=== PATIENT | female | born 1950 | race Caucasian/White ===

== ENCOUNTER 2016-03-28 04:07 | Emergency (ER) | payer MEDICARE, OTHER ==
[~2016-03-28] VITALS: Ht 177.8 cm; Wt 101.6 kg
[~2016-03-28 04:07] MED LIST: ALPR-557 PO; ALPR.25T PO; ALPR.5T PO; ALPR0.2550; ALPR0.5T PO; ALPR0.5T7 PO; AMIO200T10 PO; AMIO400T5 PO; AML5T PO; AMLO5TAB2; AMLO5TAB2 PO; AMOX-358 PO; APIX5TAB2 PO; ASP325T; ASP325T PO; ASP325TEC PO; ASP81TEC PO; CHLO25TA22 PO; CIPR500T78 PO; CITA20TA4 PO; CLC500CT PO; DABI150C PO; DEXL60CA PO; DEXL60CA5 PO; DIGO250T PO; DIGO250T15 PO; DILT120C PO; DILT120C17; DILT180T7 PO; DILT240C PO; DILT240T PO; DILT360C26; DILT60TA PO; DILT60TA30 PO; DLT60T PO; Diltiazem Hcl PO; ENXP100I SC; FLC100T; FLEC100T2 PO; FLEC50TA18 PO; FLEC50TA2 PO; HCTZ12.5T PO; HYDR-3816 PO; HYDR12.56 PO; HYDR12.570; HYDR25TA4 PO; ISM60TCR PO; ISOS60TA3 PO; LACT1CAP62 PO; LEVA15HF2 IH; LEVO500T2 PO; LEVO500T69 PO; LEVO500T80 PO; LEVO75TA PO; LEVO75TA57 PO; LEVO75TA6 PO; LISI20TA PO; LORA-794 PO; LORA0.5T PO; LORA10TA7 PO; LOSA100T7 PO; LOSA50TA36 PO; LOSA50TA6 PO; LVT.05T PO; MAGN400T6 PO; MELO-195; NF-XOP-HFA IH; NF-XOP-HFA INH; OLME40TA14; OLME40TA14 PO; OMEP-10; OMEP-10 PO; OMEPRAZOLE; ONDAN4ODT PO; PHEN200T27 PO; POLY17PO23 GT; POLY1DRO2 OD; PRILOSEC; PROP120C3 PO; PROP20TA23; PROP20TA23 PO; PROP20TA5 PO; PROP225T PO; PROP40TA5 PO; PROP60TA16; PROP60TA16 PO; RANI-515 PO; SOTA120T PO; SOTA80TA PO; Sotalol Hcl PO; TRAM-21 PO; WARF10TA4 PO; WARF7.5T5 PO; WRF10T; WRF10T PO; WRF5T PO; [UNRECOGNIZED DRUG - OTHER] PO
--- OUTSIDE RECORDS SUMMARY | 2016-03-28 04:14 | XMS REPORT | Continuity of Care Document ---
Author Author [facility] Organization [facility] Address Unknown Phone Unavailable Care Team Providers Care Music Publisher Name Role Phone Stephan Harris PCP [phone] Source Comments Some departments are not documenting in the electronic medical record. If you do not see the information that you expected, contact Release of Information in the Health Information Management department at [phone] for further assistance in locating additional records.[facility] Active Allergies and Adverse Reactions Allergen Noted Date Severity Reactions Comments Codeine 11/01/2009 UNKNOWN Upset stomach Demerol 11/01/2009 SEE COMMENTS Double vision Keflex 11/01/2009 SHORTNESS OF BREATH Multaq 11/01/2009 NAUSEA AND VOMITING Other 11/01/2009 EDEMA Pecans Tekturna 11/01/2009 NAUSEA AND VOMITING Current Medications Prescription Sig. Disp. Refills Start End Date Status Date Dexlansoprazole Take 60 mg by mouth Active (DEXILANT) 60 mg PO CpDM Daily. ALPRAZolam (XANAX) 0.5 mg Take 0.25 mg by mouth Active PO tablet daily. Levalbuterol Tartrate 1-2 puffs up to three 1 Inhaler 12 03/15/20 Active (XOPENEX HFA) 45 times daily if needed. 11 mcg/Actuation inhaler olmesartan(+) (BENICAR) Take 40 mg by mouth Active 40 mg tablet daily. diltiazem CD (CARDIZEM Take 180 mg by mouth Active CD) 180 mg capsule daily. sotalol (BETAPACE) 120 mg Take 160 mg by mouth Active tab twice daily. ELIQUIS 5 mg tab tablet TAKE ONE TABLET BY MOUTH 180 Tab 3 07/11/19 Active TWICE DAILY 16 Active Problems Problem Noted Date Pseudoaneurysm (HCC) 08/27/2013 Overview: Right Groin: small in size. Resolved, continue to monitor. Screening for cardiovascular condition 06/28/2013 Overview: 06/23/13 Lexiscan stress test at [facility]- Breast attenuation w/ mild ischemia involving basal to mid anterior wall, anterior septum, fixed defect at anterior apex and anterior lateral wall. Normal LV size w/ good contractility. EF 63%- Reviewed by MPE. Hypothyroidism 03/15/2011 Last Assessment & Plan: Given an order to have TSH obtained to reassess. Obesity (BMI 30-39.9) 03/15/2011 Last Assessment & Plan: Encourage to exercise at least 20 minutes three times a week. Refusal of blood transfusions as patient is Mu-ism 03/14/2011 Hypertension 11/01/2009 Overview: At her 06/16/13 OV, she was experiencing BOWER. I anticipated this was related to accelerated HTN with exercise. Another Possibility was chronotropic incompetence with exercise. We started by trying to improve her BP management. She was currently on an ARB, HCTZ, Diltiazem. We switched her HCTZ to chlorthalidone. Apparently she had some intolerance to Chlorthalidone. She discussed this with her PMD who switched her back to HCTZ. Still having increased BP we initiated Imdur. Unfortunately she developed a nearly incapacitating Head Ache with bilateral arm pain to the point of presenting to the ED. Her Sxs were relieved by Toradol and her Imdur was discontinued at that time. L ast Assessment & Plan: Continues to be poorly controlled. Could be a contributing factor to her dyspnea. History of cardiac catheterization 11/01/2009 Overview: 1. 04/2005-Cath by Dr. Alonzo-LAD tapers to small vessel with questionable ctpeyrgch-17-49% plaque in the mid segment, no obstructive disease. 2. 08/01/09-Exercise Stress Test: Poor exercise tolerance achieving 4.6 METs and 95% of maximum HR. Atrial Fibrillation. Nondiagnostic ECG. Severe HTN with exercise. EF 60%. --2011 (?) Cardiac Cath. By Dr. Luciano in [place], [place]. Reportedly nonobstructive disease. L ast Assessment & Plan: History of non-obstructive CAD per cath. If her symptoms of dyspnea continue to persist despite optimal blood pressure control, recommend exercise echocardiogram to evaluate for ischemia or worsening LV function. Anxiety 11/01/2009 GERD (gastroesophageal reflux disease) 11/01/2009 Atrial fibrillation (HCC) Overview: ULISES at [facility] by 04/19/13 Negative for LA and YONNY thrombus, LA dilated, YONNY dilated, LV normal, estimated EF 60%, RA and RV normal, no intra atrial shunt noted, MV normal, mild MV regurg, AV normal, TV and PV normal 11/20/2010 - Started on Zoloft 25 mg PO QHS PRN anxiety. 07/16/2010 - Progress Note from Dr. Stephan Harris DO. In the document, the physician states thept c/o occasional palpitations in her chest. And she has a device to record the episodes "howevere is unable to activate it by the time the palpitations occur because they are short-lived". Coumadin therapy 10/16/09-ULISES/Cardioversion: EF 60%. Mild mitral regurgitation. Successful cardioversion. 10/01/09-Holter Monitor: Afib throughout the study. Average ventricular rate 86 bpm, with ventricular rate up to 144 bpm with exertion. No significant bradycardia. 09/06/09-ULISES/Cardioversion: EF 60%. Successful Cardioversion. Initial episode of Atrial Fibrillation in the - converted on her own 05/04/14: Successful DCCV at [facility] in [place] May 2010 - atrial fibrillation ablation 08/2012 - presented to the ED in Atrial fibrillation - converted on cardizem, continues to take Amiodarone 02/16/13 Echo: Normal LV size and systolic function. Estimated EF 50%. Mildly dilated LA. Mild mitral and tricuspid regurgitation. Estimated PAP of 30mmHg. 04/19/13 ULISES: normal LV size and systolic function; estimated EF 60%; Dilated LA and YONNY; no clot or thrombus seen within the LA or YONNY. Mild mitral and tricuspid regurgitation. 08/17/13 CCTA: There is mild hypertrophy of the left ventricular septum. 2. The left atrial appendage may contain significant thrombus. 3. There is evidence of coronary artery calcification suggestive of underlying coronary artery disease. This study was not optimized for detailed interrogation of the coronary arteries. 4. There is mild dilation of ascending thoracic aorta. 5. There is mild dilation of the main pulmonary artery. 6. The atria are moderately dilated. 7. There are mild decreases in pulmonary vein ostial area on the present study when compared to the prior study of April 20, 2013. However the left atrium is correspondingly smaller on the present study compared to the prior which may account for the smaller pulmonary vein measurements on the present study. 8. There appears to be no evidence of significant pulmonary vein stenosis both by visual qualitative examination as well as by quantitative measurement when the changes in left atrial volume are taken into account. Accordingly this study does not suggest the presence of significant pulmonary vein stenosis. 9. Noncardiac findings are reported separately by radiology. L ast Assessment & Plan: Unfortunately, despite being on amiodarone, she has had recurrence. Because she does not have insurance, pursing repeat ablation is not an option at this time. PFTs were obtained last week and demonstrated a minimal obstructive lung defect with no other abnormalities. She continues to be off of anticoagulation. Her CHADS2 score continues to be 1. She will continue full dose aspirin. Sleep apnea Overview: CPAP L ast Assessment & Plan: States she is compliant with therapy. Dyspnea Overview: Started within the last 2 weeks, has noticed since being on Amiodarone L ast Assessment & Plan: Continues to complain of dyspnea. PFTs and chest xray were without any significant abnormalities. May have some chronotropic incompetence - instructed to decrease propanolol to 40 mg daily and see if this improves symptoms. If no symptomatic improvement, she will restart as she also take propanolol for migraine and tremor control. 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
[2016-03-28] MEDS ORDERED: ASPIRIN 81 MG CHEW (CHILDREN'S ASA) PO ONE (04:30)
[2016-03-28 04:35] LABS: BASOPHILS % (AUTO) 1 % (0-10); EOSINOPHILS # (AUTO) 0.2 10^3/uL (0.0-0.3); EOSINOPHILS % (AUTO) 2 % (0-10); LYMPHOCYTES # (AUTO) 3.1 X 10^3 (1.0-4.0); LYMPHOCYTES % (AUTO) 40 % (12-44); MEAN CORPUSCULAR HEMOGLOBIN 30 PG (25-34); MEAN CORPUSCULAR HGB CONC 33 G/DL (32-36); MEAN CORPUSCULAR VOLUME 93 FL (80-99); MEAN PLATELET VOLUME 10.8 FL (7.4-10.4); MONOCYTES # (AUTO) 0.7 X 10^3 (0.0-1.0); MONOCYTES % (AUTO) 9 % (0-12); NEUTROPHILS # (AUTO) 3.7 X 10^3 (1.8-7.8); NEUTROPHILS % (AUTO) 48 % (42-75); PLATELET COUNT 188 10^3/uL (130-400); RED BLOOD COUNT 4.49 10^6/uL (4.35-5.85); RED CELL DISTRIBUTION WIDTH 13.9 % (10.0-14.5); WHITE BLOOD COUNT 7.8 10^3/uL (4.3-11.0)
[2016-03-28 04:40] LABS: INR 1.2 (0.8-1.4); PROTHROMBIN TIME PATIENT 14.5 SEC (12.2-14.7)
[2016-03-28] MEDS ORDERED: LORazepam INJ 2 MG/ML (ATIVAN) VIAL IVP ONE (04:45)
[2016-03-28 04:50] LABS: ALANINE AMINOTRANSFERASE 24 U/L (0-55); ALBUMIN 4.4 G/DL (3.2-4.5); ANION GAP 10 MMOL/L (5-14); ASPARTATE AMINO TRANSFERASE 22 U/L (5-34); BILIRUBIN,TOTAL 0.5 MG/DL (0.1-1.0); BLOOD UREA NITROGEN 16 MG/DL (7-18); BUN/CREATININE RATIO 21; CALCIUM 9.1 MG/DL (8.5-10.1); CARBON DIOXIDE 24 MMOL/L (21-32); CHLORIDE 105 MMOL/L (98-107); CREATININE SERUM 0.75 MG/DL (0.60-1.30); GFR ESTIMATED > 60; GLUCOSE 89 MG/DL (70-105); MAGNESIUM 2.5 MG/DL (1.8-2.4); POTASSIUM 3.7 MMOL/L (3.6-5.0); SODIUM 139 MMOL/L (135-145); TOTAL PROTEIN 7.6 G/DL (6.4-8.2)
[2016-03-28 04:59] LABS: MYOGLOBIN SERUM 30.2 NG/ML (10.0-92.0)
[2016-03-28 05:16] LABS: BILIRUBIN,URINE NEGATIVE (NEGATIVE); KETONES,URINE NEGATIVE (NEGATIVE); LEUKOCYTE ESTERASE ,URINE 1+ (NEGATIVE); NITRITE,URINE NEGATIVE (NEGATIVE); PH,URINE 7 (5-9); PROTEIN,URINE NEGATIVE (NEGATIVE); UROBILINOGEN,URINE NORMAL (NORMAL)
[2016-03-28 05:21] LABS: SQUAMOUS EPITHELIAL CELL,UR 0-2 /HPF; WBC,URINE 0-2 /HPF
[2016-03-28 05:41] LABS: THYROID STIMULATING HORMONE 1.96 UIU/ML (0.35-4.94)
--- NOTE | 2016-03-28 06:24 | Diagnostic Imaging Report ---
INDICATION: Palpitations. TECHNIQUE: Single view chest 5:29 AM. CORRELATION STUDY: 07/19/2015 FINDINGS: Electronic device over left heart border. Heart size is borderline but stable. Vasculature within normal limits. Lungs are clear. Unchanged asymmetric elevation of the right hemidiaphragm. IMPRESSION: 1. Stable chest demonstrates no acute abnormality. Dictated by: Dictated on workstation # [id number]
--- NOTE | 2016-03-28 06:54 | ED Cardiac General ---
History of Present Illness General Chief Complaint: Cardiac/General Problems Stated Complaint: SOB,HIGH BLOOD PRESSURE,PALPITATIONS Nursing Triage Note: PT REPORTS SHE HAS HAD INCREASED PALPITATIONS RECENTLY, WORSE AT 2200 LAST NIGHT. SHE TOOK HER BP ET WAS HYPERTENSIVE. SHE ALSO C/O SOA. Source: patient, old records Exam Limitations: no limitations History of Present Illness Time seen by provider: 04:15 Initial Comments This 65-year-old woman with history of chronic atrial fibrillation presents to the emergency room complaining of palpitations and some mild chest discomfort. Symptoms started around 22:00 last night. She reports her heart was "flipping" and she became short of air. She reports her blood pressure at home was 183/ 112 at 03:00. She admits to problems with compliance with her medications. She believes she forgot this evening's Cardizem. She has been treated for UTI recently and complains of urinary odor even after taking antibiotics. She denies any chest pain at present but has had some chest pains over the last few weeks. Review of her chart reveals a heart catheter in 2013 noting mild to moderate LAD disease. Patient already has a follow-up appointment scheduled with Dr. Luciano. Allergies and Home Medications Allergies Coded Allergies: flecainide (Verified Allergy, Severe, 06/16/14) warfarin (Verified Allergy, Severe, 06/16/14) aliskiren (Unverified Allergy, Unknown, 06/16/14) cephalexin (Verified Allergy, Unknown, 06/16/14) codeine (Verified Allergy, Unknown, 06/16/14) dronedarone HCl (Unverified Allergy, Unknown, 06/16/14) Home Medications Alprazolam 0.5 Mg Tablet 0.5 MG PO HS (Reported) Apixaban 5 Mg Tablet 5 MG PO 0000,1200 (Reported) Diltiazem HCl 60 Mg Tablet 60 MG PO QID (Reported) Levalbuterol Tartrate 15 Gm Aer.w.adap 2 PUFF IH QID PRN PRN SHORTNESS OF BREATH (Reported) Levothyroxine Sodium 75 Mcg Tablet 75 MCG PO DAILY (Reported) Losartan Potassium 50 Mg Tablet 50 MG PO 1730 (Reported) Propranolol HCl 20 Mg Tablet 10 MG PO 0730,1730,2230 (Reported) TAKES 1/2 (10MG) TABLET Review of Systems Constitutional: no symptoms reported EENTM: No Symptoms Reported Respiratory: See HPI Cardiovascular: See HPI Gastrointestinal: No Symptoms Reported Genitourinary: See HPI Musculoskeletal: no symptoms reported Skin: no symptoms reported Psychiatric/Neurological: No Symptoms Reported Endocrine: No Symptoms Reported Past Igkyhzy-Tothyf-Fiawjn Hx Patient Social History Alcohol Use: Denies Use Recreational Drug Use: No Smoking Status: Never a Smoker Recent Foreign Travel: No Contact w/Someone Who Travel: No Recent Infectious Disease Expo: No Recent Hopitalizations: Yes Physical Abuse Screen: No Sexual Abuse: No Immunizations Up To Date Tetanus Booster (TDap): Unknown Seasonal Allergies Seasonal Allergies: Yes Surgeries HX Surgeries: Yes (HAS A LINQ READER UNDER SKIN (TO MONITER HEART RHYTHM) ) Surgeries: Amputation, Gallbladder, Hysterectomy, Orthopedic Respiratory Hx Respiratory Disorders: Yes (CPAP AT HS) Respiratory Disorders: Asthma, Chronic Bronchitis, Sleep Apnea, COPD Cardiovascular Hx Cardiac Disorders: Yes (FAILED CARDIAC ABLATION X 2; MULTIPLE CARDIOVERSIONS ; LINQ MONIT) Cardiac Disorders: Atrial Fibrillation, Chronic Edema/Swelling, Coronary Artery Disease, Hypertension Neurological Hx Neurological Disorders: No Reproductive System Hx Reproductive Disorders: No Genitourinary Hx Genitourinary Disorders: No Gastrointestinal Hx Gastrointestinal Disorders: Yes Gastrointestinal Disorders: Gastroesophageal Reflux Musculoskeletal Hx Musculoskeletal Disorders: No Endocrine Hx Endocrine Disorders: Yes (HYPOGLYCEMIC) Endocrine Disorders: Hypothyroidsim HEENT HX ENT Disorders: 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; GLASSES) Cancer Hx Cancer: No Psychosocial Hx Psychiatric Problems: Yes Behavioral Health Disorders: Anxiety, Depression Integumentary HX Skin/Integumentary Disorder: No Blood Transfusions Hx Blood Disorders: No (PATIENT IS JEHOVAH WITNESS) Family Medical History Significant Family History: CAD Under 55 Years Old, CAD Over 55 Years Old Family Medial History: COPD, EMPHYSEMA 19 FATHER COPD, EMPHYSEMA 19 FATHER Cardiovascular disease 19 FATHER 19 MOTHER (VT) G8 BROTHER (VT) Completed stroke G8 SISTER Hypertension 19 MOTHER Neoplasm G8 BROTHER (LYMPHOMA) Physical Exam Vital Signs Capillary Refill : Less Than 3 Seconds General Appearance: No Apparent Distress WD/WN HEENT: PERRL/EOMI Normal ENT Inspection Neck: Normal Inspection Respiratory: Lungs Clear Normal Breath Sounds No Accessory Muscle Use No Respiratory Distress Cardiovascular: No Edema No Murmur Irregularly Irregular Gastrointestinal: Normal Bowel Sounds Non Tender Soft Extremity: Normal Inspection No Pedal Edema Neurologic/Psychiatric: Alert Oriented x3 No Motor/Sensory Deficits Normal Mood/Affect head of sales II-XII Norm as Tested Skin: Normal Color Warm/Dry Progress/Results/Core Measures Results/Orders Lab Results Laboratory Tests Test 03/28/16 04:20 03/28/16 04:55 Range/Units Activated Partial Thromboplast Time 28 24-35 SEC Alanine Aminotransferase (ALT/SGPT) 24 0-55 U/L Albumin 4.4 3.2-4.5 G/DL Alkaline Phosphatase 78 40-136 U/L Anion Gap 10 5-14 MMOL/L Aspartate Amino Transf (AST/SGOT) 22 5-34 U/L BUN/Creatinine Ratio 21 Basophils # (Auto) 0.0 0.0-0.1 10^3/uL Basophils (%) (Auto) 1 0-10 % Blood Urea Nitrogen 16 7-18 MG/DL Calcium Level 9.1 8.5-10.1 MG/DL Carbon Dioxide Level 24 21-32 MMOL/L Chloride Level 105 98-107 MMOL/L Creatinine 0.75 0.60-1.30 MG/DL Eosinophils # (Auto) 0.2 0.0-0.3 10^3/uL Eosinophils (%) (Auto) 2 0-10 % Estimat Glomerular Filtration Rate > 60 Free Thyroxine 1.13 0.70-1.48 NG/DL Glucose Level 89 70-105 MG/DL Hematocrit 42 35-52 % Hemoglobin 13.6 11.5-16.0 G/DL INR Comment 1.2 0.8-1.4 Lymphocytes # (Auto) 3.1 1.0-4.0 X 10^3 Lymphocytes (%) (Auto) 40 12-44 % Magnesium Level 2.5 H 1.8-2.4 MG/DL Mean Corpuscular Hemoglobin 30 25-34 PG Mean Corpuscular Hemoglobin Concent 33 32-36 G/DL Mean Corpuscular Volume 93 80-99 FL Mean Platelet Volume 10.8 H 7.4-10.4 FL Monocytes # (Auto) 0.7 0.0-1.0 X 10^3 Monocytes (%) (Auto) 9 0-12 % Myoglobin 30.2 10.0-92.0 NG/ML Neutrophils # (Auto) 3.7 1.8-7.8 X 10^3 Neutrophils (%) (Auto) 48 42-75 % Platelet Count 188 130-400 10^3/uL Potassium Level 3.7 3.6-5.0 MMOL/L Prothrombin Time 14.5 12.2-14.7 SEC Red Blood Count 4.49 4.35-5.85 10^6/uL Red Cell Distribution Width 13.9 10.0-14.5 % Sodium Level 139 135-145 MMOL/L Thyroid Stimulating Hormone (TSH) 1.96 0.35-4.94 UIU/ML Total Bilirubin 0.5 0.1-1.0 MG/DL Total Protein 7.6 6.4-8.2 G/DL Troponin I < 0.30 <0.30 NG/ML White Blood Count 7.8 4.3-11.0 10^3/uL Urine Bacteria TRACE /HPF Urine Bilirubin NEGATIVE NEGATIVE Urine Casts NONE /LPF Urine Clarity CLEAR Urine Color YELLOW Urine Crystals NONE /LPF Urine Culture Indicated NO Urine Glucose (UA) NEGATIVE NEGATIVE Urine Ketones NEGATIVE NEGATIVE Urine Leukocyte Esterase 1+ H NEGATIVE Urine Mucus NEGATIVE /LPF Urine Nitrite NEGATIVE NEGATIVE Urine Protein NEGATIVE NEGATIVE Urine RBC NONE /HPF Urine RBC (Auto) NEGATIVE NEGATIVE Urine Specific Broad Top 1.010 L 1.016-1.022 Urine Squamous Epithelial Cells 0-2 /HPF Urine Urobilinogen NORMAL NORMAL MG/DL Urine WBC 0-2 /HPF Urine pH 7 5-9 My Orders Orders-RENALDO CARREON MD Cbc With Automated Diff (03/28/16 04:23) Magnesium (03/28/16 04:23) Chest 1 View, Ap/Pa Only (03/28/16 04:23) Ekg Tracing (03/28/16 04:23) Cardiac Profile 1 (03/28/16 04:23) Comprehensive Metabolic Panel (03/28/16 04:23) Myoglobin Serum (03/28/16 04:23) Protime With Inr (03/28/16 04:23) Partial Thromboplastin Time (03/28/16 04:23) O2 (03/28/16 04:23) Monitor-Rhythm Ecg Trace Only (03/28/16 04:23) Aspirin Chewable Tablet (Baby Aspirin Ch (03/28/16 04:30) Saline Lock/Iv-Start (03/28/16 04:23) Thyroid Stimulating Hormone (03/28/16 04:39) Free T4 (Free Thyroxine) (03/28/16 04:39) Ua Culture If Indicated (03/28/16 04:40) Lorazepam Injection (Ativan Injection) (03/28/16 04:45) Medications Given in ED Vital Signs/I&O Blood Pressure Mean: 146 Progress Note : Progress Note Aspirin had been administered during assessment. Patient was given Ativan which helped improve her symptoms. She did appear anxious. ECG Initial ECG Impression Date: Mar 28, 2016 Initial ECG Impression Time: 04:15 Initial ECG Rate: 98 Initial ECG Rhythm: A Fib/Flutter Comment Rate controlled atrial fibrillation with no acute ST changes. Diagnostic Imaging Diagonstic Imaging: Xray Plain Films/CT/US/NM/MRI: chest Comments Chest x-ray viewed by me. Report not yet available. No acute abnormalities appreciated. Departure Impression Impression: Primary Impression: Atrial fibrillation Qualified Code: I48.2 - Chronic atrial fibrillation Additional Impressions: Palpitations Chest pain Qualified Code: R07.9 - Chest pain, unspecified Disposition: 01 HOME, SELF-CARE Condition: Improved Departure-Patient Inst. Decision time for Depature: 06:45 Referrals: EZRA YAN DO (PCP/Family) Primary Care Physician Patient Instructions: Atrial Fibrillation (DC) Add. Discharge Instructions: Continue your medications as prescribed. Follow-up with Dr. Luciano in the office on your previously scheduled appointment time, or call his office for an earlier appointment. Return to the ER if symptoms worsen. All discharge instructions reviewed with patient and/or family. Voiced understanding. RENALDO CARREON MD Mar 28, 2016 06:54 RENALDO CARREON MD Mar 28, 2016 06:54
[2016-03-28 07:09] VITALS: BP 145/95
== END 2016-03-28 07:09 | disposition home or self-care (01) ==
LOC: EDUNIT# 04:07 → ER 04:09
DX: I48.2 Chronic atrial fibrillation (principal); R00.2 Palpitations; R07.9 Chest pain, unspecified; I10 Essential (primary) hypertension; J44.9 Chronic obstructive pulmonary disease, unspecified; Z79.01 Long term (current) use of anticoagulants; Z79.899 Other long term (current) drug therapy
CPT/HCPCS: 36415; 71010; 80053; 81000; 83735; 83874; 84439; 84443; 84484; 85025; 85610; 85730; 93005; 93041; 96374

== ENCOUNTER → 2016-11-28 | Outpatient (CLI) | payer MEDICARE, OTHER ==
--- NOTE | 2016-11-28 08:44 | Diagnostic Imaging Report ---
PROCEDURE: CT head and CT cervical spine without contrast. TECHNIQUE: Multiple contiguous axial images were obtained through the brain and cervical spine without the use of intravenous contrast. Sagittal and coronal reformations through the cervical spine were then performed. INDICATION: Trauma to head. Neck pain. COMPARISON: 06/29/2015 FINDINGS: CT head: Ventricles and cortical sulci are normal in size and contour. There is no midline shift or mass-effect. No acute intra-axial hemorrhage is seen. There are no abnormal areas of increased or decreased density to suggest acute hemorrhage or edema. No extra-axial masses or collections are present. The bony calvarium is intact. The visualized paranasal sinuses are unremarkable. The mastoid air cells are clear. CT CERVICAL SPINE: Evaluation of static alignment demonstrates straightening with mild reversal of normal lordotic curvature epicentered at the C5 level. This, however, may be related to positioning and/or spasm. There is no significant anterolisthesis or retrolisthesis. There is no evidence of jumped facets. Vertebral body heights are maintained. There is no evidence acute fracture. No bony fragments are seen within the spinal canal. There are multilevel degenerative changes consisting of intervertebral disc height loss with anterior posterior disc osteophyte complex formations. These changes are greatest at the C4-C5 through the C6-C7 levels. Pre-and paravertebral soft tissue structures are unremarkable. Included portions of the lung apices show no additional acute abnormalities. IMPRESSION: 1. No acute intracranial abnormality. No CT evidence of mass, acute infarct or intracranial hemorrhage. 2. No CT evidence of acute fracture or dislocation of cervical spine. 3. Moderate degenerative changes of the cervical spine, greatest at the C4-C5 through C6-C7 levels. Dictated by: Dictated on workstation # [id number]
== END ==
LOC: RAD 08:14
PROVIDERS: ATTEND Family Medicine
DX: M47.812 Spondylosis without myelopathy or radiculopathy, cervical region (principal); R51 Headache
CPT/HCPCS: 70450; 72125

== ENCOUNTER → 2017-02-11 | Outpatient (CLI) | payer MEDICARE, OTHER ==
[2017-02-11 09:44] LABS: ALANINE AMINOTRANSFERASE 20 U/L (0-55); ANION GAP 10 MMOL/L (5-14); ASPARTATE AMINO TRANSFERASE 19 U/L (5-34); BILIRUBIN,TOTAL 0.8 MG/DL (0.1-1.0); BLOOD UREA NITROGEN 13 MG/DL (7-18); BUN/CREATININE RATIO 17; CALCIUM 9.3 MG/DL (8.5-10.1); CARBON DIOXIDE 26 MMOL/L (21-32); CHLORIDE 106 MMOL/L (98-107); CHOLESTEROL 200 MG/DL (< 200); CREATININE SERUM 0.77 MG/DL (0.60-1.30); DIRECT LDL 134 MG/DL (1-129); GFR ESTIMATED > 60; GLUCOSE 88 MG/DL (70-105); POTASSIUM 4.2 MMOL/L (3.6-5.0); SODIUM 142 MMOL/L (135-145); TOTAL PROTEIN 7.5 GM/DL (6.4-8.2); TRIGLYCERIDES 51 MG/DL (<150); VLDL CHOLESTEROL 10 MG/DL (5-40)
[2017-02-11 10:04] LABS: THYROID STIMULATING HORMONE 1.17 UIU/ML (0.35-4.94)
== END ==
LOC: LAB 08:56
PROVIDERS: ATTEND Physician Assistant
DX: E03.8 Other specified hypothyroidism (principal); E78.2 Mixed hyperlipidemia; I25.10 Atherosclerotic heart disease of native coronary artery without angina pectoris; I10 Essential (primary) hypertension; J42 Unspecified chronic bronchitis; E04.1 Nontoxic single thyroid nodule; E03.9 Hypothyroidism, unspecified
CPT/HCPCS: 36415; 80053; 80061; 84439; 84443

== ENCOUNTER 2017-04-02 04:59 | Emergency (ER) | payer MEDICARE, OTHER ==
[~2017-04-02] VITALS: Ht 177.8 cm; Wt 95.3 kg
[2017-04-02 05:43] LABS: BASOPHILS % (AUTO) 1 % (0-10); EOSINOPHILS # (AUTO) 0.2 10^3/uL (0.0-0.3); EOSINOPHILS % (AUTO) 2 % (0-10); HEMATOCRIT 37 % (35-52); HEMOGLOBIN 12.3 G/DL (11.5-16.0); LYMPHOCYTES # (AUTO) 2.8 X 10^3 (1.0-4.0); LYMPHOCYTES % (AUTO) 41 % (12-44); MEAN CORPUSCULAR HEMOGLOBIN 32 PG (25-34); MEAN CORPUSCULAR HGB CONC 34 G/DL (32-36); MEAN CORPUSCULAR VOLUME 94 FL (80-99); MEAN PLATELET VOLUME 10.8 FL (7.4-10.4); MONOCYTES # (AUTO) 0.5 X 10^3 (0.0-1.0); MONOCYTES % (AUTO) 8 % (0-12); NEUTROPHILS # (AUTO) 3.3 X 10^3 (1.8-7.8); NEUTROPHILS % (AUTO) 48 % (42-75); PLATELET COUNT 181 10^3/uL (130-400); RED CELL DISTRIBUTION WIDTH 13.4 % (10.0-14.5); WHITE BLOOD COUNT 6.8 10^3/uL (4.3-11.0)
[2017-04-02 05:56] LABS: INR 1.2 (0.8-1.4); PROTHROMBIN TIME PATIENT 15.2 SEC (12.2-14.7)
--- NOTE | 2017-04-02 05:57 | ED Chest Pain ---
General Chief Complaint: Respiratory Problems Stated Complaint: SOB Nursing Triage Note: PT TO ED 10 W/ C/O SOB ONSET LAST . REPORTS SHE USES AN INHALER ET IF SHE WAITS TOO LONG TO USE IT, WHEN SHE DOES, IT MAKES HER SYMPTOMS WORSE. PT REPORTS SHE DID THAT TWICE THIS AM. DENIES CP, N/V. DOES REPORT SOME DIZZINESS BUT STATES IT'S R/T WHEN SHE FELL LAST OCTOBER ET HER CHRONIC HEAD ET NECK PAIN. NO OTHER C/O VOICED Nursing Sepsis Screen: No Definite Risk Source: patient, old records Exam Limitations: no limitations History of Present Illness Time seen by provider: 05:05 Initial Comments This 66-year-old woman presents to the emergency room with complaints of dyspnea worsening over the past few weeks. Last night she had a significant episode of dyspnea that was more severe. She felt like she could not breathe. She also reports sleeping on 3 pillows last night to be comfortable. She used her inhaler twice which initially made her breathing worse but then eventually did improve it. She has had a dry cough and some postnasal drainage. Around 04 :10 she developed pain under her left breast. That pain is now gone. She does have a history of atrial fibrillation and coronary artery disease. Her last cardiac catheter was in 2013 and showed mild to moderate LAD disease with no obstruction. She had an echocardiogram this summer of 2015 showing an EF of 50 percent. She denies any fever. She has had some increased lower extremity swelling which she attributes to her diet. Allergies and Home Medications Allergies Coded Allergies: flecainide (Verified Allergy, Severe, 06/16/14) warfarin (Verified Allergy, Severe, 06/16/14) aliskiren (Unverified Allergy, Unknown, 06/16/14) cephalexin (Verified Allergy, Unknown, 06/16/14) codeine (Verified Allergy, Unknown, 06/16/14) dronedarone HCl (Unverified Allergy, Unknown, 06/16/14) Home Medications Alprazolam 0.5 Mg Tablet, 0.5 MG PO HS, (Reported) Apixaban 5 Mg Tablet, 5 MG PO 0000,1200, (Reported) Diltiazem HCl 60 Mg Tablet, 60 MG PO QID, (Reported) Levalbuterol Tartrate 15 Gm Aer.w.adap, 2 PUFF IH QID PRN for SHORTNESS OF BREATH, (Reported) Levothyroxine Sodium 75 Mcg Tablet, 75 MCG PO DAILY, (Reported) Losartan Potassium 50 Mg Tablet, 50 MG PO 1730, (Reported) Propranolol HCl 20 Mg Tablet, 10 MG PO 0730,1730,2230, (Reported) TAKES 1/2 (10MG) TABLET Review of Systems Constitutional: no symptoms reported EENTM: See HPI Respiratory: See HPI Cardiovascular: No Symptoms Reported Gastrointestinal: No Symptoms Reported Genitourinary: No Symptoms Reported Musculoskeletal: no symptoms reported Skin: no symptoms reported Psychiatric/Neurological: No Symptoms Reported Endocrine: No Symptoms Reported Hematologic/Lymphatic: No Symptoms Reported Past Olkrhkz-Lwlxmk-Mnwyhg Hx Patient Social History Alcohol Use: Denies Use Recreational Drug Use: No Smoking Status: Never a Smoker Recent Foreign Travel: No Contact w/Someone Who Travel: No Recent Infectious Disease Expo: No Recent Hopitalizations: Yes Physical Abuse: No Sexual Abuse: No Mistreated: No Fear: No Immunizations Up To Date Tetanus Booster (TDap): Unknown Seasonal Allergies Seasonal Allergies: Yes Surgeries History of Surgeries: Yes (HAS A LINQ READER UNDER SKIN (TO MONITER HEART RHYTHM) ) Surgeries: Amputation, Gallbladder, Hysterectomy, Orthopedic Respiratory History of Respiratory Disorde: Yes (CPAP AT HS) Respiratory Disorders: Asthma, Chronic Bronchitis, Sleep Apnea, COPD Cardiovascular History of Cardiac Disorders: Yes (FAILED CARDIAC ABLATION X 2; MULTIPLE CARDIOVERSIONS; LINQ MONIT) Cardiac Disorders: Atrial Fibrillation, Chronic Edema/Swelling, Coronary Artery Disease, Hypertension Neurological History of Neurological Disord: No Reproductive System Hx Reproductive Disorders: No Gastrointestinal History of Gastrointestinal Di: Yes Gastrointestinal Disorders: Gastroesophageal Reflux Musculoskeletal History of Musculoskeletal Dis: No Endocrine History of Endocrine Disorders: Yes (HYPOGLYCEMIC) Endocrine Disorders: Hypothyroidsim Cancer History of Cancer: No Psychosocial History of Psychiatric Problem: Yes Behavioral Health Disorders: Anxiety, Depression Suicide Risk Score: 0 Integumentary History of Skin or Integumenta: No Blood Transfusions History of Blood Disorders: No (PATIENT IS JEHOVAH WITNESS) Family Medical History Significant Family History: CAD Under 55 Years Old, CAD Over 55 Years Old Family Medial History: COPD, EMPHYSEMA 19 FATHER COPD, EMPHYSEMA 19 FATHER Cardiovascular disease 19 FATHER 19 MOTHER (DC) G8 BROTHER (DC) Completed stroke G8 SISTER Hypertension 19 MOTHER Neoplasm G8 BROTHER (LYMPHOMA) Physical Exam Vital Signs Vital Sign - Last 12Hours 04/02/17 05:04 Temp 97.6 Pulse 83 Resp 20 B/P (MAP) 171/112 (131) Pulse Ox 99 O2 Delivery Room Air Capillary Refill : Less Than 3 Seconds General Appearance: No Apparent Distress, WD/WN HEENT: PERRL/EOMI, TMs Normal, Normal ENT Inspection, Pharyngeal Erythema Neck: Normal Inspection, Supple Respiratory: Lungs Clear, Normal Breath Sounds, No Accessory Muscle Use, No Respiratory Distress Cardiovascular: Regular Rate, Rhythm, No Murmur Gastrointestinal: Normal Bowel Sounds, Non Tender, Soft Extremity: Normal Capillary Refill, Normal Inspection, No Calf Tenderness, Swelling (mild pitting edema equal bilaterally) Neurologic/Psychiatric: Alert, Oriented x3, No Motor/Sensory Deficits, Normal 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, 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 Skin: Normal Color, Warm/Dry Progress/Results/Core Measures Results/Orders Lab Results Laboratory Tests Test 04/02/17 05:34 Range/Units White Blood Count 6.8 4.3-11.0 10^3/uL Red Blood Count 3.90 L 4.35-5.85 10^6/uL Hemoglobin 12.3 11.5-16.0 G/DL Hematocrit 37 35-52 % Mean Corpuscular Volume 94 80-99 FL Mean Corpuscular Hemoglobin 32 25-34 PG Mean Corpuscular Hemoglobin Concent 34 32-36 G/DL Red Cell Distribution Width 13.4 10.0-14.5 % Platelet Count 181 130-400 10^3/uL Mean Platelet Volume 10.8 H 7.4-10.4 FL Neutrophils (%) (Auto) 48 42-75 % Lymphocytes (%) (Auto) 41 12-44 % Monocytes (%) (Auto) 8 0-12 % Eosinophils (%) (Auto) 2 0-10 % Basophils (%) (Auto) 1 0-10 % Neutrophils # (Auto) 3.3 1.8-7.8 X 10^3 Lymphocytes # (Auto) 2.8 1.0-4.0 X 10^3 Monocytes # (Auto) 0.5 0.0-1.0 X 10^3 Eosinophils # (Auto) 0.2 0.0-0.3 10^3/uL Basophils # (Auto) 0.0 0.0-0.1 10^3/uL Prothrombin Time 15.2 H 12.2-14.7 SEC INR Comment 1.2 0.8-1.4 Activated Partial Thromboplast Time 30 24-35 SEC Sodium Level 141 135-145 MMOL/L Potassium Level 3.9 3.6-5.0 MMOL/L Chloride Level 106 98-107 MMOL/L Carbon Dioxide Level 24 21-32 MMOL/L Anion Gap 11 5-14 MMOL/L Blood Urea Nitrogen 15 7-18 MG/DL Creatinine 0.73 0.60-1.30 MG/DL Estimat Glomerular Filtration Rate > 60 BUN/Creatinine Ratio 21 Glucose Level 89 70-105 MG/DL Calcium Level 9.2 8.5-10.1 MG/DL Magnesium Level 2.0 1.8-2.4 MG/DL Total Bilirubin 0.7 0.1-1.0 MG/DL Aspartate Amino Transf (AST/SGOT) 18 5-34 U/L Alanine Aminotransferase (ALT/SGPT) 19 0-55 U/L Alkaline Phosphatase 67 40-136 U/L Myoglobin 38.3 10.0-92.0 NG/ML Troponin I < 0.30 <0.30 NG/ML Total Protein 7.1 6.4-8.2 GM/DL Albumin 3.9 3.2-4.5 GM/DL Micro Results Microbiology 04/02/17 Influenza Types A,B Antigen (MEL) - Final, Complete My Orders Orders - RENALDO CARREON MD Cbc With Automated Diff (04/02/17 05:17) Magnesium (04/02/17 05:17) Ekg Tracing (04/02/17 05:17) Cardiac Profile 1 (04/02/17 05:17) Comprehensive Metabolic Panel (04/02/17 05:17) Myoglobin Serum (04/02/17 05:17) Protime With Inr (04/02/17 05:17) Partial Thromboplastin Time (04/02/17 05:17) O2 (04/02/17 05:17) Monitor-Rhythm Ecg Trace Only (04/02/17 05:17) Lipid Panel (04/03/17 06:00) Saline Lock/Iv-Start (04/02/17 05:17) Chest Pa/Lat (2 View) (04/02/17 05:17) Influenza A And B Antigens (04/02/17 05:17) Vital Signs/I&O Vital Sign - Last 12Hours 04/02/17 05:04 Temp 97.6 Pulse 83 Resp 20 B/P (MAP) 171/112 (131) Pulse Ox 99 O2 Delivery Room Air Blood Pressure Mean: 131 Progress Note : Time: 06:49 Progress Note Workup was unremarkable. Patient remained free of chest pain during her ER visit. Her dyspnea improved. Case was reviewed with Dr. Luciano who felt there was no need for admission or 4 hour cardiac rule out as she had no obstruction on her heart catheter in 2013. Patient will be treated for her postnasal symptoms and will follow up with Dr. Luciano on Friday at his request. ECG Initial ECG Impression Date: Apr 02, 2017 Initial ECG Impression Time: 05:29 Initial ECG Rate: 80 Initial ECG Rhythm: A Fib/Flutter Initial ECG Impression: Atrial Fibrillation Comment Atrial fibrillation, rate controlled, with no ST elevation or depression. Diagnostic Imaging Diagonstic Imaging: Xray Plain Films/CT/US/NM/MRI: chest Comments Chest x-ray viewed by me. Report not yet available. No acute abnormalities were appreciated when compared with prior. Departure Impression Impression: Primary Impression: Dyspnea Qualified Codes: R06.00 - Dyspnea, unspecified Additional Impressions: Chest pain Qualified Codes: R07.9 - Chest pain, unspecified Post-nasal drainage Disposition: HOME, SELF-CARE Condition: Improved Departure-Patient Inst. Decision time for Depature: 06:49 Referrals: EZRA YAN DO (PCP/Family) Primary Care Physician Patient Instructions: Chest Pain Add. Discharge Instructions: Continue with your medications as prescribed. Complete your antibiotic as prescribed and use Flonase 2 sprays in each nostril daily for at least 2 weeks. Return to care if symptoms worsen. Follow up with Dr. Luciano on Friday. Call his office today for an appointment time. Use your albuterol inhaler at the first sign of shortness of breath or wheezing. You may have up to 4 total puffs in a 4 hour period of time. All discharge instructions reviewed with patient and/or family. Voiced understanding. Scripts Fluticasone Propionate (Flonase Allergy Relief) 9.9 Ml [place].susp 2 SPRAYS NSEACH DAILY, #1 SPRAY Prov: RENALDO CARREON MD 04/02/17 Azithromycin (Azithromycin) 250 Mg Tablet 250 MG PO UD, #6 TAB TAKE 2 TABLETS ON DAY ONE THEN TAKE 1 TABLET DAILY FOR FOUR MORE DAYS Prov: RENALDO CARREON MD 04/02/17 Copy Copies To 1: MAL LUCIANO MD, JOSHUA T MD Apr 02, 2017 05:57
[2017-04-02 06:06] LABS: ALANINE AMINOTRANSFERASE 19 U/L (0-55); ALBUMIN 3.9 GM/DL (3.2-4.5); ALKALINE PHOSPHATASE 67 U/L (40-136); BILIRUBIN,TOTAL 0.7 MG/DL (0.1-1.0); BUN/CREATININE RATIO 21; CALCIUM 9.2 MG/DL (8.5-10.1); CARBON DIOXIDE 24 MMOL/L (21-32); CHLORIDE 106 MMOL/L (98-107); CREATININE SERUM 0.73 MG/DL (0.60-1.30); GFR ESTIMATED > 60; GLUCOSE 89 MG/DL (70-105); POTASSIUM 3.9 MMOL/L (3.6-5.0); SODIUM 141 MMOL/L (135-145); TOTAL PROTEIN 7.1 GM/DL (6.4-8.2)
[2017-04-02 06:17] LABS: MYOGLOBIN SERUM 38.3 NG/ML (10.0-92.0)
[2017-04-02] MEDS ORDERED: AZIT250T12 PO (06:53)
[2017-04-02] MEDS ORDERED: FLUT9.9S NSEACH (06:53)
[2017-04-02 07:03] VITALS: BP 158/99
--- NOTE | 2017-04-02 07:47 | Diagnostic Imaging Report ---
INDICATION: Shortness of air FINDINGS: Loop recorder overlies the left chest. The lungs clear. The heart and vessels normal. There is no effusion or pneumothorax. IMPRESSION: Negative. Dictated by: Dictated on workstation # [id number]
== END 2017-04-02 07:03 | disposition home or self-care (01) ==
LOC: EDUNIT# 04:59 → ER 05:01
DX: R06.00 Dyspnea, unspecified (principal); R07.9 Chest pain, unspecified; R09.82 Postnasal drip; J45.909 Unspecified asthma, uncomplicated; I10 Essential (primary) hypertension; I48.91 Unspecified atrial fibrillation; I25.10 Atherosclerotic heart disease of native coronary artery without angina pectoris; K21.9 Gastro-esophageal reflux disease without esophagitis; E03.9 Hypothyroidism, unspecified; F41.9 Anxiety disorder, unspecified; F32.9 Major depressive disorder, single episode, unspecified; Z79.01 Long term (current) use of anticoagulants; Z90.710 Acquired absence of both cervix and uterus; Z80.7 Family history of other malignant neoplasms of lymphoid, hematopoietic and related tissues; Z82.49 Family history of ischemic heart disease and other diseases of the circulatory system
CPT/HCPCS: 36415; 71046; 80053; 83735; 83874; 84484; 85025; 85610; 85730; 87804; 93005; 93041

== ENCOUNTER → 2017-05-09 | Outpatient (CLI) | payer MEDICARE, OTHER ==
[~2017-05-09] MED LIST changes: +AZIT250T12 PO; +FLUT9.9S NSEACH; +HYDR-34 PO; -HYDR-3816 PO
--- NOTE | 2017-05-09 10:31 | Diagnostic Imaging Report ---
PROCEDURE: MR imaging cervical spine without contrast. TECHNIQUE: Multiplanar, multisequence MR imaging of the cervical spine was performed without contrast. INDICATION: Cervical spine pain. COMPARISON: No prior studies are available for comparison. FINDINGS: There is straightening of the normal cervical lordotic curvature. The vertebral body marrow signal is normal. No geographic marrow lesion is seen. There is significant degenerative disc disease at C4-C5, C5-C6 and C6-C7 levels, with disc space narrowing and desiccation as well as marginal osteophyte formation. The cervical cord demonstrates normal homogeneous signal intensity and normal morphology. C2-C3: No central canal or neuroforaminal stenosis is identified. C3-C4: Unremarkable. C4-C5: Endplate osteophytes indent the ventral thecal sac but no significant central canal stenosis or neuroforaminal stenosis is seen. C5-C6: Endplate osteophytes indent the ventral thecal sac and produce mkyq-bd-palssqua central canal narrowing. There is also a moderate right neuroforaminal narrowing. C6-C7: Broad-based disc/osteophyte complex indents the ventral thecal sac. Mild central canal narrowing is seen. There is also moderate right neuroforaminal narrowing. C7-T1: Unremarkable. IMPRESSION: Cervical spondylosis with mild central canal and neuroforaminal narrowing described level by level above. Dictated by: Dictated on workstation # [id number]
== END ==
LOC: RAD 08:25
PROVIDERS: ATTEND Family Medicine
DX: M48.02 Spinal stenosis, cervical region (principal); M50.321 Other cervical disc degeneration at C4-C5 level; M47.812 Spondylosis without myelopathy or radiculopathy, cervical region
CPT/HCPCS: 72141

== ENCOUNTER → 2017-08-23 | Outpatient (CLI) | payer MEDICARE, OTHER ==
[~2017-08-23] MED LIST changes: +ACET-2267 PO; +APIX5TAB PO; +CALC300T4 PO; +DILT240C53 PO
== END ==
LOC: LAB 08:46
PROVIDERS: ATTEND Family Medicine
DX: E55.9 Vitamin D deficiency, unspecified (principal); E53.8 Deficiency of other specified B group vitamins; R53.83 Other fatigue; R06.02 Shortness of breath; R61 Generalized hyperhidrosis; M62.81 Muscle weakness (generalized)
CPT/HCPCS: 36415; 82306; 82607

== ENCOUNTER 2017-11-22 09:15 | Emergency (ER) | payer MEDICARE, OTHER ==
[~2017-11-22] VITALS: Ht 177.8 cm; Wt 102.5 kg
[~2017-11-22 09:15] MED LIST changes: -LOSA50TA36 PO; +LOSA50TA7 PO
[2017-11-22 10:06] LABS: BASOPHILS % (AUTO) 1 % (0-10); EOSINOPHILS # (AUTO) 0.2 10^3/uL (0.0-0.3); EOSINOPHILS % (AUTO) 3 % (0-10); HEMATOCRIT 36 % (35-52); HEMOGLOBIN 12.1 G/DL (11.5-16.0); LYMPHOCYTES % (AUTO) 37 % (12-44); MEAN CORPUSCULAR HEMOGLOBIN 31 PG (25-34); MEAN CORPUSCULAR HGB CONC 34 G/DL (32-36); MEAN CORPUSCULAR VOLUME 93 FL (80-99); MEAN PLATELET VOLUME 11.1 FL (7.4-10.4); MONOCYTES # (AUTO) 0.6 X 10^3 (0.0-1.0); MONOCYTES % (AUTO) 11 % (0-12); NEUTROPHILS # (AUTO) 2.7 X 10^3 (1.8-7.8); NEUTROPHILS % (AUTO) 49 % (42-75); PLATELET COUNT 174 10^3/uL (130-400); RED BLOOD COUNT 3.86 10^6/uL (4.35-5.85); RED CELL DISTRIBUTION WIDTH 13.3 % (10.0-14.5); WHITE BLOOD COUNT 5.5 10^3/uL (4.3-11.0)
[2017-11-22 10:20] LABS: BILIRUBIN,URINE NEGATIVE (NEGATIVE); CLARITY,URINE CLEAR; COLOR,URINE YELLOW; GLUCOSE, URINE (UA) NEGATIVE (NEGATIVE); KETONES,URINE NEGATIVE (NEGATIVE); LEUKOCYTE ESTERASE ,URINE 1+ (NEGATIVE); NITRITE,URINE NEGATIVE (NEGATIVE); PH,URINE 5 (5-9); PROTEIN,URINE NEGATIVE (NEGATIVE); UROBILINOGEN,URINE NORMAL (NORMAL)
[2017-11-22 10:36] LABS: BUN/CREATININE RATIO 18; CARBON DIOXIDE 22 MMOL/L (21-32); CHLORIDE 109 MMOL/L (98-107); CREATININE SERUM 0.74 MG/DL (0.60-1.30); GFR ESTIMATED > 60; GLUCOSE 92 MG/DL (70-105); SODIUM 141 MMOL/L (135-145)
[2017-11-22 10:37] LABS: ALANINE AMINOTRANSFERASE 17 U/L (0-55); ALBUMIN 3.9 GM/DL (3.2-4.5); ALKALINE PHOSPHATASE 57 U/L (40-136); BILIRUBIN,TOTAL 0.5 MG/DL (0.1-1.0); CREATINE KINASE 66 U/L (29-168); TOTAL PROTEIN 6.6 GM/DL (6.4-8.2)
[2017-11-22 10:51] LABS: BACTERIA,URINE FEW /HPF; WBC,URINE 0-2 /HPF
[2017-11-22] MEDS ORDERED: DOXY-227 PO (11:49)
--- NOTE | 2017-11-22 11:50 | ED General ---
General Chief Complaint: General Problems/Pain Stated Complaint: TICK, FEVER, POSS EAR INFECTION Nursing Triage Note: TO ROOM WITH REPORTS IS HAVING PAIN IN R EAR. WAS SEEN IN DR YAN OFFICE ON FRI FOR CHECK UP. HAD FEVER. FOUND TICK LAST NIGHT ON HER ABD. FOR A WEEK NOW HAS NOT FELT WELL REPORTS IS FEELING JUST WEAK NO PAIN. Nursing Sepsis Screen: No Definite Risk Source of Information: Patient Exam Limitations: No Limitations History of Present Illness Date Seen by Provider: Nov 22, 2017 Time Seen by Provider: 09:29 Initial Comments This 66 year old woman presents to the emergency room after developing symptoms that are concerning her after having a tick bite. She reports having temperature later than [address] Yan's office on Friday. She states weak muscles, disequilibrium, left ear ache, pain radiating into her neck, a sore inside the left nostril, fell drainage into the left nostril, and just generally not feeling well. She noticed a tick in her left groin yesterday. It seemed full as if it had been attached for some time. She is concerned about possible tickborne illness. She seems a bit anxious about all of this. Allergies and Home Medications Allergies Coded Allergies: flecainide (Verified Allergy, Severe, 06/16/14) warfarin (Verified Allergy, Severe, 06/16/14) aliskiren (Unverified Allergy, Unknown, 06/16/14) cephalexin (Verified Allergy, Unknown, 06/16/14) codeine (Verified Allergy, Unknown, 06/16/14) dronedarone HCl (Unverified Allergy, Unknown, 06/16/14) Home Medications Acetaminophen 500 Mg Tablet, 500-1,000 MG PO Q6H PRN for PAIN-MILD, (Reported) Alprazolam 0.5 Mg Tablet, 0.5 MG PO HS, (Reported) Apixaban 5 Mg Tablet, 5 MG PO BID, (Reported) Calcium Carbonate 300 Mg Tab.chew, 300 MG PO BID PRN for INDIGESTION, (Reported) Dexlansoprazole 60 Mg Frankie.bp, 60 MG PO DAILY PRN for STOMACH UPSET, (Reported ) Diltiazem HCl 240 Mg Cap.er.24h, 240 MG PO DAILY, (Reported) Doxycycline Hyclate 100 Mg Tablet., 100 MG PO BID Prescribed by: RENALDO MCPHERSON on 11/22/17 1149 Levalbuterol Tartrate 15 Gm Hfa.aer.ad, 2 PUFF IH QID PRN for SHORTNESS OF BREATH, (Reported) Levothyroxine Sodium 75 Mcg Tablet, 75 MCG PO DAILY, (Reported) Losartan Potassium 50 Mg Tablet, 50 MG PO 1700, (Reported) Propranolol HCl 20 Mg Tablet, 20 MG PO 0700,1700, (Reported) Propranolol HCl 20 Mg Tablet, 10 MG PO HS, (Reported) TAKES 1/2 (20MG) TABLET Patient Home Medication List Home Medication List Reviewed: Yes Review of Systems Review of Systems Constitutional: see HPI EENTM: see HPI Respiratory: no symptoms reported Cardiovascular: no symptoms reported Gastrointestinal: no symptoms reported Genitourinary: no symptoms reported : No Musculoskeletal: see HPI Skin: see HPI Psychiatric/Neurological: See HPI Hematologic/Lymphatic: No Symptoms Reported Immunological/Allergic: no symptoms reported All Other Systems Reviewed Negative Unless Noted: Yes Past Kmolvcc-Ccszlf-Xnslom Hx Past Med/Social Hx: Reviewed Nursing Past Med/Soc Hx Patient Social History Alcohol Use: Denies Use Recreational Drug Use: No Smoking Status: Never a Smoker Recent Foreign Travel: No Contact w/Someone Who Travel: No Recent Infectious Disease Expo: No Recent Hopitalizations: Yes Immunizations Up To Date Tetanus Booster (TDap): Unknown Seasonal Allergies Seasonal Allergies: Yes Past Medical History Surgeries: Yes (HAS A LINQ READER UNDER SKIN (TO MONITER HEART RHYTHM) ) Amputation, Gallbladder, Hysterectomy, Orthopedic Respiratory: Yes (CPAP AT HS) Asthma, Chronic Bronchitis, Sleep Apnea Cardiac: Yes (FAILED CARDIAC ABLATION X 2; MULTIPLE CARDIOVERSIONS; LINQ MONIT) Atrial Fibrillation, Chronic Edema/Swelling, Coronary Artery Disease, Hypertension Neurological: No Reproductive Disorders: No Gastrointestinal: Yes Chronic Constipation Musculoskeletal: No Endocrine: Yes (HYPOGLYCEMIC) Hypothyroidsim Cancer: No Psychosocial: Yes Anxiety, Depression Integumentary: No Blood Disorders: No (PATIENT IS JEHOVAH WITNESS) Family Medical History Reviewed Nursing Family Hx COPD, EMPHYSEMA 19 FATHER COPD, EMPHYSEMA 19 FATHER Cardiovascular disease 19 FATHER 19 MOTHER (CA) G8 BROTHER (CA) Completed stroke G8 SISTER Hypertension 19 MOTHER Neoplasm G8 BROTHER (LYMPHOMA) CAD Under 55 Years Old, CAD Over 55 Years Old Physical Exam Vital Signs Vital Signs - First Documented 11/22/17 09:19 Temp 96.3 Pulse 75 Resp 18 B/P (MAP) 171/110 (130) Pulse Ox 99 O2 Delivery Room Air Capillary Refill : Less Than 3 Seconds Height, Weight, BMI Height: 5'10.00" Weight: 226lbs. 0.0oz. 102.866356qo; 31.7 BMI Method:Stated General Appearance: No Apparent Distress, WD/WN HEENT: PERRL/EOMI, TMs Normal, Pharynx Normal, Other (Small sore toward the anterior aspect of the left nostril that has some subtle drainage) Neck: Normal Inspection Respiratory: Lungs Clear, Normal Breath Sounds, No Accessory Muscle Use, No Respiratory Distress Cardiovascular: Regular Rate, Rhythm, No Edema, No Murmur, Normal Peripheral Pulses Gastrointestinal: Non Tender, Soft Extremity: Normal Capillary Refill, Normal Inspection, No Pedal Edema Neurologic/Psychiatric: Alert, Oriented x3, No Motor/Sensory Deficits, 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 This was obtained and patient was started on doxycycline. Workup was grossly unremarkable. Departure Impression Primary Impression: Tick bite Qualified Codes: W57.XXXA - Bitten or stung by nonvenomous insect and other nonvenomous arthropods, initial encounter Additional Impressions: Malaise and fatigue Nasal abscess Disposition: 01 HOME, SELF-CARE Condition: Stable Departure-Patient Inst. Decision time for Depature: 11:30 Referrals: EZRA YAN DO (PCP/Family) Primary Care Physician Patient Instructions: Tickborne Encephalitis Add. Discharge Instructions: Complete your antibiotics as prescribed. Follow-up with Dr. Yan late next week to review lab results. Return to care if you have worsening or new symptoms. All discharge instructions reviewed with patient and/or family. Voiced understanding. Scripts Doxycycline Hyclate (Doxycycline Hyclate) 100 Mg Tablet. 100 MG PO BID, #20 TAB Prov: BRUEGGEMANN,RENALDO T MD 11/22/17 Copy Copies To 1: EZRA YAN JOSHUA T MD Nov 22, 2017 11:50
[2017-11-22 12:00] VITALS: BP 156/120
== END 2017-11-22 12:11 | disposition home or self-care (01) ==
LOC: EDUNIT# 09:15 → ER 09:16
DX: G47.30 Sleep apnea, unspecified (principal); S00.461A Insect bite (nonvenomous) of right ear, initial encounter; J34.0 Abscess, furuncle and carbuncle of nose; R53.81 Other malaise; R53.83 Other fatigue; H92.01 Otalgia, right ear; J45.909 Unspecified asthma, uncomplicated; I48.91 Unspecified atrial fibrillation; I25.10 Atherosclerotic heart disease of native coronary artery without angina pectoris; I10 Essential (primary) hypertension; F41.9 Anxiety disorder, unspecified; F32.9 Major depressive disorder, single episode, unspecified; E03.9 Hypothyroidism, unspecified; Z87.19 Personal history of other diseases of the digestive system; Z82.49 Family history of ischemic heart disease and other diseases of the circulatory system; Z80.7 Family history of other malignant neoplasms of lymphoid, hematopoietic and related tissues; Z87.09 Personal history of other diseases of the respiratory system; Z79.01 Long term (current) use of anticoagulants; Z88.8 Allergy status to other drugs, medicaments and biological substances; Z88.1 Allergy status to other antibiotic agents; Z88.5 Allergy status to narcotic agent; Z79.51 Long term (current) use of inhaled steroids; Z90.710 Acquired absence of both cervix and uterus; W57.XXXA Bitten or stung by nonvenomous insect and other nonvenomous arthropods, initial encounter
CPT/HCPCS: 36415; 80053; 81000; 82550; 84439; 84443; 85025; 86618; 86666; 86668; 86757; 87088; 99282

== ENCOUNTER → 2017-11-27 | Outpatient (CLI) | payer MEDICARE, OTHER ==
[~2017-11-27] MED LIST changes: +DOXY-227 PO
--- NOTE | 2017-11-27 10:18 | Diagnostic Imaging Report ---
INDICATION: Low levels of vitamin D in postmenopausal patient. Screening for osteoporosis is performed. FINDINGS: This scan is considered normal according to World Health Organization guidelines. Please refer to the detailed Bone Density report faxed separately from this report. IMPRESSION: Normal bone mineralization. Dictated by: Dictated on workstation # [id number]
== END ==
LOC: RAD 09:36
PROVIDERS: ATTEND Family Medicine
DX: E55.9 Vitamin D deficiency, unspecified (principal); Z13.820 Encounter for screening for osteoporosis; Z78.0 Asymptomatic menopausal state
CPT/HCPCS: 77080

== ENCOUNTER → 2018-02-04 | Outpatient (CLI) | payer MEDICARE, OTHER ==
[2018-02-04 11:56] LABS: ALANINE AMINOTRANSFERASE 18 U/L (0-55); ALBUMIN 4.4 GM/DL (3.2-4.5); ALKALINE PHOSPHATASE 72 U/L (40-136); BUN/CREATININE RATIO 17; CALCIUM 9.8 MG/DL (8.5-10.1); CARBON DIOXIDE 28 MMOL/L (21-32); CHLORIDE 104 MMOL/L (98-107); CHOLESTEROL 221 MG/DL (< 200); CREATININE SERUM 0.78 MG/DL (0.60-1.30); GFR ESTIMATED > 60; GLUCOSE 89 MG/DL (70-105); HDL CHOLESTEROL 59 MG/DL (40-60); POTASSIUM 4.1 MMOL/L (3.6-5.0); SODIUM 140 MMOL/L (135-145); TOTAL PROTEIN 7.8 GM/DL (6.4-8.2); TRIGLYCERIDES 74 MG/DL (<150); VLDL CHOLESTEROL 15 MG/DL (5-40)
== END ==
LOC: LAB 11:09
PROVIDERS: ATTEND Physician Assistant
DX: I25.10 Atherosclerotic heart disease of native coronary artery without angina pectoris (principal); F41.8 Other specified anxiety disorders; I10 Essential (primary) hypertension; E78.5 Hyperlipidemia, unspecified
CPT/HCPCS: 36415; 80053; 80061

== ENCOUNTER 2018-03-09 18:43 | Emergency (ER) | payer MEDICARE, OTHER ==
[~2018-03-09] VITALS: Ht 177.8 cm; Wt 101.6 kg
--- OUTSIDE RECORDS SUMMARY | 2018-03-09 18:48 | XMS REPORT | Encounter Summary ---
Author Author [facility] Organization [facility] Address Unknown Phone Unavailable Care Team Providers Care Pacu Rn Name Role Phone Stephan Harris PCP Pedro Beard MD [address] Dorcas Nicholson RN Unavailable Unavailable Nicol Serrano NP Unavailable Reason for Referral * Consult, Test & Treat (Routine) Referred By Contact Referred To Contact Status Reason Specialty Diagnoses / Procedures Pdero Beard MD [address] [place] [address] [facility] [place] [phone] Authorized Cardiology Diagnoses Cardiac device in situ P rocedures ILR EXPLANT * Consult, Test & Treat (Routine) Referred By Contact Referred To Contact Status Reason Specialty Diagnoses / Procedures Pedro Beard MD [address] [address] [facility] [place] [address] Authorized Cardiology Diagnoses Cardiac device in situ P rocedures ILR EXPLANT Reason for Visit * Consult, Test & Treat (Routine) Referred By Contact Referred To Contact Status Reason Specialty Diagnoses / Procedures Pedro Beard MD [address] [address] [facility] [place] [address] Authorized Cardiology Diagnoses Cardiac device in situ P rocedures ILR EXPLANT Encounter Details Care Team Description Date Type Department Pedro Beard MD [address] [place], [place] [id number] Arrived 03/05/2018 Hospital Cardiovascular Medicine Encounter [facility] [place], [place] [id number] Social History Date Tobacco Use Types Packs/Day Years Used Never Smoker Smokeless Tobacco: Never Used Alcohol Use Drinks/Week oz/Week Comments Yes rarely Sex Assigned at Date Recorded Not on file Industry Job Start Date Occupation Not on file Not on file Not on file Travel End Travel History Travel Start No recent travel history available. 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
--- OUTSIDE RECORDS SUMMARY | 2018-03-09 18:48 | XMS REPORT | Clinical Summary ---
Author Author [facility] Organization [facility] Address Unknown Phone Unavailable Care Team Providers Care Teaching Associate Name Role Phone ColletteStephan basurto PCP Pedro Beard MD [address] Nicholson RN Unavailable Unavailable Nicol Serrano NP Unavailable Source Comments Some departments are not documenting in the electronic medical record. If you do not see the information that you expected, contact Release of Information in the Health Information Management department at [phone] for further assistance in locating additional records.[facility] Allergies Comments Active Allergy Reactions Severity Noted Date Upset stomach Codeine UNKNOWN 11/01/2009 Double vision Meperidine SEE COMMENTS 11/01/2009 Cephalexin SHORTNESS OF 11/01/2009 BREATH Dronedarone NAUSEA AND 11/01/2009 VOMITING [place]ans Unclassified Drug EDEMA 11/01/2009 Desvenlafaxine ITCHING Low 03/05/2018 Aliskiren NAUSEA AND 11/01/2009 VOMITING Medications End Date Status Medication Sig Dispensed Refills Start Date Active Dexlansoprazole Take 60 mg by 0 (DEXILANT) 60 mg PO CpDM mouth as Needed. Active ALPRAZolam (XANAX) 0.5 mg Take 0.5 mg 0 PO tabletIndications: by mouth at Atrial fibrillation (HCC) bedtime daily. Active Levalbuterol Tartrate 1-2 puffs up 1 Inhaler 12 (XOPENEX HFA) 45 to three 1 mcg/Actuation inhaler times daily if needed. Active ELIQUIS 5 mg tab tablet TAKE ONE 180 Tab 3 TABLET BY 6 MOUTH TWICE DAILY Active diltiazem CD (CARTIA XT) Take 240 mg 0 240 mg capsule by mouth daily. Active losartan (COZAAR) 50 mg Take 50 mg by 0 tablet mouth daily. Active levothyroxine (SYNTHROID) Take 75 mcg 0 75 mcg tablet by mouth daily 30 minutes before breakfast. Active propranolol (INDERAL) 20 TAKE ONE 225 tablet 1 mg tablet TABLET BY 8 MOUTH IN THE MORNING AND ONE AT NOON AND ONE-HALF AT BEDTIME 03/05/2018 clindamycin(+) (CLEOCIN) Take 2 2 capsule 0 300 mg capsule Capsules by 8 mouth 30 minutes prior to procedure on 03/05/18 Active Problems Problem Noted Date Cardiac device in situ 07/04/2016 Pseudoaneurysm 08/27/2013 Overview: Right Groin: small in size. Resolved, continue to monitor. Screening for cardiovascular condition 06/28/2013 Overview: 06/23/13 Lexiscan stress test at [facility]- Breast attenuation w/ mild ischemia involving [...] Refusal of blood transfusions as patient is Mandaeism 03/14/2011 Hypertension 11/01/2009 Overview: At her 06/16/13 [...] Alonzo-LAD tapers to small vessel with questionable [id number]% plaque in the mid segment, no obstructive disease. 2. 08/01/09-Exercise Stress Test: Poor exercise tolerance achieving 4.6 METs and 95% of maximum HR. Atrial Fibrillation. Nondiagnostic ECG. Severe HTN with exercise. EF 60%. --2011 (?) Cardiac Cath. By Dr. Luciano in [place], [place]. Reportedly nonobstructive disease. L ast Assessment & Plan: History of non-obstructive CAD per cath. If her symptoms of dyspnea continue to persist despite optimal blood pressure control, recommend exercise echocardiogram to evaluate for ischemia or worsening LV function. Anxiety 11/01/2009 GERD (gastroesophageal reflux disease) 11/01/2009 Atrial fibrillation Overview: ULISES at [facility] by 04/19/13 Negative for LA and YONNY [...] on her own 05/04/14: Successful DCCV at [facility] in [place] May 2010 - atrial fibrillation ablation 08/2012 [...] control. Edema Overview: improved after elevating legs Encounters Care Team Description Date Type Specialty Pedro Beard MD Arrived 03/05/2018 Hospital Cardiology Encounter Pedro Beard MD Cardiac Eval (annual follow up, explant) 03/05/2018 Office Visit Cardiology Angela Mayen Medication Request (abx for ILR explant ) 03/04/2018 Telephone Cardiology Pedro Beard MD 01/21/2018 Hospital Cardiology Encounter Mel Richards Remote Monitoring Questions 01/13/2018 Telephone Cardiology Pedro Beard MD 12/22/2017 Hospital Cardiology Encounter Moreno Coburn RN Precertification (Medicare) 12/16/2017 Documentation Cardiology from Last 3 Months Family History Medical History Relation Name Comments Cancer Brother lymphoma, pt from suicide related to coping with cancer Coronary Artery Disease Brother PTCA/Stent Atrial Fibrillation Father Coronary Artery Disease Father CABG Coronary Artery Disease Mother Heart Attack Mother Thyroid Disease Mother Coronary Artery Disease Paternal Grandmother Diabetes Paternal Grandmother Stroke Sister Relation Name Status Comments Brother Brother Alive Brother Alive Father Alive Mother Alive Paternal Grandmother Sister Alive Social History Date Tobacco Use Types Packs/Day Years Used Never Smoker Smokeless Tobacco: Never Used Alcohol Use Drinks/Week oz/Week Comments Yes rarely Sex Assigned at Date Recorded Not on file Industry Job Start Date Occupation Not on file Not on file Not on file Travel End Travel History Travel Start No recent travel history available. Last Filed Vital Signs Time Taken Vital Sign Reading 03/05/2018 7:29 AM WELDER ASSISTANT Blood Pressure 130/86 03/05/2018 7:29 AM WELDER ASSISTANT Pulse 73 04/22/2013 7:00 AM WELDER ASSISTANT Temperature 36 C (96.8 F) - Respiratory Rate - 04/22/2013 7:00 AM WELDER ASSISTANT Oxygen Saturation 97% - Inhaled Oxygen - Concentration 03/05/2018 7:29 AM WELDER ASSISTANT Weight 106.7 kg (235 lb 3.2 oz) 03/05/2018 7:29 AM WELDER ASSISTANT Height 177.8 cm (5' 10") 03/05/2018 7:29 AM WELDER ASSISTANT Body Mass Index 33.75 Plan of Treatment Health Maintenance Due Date Last Done Comments HEPATITIS C SCREENING 1952 PHYSICAL (COMPREHENSIVE) 12/09/1959 EXAM HIV SCREENING 12/09/1967 DTAP/TDAP VACCINES (1 - 1970 Tdap) BREAST CANCER SCREENING 1992 COLORECTAL CANCER 2002 SCREENING SHINGLES RECOMBINANT 2002 VACCINE (1 of 2) INFLUENZA VACCINE 10/22/2017 OSTEOPOROSIS 2017 SCREENING/MONITORING PNEUMONIA (PCV13/PPSV23) 2017 VACCINES (1 of 2 - PCV13) Implants Device Identifier Shelf Expiration Date Model / Serial / Lot Implanted Type Area Manufactur er Loop Recorder Loop Recorder Procedures Comments Procedure Name Priority Date/Time Associated Diagnosis ILR EXPLANT Routine 03/05/2018 Cardiac device in situ 9:26 AM WELDER ASSISTANT DEVICE EVALUATION - Routine 01/22/2018 Paroxysmal atrial REMOTE ILR 10:22 AM CDT fibrillation (HCC) Essential hypertension DEVICE EVALUATION - Routine 12/23/2017 Paroxysmal atrial REMOTE ILR 1:44 PM CDT fibrillation (HCC) Essential hypertension from Last 3 Months Results * DEVICE EVALUATION - REMOTE ILR (01/22/2018 10:22 AM CDT) ILR History of Afib YES OTHER OUTSIDE LAB ILR Date AF Diagnosed OTHER OUTSIDE LAB Generator Implnat Date 08/03/14 OTHER OUTSIDE LAB Generator Model # [id number] OTHER OUTSIDE LAB Generator Serial # [id number] OTHER OUTSIDE LAB EP Device Followed by Dr Luciano OTHER OUTSIDE LAB Name ILR Symptom Duration 7.5 min OTHER OUTSIDE LAB ILR Tachy Rate 150 OTHER OUTSIDE LAB ILR Tachy Duration 16 OTHER OUTSIDE LAB ILR Pause Duration 3 OTHER OUTSIDE LAB ILR Jaya Rate 30 OTHER OUTSIDE LAB ILR Jaya Duration 4 OTHER OUTSIDE LAB ILR AT Events Since Last N/A OTHER OUTSIDE LAB Interrogation ILR AT Lifetime Events as N/A OTHER OUTSIDE LAB of ILR Percent Time in AT/AF OFF OTHER OUTSIDE LAB Duration Generator Mind Reader Medtronic OTHER OUTSIDE LAB Device Type ILR OTHER OUTSIDE LAB EP Device Followed By Other OTHER OUTSIDE LAB ILR AF Rate AF only OTHER OUTSIDE LAB ILR AF Duration only longest episode OTHER OUTSIDE LAB Device [employer] OTHER OUTSIDE LAB Transmitter Compatible On AntiCoag Date 06/2015 OTHER OUTSIDE LAB Known Diagnosed AFib Yes OTHER OUTSIDE LAB On Anticoagulation Yes OTHER OUTSIDE LAB ILR Current Monitoring 01/22/2018 fletcher 02/22/2018 OTHER OUTSIDE LAB Period ILR Date of Last Daily 12/25/2017 OTHER OUTSIDE LAB Connection ILR Battery Status HIDES SOAKER since 10/30/2017 OTHER OUTSIDE LAB ILR Symptom Events Since 0 OTHER OUTSIDE LAB Last Interrogation ILR Symptom Lifetime 12 OTHER OUTSIDE LAB Events as of ILR Tachy Events Since 0 OTHER OUTSIDE LAB Last Interrogation ILR Tachy Lifetime Events 0 OTHER OUTSIDE LAB as of ILR Pause Events Since 0 OTHER OUTSIDE LAB Last Interrogation ILR Pause Lifetime Events 4 OTHER OUTSIDE LAB as of ILR Jaya Events Since 0 OTHER OUTSIDE LAB Last Interrogation ILR Jaya Lifetime Events 3 OTHER OUTSIDE LAB as of ILR AF Events Since Last 0 OTHER OUTSIDE LAB Interrogation ILR AF Lifetime Events as 19,256 OTHER OUTSIDE LAB of ILR Percent Time in AT/AF 0.0% OTHER OUTSIDE LAB Events Since Last Interrogation ILR Percent Time in AT/AF 39.1% OTHER OUTSIDE LAB Lifetime of Events as of ILR Presenting ECG Strip 12/25/2017 @ 00:04:50 shows SR OTHER OUTSIDE LAB in the 60's-80's ILR Lifetime Events as of 12/25/2017 OTHER OUTSIDE LAB Datetion Narrative Performed At OTHER OUTSIDE LAB AF Anticoagulated [01/22/2018 10:40:17 AM - MEL RICHARDS] Presenting EGM on 12/25/2017 @ 00:04:50 shows SR in the 60's-80's. Summary report received and reviewed. No new event to report. Results routed to Dr. Beard for signature and review. Performing Organization Address City/State/Zipcode Phone Number OTHER OUTSIDE LAB * DEVICE EVALUATION - REMOTE ILR (12/23/2017 1:44 PM CDT) ILR History of Afib YES OTHER OUTSIDE LAB ILR Date AF Diagnosed OTHER OUTSIDE LAB Generator Implnat Date 08/03/14 OTHER OUTSIDE LAB Generator Model # [id number] OTHER OUTSIDE LAB Generator Serial # [id number] OTHER OUTSIDE LAB EP Device Followed by Dr Luciano OTHER OUTSIDE LAB Name ILR Symptom Duration 7.5 min OTHER OUTSIDE LAB ILR Tachy Rate 150 OTHER OUTSIDE LAB ILR Tachy Duration 16 OTHER OUTSIDE LAB ILR Pause Duration 3 OTHER OUTSIDE LAB ILR Jaya Rate 30 OTHER OUTSIDE LAB ILR Jaya Duration 4 OTHER OUTSIDE LAB ILR AT Events Since Last N/A OTHER OUTSIDE LAB Interrogation ILR AT Lifetime Events as N/A OTHER OUTSIDE LAB of ILR Percent Time in AT/AF OFF OTHER OUTSIDE LAB Duration Generator Mind Reader Medtronic OTHER OUTSIDE LAB Device Type ILR OTHER OUTSIDE LAB EP Device Followed By Other OTHER OUTSIDE LAB ILR AF Rate AF only OTHER OUTSIDE LAB ILR AF Duration only longest episode OTHER OUTSIDE LAB Device [employer] OTHER OUTSIDE LAB Transmitter Compatible On AntiCoag Date 06/2015 OTHER OUTSIDE LAB Known Diagnosed AFib Yes OTHER OUTSIDE LAB On Anticoagulation Yes OTHER OUTSIDE LAB ILR Current Monitoring 12/22/2017 to 01/22/2018 OTHER OUTSIDE LAB Period ILR Date of Last Daily 12/23/2017 OTHER OUTSIDE LAB Connection ILR Battery Status HIDES SOAKER since 10/30/2017 OTHER OUTSIDE LAB ILR Symptom Events Since 0 OTHER OUTSIDE LAB Last Interrogation ILR Symptom Lifetime 12 OTHER OUTSIDE LAB Events as of ILR Tachy Events Since 0 OTHER OUTSIDE LAB Last Interrogation ILR Tachy Lifetime Events 0 OTHER OUTSIDE LAB as of ILR Pause Events Since 0 OTHER OUTSIDE LAB Last Interrogation ILR Pause Lifetime Events 4 OTHER OUTSIDE LAB as of ILR Jaya Events Since 0 OTHER OUTSIDE LAB Last Interrogation ILR Jaya Lifetime Events 3 OTHER OUTSIDE LAB as of ILR AF Events Since Last 0 OTHER OUTSIDE LAB Interrogation ILR AF Lifetime Events as 19,256 OTHER OUTSIDE LAB of ILR Percent Time in AT/AF 0.0% OTHER OUTSIDE LAB Events Since Last Interrogation ILR Percent Time in AT/AF 39.1% OTHER OUTSIDE LAB Lifetime of Events as of ILR Presenting ECG Strip 12/23/2017 @ 00:04:50 shows OTHER OUTSIDE LAB irregular R-R interval with V rates between 50's-70's ILR Lifetime Events as of 12/23/2017 OTHER OUTSIDE LAB Datetion Narrative Performed At OTHER OUTSIDE LAB AF Anticoagulated [12/23/2017 1:48:56 PM - MEL RICHARDS] Presenting EGM on 12/23/2017 @ 00:04:50 shows irregular R-R interval with V rates between 50's-70's. Summary report received and reviewed. No new event to report. Results routed to Dr. Beard for signature and review. Performing Organization Address City/State/Zipcode Phone Number OTHER OUTSIDE LAB from Last 3 Months Insurance Payer Benefit Subscriber ID Type Phone Address Plan / Group MEDICARE MEDICARE xxxxxxxxxxx Medicare PART A AND B CIGNA CIGNA xxxxxxxxxx Medicare MEDICARE SUPPLEMENT Advance Directives Patient has advance care planning documents, and code status on file. For more information, please contact: [facility] [place] [facility] [address] [place] [address] Date Inactivated Comments Code Status Date Activated 04/22/2013 11:46 AM Full Code 04/21/2013 7:09 AM Provider has discussed Code Status No, more discussion w/Patient or Family? needed 06/17/2010 5:05 AM Full Code 06/15/2010 6:07 AM Provider has discussed Code Status Yes w/Patient or Family? 06/13/2010 5:05 AM Full Code 06/12/2010 10:49 AM Provider has discussed Code Status Yes w/Patient or Family?
--- OUTSIDE RECORDS SUMMARY | 2018-03-09 18:49 | XMS REPORT | Encounter Summary ---
Author Author [facility] Organization [facility] Address Unknown Phone Unavailable Care Team Providers Care Storage Architect Name Role Phone ColletteStephan basurto PCP Pedro Beard MD [address] RN Unavailable Unavailable Nicol Serrano NP Unavailable Encounter Details Care Team Description Date Type Department Pedro Beard MD [address] [facility] [address] [place], [place] [id number] 12/22/2017 Hospital Cardiovascular Medicine Encounter Remote Device Check [phone] Social History Date Tobacco Use Types Packs/Day Years Used Never Smoker Smokeless Tobacco: Never Used Alcohol Use Drinks/Week oz/Week Comments Yes rarely Sex Assigned at Date Recorded Not on file Industry Job Start Date Occupation Not on file Not on file Not on file Travel End Travel History Travel Start No recent travel history available. as of this encounter Medications at Time of Discharge Start Date End Date Medication Sig Dispensed Refills ALPRAZolam (XANAX) 0.5 mg Take 0.5 mg 0 PO tabletIndications: by mouth at Atrial fibrillation (HCC) bedtime daily. Dexlansoprazole Take 60 mg by 0 (DEXILANT) 60 mg PO CpDM mouth as Needed. diltiazem CD (CARTIA XT) Take 240 mg 0 240 mg capsule by mouth daily. 07/11/2015 ELIQUIS 5 mg tab tablet TAKE ONE 180 Tab 3 TABLET BY MOUTH TWICE DAILY 03/15/2011 Levalbuterol Tartrate 1-2 puffs up 1 Inhaler 12 (XOPENEX HFA) 45 to three mcg/Actuation inhaler times daily if needed. levothyroxine (SYNTHROID) Take 75 mcg 0 75 mcg tablet by mouth daily 30 minutes before breakfast. losartan (COZAAR) 50 mg Take 50 mg by 0 tablet mouth daily. 08/11/2017 propranolol (INDERAL) 20 TAKE ONE 225 tablet 1 mg tablet TABLET BY MOUTH IN THE MORNING AND ONE AT NOON AND ONE-HALF AT BEDTIME as of this encounter Plan of Treatment Not on fileas of this encounter Procedures Comments Procedure Name Priority Date/Time Associated Diagnosis DEVICE EVALUATION - Routine 12/23/2017 Paroxysmal atrial REMOTE ILR 1:44 PM CDT fibrillation (HCC) Essential hypertension in this encounter Results * DEVICE EVALUATION - REMOTE ILR (12/23/2017 1:44 PM CDT) ILR History of Afib YES OTHER OUTSIDE LAB ILR Date AF Diagnosed OTHER OUTSIDE LAB Generator Implnat Date 08/03/14 OTHER OUTSIDE LAB Generator Model # [id number] OTHER OUTSIDE LAB Generator Serial # [id number] OTHER OUTSIDE LAB EP Device Followed by [...] AT/AF OFF OTHER OUTSIDE LAB Duration Generator Utility Clerk Medtronic OTHER OUTSIDE LAB Device Type ILR OTHER OUTSIDE LAB EP Device Followed By Other OTHER OUTSIDE LAB ILR AF Rate AF only OTHER OUTSIDE LAB ILR AF Duration only longest episode OTHER OUTSIDE LAB Device [place] [employer] OTHER OUTSIDE LAB Transmitter Compatible On AntiCoag Date 06/2015 OTHER OUTSIDE LAB Known Diagnosed AFib Yes OTHER OUTSIDE LAB On Anticoagulation Yes OTHER OUTSIDE LAB ILR Current Monitoring 12/22/2017 to 01/22/2018 OTHER OUTSIDE LAB Period ILR Date of Last Daily 12/23/2017 OTHER OUTSIDE LAB Connection ILR Battery Status NAIL EXPERT since 10/30/2017 OTHER OUTSIDE LAB ILR Symptom [...] LAB AF Anticoagulated [12/23/2017 1:48:56 PM - JORGE LUIS RICHARDS] Presenting EGM on 12/23/2017 @ 00:04:50 shows irregular R-R interval with V rates between 50's-70's. Summary report received and reviewed. No new event to report. Results routed to Dr. Beard for signature and review. Performing Organization Address City/State/Zipcode Phone Number OTHER OUTSIDE LAB in this encounter Visit Diagnoses Diagnosis Paroxysmal atrial fibrillation (HCC) Atrial fibrillation Essential hypertension Unspecified essential hypertension in this encounter
--- OUTSIDE RECORDS SUMMARY | 2018-03-09 18:49 | XMS REPORT | Encounter Summary ---
Author Author [facility] Organization [facility] Address Unknown Phone Unavailable Care Team Providers Care Pourer Off Name Role Phone ColletteStephan basurto PCP Pedro Beard MD [address] RN Unavailable Unavailable Nicol Serrano NP Unavailable Encounter Details Care Team Description Date Type Department Pedro Beard MD [address] [facility] [address] [place], [place] [id number] 01/21/2018 Hospital Cardiovascular Medicine Encounter Remote Device Check [phone] Social History Date Tobacco Use Types Packs/Day [...] Date/Time Associated Diagnosis DEVICE EVALUATION - Routine 01/22/2018 Paroxysmal atrial REMOTE ILR 10:22 AM CDT fibrillation (HCC) Essential hypertension in this encounter Results * DEVICE EVALUATION - REMOTE ILR (01/22/2018 10:22 AM CDT) ILR History of Afib YES OTHER OUTSIDE LAB ILR Date AF Diagnosed OTHER OUTSIDE LAB Generator Implnat Date 08/03/14 OTHER OUTSIDE LAB Generator Model # [id number] OTHER OUTSIDE LAB Generator Serial # [id number] OTHER OUTSIDE LAB EP Device Followed by [...] AT/AF OFF OTHER OUTSIDE LAB Duration Generator Respiratory Manager Medtronic OTHER OUTSIDE LAB Device Type ILR OTHER OUTSIDE LAB EP Device Followed By Other OTHER OUTSIDE LAB ILR AF Rate AF only OTHER OUTSIDE LAB ILR AF Duration only longest episode OTHER OUTSIDE LAB Device [employer] [place] [employer] OTHER OUTSIDE LAB Transmitter Compatible On AntiCoag Date 06/2015 OTHER OUTSIDE LAB Known Diagnosed AFib Yes OTHER OUTSIDE LAB On Anticoagulation Yes OTHER OUTSIDE LAB ILR Current Monitoring 01/22/2018 fletcher 02/22/2018 OTHER OUTSIDE LAB Period ILR Date of Last Daily 12/25/2017 OTHER OUTSIDE LAB Connection ILR Battery Status ASSOCIATE DIRECTOR FINANCIAL AID since 10/30/2017 OTHER OUTSIDE LAB ILR Symptom [...] LAB AF Anticoagulated [01/22/2018 10:40:17 AM - JORGE LUIS RICHARDS] Presenting EGM on 12/25/2017 @ 00:04:50 [...]
--- OUTSIDE RECORDS SUMMARY | 2018-03-09 18:49 | XMS REPORT | Encounter Summary ---
Author Author [facility] Organization [facility] Address Unknown Phone Unavailable Care Team Providers Care Strike Warfare/Missile Systems Officer Name Role Phone ColletteStephan basurto PCP Pedro Beard MD [address] RN Unavailable Unavailable Nicol Serrano NP Unavailable Reason for Visit * Reason Comments Precertification Medicare Encounter Details Care Team Description Date Type Department Moreno Coburn RN Precertification (Medicare) 12/16/2017 Documentation [facility] [address] [place] [address] Social History Date Tobacco Use Types Packs/Day Years Used Never Smoker Smokeless Tobacco: Never Used Alcohol Use Drinks/Week oz/Week Comments Yes rarely Sex Assigned at Date Recorded Not on file Industry Job Start Date Occupation Not on file Not on file Not on file Travel End Travel History Travel Start No recent travel history available. as of this encounter Progress Notes * Moreno Coburn RN - 12/16/2017 11:06 AM CDT Medicare is listed as patient's primary insurance coverage. Pre-certification is not required for hospitalizations. in this encounter Plan of Treatment Not on fileas of this encounter Visit Diagnoses Not on filein this encounter
--- OUTSIDE RECORDS SUMMARY | 2018-03-09 18:49 | XMS REPORT | Encounter Summary ---
Author Author [facility] Organization [facility] Address Unknown Phone Unavailable Care Team Providers Care On Call Name Role Phone ColletteStephan basurto PCP Pedro Beard MD [address] RN Unavailable Unavailable Nicol Serrano NP Unavailable Reason for Visit * Reason Comments Remote Monitoring Questions Encounter Details Care Team Description Date Type Department Mel Omer Remote Monitoring Questions 01/13/2018 Telephone Cardiovascular Medicine [facility] [address] [place] [address] [place] [address] Social History Date Tobacco Use Types Packs/Day Years Used Never Smoker Smokeless Tobacco: Never Used Alcohol Use Drinks/Week oz/Week Comments Yes rarely Sex Assigned at Date Recorded Not on file Industry Job Start Date Occupation Not on file Not on file Not on file Travel End Travel History Travel Start No recent travel history available. as of this encounter Miscellaneous Notes * Telephone Encounter - Mel Omer - 01/13/2018 1:47 PM CDT We have had no communication/connection to the patients Medtronic [employer] remote transmitter since 12/25/2017. A call was placed to preferred phone number and spoke with voicemail. Pt's battery is low so I advised she keeps her eye on the monitor to see it transmits everyday and if it doesn't for ~10 days to send a remote transmission to see stored information. Note: Patient needs to send a manual transmission reestablish communication to his/her remote transmitter. in this encounter Plan of Treatment Not on fileas of this encounter Visit Diagnoses Not on filein this encounter
--- OUTSIDE RECORDS SUMMARY | 2018-03-09 18:49 | XMS REPORT | Encounter Summary ---
Author Author [facility] Organization [facility] Address Unknown Phone Unavailable Care Team Providers Care Business Account Manager Name Role Phone Stephan Harris PCP Pedro Beard MD [address] Nicholson RN Unavailable Unavailable Nicol Serrano NP Unavailable Reason for Referral * (Routine) Referred By Contact Referred To Contact Status Reason Specialty Diagnoses / Procedures Pedro Beard MD [address] [employer] [address] [address] New Request Diagnoses Atrial fibrillation, unspecified type (HCC) P rocedures FOLLOW UP PRN * Consult, Test & Treat Referred By Contact Referred To Contact Status Reason Specialty Diagnoses / Procedures Pedro Beard MD [address] [employer] [address] [place] [address] [address] [place] [address] No Auth Needed Cardiology Diagnoses Atrial fibrillation, unspecified type (HCC) P rocedures REQUEST FOR CARDIOLOGY APPOINTMENT Reason for Visit * Reason Comments Cardiac Eval annual follow up, explant * Consult, Test & Treat Referred By Contact Referred To Contact Status Reason Specialty Diagnoses / Procedures Pedro Beard MD [address] [employer] [address] [address] [address] [place] [address] No Auth Needed Cardiology Diagnoses Atrial fibrillation, unspecified type (HCC) P rocedures REQUEST FOR CARDIOLOGY APPOINTMENT Encounter Details Care Team Description Date Type Department Pedro Beard MD [address] [place], [place] [id number] Cardiac Eval (annual follow up, explant) 03/05/2018 Office Visit Cardiovascular Medicine [facility] [place] [address] Social History Date Tobacco Use Types Packs/Day Years Used Never Smoker Smokeless Tobacco: Never Used Alcohol Use Drinks/Week oz/Week Comments Yes rarely Sex Assigned at Date Recorded Not on file Industry Job Start Date Occupation Not on file Not on file Not on file Travel End Travel History Travel Start No recent travel history available. as of this encounter Last Filed Vital Signs Time Taken Vital Sign Reading 03/05/2018 7:29 AM RISK ASSESSMENT CONSULTANT Blood Pressure 130/86 03/05/2018 7:29 AM RISK ASSESSMENT CONSULTANT Pulse 73 - Temperature - - Respiratory Rate - - Oxygen Saturation - - Inhaled Oxygen - Concentration 03/05/2018 7:29 AM RISK ASSESSMENT CONSULTANT Weight 106.7 kg (235 lb 3.2 oz) 03/05/2018 7:29 AM RISK ASSESSMENT CONSULTANT Height 177.8 cm (5' 10") 03/05/2018 7:29 AM RISK ASSESSMENT CONSULTANT Body Mass Index 33.75 in this encounter Patient Instructions * Patient Instructions* Haydee Engel RN - 03/05/2018 7:30 AM RISK ASSESSMENT CONSULTANT Plan to take you LINQ out Follow up as needed with Dr Beard In order to provide you the best care possible we ask that you follow up as below: For NON-URGENT questions please contact us through your [employer] account. For all medication refills please contact your pharmacy or send a request through [employer]. For all questions that may need to be addressed urgently please call the nursing triage line at [phone] Friday - Friday 8-5 only. Please leave a detailed message with your name, date of , and reason for your call. To schedule an appointment call [phone]. Please allow 10-15 business days for the results of any testing to be reviewed. Please call our office if you have not heard from a nurse within this time frame. ASSESSMENT CONSULTANT in this encounter Progress Notes * Pedro Beard MD - 03/05/2018 7:30 AM RISK ASSESSMENT CONSULTANT Date of Service: 03/05/2018 Kirsten Sutherland is a 67 y.o. female. HPI I had the pleasure of seeing your patient Lenore Sutherland in the [facility] as a part of the [facility] office today for follow up regarding her Atrial Fibrillation. She was originally referred by my friend and colleague, Dr. Luciano, her Primary Logging Specialist. Ms. Sutherland is an exceptionally pleasant 67 y.o. female, who is accompanied by her equally pleasant spouse. She is a Oriental orthodox. The past medical history and data below has been reviewed and updated by me with new events for today's visit. Her PMHx briefly includes: PERMANENT Atrial Fibrillation (Accepted 06/2014) with Prior AFIB RFA (05/2010) and Redo-AFIB RFA (03/2013); [employer] Reveal LinQ Implantable Looping Monitor-explanted (03/05/18); Non-Obstructive CAD by Cardiac Cath (07/2013); Hypertension; Hyperlipidemia; Prior Amiodarone-Induced Thyroid Toxicity (2012); Obesity; Allergic Asthmatic Bronchitis; ASHKAN-- On CPAP Tx; Hypothyroidism; and Headaches/Tremors-- On Propanolol-SA. NOTE: Pt is a Oriental orthodox and refuses blood products. NOTE: Prior ACEi cough. Tolerates ARB. NOTE: She has been on propranolol previously at low-dose for Tremors. She has a [id number] score of 2: Female, HTN. NOTE: Prior petechial rash on Warfarin -->tolerates Eliquis. Regarding her AFIB and Prior Sxs of BOWER: Please see Problem List and Prior OV notes including 07/01/14, 09/14/12, and Initial Consultation note for greater detail. However, briefly: -- 1980s: AFIB Initially Dx'ed. -- 11/02/09: Initial EP Consultation. -- : Intolerant to Multaq, Rythmol, and Amiodarone-- all with GI upset, although later underwent GI evaluation and was found to have GERD/HH. 2010: NOTE--for RATE CONTROL she had been on digoxin, diltiazem, and propranolol LA. -- 05/2010: AFIB RFA. -- 10/2010: Post-RFA CT Scan with mild narrowing, but NO significant stenosis. -- 2010-Present: Normal LV Function by Echo(s) and TEEs. -- 2012: PFTs and CXR via Dr. Luciano without significant abnormality. -- 08/2012: Decreased Propanolol to 40 mg daily to assess Sxic improvement. -- [id number]: Recurrent AFIB -->Refractory/Intolerant to Flecainide, Rythmol , and Multaq (nausea and abdominal pain). On Amiodarone transiently. -- 03/2013: Redo-AFIB RFA. Home on Flecainide. -- 07/2013: Cardiac Cath: Reportedly with NO significant obstructive disease. -- 08/17/13: CTA: No significant PV stenosis. -- 02/2014: Recurrent AFIB -->DC'ed Flecainide, Initiated Sotalol. -- 05/02/14: Recurrent AFIB -->CVRT to NSR via Dr. Luciano's office -- 07/01/14: Recurrent AFIB -->Discussed possibility of accepting AFIB as Permanent-- planned to pursue CVRT followed by increased Sotalol to assess Sxic response. -- 07/01/14: AFIB Accepted as PERMANENT. -- 05/16/16: Sxs of tachypalpitations -->Increased Propanolol to 20 mg AM/20 mg at noon/10 mg PM. -- 07/04/16: OV (Dr. Beard): Turned her high V-rate detection from 167 bpm down to 150 bpm just to better assess any high ventricular rates, turned AFIB alert off. -- 01/28/17: OV (Dr. Beard): Asked pt to visit with her PMD regarding her weakness spells. Since her rhythms appeared to be stable, I deferred her care to Dr. Luciano in [place], [place], on a more regular basis. She wished to follow up with me annually. She STATES she continues to experience "weakness spells" where her arms and legs get tired and she becomes markedly fatigued. These are the same Sxs she had a year ago. These never occur when she is driving with her . They seem to occur when she is driving alone. However, she denies palpitations, irregular heart beats, or lightheadedness when this occurs. She has multiple constitutional symptoms. She is under tremendous amount of stress. She is very contradictory in her complaints at times. She states she has had problems with her blood pressure recently. Her blood pressure at times is been in the 170s/100s. She is followed closely by her primary care physician in fact has been his office multiple times of the last week. When inquiring about shortness of air she states when she notices her blood pressure is markedly elevated she feels as though she has to take multiple deep breaths. She otherwise does not have shortness of air. She is remaining active. She is not doing formal exercise but states she is stretching, dancing , etc. without symptom limitation. She states she activated her [employer] Reveal LinQ Implantable Looping Monitor several months ago, but she does not recall what symptoms she had at that time. She states she experiences palpitations every few days, this is confirmed by her . She describes this as a "fluttering" when it occurs. She does not feel her pulse when this occurs, but she does check her blood pressure when this occurs. However overall she does not feel her fluttering symptoms gotten any worse over the last year in any way. She claims compliance with her medications. She denies any bleeding issues-blood in the urine, blood in the stool, tolerating anticoagulation without obvious issue. She reports needing to take "deep breaths" whenever she notes her blood pressure to be elevated. She informed me that she has been under a lot of stress and is dealing with depression and anxiety. She states she has been exercising by dancing, using an exercise ball at home. She understands the need to increase her exercise. She has a stationary bike at home, but she is currently shopping for a new bicycle to ride outside. She also recently resumed a healthier diet. A year ago we saw her, cleared her, and made recommendations regarding anticoagulation since she is planning on having a thyroid biopsy. But apparently a thyroid biopsy was postponed, never having occurred. She now states she is planning on having a thyroid biopsy next month. She states she has a thyroid biopsy on 03/27/18. She denies any chest discomfort, shortness of breath, near syncope or syncope, PND or orthopnea. FHx, SHx and ROS documented and I have reviewed, with some pertinent features to include: No FHx of premature CAD. She is a Non-Smoker. Most pertinent ROS is included/discussed throughout the note, e.g. HPI and A/P. ASSESSMENT AND PLAN: -- Potential Thyroid Biopsy in the future--?'s regarding her anticoagulation and CV Clearance -- PERMANENT AFIB -- Medtr[employer] Reveal LinQ Implantable Looping Monitor explantation today () -- Shoulder Pain/Prior Dislocated Clavicle -- Sleep Apnea -- Anticoagulation -- Anxiety -- Hypertension -- Hypothyroidism -- Patient is a Oriental orthodox Ms. Sutherland outside of stress, anxiety, depression, etc. I think she is overall doing very well from a cardiac vascular standpoint. As noted previously her symptoms while driving where she suddenly has weakness in her arms and legs without lightheadedness near syncope or syncope I think is not cardiac related. Her event monitor is not documented any tachyarrhythmias above 150 bpm any Bradyarrhythmias less than 30 bpm and certainly no RR intervals greater than 3 seconds. Therefore she has not having an arrhythmia causing her symptoms. I think it is also less likely that is a blood pressure issue since she does not feel lightheaded during that time. She did have 5 symptom activated events back in March through her implantable monitor. All of these just showed her A. fib conducting with a controlled ventricular rate. No Bradyarrhythmias. No tachyarrhythmias. Her device remains EOS. It still is able to give us some information but cannot update us on a daily basis or track any events that would be captured daily. We discussed whether to continue to utilize the device as an event monitor or whether to explanted as scheduled today. She wishes to have the device out. I think that is appropriate since we have not seen any evidence of any auto detected or patient activated arrhythmias over the last year plus. Therefore we will proceed accordingly. We discussed the Medtr[employer] Reveal LinQ Implantable Looping Monitor explantation procedure itself along with its associated risks, rationale, options, and benefits in detail with Kirsten Sutherland and her spouse. We discussed the risks to include, but not be limited to: bleeding, swelling, hematoma, or infection. She, the patient, expressed an understanding of the procedure and risks, and wishes to proceed. Again with regard to her thyroid biopsy. She should hold her anticoagulant for approximately 2 days prior. If the surgeons wish to hold it for 3 days I think that is also acceptable. There is some risk in holding her anticoagulation for 3 days but I think it is low especially as she is on a NOAC. She should resume her anticoagulation as soon as possible afterwards. She states her family physician is following her blood pressure closely and will address it accordingly. Since her A. fib his ventricular rate controlled, she remains on anticoagulation and is tolerating it well, I do not see any clear indication for her to continue to follow-up from the elective physiology standpoint. I would be happy to see her anytime in the future per Dr. Luciano, her primary bar welder discretion. We did discuss that her incision check should occur in a week but it can occur locally either with her family physician or Dr. Luciano's office. PLAN: -- We will proceed with [employer] Reveal LinQ Implantable Looping Monitor explantation -- I asked her to try and increase her exercise--to start with at least 15-20 minutes of low intensity walking 3 days a week and then increase to 30 minutes to one hour of moderate intensity walking daily or other aerobic exercise with a goal of 5 days/week. Ms. Sutherland was educated regarding plan of care. She was instructed to call our office with any questions or concerns, as well as to notify us of any new or worsening symptoms. She verbalized understanding. I appreciate the opportunity to participate in the care of your patient. Please do not hesitate to contact me directly if you have any questions or further insights into her care. She will follow up with me as needed. Vitals: 03/05/18 0729 BP: 130/86 Pulse: 73 Weight: 106.7 kg (235 lb 3.2 oz) Height: 1.778 m (5' 10") Body mass index is 33.75 kg/m. Past Medical History Patient Active Problem List Diagnosis Date Noted Cardiac device in situ 07/04/2016 Pseudoaneurysm (HCC) 08/27/2013 Right Groin: small in size. Resolved, continue to monitor. Screening for cardiovascular condition 06/28/2013 06/23/13 Lexiscan stress test at [facility]- Breast attenuation w/ mild ischemia involving basal to mid anterior wall, anterior septum, fixed defect at anterior apex and anterior lateral wall. Normal LV size w/ good contractility. EF 63%- Reviewed by MPE. Hypothyroidism 03/15/2011 Obesity (BMI 30-39.9) 03/15/2011 Refusal of blood transfusions as patient is Oriental orthodox 03/14/2011 Hypertension 11/01/2009 At her 06/16/13 OV, she was experiencing [...] her Imdur was discontinued at that time. History of cardiac catheterization 11/01/2009 1. 04/2005-Cath by Dr. Alonzo-LAD tapers to small vessel with questionable [id number]% plaque in the mid segment, no obstructive disease. 2. 08/01/09-Exercise Stress Test: Poor exercise tolerance achieving 4.6 METs and 95% of maximum HR. Atrial Fibrillation. Nondiagnostic ECG. Severe HTN with exercise. EF 60%. --2011 (?) Cardiac Cath. By Dr. Luciano in [place], [place]. Reportedly nonobstructive disease. Anxiety 11/01/2009 GERD (gastroesophageal reflux disease) 11/01/2009 Atrial fibrillation (HCC) ULISES at [facility] by 04/19/13 Negative for LA and YONNY [...] on her own 05/04/14: Successful DCCV at [facility] in [place] May 2010 - atrial fibrillation ablation 08/2012 [...] Noncardiac findings are reported separately by radiology. Sleep apnea CPAP Dyspnea Started within the last 2 weeks, has noticed since being on Amiodarone Edema improved after elevating legs Review of Systems Constitution: Positive for malaise/fatigue and weight gain. HENT: Positive for hoarse voice and tinnitus. Eyes: Positive for visual halos. Cardiovascular: Positive for dyspnea on exertion, irregular heartbeat and palpitations. Respiratory: Positive for shortness of breath. Endocrine: Positive for cold intolerance and heat intolerance. Hematologic/Lymphatic: Negative. Skin: Positive for dry skin and itching. Musculoskeletal: Positive for arthritis, back pain, joint pain, muscle weakness , neck pain and stiffness. Gastrointestinal: Positive for constipation, flatus and hemorrhoids. Genitourinary: Positive for frequency and incomplete emptying. Neurological: Positive for difficulty with concentration, loss of balance, numbness and paresthesias. Psychiatric/Behavioral: Positive for depression and memory loss. The patient has insomnia and is nervous/anxious. Allergic/Immunologic: Positive for environmental allergies. Physical Exam Constitutional: She is in no acute distress, resting comfortably. Skin/Integument: Warm and dry. Eyes: PERRL, sclera are non-icteric and no xanthelasmas noted. ENT: Hearing is intact, Oropharynx is clear and moist. Heme/Lym/Immun: Supple neck, without thyromegaly. Respiratory-Pulmonary/Chest: Effort normal and breath sounds normal. No respiratory distress or accessory muscle use. No obvious tracheal deviation. Clear to auscultation bilaterally. Cardiovascular: No evidence of increased jugular venous pressure, carotids are 2+/4+ equal bilaterally, without obvious bruit. Irregularly irregular rhythm, S1, S2. I do not appreciate any significant murmur today. No heaves, thrills or rubs. Musc/Skeletal-Extremities: Without significant peripheral edema. With what appears to be full ROM. LINQ Site: Is in her left chest region and well-healed. Neuro: Patient is alert and oriented to person, place, and time. Psych: Patient does not appear anxious, she appears appropriate, with normal non-pressured speech and what appears to be appropriate judgement Cardiovascular Studies ECG today demonstrates atrial fibrillation with an average ventricular rate of 73 bpm. [employer] Reveal LinQ Implantable Looping Monitor Full device check performed with reprogramming which I have extensively reviewed. Changes, if done, as discussed below and is detailed in other dictation/note. 5 symptom activated events show AFIB with controlled rates and no bradyarrhythmias. All symptom activated events were from March 2017. Problems Addressed Today Encounter Diagnoses Name Primary? Atrial fibrillation, unspecified type (HCC) Current Medications (including today's revisions) ALPRAZolam (XANAX) 0.5 mg PO tablet Take 0.5 mg by mouth at bedtime daily. clindamycin(+) (CLEOCIN) 300 mg capsule Take 2 Capsules by mouth 30 minutes prior to procedure on 03/05/18 Dexlansoprazole (DEXILANT) 60 mg PO CpDM Take 60 mg by mouth as Needed. diltiazem CD (CARTIA XT) 240 mg capsule Take 240 mg by mouth daily. ELIQUIS 5 mg tab tablet TAKE ONE TABLET BY MOUTH TWICE DAILY Levalbuterol Tartrate (XOPENEX HFA) 45 mcg/Actuation inhaler 1-2 puffs up to three times daily if needed. levothyroxine (SYNTHROID) 75 mcg tablet Take 75 mcg by mouth daily 30 minutes before breakfast. losartan (COZAAR) 50 mg tablet Take 50 mg by mouth daily. propranolol (INDERAL) 20 mg tablet TAKE ONE TABLET BY MOUTH IN THE MORNING AND ONE AT NOON AND ONE-HALF AT BEDTIME Documentation recorded by Dago Brooke, acting as scribe for Pedro Beard M.D. ASSESSMENT CONSULTANT in this encounter Miscellaneous Notes * Addendum Note - Haydee Engel RN - 03/05/2018 7:30 AM RISK ASSESSMENT CONSULTANT Addended by: HAYDEE ENGEL on: 03/05/2018 08:51 AM Modules accepted: Orders ASSESSMENT CONSULTANT in this encounter Plan of Treatment Order Schedule Name Priority Associated Diagnoses Ordered: 03/05/2018 ECG 12-LEAD Routine Atrial fibrillation, unspecified type (HCC) as of this encounter Visit Diagnoses Diagnosis Atrial fibrillation, unspecified type (HCC) in this encounter
--- OUTSIDE RECORDS SUMMARY | 2018-03-09 18:49 | XMS REPORT | Encounter Summary ---
Author Author [facility] Organization [facility] Address Unknown Phone Unavailable Care Team Providers Care Sammying Machine Operator Name Role Phone ColletteStephan basurto PCP Pedro Beard MD [address] RN Unavailable Unavailable Nicol Serrano NP Unavailable Reason for Visit * Reason Comments Medication Request abx for ILR explant Encounter Details Care Team Description Date Type Department Angela Mayen Medication Request (abx for ILR explant ) 03/04/2018 Telephone Cardiovascular Medicine [facility] [place], [place] [id number] Social History Date Tobacco Use Types Packs/Day [...] encounter Miscellaneous Notes * Telephone Encounter - Angela Mayen - 03/04/2018 3:53 PM DIRECTOR OF FEDERAL SALES Attempted to reach pt to inform her we will be sending the abx for her ILR explant. No answer, LMOM informing pt. CTOR OF FEDERAL SALES in this encounter Plan of Treatment Not on fileas of this encounter Visit Diagnoses Not on filein this encounter
[2018-03-09 19:01] LABS: BASOPHILS % (AUTO) 0 % (0-10); EOSINOPHILS # (AUTO) 0.2 10^3/uL (0.0-0.3); EOSINOPHILS % (AUTO) 2 % (0-10); HEMATOCRIT 40 % (35-52); HEMOGLOBIN 13.1 G/DL (11.5-16.0); LYMPHOCYTES # (AUTO) 2.9 X 10^3 (1.0-4.0); LYMPHOCYTES % (AUTO) 39 % (12-44); MEAN CORPUSCULAR HEMOGLOBIN 31 PG (25-34); MEAN CORPUSCULAR HGB CONC 33 G/DL (32-36); MEAN CORPUSCULAR VOLUME 96 FL (80-99); MEAN PLATELET VOLUME 10.5 FL (7.4-10.4); MONOCYTES # (AUTO) 0.6 X 10^3 (0.0-1.0); MONOCYTES % (AUTO) 8 % (0-12); NEUTROPHILS # (AUTO) 3.7 X 10^3 (1.8-7.8); NEUTROPHILS % (AUTO) 50 % (42-75); PLATELET COUNT 158 10^3/uL (130-400); RED BLOOD COUNT 4.21 10^6/uL (4.35-5.85); RED CELL DISTRIBUTION WIDTH 13.8 % (10.0-14.5); WHITE BLOOD COUNT 7.3 10^3/uL (4.3-11.0)
--- OUTSIDE RECORDS SUMMARY | 2018-03-09 19:01 | XMS REPORT | Continuity of Care Document ---
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 Hwang Ot Z90.710 ACQUIRED ABSENCE OF BOTH CERVIX AND UTER 05/12/2017 [facility] EZRA Martinez Ot 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, VERTEBRAE 05/12/2017 GELLENDER DO, EZRA Martinez Ot M47.812 SPONDYLOSIS W/O MYELOPATHY OR RADICULOPA 05/12/2017 GELLENDER DO, EZRA Martinez Ot M48.02 SPINAL STENOSIS, CERVICAL REGION 05/12/2017 GELLENDER DO, EZRA Martinez Ot M50.321 OTHER CERVICAL DISC DEGENERATION AT C4-C 05/12/2017 [facility], ERZA Martinez Ot M47.812 SPONDYLOSIS W/O MYELOPATHY OR RADICULOPA 05/12/2017 [facility], EZRA Martinez Ot M48.02 SPINAL STENOSIS, CERVICAL REGION 05/12/2017 GELLENDER DO, EZRA Martinez Ot M50.321 OTHER CERVICAL DISC DEGENERATION AT C4-C 05/29/2017 [facility] Ot M47.812 SPONDYLOSIS W/O MYELOPATHY OR RADICULOPA 05/29/2017 [facility], EZRA Martinez Ot M48.02 SPINAL STENOSIS, CERVICAL REGION 05/29/2017 [facility], EZRA Martinez Ot M50.321 OTHER CERVICAL DISC DEGENERATION AT C4-C 07/11/2017 [facility] EZRA Martinez Ot 244.9 HYPOTHYROIDISM NOS 07/11/2017 JIA MATTHEWS, DEAN Wallace Ot 995.1 ANGIONEUROTIC EDEMA 07/11/2017 [facility], EZRA Martinez Ot 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 07/11/2017 [facility] EZRA Martinez Ot E000.8 OTHER EXTERNAL CAUSE STATUS 07/11/2017 [facility] EZRA Martinez Ot E927.0 OVEREXERTION FROM SUDDEN STRENUOUS MOVEM 07/11/2017 RANULFO MATTHEWS, AML Malone Ot E78.2 MIXED HYPERLIPIDEMIA 07/11/2017 MAL WINCHESTER MD Ot I10 ESSENTIAL (PRIMARY) HYPERTENSION 07/11/2017 MAL WINCHESTER MD Ot I25.10 ATHSCL HEART DISEASE OF [place] CORONARY 07/11/2017 MAL WINCHESTER MD Ot I48.0 PAROXYSMAL ATRIAL FIBRILLATION 07/11/2017 JULIA WINCHESTER MDHAR J Ot R06.02 SHORTNESS OF BREATH 07/11/2017 RANULFO MATTHEWS, MAL Malone Ot R07.9 CHEST PAIN, UNSPECIFIED 07/11/2017 CHINEDU GARCIA Ot E78.2 MIXED HYPERLIPIDEMIA 07/11/2017 CHINEDU GARCIA Ot I10 ESSENTIAL (PRIMARY) HYPERTENSION 07/11/2017 CHINEDU GARCIA Ot I25.10 ATHSCL HEART DISEASE OF [place] CORONARY 07/11/2017 CHINEDU GARCIA Ot I48.0 PAROXYSMAL ATRIAL FIBRILLATION 07/11/2017 ELTON CERVANTES MD Ot E03.9 HYPOTHYROIDISM, UNSPECIFIED 07/11/2017 ELTON CERVANTES MD Ot E04.1 NONTOXIC SINGLE THYROID NODULE 07/11/2017 CHINEDU GARCIA Ot E78.2 MIXED HYPERLIPIDEMIA 07/11/2017 CHINEDU GARCIA Ot I10 ESSENTIAL (PRIMARY) HYPERTENSION 07/11/2017 CHINEDU GARCIA Ot I25.10 ATHSCL HEART DISEASE OF [place] CORONARY 07/11/2017 CHINEDU GARCIA Ot I48.0 PAROXYSMAL ATRIAL FIBRILLATION 07/11/2017 ELTON CERVANTES MD Ot E03.9 HYPOTHYROIDISM, UNSPECIFIED 07/11/2017 ELTON CERVANTES MD Ot E04.2 NONTOXIC MULTINODULAR GOITER 07/11/2017 EZRA YAN DO Ot M47.812 SPONDYLOSIS W/O MYELOPATHY OR RADICULOPA 07/11/2017 EZRA YAN DO Ot R51 HEADACHE 07/11/2017 CHINEDU GARCIA Ot E03.8 OTHER SPECIFIED HYPOTHYROIDISM 07/11/2017 CHINEDU GARCIA Ot E03.9 HYPOTHYROIDISM, UNSPECIFIED 07/11/2017 CHINEDU GARCIA Ot E04.1 NONTOXIC SINGLE THYROID NODULE 07/11/2017 CHINEDU GARCIA Ot E78.2 MIXED HYPERLIPIDEMIA 07/11/2017 CHINEDU GARCIA Ot I10 ESSENTIAL (PRIMARY) HYPERTENSION 07/11/2017 CHINEDU GARCIA Ot I25.10 ATHSCL HEART DISEASE OF [place] CORONARY 07/11/2017 CHINEDU GARCIA Ot J42 UNSPECIFIED CHRONIC BRONCHITIS 07/11/2017 FARRAH GALLOWAY EZRA Michelle Ot M47.812 SPONDYLOSIS W/O MYELOPATHY OR RADICULOPA 07/11/2017 FARRAH GALLOWAYEZRA Ot M48.02 SPINAL STENOSIS, CERVICAL REGION 07/11/2017 [facility] Ot M50.321 OTHER CERVICAL DISC DEGENERATION AT C4-C 07/14/2017 [facility] Ot 244.9 HYPOTHYROIDISM NOS 07/14/2017 JIA MATTHEWS, DEAN Wallace Ot 995.1 ANGIONEUROTIC EDEMA 07/14/2017 [facility] Ot 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 07/14/2017 [facility] EZRA Ot E000.8 OTHER EXTERNAL CAUSE STATUS 07/14/2017 FARRAH GALLOWAY EZRA Michelle Ot E927.0 OVEREXERTION FROM SUDDEN STRENUOUS MOVEM 07/14/2017 MAL WINCHESTER MD Ot E78.2 MIXED HYPERLIPIDEMIA 07/14/2017 MAL WINCHESTER MD Ot I10 ESSENTIAL (PRIMARY) HYPERTENSION 07/14/2017 MAL WINCHESTER MD Ot I25.10 ATHSCL HEART DISEASE OF [place] CORONARY 07/14/2017 MAL WINCHESTER MD Ot I48.0 PAROXYSMAL ATRIAL FIBRILLATION 07/14/2017 MAL WINCHESTER MD Ot R06.02 SHORTNESS OF BREATH 07/14/2017 MAL WINCHESTER MD Ot R07.9 CHEST PAIN, UNSPECIFIED 07/14/2017 CHINEDU GARCIA Ot E78.2 MIXED HYPERLIPIDEMIA 07/14/2017 CHINEDU GARCIA Ot I10 ESSENTIAL (PRIMARY) HYPERTENSION 07/14/2017 CHINEDU GARCIA Ot I25.10 ATHSCL HEART DISEASE OF [place] CORONARY 07/14/2017 CHINEDU GARCIA Ot I48.0 PAROXYSMAL ATRIAL FIBRILLATION 07/14/2017 BILLY MATTHEWS, ELTON Patterson Ot E03.9 HYPOTHYROIDISM, UNSPECIFIED 07/14/2017 ELTON CERVANTES MD Ot E04.1 NONTOXIC SINGLE THYROID NODULE 07/14/2017 CHINEDU GARCIA Ot E78.2 MIXED HYPERLIPIDEMIA 07/14/2017 CHINEDU GARCIA Ot I10 ESSENTIAL (PRIMARY) HYPERTENSION 07/14/2017 CHINEDU GARCIA Ot I25.10 ATHSCL HEART DISEASE OF [place] CORONARY 07/14/2017 CHINEDU GARCIA Ot I48.0 PAROXYSMAL ATRIAL FIBRILLATION 07/14/2017 BILLY MATTHEWS, ELTON Patterson Ot E03.9 HYPOTHYROIDISM, UNSPECIFIED 07/14/2017 BILLY MATTHEWS, ELTON Patterson Ot E04.2 NONTOXIC MULTINODULAR GOITER 07/14/2017 EZRA YAN DO Ot M47.812 SPONDYLOSIS W/O MYELOPATHY OR RADICULOPA 07/14/2017 EZRA YAN DO Ot R51 HEADACHE 07/14/2017 CHINEDU GARCIA Ot E03.8 OTHER SPECIFIED HYPOTHYROIDISM 07/14/2017 CHINEDU GARCIA Ot E03.9 HYPOTHYROIDISM, UNSPECIFIED 07/14/2017 CHINEDU GARCIA Ot E04.1 NONTOXIC SINGLE THYROID NODULE 07/14/2017 CHINEDU GARCIA Ot E78.2 MIXED HYPERLIPIDEMIA 07/14/2017 CHINEDU GARCIA Ot I10 ESSENTIAL (PRIMARY) HYPERTENSION 07/14/2017 CHINEDU GARCIA Ot I25.10 ATHSCL HEART DISEASE OF [place] CORONARY 07/14/2017 CHINEDU GARCIA Ot J42 UNSPECIFIED CHRONIC BRONCHITIS 07/14/2017 EZRA YAN DO Ot M47.812 SPONDYLOSIS W/O MYELOPATHY OR RADICULOPA 07/14/2017 [facility] EZRA GALLOWAY Ot M48.02 SPINAL STENOSIS, CERVICAL REGION 07/14/2017 [facility] EZRA GALLOWAY Ot M50.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 OTHER CERVICAL DISC DEGENERATION AT C4-C 07/15/2017 CHINEDU GARCIA Ot I08.1 RHEUMATIC DISORDERS OF BOTH MITRAL AND T 07/15/2017 CHINEDU GARCIA Ot I10 ESSENTIAL (PRIMARY) HYPERTENSION 07/15/2017 CHINEDU GARCIA Ot I25.10 ATHSCL HEART DISEASE OF [place] CORONARY 07/15/2017 IVETT ARGUETA CHINEDU K Ot I48.0 PAROXYSMAL ATRIAL FIBRILLATION 07/15/2017 IVETT ARGUETA CHINEDU K Ot R06.02 SHORTNESS OF BREATH 07/15/2017 IVETT ARGUETA CHINEDU K Ot I10 ESSENTIAL (PRIMARY) HYPERTENSION 07/15/2017 IVETT ARGUETA CHINEDU K Ot I25.10 ATHSCL HEART DISEASE OF [place] CORONARY 07/15/2017 CHINEDU GARCIA Ot I48.91 UNSPECIFIED ATRIAL FIBRILLATION 07/15/2017 IVETT ARGUETA CHINEDU K Ot R06.09 OTHER FORMS OF DYSPNEA 07/16/2017 MAL WINCHESTER MD Ot E03.9 HYPOTHYROIDISM, UNSPECIFIED 07/16/2017 MAL WINCHESTER MD Ot E78.5 HYPERLIPIDEMIA, UNSPECIFIED 07/16/2017 MAL WINCHESTER MD Ot F32.9 MAJOR DEPRESSIVE DISORDER, SINGLE EPISOD 07/16/2017 MAL WINCHESTER MD Ot F41.9 ANXIETY DISORDER, UNSPECIFIED 07/16/2017 MAL WINCHESTER MD Ot I10 ESSENTIAL (PRIMARY) HYPERTENSION 07/16/2017 MAL WINCHESTER MD Ot I25.10 ATHSCL HEART DISEASE OF [place] CORONARY 07/16/2017 MAL WINCHESTER MD Ot I48.2 CHRONIC ATRIAL FIBRILLATION 07/16/2017 MAL WINCHESTER MD Ot 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 07/16/2017 MAL WINCHESTER MD Ot J44.9 CHRONIC OBSTRUCTIVE PULMONARY DISEASE, U 07/16/2017 MAL WINCHESTER MD Ot R07.9 CHEST PAIN, UNSPECIFIED 07/16/2017 MAL WINCHESTER MD Ot R55 SYNCOPE AND COLLAPSE 07/16/2017 MAL WINCHESTER MD Ot Z11.2 ENCOUNTER FOR SCREENING FOR OTHER BACTER 07/16/2017 MAL WINCHESTER MD Ot Z88.8 ALLERGY STATUS TO OT DRUG/MEDS/BIOL SUB 07/17/2017 MAL WINCHESTER MD Ot E03.9 HYPOTHYROIDISM, UNSPECIFIED 07/17/2017 MAL WINCHESTER MD Ot E78.5 HYPERLIPIDEMIA, UNSPECIFIED 07/17/2017 MAL WINCHESTER MD Ot F32.9 MAJOR DEPRESSIVE DISORDER, SINGLE EPISOD 07/17/2017 MAL WINCHESTER MD, Ot F41.9 ANXIETY DISORDER, UNSPECIFIED 07/17/2017 MAL WINCHESTER MD, Ot I10 ESSENTIAL (PRIMARY) HYPERTENSION 07/17/2017 MAL WINCHESTER MD Ot I25.10 ATHSCL HEART DISEASE OF [place] CORONARY 07/17/2017 MAL WINCHESTER MD Ot I48.2 CHRONIC ATRIAL FIBRILLATION 07/17/2017 MAL WINCHESTER MD Ot 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 07/17/2017 MAL WINCHESTER MD, Ot J44.9 CHRONIC OBSTRUCTIVE PULMONARY DISEASE, U 07/17/2017 MAL WINCHESTER MD Ot R07.9 CHEST PAIN, UNSPECIFIED 07/17/2017 MAL WINCHESTER MD Ot R55 SYNCOPE AND COLLAPSE 07/17/2017 MAL WINCHESTER MD, Ot Z11.2 ENCOUNTER FOR SCREENING FOR OTHER BACTER 07/17/2017 MAL WINCHESTER MD, Ot Z88.8 ALLERGY STATUS TO [facility] DRUG/MEDS/BIOL SUB 08/04/2017 CHINEDU GARCIA Ot I08.1 RHEUMATIC DISORDERS OF BOTH MITRAL AND T 08/04/2017 CHINEDU GARCIA Ot I10 ESSENTIAL (PRIMARY) HYPERTENSION 08/04/2017 CHINEDU GARCIA Ot I25.10 ATHSCL HEART DISEASE OF [place] CORONARY 08/04/2017 CHINEDU GARCIA Ot I48.0 PAROXYSMAL ATRIAL FIBRILLATION 08/04/2017 CHINEDU GARCIA Ot R06.02 SHORTNESS OF BREATH 08/05/2017 CHINEDU GARCIA Ot I10 ESSENTIAL (PRIMARY) HYPERTENSION 08/05/2017 CHINEDU GARCIA Ot I25.10 ATHSCL HEART DISEASE OF [place] CORONARY 08/05/2017 CHINEDU GARCIA Ot I48.91 UNSPECIFIED ATRIAL FIBRILLATION 08/05/2017 CHINEDU GARCIA Ot R06.09 OTHER FORMS OF DYSPNEA 08/25/2017 EZRA YAN DO Ot E53.8 DEFICIENCY OF OTHER SPECIFIED B GROUP 08/25/2017 EZRA YAN DO Ot E55.9 VITAMIN D DEFICIENCY, UNSPECIFIED 08/25/2017 GELLENDER DO, EZRA Martinez Ot M62.81 MUSCLE WEAKNESS (GENERALIZED) 08/25/2017 GELLENDER DO, EZRA Martinez Ot R06.02 SHORTNESS OF BREATH 08/25/2017 GELLENDER DO, EZRA Martinez Ot R53.83 OTHER FATIGUE 08/25/2017 GELLENDER DO, EZRA Martinez Ot R61 GENERALIZED HYPERHIDROSIS 08/25/2017 GELLENDER DO, EZRA Martinez Ot E53.8 DEFICIENCY OF OTHER SPECIFIED B GROUP 08/25/2017 GELLENDER DO, EZRA Martinez Ot E55.9 VITAMIN D DEFICIENCY, UNSPECIFIED 08/25/2017 GELLENDER DO, EZRA Martinez Ot M62.81 MUSCLE WEAKNESS (GENERALIZED) 08/25/2017 GELLENDER DO, EZRA Martinez Ot R06.02 SHORTNESS OF BREATH 08/25/2017 GELLENDER DO, EZRA Martinez Ot R53.83 OTHER FATIGUE 08/25/2017 GELLENDER DO, EZRA Martinez Ot R61 GENERALIZED HYPERHIDROSIS 08/26/2017 GELLENDER DO, EZRA Martinez Ot E53.8 DEFICIENCY OF OTHER SPECIFIED B GROUP 08/26/2017 GELLENDER DO, EZRA Martinez Ot E55.9 VITAMIN D DEFICIENCY, UNSPECIFIED 08/26/2017 GELLENDER DO, EZRA Martinez Ot M62.81 MUSCLE WEAKNESS (GENERALIZED) 08/26/2017 GELLENDER DO, EZRA Martinez Ot R06.02 SHORTNESS OF BREATH 08/26/2017 GELLENDER DO, EZRA Martinez Ot R53.83 OTHER FATIGUE 08/26/2017 GELLENDER DO, EZRA Martinez Ot R61 GENERALIZED HYPERHIDROSIS 08/30/2017 GELLENDER DO, EZRA Martinez Ot E53.8 DEFICIENCY OF OTHER SPECIFIED B GROUP 08/30/2017 GELLENDER DO, EZRA Martinez Ot E55.9 VITAMIN D DEFICIENCY, UNSPECIFIED 08/30/2017 GELLENDER DO, EZRA Martinez Ot M62.81 MUSCLE WEAKNESS (GENERALIZED) 08/30/2017 GELLENDER DO, EZRA Martinez Ot R06.02 SHORTNESS OF BREATH 08/30/2017 GELLENDER DO, EZRA Martinez Ot R53.83 OTHER FATIGUE 08/30/2017 GELLENDER DO, EZRA Martinez Ot R61 GENERALIZED HYPERHIDROSIS 09/03/2017 GELLENDER DO, EZRA Martinez Ot E53.8 DEFICIENCY OF OTHER SPECIFIED B GROUP 09/03/2017 GELLENDER DO, EZRA Martinez Ot E55.9 VITAMIN D DEFICIENCY, UNSPECIFIED 09/03/2017 GELLENDER DO, EZRA Martinez Ot M62.81 MUSCLE WEAKNESS (GENERALIZED) 09/03/2017 GELLENDER DO, EZRA Martinez Ot R06.02 SHORTNESS OF BREATH 09/03/2017 GELLENDER DO, EZRA Martinez Ot R53.83 OTHER FATIGUE 09/03/2017 GELLENDER DO, EZRA Martinez Ot R61 GENERALIZED HYPERHIDROSIS 09/12/2017 GELLENDER DO, EZRA Martinez Ot E53.8 DEFICIENCY OF OTHER SPECIFIED B GROUP 09/12/2017 GELLENDER DO, EZRA Martinez Ot E55.9 VITAMIN D DEFICIENCY, UNSPECIFIED 09/12/2017 GELLENDER DO, EZRA Martinez Ot M62.81 MUSCLE WEAKNESS (GENERALIZED) 09/12/2017 GELLENDER DO, EZRA Martinez Ot R06.02 SHORTNESS OF BREATH 09/12/2017 GELLENDER DO, EZRA Martinez Ot R53.83 OTHER FATIGUE 09/12/2017 GELLENDER DO, EZRA Martinez Ot R61 GENERALIZED HYPERHIDROSIS 11/22/2017 VELMA MATTHEWS, RENALDO Hwang Ot E03.9 HYPOTHYROIDISM, UNSPECIFIED 11/22/2017 VELMA MATTHEWS, RENALDO Hwang Ot F32.9 MAJOR DEPRESSIVE DISORDER, SINGLE EPISOD 11/22/2017 VELMA MATTHEWS, RENALDO Hwang Ot F41.9 ANXIETY DISORDER, UNSPECIFIED 11/22/2017 VELMA MATTHEWS, RENALDO Hwang Ot G47.30 SLEEP APNEA, UNSPECIFIED 11/22/2017 VELMA MATTHEWS, RENALDO Hwnag Ot H92.01 OTALGIA, RIGHT EAR 11/22/2017 VELMA MATTHEWS, RENALDO Hwang Ot I10 ESSENTIAL (PRIMARY) HYPERTENSION 11/22/2017 VELMA MATTHEWS, RENALDO Hwang Ot I25.10 ATHSCL HEART DISEASE OF [place] CORONARY 11/22/2017 VELMA MATTHEWS, RENALDO Hwang Ot I48.91 UNSPECIFIED ATRIAL FIBRILLATION 11/22/2017 VELMA MATTHEWS, RENALDO Hwang Ot J34.0 ABSCESS, FURUNCLE AND CARBUNCLE OF NOSE 11/22/2017 VELMA MATTHEWS, RENALDO Hwang Ot J45.909 UNSPECIFIED ASTHMA, UNCOMPLICATED 11/22/2017 BRURENALDO JUÁREZ MD, Ot R53.81 OTHER MALAISE 11/22/2017 RENALDO CARREON MD, Ot R53.83 OTHER FATIGUE 11/22/2017 RENALDO CARREON MD, Ot S00.461A INSECT BITE (NONVENOMOUS) OF RIGHT EAR, 11/22/2017 RENALDO CARREON MD, Ot W57.XXXA BIT/STUNG BY NONVENOM INSECT OTH NONVE 11/22/2017 RENALDO CARREON MD, Ot Z79.01 SKILLED NURSING (CURRENT) USE OF ANTICOAGULANT 11/22/2017 RENALDO CARREON MD, Ot Z79.51 SKILLED NURSING (CURRENT) USE OF INHALED STERO 11/22/2017 RENALDO CARREON MD, Ot Z80.7 FAM HX OF MALIG NEOPLM OF LYMPHOID, ROHIT 11/22/2017 RENALDO CARREON MD, Ot Z82.49 FAMILY HX OF ISCHEM HEART DIS AND OTH DI 11/22/2017 RENALDO CARREON MD, Ot Z87.09 PERSONAL HISTORY OF OTHER DISEASES OF 11/22/2017 RENALDO CARREON MD, Ot Z87.19 PERSONAL HISTORY OF OTHER DISEASES OF 11/22/2017 RENALDO CARREON MD, Ot Z88.1 ALLERGY STATUS TO OTHER ANTIBIOTIC AGENT 11/22/2017 RENALDO CARREON MD, Ot Z88.5 ALLERGY STATUS TO NARCOTIC AGENT STATUS 11/22/2017 RENALDO CARREON MD, Ot Z88.8 ALLERGY STATUS TO OTH DRUG/MEDS/BIOL SUB 11/22/2017 RENALDO CARREON MD, Ot Z90.710 ACQUIRED ABSENCE OF BOTH CERVIX AND UTER 11/25/2017 RENALDO CARREON MD, Ot E03.9 HYPOTHYROIDISM, UNSPECIFIED 11/25/2017 RENALDO CARREON MD, Ot F32.9 MAJOR DEPRESSIVE DISORDER, SINGLE EPISOD 11/25/2017 RENALDO CARREON MD, Ot F41.9 ANXIETY DISORDER, UNSPECIFIED 11/25/2017 RENALDO CARREON MD, Ot G47.30 SLEEP APNEA, UNSPECIFIED 11/25/2017 RENALDO CARREON MD, Ot H92.01 OTALGIA, RIGHT EAR 11/25/2017 RENALDO CARREON MD Ot I10 ESSENTIAL (PRIMARY) HYPERTENSION 11/25/2017 RENALDO CARREON MD Ot I25.10 ATHSCL HEART DISEASE OF [place] CORONARY 11/25/2017 RENALDO CARREON MD Ot I48.91 UNSPECIFIED ATRIAL FIBRILLATION 11/25/2017 RENALDO CARREON MD Ot J34.0 ABSCESS, FURUNCLE AND CARBUNCLE OF NOSE 11/25/2017 RENALDO CARREON MD, Ot J45.909 UNSPECIFIED ASTHMA, UNCOMPLICATED 11/25/2017 RENALDO CARREON MD Ot R53.81 OTHER MALAISE 11/25/2017 RENALDO CARREON MD Ot R53.83 OTHER FATIGUE 11/25/2017 RENALDO CARREON MD Ot S00.461A INSECT BITE (NONVENOMOUS) OF RIGHT EAR, 11/25/2017 RENALDO CARREON MD Ot W57.XXXA BIT/STUNG BY NONVENOM INSECT OTH NONVE 11/25/2017 RENALDO CARREON MD, Ot Z79.01 SMALL ANIMAL VETERINARIAN (CURRENT) USE OF ANTICOAGULANT 11/25/2017 RENALDO CARREON MD, Ot Z79.51 SKILLED NURSING (CURRENT) USE OF INHALED STERO 11/25/2017 RENALDO CARREON MD Ot Z80.7 FAM HX OF MALIG NEOPLM OF LYMPHOID, ROHIT 11/25/2017 RENALDO CARREON MD, Ot Z82.49 FAMILY HX OF ISCHEM HEART DIS AND OTH DI 11/25/2017 RENALDO CARREON MD, Ot Z87.09 PERSONAL HISTORY OF OTHER DISEASES OF TH 11/25/2017 RENALDO CARREON MD, Ot Z87.19 PERSONAL HISTORY OF OTHER DISEASES OF 11/25/2017 RENALDO CARREON MD, Ot Z88.1 ALLERGY STATUS TO OTHER ANTIBIOTIC AGENT 11/25/2017 RENALDO CARREON MD, Ot Z88.5 ALLERGY STATUS TO NARCOTIC AGENT STATUS 11/25/2017 RENALDO CARREON MD T Ot Z88.8 ALLERGY STATUS TO OTH DRUG/MEDS/BIOL SUB 11/25/2017 VELMA MATTHEWS, RENALDO Hwang Ot Z90.710 ACQUIRED ABSENCE OF BOTH CERVIX AND UTER 11/25/2017 BILLY MATTHEWS, ELTON Patterson Ot E03.9 HYPOTHYROIDISM, UNSPECIFIED 11/25/2017 ELTON CERVANTES MD Ot E04.1 NONTOXIC SINGLE THYROID NODULE 11/25/2017 CHINEDU GARCIA Ot E78.2 MIXED HYPERLIPIDEMIA 11/25/2017 CHINEDU GARCIA Ot I10 ESSENTIAL (PRIMARY) HYPERTENSION 11/25/2017 CHINEDU GARCIA Ot I25.10 ATHSCL HEART DISEASE OF [place] CORONARY 11/25/2017 CHINEDU GARCIA Ot I48.0 PAROXYSMAL ATRIAL FIBRILLATION 11/25/2017 ELTON CERVANTES MD Ot E03.9 HYPOTHYROIDISM, UNSPECIFIED 11/25/2017 ELTON CERVANTES MD Ot E04.2 NONTOXIC MULTINODULAR GOITER 11/25/2017 EZRA YAN DO Ot M47.812 SPONDYLOSIS W/O MYELOPATHY OR RADICULOPA 11/25/2017 EZRA YAN DO Ot R51 HEADACHE 11/25/2017 CHINEDU GARCIA Ot E03.8 OTHER SPECIFIED HYPOTHYROIDISM 11/25/2017 CHINEDU GARCIA Ot E03.9 HYPOTHYROIDISM, UNSPECIFIED 11/25/2017 CHINEDU GARCIA Ot E04.1 NONTOXIC SINGLE THYROID NODULE 11/25/2017 CHINEDU GARCIA Ot E78.2 MIXED HYPERLIPIDEMIA 11/25/2017 CHINEDU GARCIA Ot I10 ESSENTIAL (PRIMARY) HYPERTENSION 11/25/2017 CHINEDU GARCIA Ot I25.10 ATHSCL HEART DISEASE OF [place] CORONARY 11/25/2017 CHINEDU GARCIA Ot J42 UNSPECIFIED CHRONIC BRONCHITIS 11/25/2017 CHINEDU GARCIA Ot I08.1 RHEUMATIC DISORDERS OF BOTH MITRAL AND T 11/25/2017 CHINEDU GARCIA Ot I10 ESSENTIAL (PRIMARY) HYPERTENSION 11/25/2017 CHINEDU GARCIA Ot I25.10 ATHSCL HEART DISEASE OF [place] CORONARY 11/25/2017 CHINEDU GARCIA Ot I48.0 PAROXYSMAL ATRIAL FIBRILLATION 11/25/2017 CHINEDU GARCIA Ot R06.02 SHORTNESS OF BREATH 11/25/2017 CHINEDU GARCIA Ot I10 ESSENTIAL (PRIMARY) HYPERTENSION 11/25/2017 CHINEDU GARCIA Ot I25.10 ATHSCL HEART DISEASE OF [place] CORONARY 11/25/2017 CHINEDU GARCIA Ot I48.91 UNSPECIFIED ATRIAL FIBRILLATION 11/25/2017 CHINEDU GARCIA Ot R06.09 OTHER FORMS OF DYSPNEA 11/25/2017 [facility] DO, EZRA Martinez Ot M47.812 SPONDYLOSIS W/O MYELOPATHY OR RADICULOPA 11/25/2017 [facility], EZRA Martinez Ot M48.02 SPINAL STENOSIS, CERVICAL REGION 11/25/2017 [facility], EZRA Martinez Ot M50.321 OTHER CERVICAL DISC DEGENERATION AT C4-C 11/25/2017 [facility], EZRA Martinez Ot E53.8 DEFICIENCY OF OTHER SPECIFIED B GROUP 11/25/2017 [facility], EZRA Martinez Ot E55.9 VITAMIN D DEFICIENCY, UNSPECIFIED 11/25/2017 [facility], EZRA Martinez Ot M62.81 MUSCLE WEAKNESS (GENERALIZED) 11/25/2017 [facility], EZRA Martinez Ot R06.02 SHORTNESS OF BREATH 11/25/2017 [facility], EZRA Martinez Ot R53.83 OTHER FATIGUE [facility] Ot R61 GENERALIZED HYPERHIDROSIS 11/25/2017 [facility] EZRA Martinez Ot Z78.0 ASYMPTOMATIC MENOPAUSAL STATE 12/12/2017 [facility] EZRA Martinez Ot M47.812 SPONDYLOSIS W/O MYELOPATHY OR RADICULOPA 12/12/2017 [facility] EZRA Martinez Ot M48.02 SPINAL STENOSIS, CERVICAL REGION 12/12/2017 [facility], EZRA Martinez Ot M50.321 OTHER CERVICAL DISC DEGENERATION AT C4-C 12/17/2017 [facility], EZRA Martinez Ot E55.9 VITAMIN D DEFICIENCY, UNSPECIFIED 12/17/2017 EZRA YAN DO Ot Z13.820 ENCOUNTER FOR SCREENING FOR OSTEOPOROSIS 12/17/2017 [facility] EZRA Martinez Ot Z78.0 ASYMPTOMATIC MENOPAUSAL STATE 02/06/2018 CHINEDU GARCIA Ot I25.10 ATHSCL HEART DISEASE OF [place] CORONARY 02/06/2018 CHINEDU GARCIA Ot E78.5 HYPERLIPIDEMIA, UNSPECIFIED 02/06/2018 CHINEDU GARCIA Ot F41.8 OTHER SPECIFIED ANXIETY DISORDERS 02/06/2018 CHINEDU GARCIA Ot I10 ESSENTIAL (PRIMARY) HYPERTENSION 02/06/2018 CHINEDU GARCIA Ot I25.10 ATHSCL HEART DISEASE OF [place] CORONARY 02/26/2018 CHINEDU GARCIA Ot E78.5 HYPERLIPIDEMIA, UNSPECIFIED 02/26/2018 CHINEDU GARCIA Ot F41.8 OTHER SPECIFIED ANXIETY DISORDERS 02/26/2018 CHINEDU GARCIA Ot I10 ESSENTIAL (PRIMARY) HYPERTENSION 02/26/2018 CHINEDU GARCIA Ot I25.10 ATHSCL HEART DISEASE OF [place] CORONARY Procedures Code Description Performed By Performed On 88.72 DX ULTRASOUND-HEART 07/12/2009 99.61 04/17/2010 Results Test Result Range Complete blood count (CBC) with automated white blood cell (WBC) differential - 10/28/15 11:09 Blood leukocytes automated count (number/volume) 7.3 10*3/uL 4.3-11.0 Blood erythrocytes automated count (number/volume) 3.84 10*6/uL 4.35-5.85 Venous blood hemoglobin measurement (mass/volume) 12.1 g/dL 11.5-16.0 Blood hematocrit (volume fraction) 37 % 35-52 Automated erythrocyte mean corpuscular volume 95 [foz_us] 80-99 Automated erythrocyte mean corpuscular hemoglobin (mass per erythrocyte) 32 pg 25-34 Automated erythrocyte mean corpuscular hemoglobin concentration measurement ( mass/volume) 33 g/dL 32-36 Automated erythrocyte distribution width ratio 13.3 % 10.0-14.5 Automated blood platelet count (count/volume) 152 10*3/uL 130-400 Automated blood platelet mean volume measurement 11.3 [foz_us] 7.4-10.4 Automated blood neutrophils/100 leukocytes 66 % 42-75 Automated blood lymphocytes/100 leukocytes 22 % 12-44 Blood monocytes/100 leukocytes 11 % 0-12 Automated blood eosinophils/100 leukocytes 1 % 0-10 Automated blood basophils/100 leukocytes 0 % 0-10 Blood neutrophils automated count (number/volume) 4.8 10*3 1.8-7.8 Blood lymphocytes automated count (number/volume) 1.6 10*3 1.0-4.0 Blood monocytes automated count (number/volume) 0.8 10*3 0.0-1.0 Automated eosinophil count 0.1 10*3/uL 0.0-0.3 Automated blood basophil count (count/volume) 0.0 10*3/uL 0.0-0.1 Gram stain microscopy - 10/28/15 12:40 GRAM STAIN RESULT FEW WBC'S, NO BACTERIA OBSERVED NRG Bacteria identification in wound by culture - 10/28/15 12:40 Bacteria identification in wound by culture [id number] NRG FREE TEXT EXTERNAL SINGLE COLONY NRG QUANTITY OF GROWTH Scant Growth NRG FREE TEXT ENTRY 2 STAPH AND MICROCOCCUS NRG Complete blood count (CBC) with automated white blood cell (WBC) differential - 10/29/15 10:35 Blood leukocytes automated count (number/volume) 6.7 10*3/uL 4.3-11.0 Blood erythrocytes automated count (number/volume) 3.78 10*6/uL 4.35-5.85 Venous blood hemoglobin measurement (mass/volume) 11.9 g/dL 11.5-16.0 Blood hematocrit (volume fraction) 36 % 35-52 Automated erythrocyte mean corpuscular volume 96 [foz_us] 80-99 Automated erythrocyte mean corpuscular hemoglobin (mass per erythrocyte) 32 pg 25-34 Automated erythrocyte mean corpuscular hemoglobin concentration measurement ( mass/volume) 33 g/dL 32-36 Automated erythrocyte distribution width ratio 13.4 % 10.0-14.5 Automated blood platelet count (count/volume) 165 10*3/uL 130-400 Automated blood platelet mean volume measurement 11.3 [foz_us] 7.4-10.4 Automated blood neutrophils/100 leukocytes 56 % 42-75 Automated blood lymphocytes/100 leukocytes 32 % 12-44 Blood monocytes/100 leukocytes 10 % 0-12 Automated blood eosinophils/100 leukocytes 2 % 0-10 Automated blood basophils/100 leukocytes 0 % 0-10 Blood neutrophils automated count (number/volume) 3.7 10*3 1.8-7.8 Blood lymphocytes automated count (number/volume) 2.1 10*3 1.0-4.0 Blood monocytes automated count (number/volume) 0.7 10*3 0.0-1.0 Automated eosinophil count 0.1 10*3/uL 0.0-0.3 Automated blood basophil count (count/volume) 0.0 10*3/uL 0.0-0.1 Complete blood count (CBC) with automated white blood cell (WBC) differential - 10/30/15 04:45 Blood leukocytes automated count (number/volume) 6.9 10*3/uL 4.3-11.0 Blood erythrocytes automated count (number/volume) 4.00 10*6/uL 4.35-5.85 Venous blood hemoglobin measurement (mass/volume) 12.5 g/dL 11.5-16.0 Blood hematocrit (volume fraction) 38 % 35-52 Automated erythrocyte mean corpuscular volume 96 [foz_us] 80-99 Automated erythrocyte mean corpuscular hemoglobin (mass per erythrocyte) 31 pg 25-34 Automated erythrocyte mean corpuscular hemoglobin concentration measurement ( mass/volume) 33 g/dL 32-36 Automated erythrocyte distribution width ratio 13.4 % 10.0-14.5 Automated blood platelet count (count/volume) 175 10*3/uL 130-400 Automated blood platelet mean volume measurement 11.4 [foz_us] 7.4-10.4 Automated blood neutrophils/100 leukocytes 47 % 42-75 Automated blood lymphocytes/100 leukocytes 40 % 12-44 Blood monocytes/100 leukocytes 9 % 0-12 Automated blood eosinophils/100 leukocytes 4 % 0-10 Automated blood basophils/100 leukocytes 0 % 0-10 Blood neutrophils automated count (number/volume) 3.3 10*3 1.8-7.8 Blood lymphocytes automated count (number/volume) 2.7 10*3 1.0-4.0 Blood monocytes automated count (number/volume) 0.6 10*3 0.0-1.0 Automated eosinophil count 0.2 10*3/uL 0.0-0.3 Automated blood basophil count (count/volume) 0.0 10*3/uL 0.0-0.1 Complete blood count (CBC) with automated white blood cell (WBC) differential - 10/31/15 04:40 Blood leukocytes automated count (number/volume) 5.7 10*3/uL 4.3-11.0 Blood erythrocytes automated count (number/volume) 3.80 10*6/uL 4.35-5.85 Venous blood hemoglobin measurement (mass/volume) 11.7 g/dL 11.5-16.0 Blood hematocrit (volume fraction) 36 % 35-52 Automated erythrocyte mean corpuscular volume 96 [foz_us] 80-99 Automated erythrocyte mean corpuscular hemoglobin (mass per erythrocyte) 31 pg 25-34 Automated erythrocyte mean corpuscular hemoglobin concentration measurement ( mass/volume) 32 g/dL 32-36 Automated erythrocyte distribution width ratio 13.4 % 10.0-14.5 Automated blood platelet count (count/volume) 182 10*3/uL 130-400 Automated blood platelet mean volume measurement 11.2 [foz_us] 7.4-10.4 Automated blood neutrophils/100 leukocytes 47 % 42-75 Automated blood lymphocytes/100 leukocytes 40 % 12-44 Blood monocytes/100 leukocytes 9 % 0-12 Automated blood eosinophils/100 leukocytes 4 % 0-10 Automated blood basophils/100 leukocytes 1 % 0-10 Blood neutrophils automated count (number/volume) 2.7 10*3 1.8-7.8 Blood lymphocytes automated count (number/volume) 2.3 10*3 1.0-4.0 Blood monocytes automated count (number/volume) 0.5 10*3 0.0-1.0 Automated eosinophil count 0.2 10*3/uL 0.0-0.3 Automated blood basophil count (count/volume) 0.0 10*3/uL 0.0-0.1 Comprehensive metabolic panel - 10/31/15 04:40 Serum or plasma sodium measurement (moles/volume) 139 mmol/L 135-145 Serum or plasma potassium measurement (moles/volume) 3.9 mmol/L 3.6-5.0 Serum or plasma chloride measurement (moles/volume) 104 mmol/L 98-107 Carbon dioxide 26 mmol/L 21-32 Serum or plasma anion gap determination (moles/volume) 9 mmol/L 5-14 Serum or plasma urea nitrogen measurement (mass/volume) 11 mg/dL 7-18 Serum or plasma creatinine measurement (mass/volume) 0.69 mg/dL 0.60-1.30 Serum or plasma urea nitrogen/creatinine mass ratio 16 NRG Serum or plasma creatinine measurement with calculation of estimated glomerular filtration rate > NRG Serum or plasma glucose measurement (mass/volume) 95 mg/dL 70-105 Serum or plasma calcium measurement (mass/volume) 9.2 mg/dL 8.5-10.1 Serum or plasma total bilirubin measurement (mass/volume) 0.7 mg/dL 0.1-1.0 Serum or plasma alkaline phosphatase measurement (enzymatic activity/volume) 119 U/L 40-136 Serum or plasma aspartate aminotransferase measurement (enzymatic activity/ volume) 129 U/L 5-34 Serum or plasma alanine aminotransferase measurement (enzymatic activity/volume ) 106 U/L 0-55 Serum or plasma protein measurement (mass/volume) 6.4 g/dL 6.4-8.2 Serum or plasma albumin measurement (mass/volume) 3.5 g/dL 3.2-4.5 Complete blood count (CBC) with automated white blood cell (WBC) differential - 11/01/15 18:04 Blood leukocytes automated count (number/volume) 6.4 10*3/uL 4.3-11.0 Blood erythrocytes automated count (number/volume) 4.04 10*6/uL 4.35-5.85 Venous blood hemoglobin measurement (mass/volume) 12.6 g/dL 11.5-16.0 Blood hematocrit (volume fraction) 38 % 35-52 Automated erythrocyte mean corpuscular volume 95 [foz_us] 80-99 Automated erythrocyte mean corpuscular hemoglobin (mass per erythrocyte) 31 pg 25-34 Automated erythrocyte mean corpuscular hemoglobin concentration measurement ( mass/volume) 33 g/dL 32-36 Automated erythrocyte distribution width ratio 13.3 % 10.0-14.5 Automated blood platelet count (count/volume) 213 10*3/uL 130-400 Automated blood platelet mean volume measurement 10.6 [foz_us] 7.4-10.4 Automated blood neutrophils/100 leukocytes 49 % 42-75 Automated blood lymphocytes/100 leukocytes 38 % 12-44 Blood monocytes/100 leukocytes 10 % 0-12 Automated blood eosinophils/100 leukocytes 3 % 0-10 Automated blood basophils/100 leukocytes 1 % 0-10 Blood neutrophils automated count (number/volume) 3.1 10*3 1.8-7.8 Blood lymphocytes automated count (number/volume) 2.4 10*3 1.0-4.0 Blood monocytes automated count (number/volume) 0.6 10*3 0.0-1.0 Automated eosinophil count 0.2 10*3/uL 0.0-0.3 Automated blood basophil count (count/volume) 0.0 10*3/uL 0.0-0.1 PT panel in platelet poor plasma by coagulation assay - 11/01/15 18:04 Prothrombin time (PT) in platelet poor plasma by coagulation assay 14.7 s 12.2-14.7 INR in platelet poor plasma or blood by coagulation assay 1.2 0.8-1.4 Activated partial thromboplastin time (aPTT) in platelet poor plasma bycoagulation assay - 11/01/15 18:04 Activated partial thromboplastin time (aPTT) in platelet poor plasma bycoagulation assay 29 s 24-35 Fibrin D-dimer FEU measurement in platelet poor plasma (mass/volume) - 18:04 Fibrin D-dimer FEU measurement in platelet poor plasma (mass/volume) 1.04 ug/mL 0.00-0.49 Comprehensive metabolic panel - 11/01/15 18:04 Serum or plasma sodium measurement (moles/volume) 138 mmol/L 135-145 Serum or plasma potassium measurement (moles/volume) 4.1 mmol/L 3.6-5.0 Serum or plasma chloride measurement (moles/volume) 105 mmol/L 98-107 Carbon dioxide 27 mmol/L 21-32 Serum or plasma anion gap determination (moles/volume) 6 mmol/L 5-14 Serum or plasma urea nitrogen measurement (mass/volume) 11 mg/dL 7-18 Serum or plasma creatinine measurement (mass/volume) 0.69 mg/dL 0.60-1.30 Serum or plasma urea nitrogen/creatinine mass ratio 16 NRG Serum or plasma creatinine measurement with calculation of estimated glomerular filtration rate > NRG Serum or plasma glucose measurement (mass/volume) 93 mg/dL 70-105 Serum or plasma calcium measurement (mass/volume) 9.6 mg/dL 8.5-10.1 Serum or plasma total bilirubin measurement (mass/volume) 0.5 mg/dL 0.1-1.0 Serum or plasma alkaline phosphatase measurement (enzymatic activity/volume) 116 U/L 40-136 Serum or plasma aspartate aminotransferase measurement (enzymatic activity/ volume) 52 U/L 5-34 Serum or plasma alanine aminotransferase measurement (enzymatic activity/volume ) 95 U/L 0-55 Serum or plasma protein measurement (mass/volume) 7.1 g/dL 6.4-8.2 Serum or plasma albumin measurement (mass/volume) 3.9 g/dL 3.2-4.5 Serum or plasma C reactive protein measurement (mass/volume) - 11/01/15 18:04 Serum or plasma C reactive protein measurement (mass/volume) 2.14 mg /dL 0.00-0.50 Erythrocyte sedimentation rate by westergren method - 11/01/15 18:04 Erythrocyte sedimentation rate by westergren method 58 mm 0-30 Blood lactic acid measurement (moles/volume) - 11/01/15 18:04 Blood lactic acid measurement (moles/volume) 0.9 mmol/L 0.5-2.0 Bacterial blood culture - 11/01/15 18:04 Bacterial blood culture NG NRG Bacterial blood culture - 11/01/15 18:59 Bacterial blood culture NG NRG THYROID STIMULATING HORMONE - 12/05/15 12:56 THYROID STIMULATING HORMONE 1.04 u[iU]/mL 0.35-4.94 Serum or plasma thyroxine (T4) free measurement (mass/volume) - 12/05/15 12:56 Serum or plasma thyroxine (T4) free measurement (mass/volume) 1.09 ng/dL 0.70-1.48 Complete blood count (CBC) with automated white blood cell (WBC) differential - 03/28/16 04:20 Blood leukocytes automated count (number/volume) 7.8 10*3/uL 4.3-11.0 Blood erythrocytes automated count (number/volume) 4.49 10*6/uL 4.35-5.85 Venous blood hemoglobin measurement (mass/volume) 13.6 g/dL 11.5-16.0 Blood hematocrit (volume fraction) 42 % 35-52 Automated erythrocyte mean corpuscular volume 93 [foz_us] 80-99 Automated erythrocyte mean corpuscular hemoglobin (mass per erythrocyte) 30 pg 25-34 Automated erythrocyte mean corpuscular hemoglobin concentration measurement ( mass/volume) 33 g/dL 32-36 Automated erythrocyte distribution width ratio 13.9 % 10.0-14.5 Automated blood platelet count (count/volume) 188 10*3/uL 130-400 Automated blood platelet mean volume measurement 10.8 [foz_us] 7.4-10.4 Automated blood neutrophils/100 leukocytes 48 % 42-75 Automated blood lymphocytes/100 leukocytes 40 % 12-44 Blood monocytes/100 leukocytes 9 % 0-12 Automated blood eosinophils/100 leukocytes 2 % 0-10 Automated blood basophils/100 leukocytes 1 % 0-10 Blood neutrophils automated count (number/volume) 3.7 10*3 1.8-7.8 Blood lymphocytes automated count (number/volume) 3.1 10*3 1.0-4.0 Blood monocytes automated count (number/volume) 0.7 10*3 0.0-1.0 Automated eosinophil count 0.2 10*3/uL 0.0-0.3 Automated blood basophil count (count/volume) 0.0 10*3/uL 0.0-0.1 PT panel in platelet poor plasma by coagulation assay - 03/28/16 04:20 Prothrombin time (PT) in platelet poor plasma by coagulation assay 14.5 s 12.2-14.7 INR in platelet poor plasma or blood by coagulation assay 1.2 0.8-1.4 Activated partial thromboplastin time (aPTT) in platelet poor plasma bycoagulation assay - 03/28/16 04:20 Activated partial thromboplastin time (aPTT) in platelet poor plasma bycoagulation assay 28 s 24-35 Comprehensive metabolic panel - 03/28/16 04:20 Serum or plasma sodium measurement (moles/volume) 139 mmol/L 135-145 Serum or plasma potassium measurement (moles/volume) 3.7 mmol/L 3.6-5.0 Serum or plasma chloride measurement (moles/volume) 105 mmol/L 98-107 Carbon dioxide 24 mmol/L 21-32 Serum or plasma anion gap determination (moles/volume) 10 mmol/L 5-14 Serum or plasma urea nitrogen measurement (mass/volume) 16 mg/dL 7-18 Serum or plasma creatinine measurement (mass/volume) 0.75 mg/dL 0.60-1.30 Serum or plasma urea nitrogen/creatinine mass ratio 21 NRG Serum or plasma creatinine measurement with calculation of estimated glomerular filtration rate > NRG Serum or plasma glucose measurement (mass/volume) 89 mg/dL 70-105 Serum or plasma calcium measurement (mass/volume) 9.1 mg/dL 8.5-10.1 Serum or plasma total bilirubin measurement (mass/volume) 0.5 mg/dL 0.1-1.0 Serum or plasma alkaline phosphatase measurement (enzymatic activity/volume) 78 U/L 40-136 Serum or plasma aspartate aminotransferase measurement (enzymatic activity/ volume) 22 U/L 5-34 Serum or plasma alanine aminotransferase measurement (enzymatic activity/volume ) 24 U/L 0-55 Serum or plasma protein measurement (mass/volume) 7.6 g/dL 6.4-8.2 Serum or plasma albumin measurement (mass/volume) 4.4 g/dL 3.2-4.5 Magnesium - 03/28/16 04:20 Magnesium 2.5 mg/dL 1.8-2.4 Serum or plasma troponin i.cardiac measurement (mass/volume) - 03/28/16 04:20 Serum or plasma troponin i.cardiac measurement (mass/volume) < ng/ mL <0.30 Myoglobin, serum - 03/28/16 04:20 Myoglobin, serum 30.2 ng/mL 10.0-92.0 THYROID STIMULATING HORMONE - 03/28/16 04:20 THYROID STIMULATING HORMONE 1.96 u[iU]/mL 0.35-4.94 Serum or plasma thyroxine (T4) free measurement (mass/volume) - 03/28/16 04:20 Serum or plasma thyroxine (T4) free measurement (mass/volume) 1.13 ng/dL 0.70-1.48 Complete urinalysis with reflex to culture - 03/28/16 04:55 Urine color determination YELLOW NRG Urine clarity determination CLEAR NRG Urine pH measurement by test strip 7 5-9 Specific gravity of urine by test strip 1.010 1.016- 1.022 Urine protein assay by test strip, semi-quantitative NEGATIVE NEGATIVE Urine glucose detection by automated test strip NEGATIVE NEGATIVE Erythrocytes detection in urine sediment by light microscopy NEGATIVE NEGATIVE Urine ketones detection by automated test strip NEGATIVE NEGATIVE Urine nitrite detection by test strip NEGATIVE NEGATIVE Urine total bilirubin detection by test strip NEGATIVE NEGATIVE Urine urobilinogen measurement by automated test strip (mass/volume) NORMAL NORMAL Urine leukocyte esterase detection by dipstick 1+ NEGATIVE Automated urine sediment erythrocyte count by microscopy (number/high power field) NONE NRG Automated urine sediment leukocyte count by microscopy (number/high power field ) [HPF] NRG Bacteria detection in urine sediment by light microscopy TRACE NRG Squamous epithelial cells detection in urine sediment by light microscopy 0-2 NRG Crystals detection in urine sediment by light microscopy NONE NRG Casts detection in urine sediment by light microscopy NONE NRG Mucus detection in urine sediment by light microscopy NEGATIVE NRG Complete urinalysis with reflex to culture NO NRG Influenza virus A and B antigen detection - 04/02/17 05:23 FLU RESULT NEGATIVE FOR INFLUENZA A AND B ANTIGENS BY IA NRG Complete blood count (CBC) with automated white blood cell (WBC) differential - 04/02/17 05:34 Blood leukocytes automated count (number/volume) 6.8 10*3/uL 4.3-11.0 Blood erythrocytes automated count (number/volume) 3.90 10*6/uL 4.35-5.85 Venous blood hemoglobin measurement (mass/volume) 12.3 g/dL 11.5-16.0 Blood hematocrit (volume fraction) 37 % 35-52 Automated erythrocyte mean corpuscular volume 94 [foz_us] 80-99 Automated erythrocyte mean corpuscular hemoglobin (mass per erythrocyte) 32 pg 25-34 Automated erythrocyte mean corpuscular hemoglobin concentration measurement ( mass/volume) 34 g/dL 32-36 Automated erythrocyte distribution width ratio 13.4 % 10.0-14.5 Automated blood platelet count (count/volume) 181 10*3/uL 130-400 Automated blood platelet mean volume measurement 10.8 [foz_us] 7.4-10.4 Automated blood neutrophils/100 leukocytes 48 % 42-75 Automated blood lymphocytes/100 leukocytes 41 % 12-44 Blood monocytes/100 leukocytes 8 % 0-12 Automated blood eosinophils/100 leukocytes 2 % 0-10 Automated blood basophils/100 leukocytes 1 % 0-10 Blood neutrophils automated count (number/volume) 3.3 10*3 1.8-7.8 Blood lymphocytes automated count (number/volume) 2.8 10*3 1.0-4.0 Blood monocytes automated count (number/volume) 0.5 10*3 0.0-1.0 Automated eosinophil count 0.2 10*3/uL 0.0-0.3 Automated blood basophil count (count/volume) 0.0 10*3/uL 0.0-0.1 PT panel in platelet poor plasma by coagulation assay - 04/02/17 05:34 Prothrombin time (PT) in platelet poor plasma by coagulation assay 15.2 s 12.2-14.7 INR in platelet poor plasma or blood by coagulation assay 1.2 0.8-1.4 Activated partial thromboplastin time (aPTT) in platelet poor plasma bycoagulation assay - 04/02/17 05:34 Activated partial thromboplastin time (aPTT) in platelet poor plasma bycoagulation assay 30 s 24-35 Comprehensive metabolic panel - 04/02/17 05:34 Serum or plasma sodium measurement (moles/volume) 141 mmol/L 135-145 Serum or plasma potassium measurement (moles/volume) 3.9 mmol/L 3.6-5.0 Serum or plasma chloride measurement (moles/volume) 106 mmol/L 98-107 Carbon dioxide 24 mmol/L 21-32 Serum or plasma anion gap determination (moles/volume) 11 mmol/L 5-14 Serum or plasma urea nitrogen measurement (mass/volume) 15 mg/dL 7-18 Serum or plasma creatinine measurement (mass/volume) 0.73 mg/dL 0.60-1.30 Serum or plasma urea nitrogen/creatinine mass ratio 21 NRG Serum or plasma creatinine measurement with calculation of estimated glomerular filtration rate > NRG Serum or plasma glucose measurement (mass/volume) 89 mg/dL 70-105 Serum or plasma calcium measurement (mass/volume) 9.2 mg/dL 8.5-10.1 Serum or plasma total bilirubin measurement (mass/volume) 0.7 mg/dL 0.1-1.0 Serum or plasma alkaline phosphatase measurement (enzymatic activity/volume) 67 U/L 40-136 Serum or plasma aspartate aminotransferase measurement (enzymatic activity/ volume) 18 U/L 5-34 Serum or plasma alanine aminotransferase measurement (enzymatic activity/volume ) 19 U/L 0-55 Serum or plasma protein measurement (mass/volume) 7.1 g/dL 6.4-8.2 Serum or plasma albumin measurement (mass/volume) 3.9 g/dL 3.2-4.5 Magnesium - 04/02/17 05:34 Magnesium 2.0 mg/dL 1.8-2.4 Serum or plasma troponin i.cardiac measurement (mass/volume) - 04/02/17 05:34 Serum or plasma troponin i.cardiac measurement (mass/volume) < ng/ mL <0.30 Myoglobin, serum - 04/02/17 05:34 Myoglobin, serum 38.3 ng/mL 10.0-92.0 Automated blood complete blood count (hemogram) panel - 07/16/17 09:11 Blood leukocytes automated count (number/volume) 5.7 10*3/uL 4.3-11.0 Blood erythrocytes automated count (number/volume) 4.30 10*6/uL 4.35-5.85 Venous blood hemoglobin measurement (mass/volume) 13.3 g/dL 11.5-16.0 Blood hematocrit (volume fraction) 40 % 35-52 Automated erythrocyte mean corpuscular volume 94 [foz_us] 80-99 Automated erythrocyte mean corpuscular hemoglobin (mass per erythrocyte) 31 pg 25-34 Automated erythrocyte mean corpuscular hemoglobin concentration measurement ( mass/volume) 33 g/dL 32-36 Automated erythrocyte distribution width ratio 13.6 % 10.0-14.5 Automated blood platelet count (count/volume) 200 10*3/uL 130-400 Automated blood platelet mean volume measurement 10.8 [foz_us] 7.4-10.4 Comprehensive metabolic panel - 07/16/17 09:11 Serum or plasma sodium measurement (moles/volume) 140 mmol/L 135-145 Serum or plasma potassium measurement (moles/volume) 4.0 mmol/L 3.6-5.0 Serum or plasma chloride measurement (moles/volume) 107 mmol/L 98-107 Carbon dioxide 26 mmol/L 21-32 Serum or plasma anion gap determination (moles/volume) 7 mmol/L 5-14 Serum or plasma urea nitrogen measurement (mass/volume) 18 mg/dL 7-18 Serum or plasma creatinine measurement (mass/volume) 0.82 mg/dL 0.60-1.30 Serum or plasma urea nitrogen/creatinine mass ratio 22 NRG Serum or plasma creatinine measurement with calculation of estimated glomerular filtration rate > NRG Serum or plasma glucose measurement (mass/volume) 85 mg/dL 70-105 Serum or plasma calcium measurement (mass/volume) 9.6 mg/dL 8.5-10.1 Serum or plasma total bilirubin measurement (mass/volume) 1.1 mg/dL 0.1-1.0 Serum or plasma alkaline phosphatase measurement (enzymatic activity/volume) 70 U/L 40-136 Serum or plasma aspartate aminotransferase measurement (enzymatic activity/ volume) 18 U/L 5-34 Serum or plasma alanine aminotransferase measurement (enzymatic activity/volume ) 17 U/L 0-55 Serum or plasma protein measurement (mass/volume) 7.6 g/dL 6.4-8.2 Serum or plasma albumin measurement (mass/volume) 4.2 g/dL 3.2-4.5 Lipid 1996 panel - 07/16/17 09:11 Serum or plasma triglyceride measurement (mass/volume) 79 mg/dL <150 Serum or plasma cholesterol measurement (mass/volume) 210 mg/dL < 200 Serum or plasma cholesterol in HDL measurement (mass/volume) 60 mg/ dL 40-60 Cholesterol in LDL [mass/volume] in serum or plasma by direct assay 137 mg/dL 1-129 Serum or plasma cholesterol in VLDL measurement (mass/volume) 16 mg/ dL 5-40 PT panel in platelet poor plasma by coagulation assay - 07/16/17 09:11 Prothrombin time (PT) in platelet poor plasma by coagulation assay 13.9 s 12.2-14.7 INR in platelet poor plasma or blood by coagulation assay 1.1 0.8-1.4 Methicillin resistant Staphylococcus aureus (MRSA) screening culture - 09:18 Methicillin resistant Staphylococcus aureus (MRSA) screening culture NEG NRG Cyanocobalamin measurement - 08/23/17 09:03 Vitamin B12 505 pg/mL 190-1100 VITAMIN D 25-HYDROXY - 08/23/17 09:03 VITAMIN D 25-HYDROXY (TOTAL) 19.2 % 30.0-100.0 Complete blood count (CBC) with automated white blood cell (WBC) differential - 11/22/17 09:55 Blood leukocytes automated count (number/volume) 5.5 10*3/uL 4.3-11.0 Blood erythrocytes automated count (number/volume) 3.86 10*6/uL 4.35-5.85 Venous blood hemoglobin measurement (mass/volume) 12.1 g/dL 11.5-16.0 Blood hematocrit (volume fraction) 36 % 35-52 Automated erythrocyte mean corpuscular volume 93 [foz_us] 80-99 Automated erythrocyte mean corpuscular hemoglobin (mass per erythrocyte) 31 pg 25-34 Automated erythrocyte mean corpuscular hemoglobin concentration measurement ( mass/volume) 34 g/dL 32-36 Automated erythrocyte distribution width ratio 13.3 % 10.0-14.5 Automated blood platelet count (count/volume) 174 10*3/uL 130-400 Automated blood platelet mean volume measurement 11.1 [foz_us] 7.4-10.4 Automated blood neutrophils/100 leukocytes 49 % 42-75 Automated blood lymphocytes/100 leukocytes 37 % 12-44 Blood monocytes/100 leukocytes 11 % 0-12 Automated blood eosinophils/100 leukocytes 3 % 0-10 Automated blood basophils/100 leukocytes 1 % 0-10 Blood neutrophils automated count (number/volume) 2.7 10*3 1.8-7.8 Blood lymphocytes automated count (number/volume) 2.0 10*3 1.0-4.0 Blood monocytes automated count (number/volume) 0.6 10*3 0.0-1.0 Automated eosinophil count 0.2 10*3/uL 0.0-0.3 Automated blood basophil count (count/volume) 0.0 10*3/uL 0.0-0.1 Comprehensive metabolic panel - 11/22/17 09:55 Serum or plasma sodium measurement (moles/volume) 141 mmol/L 135-145 Serum or plasma potassium measurement (moles/volume) 4.0 mmol/L 3.6-5.0 Serum or plasma chloride measurement (moles/volume) 109 mmol/L 98-107 Carbon dioxide 22 mmol/L 21-32 Serum or plasma anion gap determination (moles/volume) 10 mmol/L 5-14 Serum or plasma urea nitrogen measurement (mass/volume) 13 mg/dL 7-18 Serum or plasma creatinine measurement (mass/volume) 0.74 mg/dL 0.60-1.30 Serum or plasma urea nitrogen/creatinine mass ratio 18 NRG Serum or plasma creatinine measurement with calculation of estimated glomerular filtration rate > NRG Serum or plasma glucose measurement (mass/volume) 92 mg/dL 70-105 Serum or plasma calcium measurement (mass/volume) 9.0 mg/dL 8.5-10.1 Serum or plasma total bilirubin measurement (mass/volume) 0.5 mg/dL 0.1-1.0 Serum or plasma alkaline phosphatase measurement (enzymatic activity/volume) 57 U/L 40-136 Serum or plasma aspartate aminotransferase measurement (enzymatic activity/ volume) 17 U/L 5-34 Serum or plasma alanine aminotransferase measurement (enzymatic activity/volume ) 17 U/L 0-55 Serum or plasma protein measurement (mass/volume) 6.6 g/dL 6.4-8.2 Serum or plasma albumin measurement (mass/volume) 3.9 g/dL 3.2-4.5 CALCIUM CORRECTED 9.1 mg/dL 8.5-10.1 Serum or plasma creatine kinase measurement (enzymatic activity/volume) - 11/22 09:55 Serum or plasma creatine kinase measurement (enzymatic activity/volume) 66 U/L 29-168 THYROID STIMULATING HORMONE - 11/22/17 09:55 THYROID STIMULATING HORMONE 0.83 u[iU]/mL 0.35-4.94 Serum or plasma thyroxine (T4) free measurement (mass/volume) - 11/22/17 09:55 Serum or plasma thyroxine (T4) free measurement (mass/volume) 1.10 ng/dL 0.70-1.48 Tick identification panel - 11/22/17 09:55 Serum Ehrlichia chaffeensis IgG antibody detection <1:16 <1:16 Serum Ehrlichia chaffeensis IgM antibody detection <1:10 <1:10 Serum Rickettsia rickettsii IgG antibody assay (units/volume) < <1:16 [place] spotted fever panel < <1:10 Francisella tularensis antibody assay <1:20 NRG LYME AB G M 0.03 % 0.00-0.89 Interpretation of Lyme disease antibody assay Negative Negative Complete urinalysis with reflex to culture - 11/22/17 10:05 Urine color determination YELLOW NRG Urine clarity determination CLEAR NRG Urine pH measurement by test strip 5 5-9 Specific gravity of urine by test strip 1.020 1.016- 1.022 Urine protein assay by test strip, semi-quantitative NEGATIVE NEGATIVE Urine glucose detection by automated test strip NEGATIVE NEGATIVE Erythrocytes detection in urine sediment by light microscopy NEGATIVE NEGATIVE Urine ketones detection by automated test strip NEGATIVE NEGATIVE Urine nitrite detection by test strip NEGATIVE NEGATIVE Urine total bilirubin detection by test strip NEGATIVE NEGATIVE Urine urobilinogen measurement by automated test strip (mass/volume) NORMAL NORMAL Urine leukocyte esterase detection by dipstick 1+ NEGATIVE Automated urine sediment erythrocyte count by microscopy (number/high power field) NONE NRG Automated urine sediment leukocyte count by microscopy (number/high power field ) [HPF] NRG Bacteria detection in urine sediment by light microscopy FEW NRG Squamous epithelial cells detection in urine sediment by light microscopy 2-5 NRG Crystals detection in urine sediment by light microscopy NONE NRG Casts detection in urine sediment by light microscopy NONE NRG Mucus detection in urine sediment by light microscopy MODERATE NRG Complete urinalysis with reflex to culture YES NRG Bacterial urine culture - 11/22/17 10:05 Bacterial urine culture SEE COMMEN NRG COLONY COUNT . NRG Comprehensive metabolic panel - 02/04/18 11:27 Serum or plasma sodium measurement (moles/volume) 140 mmol/L 135-145 Serum or plasma potassium measurement (moles/volume) 4.1 mmol/L 3.6-5.0 Serum or plasma chloride measurement (moles/volume) 104 mmol/L 98-107 Carbon dioxide 28 mmol/L 21-32 Serum or plasma anion gap determination (moles/volume) 8 mmol/L 5-14 Serum or plasma urea nitrogen measurement (mass/volume) 13 mg/dL 7-18 Serum or plasma creatinine measurement (mass/volume) 0.78 mg/dL 0.60-1.30 Serum or plasma urea nitrogen/creatinine mass ratio 17 NRG Serum or plasma creatinine measurement with calculation of estimated glomerular filtration rate > NRG Serum or plasma glucose measurement (mass/volume) 89 mg/dL 70-105 Serum or plasma calcium measurement (mass/volume) 9.8 mg/dL 8.5-10.1 Serum or plasma total bilirubin measurement (mass/volume) 1.0 mg/dL 0.1-1.0 Serum or plasma alkaline phosphatase measurement (enzymatic activity/volume) 72 U/L 40-136 Serum or plasma aspartate aminotransferase measurement (enzymatic activity/ volume) 19 U/L 5-34 Serum or plasma alanine aminotransferase measurement (enzymatic activity/volume ) 18 U/L 0-55 Serum or plasma protein measurement (mass/volume) 7.8 g/dL 6.4-8.2 Serum or plasma albumin measurement (mass/volume) 4.4 g/dL 3.2-4.5 CALCIUM CORRECTED 9.5 mg/dL 8.5-10.1 Lipid 1996 panel - 02/04/18 11:27 Serum or plasma triglyceride measurement (mass/volume) 74 mg/dL <150 Serum or plasma cholesterol measurement (mass/volume) 221 mg/dL < 200 Serum or plasma cholesterol in HDL measurement (mass/volume) 59 mg/ dL 40-60 Cholesterol in LDL [mass/volume] in serum or plasma by direct assay 154 mg/dL 1-129 Serum or plasma cholesterol in VLDL measurement (mass/volume) 15 mg/ dL 5-40 Encounters ACCT No. Visit Date/Time Discharge Status Pt. Type Provider Facility Loc./Unit Complaint [id number] 02/04/2018 11:09:00 02/04/2018 23:59:59 CLS Outpatient CHINEDU GARCIA [facility] LAB F41.8,I25.10, I10,E78.2 [id number] 11/27/2017 09:36:00 11/27/2017 23:59:59 CLS Outpatient EZRA YAN DO [facility] RAD SCREENING LOW VITAMIN D [id number] 11/22/2017 09:16:00 11/22/2017 12:11:00 DIS Emergency VELMA MATTHEWS, RENALDO Hwang [facility] ER TICK, FEVER, POSS EAR INFECTION [id number] 08/23/2017 08:46:00 08/23/2017 23:59:59 CLS Outpatient EZRA YAN DO [facility] LAB WEAKNESS, TIRED, MUSCLE WEAKNESS,SWEATY, B-12 DEF [id number] 07/16/2017 08:40:00 07/16/2017 16:30:00 DIS Outpatient MAL WINCHESTER MD [facility] CATH ABN STRESS TEST,CP,CAD, HTN [id number] 07/14/2017 08:12:00 07/14/2017 23:59:59 CLS Outpatient CHINEDU GARCIA [facility] CARD AF [id number] 07/11/2017 09:39:00 07/11/2017 23:59:59 CLS Outpatient CHINEDU GARCIA [facility] CARD AF [id number] 05/09/2017 08:25:00 05/09/2017 23:59:59 CLS Outpatient EZRA YAN DO [facility] RAD NECK PAIN [id number] 04/02/2017 05:01:00 04/02/2017 07:03:00 DIS Emergency RENALDO CARREON MD [facility] ER SOB [id number] 02/11/2017 08:56:00 02/11/2017 23:59:59 CLS Outpatient CHINEDU GARCIA [facility] LAB E04.1, E03.9 , I25.10, J42, I10, E78.2 [id number] 11/28/2016 08:14:00 11/28/2016 23:59:59 CLS Outpatient EZRA YAN DO [facility] RAD HEAD TRAUMA, CRUNCHING OF NECK [id number] 03/28/2016 04:09:00 03/28/2016 07:09:00 DIS Emergency RENALDO CARREON MD [facility] ER SOB,HIGH BLOOD PRESSURE,PALPITATIONS [id number] 12/05/2015 13:39:00 12/05/2015 23:59:59 CLS Outpatient ELTON CERVANTES MD [facility] LAB GOITER;MULTINODULAR THYROID NODULE;LEFT,HYPOTHYROI [id number] 11/16/2015 14:50:00 11/16/2015 23:59:59 CLS Outpatient ELTON CERVANTES MD [facility] RAD NONTOXIC MULTINODULAR GOITER [id number] 11/01/2015 17:41:00 11/01/2015 20:14:00 DIS Emergency RODRICK WARD DO [facility] ER RT FOOT,LEG SWELLING/PAIN [id number] 10/28/2015 12:58:00 10/31/2015 11:30:00 DIS Inpatient EZRA YAN DO [facility] 4TH CELLULITIS R FOOT [id number] 10/26/2015 20:52:00 10/26/2015 22:44:00 DIS Emergency SHANNAN MOTT MD [facility] ER FOOT INJ [id number] 10/20/2015 08:38:00 10/20/2015 23:59:59 CLS Outpatient CHINEDU GARCIA [facility] LAB CAD,HTN,PAF [id number] 10/19/2015 10:05:00 10/19/2015 23:59:59 CLS Outpatient CHINEDU GARCIA [facility] CARD CAD,HTN,HLP [id number] 08/01/2015 13:30:00 08/01/2015 23:59:59 CLS Outpatient MAL WINCHESTER MD [facility] LAB DYSPNEA ON EXERTION [id number] 07/18/2015 23:34:00 07/19/2015 10:43:00 DIS Inpatient EZRA YAN DO [facility] ICU GENERALIZED WEAKNESS; LABILE HTN [id number] 08/31/2014 13:17:00 08/31/2014 23:59:59 CLS Outpatient EZRA YAN DO [facility] RAD AC PAIN [id number] 08/03/2014 07:43:00 08/03/2014 10:30:00 DIS Outpatient MAL WINCHESTER MD [facility] CATH AFIB,NEAR SYNCOPE [id number] 07/25/2014 09:25:00 07/25/2014 10:54:00 DIS Emergency SOPHIE EMANUEL MD [facility] ER SOA [id number] 07/18/2014 14:35:00 07/18/2014 23:59:59 CLS Outpatient DEAN RO MD [facility] LAB RECURRENT ANGIOEDEMA [id number] 07/14/2014 03:38:00 07/14/2014 06:02:00 DIS Emergency ZAINAB PEDRAZA DO [facility] ER WEAK,SICK AT STOMACHE, SHAKEY,SOB [id number] 07/08/2014 22:31:00 07/09/2014 01:12:00 DIS Emergency RENALDO CARREON MD [facility] ER SOA [id number] 07/06/2014 08:17:00 07/06/2014 09:55:00 DIS Outpatient MAL WINCHESTER MD [facility] CATH CAD,HTN,HLP,AFIB [id number] 07/04/2014 13:34:00 07/04/2014 23:59:59 CLS Outpatient EZRA YAN DO [facility] LAB TSH DECREASED [id number] 06/17/2014 10:45:00 06/18/2014 14:45:00 DIS Inpatient MAL WINCHESTER MD [facility] CSD AFIB [id number] 05/04/2014 07:53:00 05/04/2014 10:42:00 DIS Outpatient MAL WINCHESTER MD [facility] CATH [id number] 03/30/2014 07:07:00 03/30/2014 09:26:00 DIS Outpatient MAL WINCHESTER MD [facility] CATH [id number] 02/22/2014 10:12:00 02/24/2014 15:20:00 DIS Inpatient MAL WINCHESTER MD [facility] ICU [id number] 01/21/2014 12:23:00 01/21/2014 23:59:59 CLS Outpatient JOHN MILLER DO [facility] RT [id number] 01/12/2014 07:50:00 01/15/2014 05:50:00 DIS Inpatient MAL WINCHESTER MD [facility] [id number] 12/14/2013 03:10:00 12/17/2013 17:08:00 DIS Inpatient [id number] 10/31/2013 18:47:00 10/31/2013 22:26:00 DIS Emergency [id number] 09/27/2013 19:53:00 09/28/2013 06:35:00 DIS Outpatient [id number] 09/20/2013 15:15:00 09/20/2013 23:59:59 CLS Outpatient [id number] 07/22/2013 10:22:00 07/22/2013 23:59:59 CLS Outpatient [id number] 07/15/2013 22:44:00 07/16/2013 00:59:00 DIS Emergency [id number] 07/01/2013 18:08:00 07/01/2013 19:52:00 DIS Emergency [id number] 06/30/2013 06:48:00 06/30/2013 14:15:00 DIS Outpatient [id number] 06/23/2013 07:29:00 06/23/2013 23:59:59 CLS Outpatient [id number] 04/16/2013 08:34:00 06/17/2013 00:01:00 DIS Outpatient [id number] 05/06/2013 09:35:00 05/06/2013 23:59:59 CLS Outpatient [id number] 04/25/2013 02:54:00 04/25/2013 04:51:00 DIS Emergency [id number] 04/19/2013 06:39:00 04/19/2013 10:11:00 DIS Outpatient [id number] 04/16/2013 09:29:00 04/16/2013 23:59:59 CLS Outpatient [id number] 04/16/2013 08:38:00 04/16/2013 23:59:59 CLS Outpatient [id number] 03/29/2013 10:08:00 03/29/2013 13:51:00 DIS Emergency [id number] 03/09/2013 08:18:00 03/09/2013 23:59:59 CLS Outpatient [id number] 02/16/2013 07:09:00 02/17/2013 14:35:00 DIS Inpatient [id number] 01/29/2013 08:03:00 01/29/2013 23:59:59 CLS Outpatient [id number] 11/24/2012 09:39:00 11/24/2012 23:59:59 CLS Outpatient [id number] 10/19/2012 13:28:00 10/19/2012 23:59:59 CLS Outpatient [id number] 10/19/2012 13:43:00 10/19/2012 15:32:00 DIS Emergency [id number] 09/20/2012 22:56:00 09/21/2012 00:45:00 DIS Emergency [id number] 09/09/2012 08:19:00 09/09/2012 23:59:59 CLS Outpatient [id number] 09/05/2012 08:00:00 09/05/2012 09:09:00 DIS Emergency [id number] 11/25/2017 11:05:00 Document Registration [id number] 07/24/2015 14:57:00 Document Registration [id number] 06/18/2013 00:00:00 Document Registration [id number] 10/13/2010 23:04:00 Document Registration [id number] 09/29/2010 06:22:00 Document Registration [id number] 08/18/2010 12:35:00 Document Registration [id number] 05/15/2010 09:29:00 Document Registration [id number] 04/26/2010 09:39:00 Document Registration [id number] 04/16/2010 11:43:00 Document Registration [id number] 04/15/2010 14:33:00 Document Registration [id number] 04/12/2010 09:32:00 Document Registration [id number] 03/31/2010 08:28:00 Document Registration [id number] 07/09/2009 11:08:00 Document Registration
[2018-03-09 19:19] LABS: INR 1.2 (0.8-1.4); PROTHROMBIN TIME PATIENT 14.9 SEC (12.2-14.7)
[2018-03-09 19:23] LABS: ALANINE AMINOTRANSFERASE 24 U/L (0-55); ALBUMIN 4.3 GM/DL (3.2-4.5); ALKALINE PHOSPHATASE 61 U/L (40-136); BILIRUBIN,TOTAL 0.4 MG/DL (0.1-1.0); BUN/CREATININE RATIO 20; CALCIUM 9.7 MG/DL (8.5-10.1); CARBON DIOXIDE 26 MMOL/L (21-32); CHLORIDE 105 MMOL/L (98-107); CREATININE SERUM 0.83 MG/DL (0.60-1.30); GFR ESTIMATED > 60; GLUCOSE 90 MG/DL (70-105); MAGNESIUM 2.3 MG/DL (1.8-2.4); SODIUM 141 MMOL/L (135-145); TOTAL PROTEIN 7.6 GM/DL (6.4-8.2)
[2018-03-09 19:31] LABS: MYOGLOBIN SERUM 37.7 NG/ML (10.0-92.0)
--- NOTE | 2018-03-09 19:38 | Diagnostic Imaging Report ---
CLINICAL INDICATION: Patient with shortness of air and high blood pressure. EXAM: Chest x-ray PA and lateral views. COMPARISONS: Chest x-ray dated 07/16/2017. FINDINGS: Lungs/pleura: Lungs are clear. There is no pneumothorax. There is no pleural effusion. Mediastinum: Unremarkable. Pulmonary vasculature: Unremarkable. Heart: Unremarkable. The loop recorder overlying the left chest has been removed in the interim. Bones/extrathoracic soft tissue: There are mild to moderately hypertrophic degenerative osteophytes scattered throughout the thoracic spine. IMPRESSION: There is no radiographic evidence of acute cardiopulmonary process. Dictated by: Dictated on workstation # [id number]
[2018-03-09 19:44] LABS: FREE T4 (FREE THYROXINE) 1.29 NG/DL (0.70-1.48)
--- NOTE | 2018-03-09 19:44 | ED Cardiac General ---
History of Present Illness General Chief Complaint: Cardiac/General Problems Stated Complaint: WEAKNESS/SOB/BP 155/121 Nursing Triage Note: PT started having SOB, hypertension, weakness, and not feeling well this weekend through today. Pt was taking alprazolam and quit taking cold turkey over the weekend. She felt shakey, so she took half today. Pt stated legs don't want to work. Pt stated bp was 155/121. Source: patient, old records Exam Limitations: no limitations History of Present Illness Date Seen by Provider: Mar 09, 2018 Time Seen by Provider: 18:50 Initial Comments This 67-year-old woman presents to the emergency room with complaints of feeling short of air, elevated blood pressure, generalized weakness especially in her legs, and shuffling of her words earlier in the day. Patient has a history of atrial fibrillation. She had her link recorder removed last week. Review of her chart notes a cardiac catheterization in June by Dr. Luciano showing mild to moderate disease. She is anticoagulated on Eliquis. She is denying chest pain at this time. Patient also reports that she stopped her alprazolam abruptly over the weekend. She only took one half dose this morning because she was shaky. Allergies and Home Medications Allergies Coded Allergies: flecainide (Verified Allergy, Severe, 06/16/14) warfarin (Verified Allergy, Severe, 06/16/14) aliskiren (Unverified Allergy, Unknown, 06/16/14) cephalexin (Verified Allergy, Unknown, 06/16/14) codeine (Verified Allergy, Unknown, 06/16/14) dronedarone HCl (Unverified Allergy, Unknown, 06/16/14) Home Medications Acetaminophen 500 Mg Tablet, 500-1,000 MG PO Q6H PRN for PAIN-MILD, (Reported) Alprazolam 0.5 Mg Tablet, 0.5 MG PO HS, (Reported) Apixaban 5 Mg Tablet, 5 MG PO BID, (Reported) Calcium Carbonate 300 Mg Tab.chew, 300 MG PO BID PRN for INDIGESTION, (Reported) Dexlansoprazole 60 Mg Cap.drVirybp, 60 MG PO DAILY PRN for STOMACH UPSET, (Reported ) Diltiazem HCl 240 Mg Cap.er.24h, 240 MG PO DAILY, (Reported) Doxycycline Hyclate 100 Mg Tablet., 100 MG PO BID Prescribed by: RENALDO MCPHERSON on 11/22/17 1149 Levalbuterol Tartrate 15 Gm Hfa.aer.ad, 2 PUFF IH QID PRN for SHORTNESS OF BREATH, (Reported) Levothyroxine Sodium 75 Mcg Tablet, 75 MCG PO DAILY, (Reported) Losartan Potassium 50 Mg Tablet, 50 MG PO 1700, (Reported) Propranolol HCl 20 Mg Tablet, 20 MG PO 0700,1700, (Reported) Propranolol HCl 20 Mg Tablet, 10 MG PO HS, (Reported) TAKES 1/2 (20MG) TABLET Patient Home Medication List Home Medication List Reviewed: Yes Review of Systems Review of Systems Constitutional: see HPI EENTM: No Symptoms Reported Respiratory: See HPI Cardiovascular: See HPI Gastrointestinal: No Symptoms Reported Genitourinary: No Symptoms Reported Musculoskeletal: no symptoms reported Skin: no symptoms reported Psychiatric/Neurological: See HPI Hematologic/Lymphatic: No Symptoms Reported Past Lwvcsob-Iuehxd-Gjnwxy Hx Patient Social History Alcohol Use: Denies Use Recreational Drug Use: No Smoking Status: Never a Smoker Recent Foreign Travel: No Contact w/Someone Who Travel: No Recent Infectious Disease Expo: No Recent Hopitalizations: Yes Physical Abuse: No Sexual Abuse: No Mistreated: No Fear: No Immunizations Up To Date Tetanus Booster (TDap): Unknown Seasonal Allergies Seasonal Allergies: Yes Past Medical History Surgeries: Yes (HAS A LINQ READER UNDER SKIN (TO MONITER HEART RHYTHM) ) Amputation, Gallbladder, Hysterectomy, Orthopedic Respiratory: Yes (CPAP AT HS) Asthma, Chronic Bronchitis, Sleep Apnea Cardiac: Yes (FAILED CARDIAC ABLATION X 2; MULTIPLE CARDIOVERSIONS; LINQ MONIT) Atrial Fibrillation, Chronic Edema/Swelling, Coronary Artery Disease, Hypertension Neurological: No Reproductive Disorders: No Gastrointestinal: Yes Chronic Constipation Musculoskeletal: No Endocrine: Yes (HYPOGLYCEMIC) Hypothyroidsim Cancer: No Psychosocial: Yes Anxiety, Depression Integumentary: No Blood Disorders: No (PATIENT IS JEHOVAH WITNESS) Family Medical History COPD, EMPHYSEMA 19 FATHER COPD, EMPHYSEMA 19 FATHER Cardiovascular disease 19 FATHER 19 MOTHER (ND) G8 BROTHER (ND) Completed stroke G8 SISTER Hypertension 19 MOTHER Neoplasm G8 BROTHER (LYMPHOMA) CAD Under 55 Years Old, CAD Over 55 Years Old Physical Exam Vital Signs Vital Signs - First Documented 03/09/18 18:48 Temp 99.2 Pulse 93 Resp 20 B/P (MAP) 198/134 (155) Pulse Ox 98 O2 Delivery Room Air Capillary Refill : Less Than 3 Seconds Height, Weight, BMI Height: 5'10.00" Weight: 224lbs. 0.0oz. 101.534912cr; 31.7 BMI Method:Stated General Appearance: No Apparent Distress, WD/WN HEENT: PERRL/EOMI, Normal ENT Inspection, Pharynx Normal Neck: Normal Inspection Respiratory: Lungs Clear, Normal Breath Sounds, No Accessory Muscle Use, No Respiratory Distress Cardiovascular: No Edema, No Murmur, Normal Peripheral Pulses, Irregularly Irregular Gastrointestinal: Normal Bowel Sounds, Non Tender, Soft Extremity: Normal Inspection, Non Tender, No Calf Tenderness, No Pedal Edema Neurologic/Psychiatric: Alert, Oriented x3, No Motor/Sensory Deficits, hospitalist physician II- XII Norm as Tested, Other (Anxious) Skin: Normal Color, Warm/Dry Progress/Results/Core Measures Results/Orders Lab Results Laboratory Tests Test 03/09/18 18:50 Range/Units White Blood Count 7.3 4.3-11.0 10^3/uL Red Blood Count 4.21 L 4.35-5.85 10^6/uL Hemoglobin 13.1 11.5-16.0 G/DL Hematocrit 40 35-52 % Mean Corpuscular Volume 96 80-99 FL Mean Corpuscular Hemoglobin 31 25-34 PG Mean Corpuscular Hemoglobin Concent 33 32-36 G/DL Red Cell Distribution Width 13.8 10.0-14.5 % Platelet Count 158 130-400 10^3/uL Mean Platelet Volume 10.5 H 7.4-10.4 FL Neutrophils (%) (Auto) 50 42-75 % Lymphocytes (%) (Auto) 39 12-44 % Monocytes (%) (Auto) 8 0-12 % Eosinophils (%) (Auto) 2 0-10 % Basophils (%) (Auto) 0 0-10 % Neutrophils # (Auto) 3.7 1.8-7.8 X 10^3 Lymphocytes # (Auto) 2.9 1.0-4.0 X 10^3 Monocytes # (Auto) 0.6 0.0-1.0 X 10^3 Eosinophils # (Auto) 0.2 0.0-0.3 10^3/uL Basophils # (Auto) 0.0 0.0-0.1 10^3/uL Prothrombin Time 14.9 H 12.2-14.7 SEC INR Comment 1.2 0.8-1.4 Activated Partial Thromboplast Time 28 24-35 SEC Sodium Level 141 135-145 MMOL/L Potassium Level 4.0 3.6-5.0 MMOL/L Chloride Level 105 98-107 MMOL/L Carbon Dioxide Level 26 21-32 MMOL/L Anion Gap 10 5-14 MMOL/L Blood Urea Nitrogen 17 7-18 MG/DL Creatinine 0.83 0.60-1.30 MG/DL Estimat Glomerular Filtration Rate > 60 BUN/Creatinine Ratio 20 Glucose Level 90 70-105 MG/DL Calcium Level 9.7 8.5-10.1 MG/DL Corrected Calcium 9.5 8.5-10.1 MG/DL Magnesium Level 2.3 1.8-2.4 MG/DL Total Bilirubin 0.4 0.1-1.0 MG/DL Aspartate Amino Transf (AST/SGOT) 21 5-34 U/L Alanine Aminotransferase (ALT/SGPT) 24 0-55 U/L Alkaline Phosphatase 61 40-136 U/L Myoglobin 37.7 10.0-92.0 NG/ML Troponin I < 0.30 <0.30 NG/ML B-Type Natriuretic Peptide 134.3 H <100.0 PG/ML Total Protein 7.6 6.4-8.2 GM/DL Albumin 4.3 3.2-4.5 GM/DL Thyroid Stimulating Hormone (TSH) 1.02 0.35-4.94 UIU/ML Free Thyroxine 1.29 0.70-1.48 NG/DL My Orders Orders - RENALDO CARREON MD Cbc With Automated Diff (03/09/18 18:53) Magnesium (03/09/18 18:53) Ekg Tracing (03/09/18 18:53) Cardiac Profile 1 (03/09/18 18:53) Comprehensive Metabolic Panel (03/09/18 18:53) Myoglobin Serum (03/09/18 18:53) Protime With Inr (03/09/18 18:53) Partial Thromboplastin Time (03/09/18 18:53) O2 (03/09/18 18:53) Monitor-Rhythm Ecg Trace Only (03/09/18 18:53) Saline Lock/Iv-Start (03/09/18 18:53) BNP (03/09/18 18:53) Chest Pa/Lat (2 View) (03/09/18 18:53) Thyroid Stimulating Hormone (03/09/18 18:53) Free T4 (Free Thyroxine) (03/09/18 18:53) Vital Signs/I&O 03/09/18 03/09/18 03/09/18 18:48 18:50 20:14 Temp 99.2 98.2 Pulse 93 86 Resp 20 26 B/P (MAP) 198/134 (155) 157/106 (123) Pulse Ox 98 98 97 O2 Delivery Room Air Room Air Room Air Blood Pressure Mean: 155 Progress Progress Note : Progress Note Patient's workup was unremarkable. Blood pressure was trending down after she takes Xanax. Patient became tearful and revealed to me that she has been under much stress lately. Her children came into town this week, she is taking care of her neighbor's dog, she is helping another friend, she assists her who has disabilities from stroke, and she is taking care of her elderly mother. Stress anxiety is likely contributing to her symptoms and her hypertension. She has an appointment with Dr. Yan in the morning and was encouraged to speak with him about these things further. She also had questions about vitamin deficiencies which are being deferred to Dr. Yan. Initial ECG Impression Date: Mar 09, 2018 Initial ECG Impression Time: 18:54 Initial ECG Rate: 89 Initial ECG Rhythm: A Fib/Flutter Initial ECG Impression: Atrial Fibrillation Comment Rate controlled atrial fibrillation with no ST elevation or depression. Diagnostic Imaging Diagonstic Imaging: Xray Plain Films/CT/US/NM/MRI: chest Comments Chest x-ray viewed by me and report reviewed. See report below: NAME: CHASE RUBIO [facility] REC#: [id number] PT STATUS: REG ER : 1950 PHYSICIAN: RENALDO CARREON MD ADMIT DATE: 03/09/18/ER Draft Date of Exam:03/09/18 CHEST PA/LAT (2 VIEW) CLINICAL INDICATION: Patient with shortness of air and high blood pressure. EXAM: Chest x-ray PA and lateral views. COMPARISONS: Chest x-ray dated 07/16/2017. FINDINGS: Lungs/pleura: Lungs are clear. There is no pneumothorax. There is no pleural effusion. Mediastinum: Unremarkable. Pulmonary vasculature: Unremarkable. Heart: Unremarkable. The loop recorder overlying the left chest has been removed in the interim. Bones/extrathoracic soft tissue: There are mild to moderately hypertrophic degenerative osteophytes scattered throughout the thoracic spine. IMPRESSION: There is no radiographic evidence of acute cardiopulmonary process. Dictated on workstation # [id number] Dict: 03/09/181934 Trans: 03/09/181936 [id number] Interpreted by: NATE JEAN MD Departure Impression Primary Impression: Hypertensive urgency Additional Impression: Anxiousness Disposition: 01 HOME, SELF-CARE Condition: Improved Departure-Patient Inst. Decision time for Depature: 20:10 Referrals: EZRA YAN DO (PCP/Family) Primary Care Physician Patient Instructions: Anxiety, Adult (DC) Add. Discharge Instructions: Return home and take your blood pressure medications as prescribed. Feel free to continue using your Xanax as prescribed. Return to care if symptoms worsen. Keep your follow-up appointment with Dr. Yan tomorrow morning. All discharge instructions reviewed with patient and/or family. Voiced understanding. Copy Copies To 1: EZRA YAN JOSHUA T MD Mar 09, 2018 19:44
[2018-03-09 20:14] VITALS: BP 157/106
== END 2018-03-09 20:14 | disposition home or self-care (01) ==
LOC: EDUNIT# 18:43 → ER 18:44
DX: I16.0 Hypertensive urgency (principal); F41.9 Anxiety disorder, unspecified; I48.91 Unspecified atrial fibrillation; J45.909 Unspecified asthma, uncomplicated; G47.30 Sleep apnea, unspecified; I25.10 Atherosclerotic heart disease of native coronary artery without angina pectoris; I10 Essential (primary) hypertension; E03.9 Hypothyroidism, unspecified; F32.9 Major depressive disorder, single episode, unspecified; Z87.19 Personal history of other diseases of the digestive system; Z82.49 Family history of ischemic heart disease and other diseases of the circulatory system; Z85.72 Personal history of non-Hodgkin lymphomas; Z87.09 Personal history of other diseases of the respiratory system; Z98.890 Other specified postprocedural states; Z90.710 Acquired absence of both cervix and uterus; Z95.9 Presence of cardiac and vascular implant and graft, unspecified; Z79.01 Long term (current) use of anticoagulants; Z88.5 Allergy status to narcotic agent; Z88.8 Allergy status to other drugs, medicaments and biological substances; Z88.1 Allergy status to other antibiotic agents
CPT/HCPCS: 36415; 71046; 80053; 83735; 83874; 83880; 84439; 84443; 84484; 85025; 85610; 85730; 93005; 93041

== ENCOUNTER → 2018-06-11 | Outpatient (CLI) | payer MEDICARE, OTHER ==
[~2018-06-11] MED LIST changes: +LOSA50TA63 PO; -LOSA50TA7 PO
--- NOTE | 2018-06-11 13:57 | Diagnostic Imaging Report ---
PROCEDURE: CT sinuses without contrast TECHNIQUE: Multiple contiguous axial images were obtained through the sinuses without the use of intravenous contrast. Coronal and sagittal reformations were then performed. Auto Exposure Controls were utilized during the CT exam to meet ALARA standards for radiation dose reduction. INDICATION: Chronic sinusitis. FINDINGS: The frontal, ethmoid, sphenoid, and maxillary sinuses are clear. The ostiomeatal complexes are widely patent. There are no florentino bullosa. There is right deviation of the nasal septum with a prominent nasal spur on the right. The nasopharyngeal soft tissues are symmetric without mass effect. Visualized parotid glands are unremarkable. Globes and intraorbital structures are unremarkable. The mastoid air cells are clear. IMPRESSION: 1. Right deviation of the nasal septum with a prominent right septal spur. 2. Otherwise, unremarkable CT sinus. Dictated by: Dictated on workstation # [id number]
== END ==
LOC: RAD 12:34
PROVIDERS: ATTEND Otolaryngology Otolaryngology/Facial Plastic Surgery
DX: J34.2 Deviated nasal septum (principal); J32.9 Chronic sinusitis, unspecified
CPT/HCPCS: 70486

== ENCOUNTER → 2018-09-08 | Outpatient (CLI) | payer MEDICARE, OTHER ==
[~2018-09-08] MED LIST changes: +HOLD METFORMIN - RECEIVED CONTRAST 20 ML VIAL IV SCH; +IOHEXOL 350 MG/ML 100 ML (OMNIPAQUE 350) VIAL IV ONE; +NS 100 ML (IVPB) BAG IV ONE
[2018-09-08 15:17] LABS: HEMOGLOBIN 11.8 G/DL (11.5-16.0); MEAN PLATELET VOLUME 10.7 FL (7.4-10.4); RED CELL DISTRIBUTION WIDTH 13.2 % (10.0-14.5); WHITE BLOOD COUNT 5.9 10^3/uL (4.3-11.0)
[2018-09-08 15:32] LABS: BUN/CREATININE RATIO 15; CALCIUM 9.5 MG/DL (8.5-10.1); CARBON DIOXIDE 26 MMOL/L (21-32); CHLORIDE 105 MMOL/L (98-107); GFR ESTIMATED > 60; GLUCOSE 92 MG/DL (70-105); POTASSIUM 4.1 MMOL/L (3.6-5.0); SODIUM 141 MMOL/L (135-145)
--- NOTE | 2018-09-08 16:42 | Diagnostic Imaging Report ---
PROCEDURE: CT abdomen and pelvis with contrast. TECHNIQUE: Multiple contiguous axial images were obtained through the abdomen and pelvis after administration of intravenous contrast. Auto Exposure Controls were utilized during the CT exam to meet ALARA standards for radiation dose reduction. INDICATION: Right upper quadrant pain. COMPARISON: Correlation is made with prior CT from 04/06/2011. FINDINGS: The lung bases are clear. No focal liver abnormality is identified. No perihepatic fluid is seen. The gallbladder is surgically absent. No biliary ductal dilatation is seen. The pancreas and spleen are unremarkable. No adrenal mass is detected. Kidneys are unremarkable apart from some dilatation of the right renal collecting system and right renal pelvis, similar to CT dating back to 2011. No hydronephrosis is detected. Aorta shows atherosclerotic calcifications but is non-aneurysmal. No central retroperitoneal or mesenteric lymphadenopathy is detected. Small and large bowel loops are normal in caliber. There is diverticulosis of the sigmoid colon but no evidence of acute diverticulitis. No free fluid in the abdomen or pelvis is identified. The bladder is unremarkable. Uterus appears to be surgically absent. No pelvic lymphadenopathy is seen. Bony structures are unremarkable. IMPRESSION: 1. Sigmoid diverticulosis without acute diverticulitis. 2. No acute feature in the abdomen or pelvis is identified. Dictated by: Dictated on workstation # [id number]
== END ==
LOC: RAD 14:59
PROVIDERS: ATTEND Family Medicine
DX: S39.91XA Unspecified injury of abdomen, initial encounter (principal); K57.30 Diverticulosis of large intestine without perforation or abscess without bleeding; Z90.49 Acquired absence of other specified parts of digestive tract
CPT/HCPCS: 36415; 74177; 80048; 85027

== ENCOUNTER → 2018-11-11 | Outpatient (CLI) | payer MEDICARE, OTHER ==
[~2018-11-11] MED LIST changes: -HOLD METFORMIN - RECEIVED CONTRAST 20 ML VIAL IV SCH; -IOHEXOL 350 MG/ML 100 ML (OMNIPAQUE 350) VIAL IV ONE; -NS 100 ML (IVPB) BAG IV ONE
== END ==
LOC: LAB 10:56
PROVIDERS: ATTEND Family Medicine
DX: E55.9 Vitamin D deficiency, unspecified (principal)
CPT/HCPCS: 36415; 82306

== ENCOUNTER 2018-11-19 05:06 | Emergency (ER) | payer MEDICARE, OTHER ==
[~2018-11-19] VITALS: Ht 177.8 cm; Wt 102.5 kg
[2018-11-19 05:34] LABS: BASOPHILS % (AUTO) 0 % (0-10); EOSINOPHILS # (AUTO) 0.2 10^3/uL (0.0-0.3); EOSINOPHILS % (AUTO) 3 % (0-10); HEMATOCRIT 39 % (35-52); HEMOGLOBIN 12.4 G/DL (11.5-16.0); LYMPHOCYTES # (AUTO) 2.9 X 10^3 (1.0-4.0); LYMPHOCYTES % (AUTO) 40 % (12-44); MEAN CORPUSCULAR HEMOGLOBIN 30 PG (25-34); MEAN CORPUSCULAR HGB CONC 32 G/DL (32-36); MEAN CORPUSCULAR VOLUME 94 FL (80-99); MEAN PLATELET VOLUME 10.6 FL (7.4-10.4); MONOCYTES # (AUTO) 0.9 X 10^3 (0.0-1.0); MONOCYTES % (AUTO) 12 % (0-12); NEUTROPHILS # (AUTO) 3.4 X 10^3 (1.8-7.8); NEUTROPHILS % (AUTO) 46 % (42-75); PLATELET COUNT 195 10^3/uL (130-400); RED CELL DISTRIBUTION WIDTH 13.8 % (10.0-14.5); WHITE BLOOD COUNT 7.4 10^3/uL (4.3-11.0)
--- NOTE | 2018-11-19 05:43 | ED General ---
General Chief Complaint: Respiratory Problems Stated Complaint: SOB Source of Information: Patient Exam Limitations: No Limitations History of Present Illness Date Seen by Provider: Nov 19, 2018 Time Seen by Provider: 05:12 Initial Comments This 67-year-old woman presents to the emergency room with complaints of a dry cough, weak spells, shortness of breath, and feeling shaky. Her mouth feels dry. She has history of atrial fibrillation. She reports washing the siding on her house with bleach solution and feels her symptoms started after that. She also complains of some epigastric discomfort which she is able to treat with Tums. She also takes omeprazole but does so inconsistently. Allergies and Home Medications Allergies Coded Allergies: flecainide (Verified Allergy, Severe, 11/19/18) warfarin (Verified Allergy, Severe, 11/19/18) aliskiren (Unverified Allergy, Unknown, 11/19/18) cephalexin (Verified Allergy, Unknown, 11/19/18) codeine (Verified Allergy, Unknown, 11/19/18) dronedarone HCl (Unverified Allergy, Unknown, 11/19/18) Home Medications Acetaminophen 500 Mg Tablet, 500-1,000 MG PO Q6H PRN for PAIN-MILD, (Reported) Alprazolam 0.5 Mg Tablet, 0.5 MG PO HS, (Reported) Apixaban 5 Mg Tablet, 5 MG PO BID, (Reported) Calcium Carbonate 300 Mg Tab.chew, 300 MG PO BID PRN for INDIGESTION, (Reported) Dexlansoprazole 60 Mg Cap.drVirybp, 60 MG PO DAILY PRN for STOMACH UPSET, (Reported) Diltiazem HCl 240 Mg Cap.er.24h, 240 MG PO DAILY, (Reported) Doxycycline Hyclate 100 Mg Tablet.dr, 100 MG PO BID Prescribed by: RENALDO MCPHERSON on 11/22/17 1149 Levalbuterol Tartrate 15 Gm Hfa.aer.ad, 2 PUFF IH QID PRN for SHORTNESS OF BREATH, (Reported) Levothyroxine Sodium 75 Mcg Tablet, 75 MCG PO DAILY, (Reported) Losartan Potassium 50 Mg Tablet, 50 MG PO 1700, (Reported) Propranolol HCl 20 Mg Tablet, 20 MG PO 0700,1700, (Reported) Propranolol HCl 20 Mg Tablet, 10 MG PO HS, (Reported) TAKES 1/2 (20MG) TABLET Patient Home Medication List Home Medication List Reviewed: Yes Review of Systems Review of Systems Constitutional: see HPI EENTM: no symptoms reported Respiratory: see HPI Cardiovascular: no symptoms reported Gastrointestinal: no symptoms reported : No Musculoskeletal: no symptoms reported Skin: no symptoms reported Psychiatric/Neurological: No Symptoms Reported Hematologic/Lymphatic: No Symptoms Reported Past Xfawaoj-Bkwhfw-Hfpprh Hx Past Med/Social Hx: Reviewed Nursing Past Med/Soc Hx Patient Social History Alcohol Use: Denies Use Recreational Drug Use: No Recent Foreign Travel: No Contact w/Someone Who Travel: No Recent Hopitalizations: Yes Physical Abuse: No Sexual Abuse: No Mistreated: No Fear: No Immunizations Up To Date Tetanus Booster (TDap): Unknown Seasonal Allergies Seasonal Allergies: Yes Past Medical History Surgeries: Yes (HAS A LINQ READER UNDER SKIN (TO MONITER HEART RHYTHM) ) Amputation, Gallbladder, Hysterectomy, Orthopedic Respiratory: Yes (CPAP AT HS) Asthma, Chronic Bronchitis, Sleep Apnea Cardiac: Yes (FAILED CARDIAC ABLATION X 2; MULTIPLE CARDIOVERSIONS; LINQ MONIT) Atrial Fibrillation, Chronic Edema/Swelling, Coronary Artery Disease, Hypertension Neurological: No Reproductive Disorders: No Gastrointestinal: Yes Chronic Constipation Musculoskeletal: No Endocrine: Yes (HYPOGLYCEMIC) Hypothyroidsim Cancer: No Psychosocial: Yes Anxiety, Depression Integumentary: No Blood Disorders: No (PATIENT IS JEHOVAH WITNESS) Family Medical History COPD, EMPHYSEMA 19 FATHER COPD, EMPHYSEMA 19 FATHER Cardiovascular disease 19 FATHER 19 MOTHER ([place]) G8 BROTHER ([place]) Completed stroke G8 SISTER Hypertension 19 MOTHER Neoplasm G8 BROTHER (LYMPHOMA) CAD Under 55 Years Old, CAD Over 55 Years Old Physical Exam Vital Signs Vital Signs - First Documented 11/19/18 05:08 Temp 97.7 Pulse 81 Resp 20 B/P (MAP) 163/111 (128) Pulse Ox 94 Capillary Refill : Height, Weight, BMI Height: 5'10.00" Weight: 224lbs. 0.0oz. 101.751548bk; 31.7 BMI Method:Stated General Appearance: WD/WN, Anxious HEENT: PERRL/EOMI, Normal ENT Inspection, Other (oropharynx somewhat dry) Neck: Normal Inspection Respiratory: Lungs Clear, Normal Breath Sounds, No Accessory Muscle Use, No Respiratory Distress Cardiovascular: Regular Rate, Rhythm, No Edema, No Murmur Gastrointestinal: Normal Bowel Sounds, Soft, Tenderness (mild in the epigastium) Extremity: Normal Inspection, Non Tender, No Pedal Edema Neurologic/Psychiatric: Alert, Oriented x3, No Motor/Sensory Deficits, foley artist II- XII Norm as Tested, Other (anxious, tremor) Skin: Normal Color, Warm/Dry Progress/Results/Core Measures Suspected Sepsis SIRS Temperature: Pulse: Respiratory Rate: Laboratory Tests 11/19/18 05:25: White Blood Count 7.4 Blood Pressure / Mean: Laboratory Tests 11/19/18 05:25: Creatinine 0.75, Platelet Count 195, Total Bilirubin 0.5 Results/Orders Lab Results Laboratory Tests Test 11/19/18 05:25 Range/Units White Blood Count 7.4 4.3-11.0 10^3/uL Red Blood Count 4.13 L 4.35-5.85 10^6/uL Hemoglobin 12.4 11.5-16.0 G/DL Hematocrit 39 35-52 % Mean Corpuscular Volume 94 80-99 FL Mean Corpuscular Hemoglobin 30 25-34 PG Mean Corpuscular Hemoglobin Concent 32 32-36 G/DL Red Cell Distribution Width 13.8 10.0-14.5 % Platelet Count 195 130-400 10^3/uL Mean Platelet Volume 10.6 H 7.4-10.4 FL Neutrophils (%) (Auto) 46 42-75 % Lymphocytes (%) (Auto) 40 12-44 % Monocytes (%) (Auto) 12 0-12 % Eosinophils (%) (Auto) 3 0-10 % Basophils (%) (Auto) 0 0-10 % Neutrophils # (Auto) 3.4 1.8-7.8 X 10^3 Lymphocytes # (Auto) 2.9 1.0-4.0 X 10^3 Monocytes # (Auto) 0.9 0.0-1.0 X 10^3 Eosinophils # (Auto) 0.2 0.0-0.3 10^3/uL Basophils # (Auto) 0.0 0.0-0.1 10^3/uL Sodium Level 141 135-145 MMOL/L Potassium Level 4.0 3.6-5.0 MMOL/L Chloride Level 103 98-107 MMOL/L Carbon Dioxide Level 25 21-32 MMOL/L Anion Gap 13 5-14 MMOL/L Blood Urea Nitrogen 11 7-18 MG/DL Creatinine 0.75 0.60-1.30 MG/DL Estimat Glomerular Filtration Rate > 60 BUN/Creatinine Ratio 15 Glucose Level 99 70-105 MG/DL Glucometer 95 70-110 MG/DL Calcium Level 9.6 8.5-10.1 MG/DL Corrected Calcium 9.4 8.5-10.1 MG/DL Magnesium Level 1.7 1.6-2.4 MG/DL Total Bilirubin 0.5 0.1-1.0 MG/DL Aspartate Amino Transf (AST/SGOT) 20 5-34 U/L Alanine Aminotransferase (ALT/SGPT) 20 0-55 U/L Alkaline Phosphatase 72 40-136 U/L Troponin I < 0.028 <0.028 NG/ML C-Reactive Protein High Sensitivity 0.35 0.00-0.50 MG/DL B-Type Natriuretic Peptide 170.4 H <100.0 PG/ML Total Protein 7.7 6.4-8.2 GM/DL Albumin 4.2 3.2-4.5 GM/DL My Orders Orders - RENALDO CARREON MD BNP (11/19/18 05:21) Cbc With Automated Diff (11/19/18 05:21) Comprehensive Metabolic Panel (11/19/18 05:21) Hs C Reactive Protein (11/19/18 05:21) Magnesium (11/19/18 05:21) Troponin I (11/19/18 05:21) Chest 1 View, Ap/Pa Only (11/19/18 05:21) Accucheck Stat ONCE (11/19/18 05:21) Ed Iv/Invasive Line Start (11/19/18 05:21) Ekg Tracing (11/19/18 05:21) Monitor-Rhythm Ecg Trace Only (11/19/18 05:21) Vital Signs/I&O Capillary Refill : Point of Care Testing Finger Stick Blood Glucose: 95 Progress Note : Progress Note Workup was unremarkable. Patient was quite anxious which I believe contributes to her symptoms. She is under a lot of stress with her health issues and caring for her mother. She was tearful in the exam room. I did encourage her to follow-up with Dr. Marcos for her shortness of breath. She was discharged home to outpatient follow-up. ECG Initial ECG Impression Date: Nov 19, 2018 Initial ECG Impression Time: 05:27 Initial ECG Rate: 84 Initial ECG Rhythm: A Fib/Flutter Initial ECG Impression: Atrial Fibrillation Comment Rate controlled atrial fibrillation. No ischemic ST elevation or depression. No significant axis deviation. Diagnostic Imaging Diagonstic Imaging: Xray Plain Films/CT/US/NM/MRI: chest Comments Chest x-ray viewed by me and report reviewed. No acute abnormality, Departure Impression Primary Impression: Dry cough Additional Impression: Dyspnea Qualified Codes: R06.00 - Dyspnea, unspecified Disposition: HOME, SELF-CARE Condition: Improved Departure-Patient Inst. Decision time for Depature: 06:48 Referrals: EZRA YAN DO (PCP/Family) Primary Care Physician Patient Instructions: Cough in Adults Add. Discharge Instructions: Follow up with your primary care provider and Dr. Marcos as soon as possible. Take your medications as prescribed. Return to care if symptoms worsen. All discharge instructions reviewed with patient and/or family. Voiced understanding. Copy Copies To 1: JOHN MARCOS DO Copies To 2: EZRA YAN JOSHUA T MD Nov 19, 2018 05:43
[2018-11-19 06:12] LABS: ALANINE AMINOTRANSFERASE 20 U/L (0-55); ALBUMIN 4.2 GM/DL (3.2-4.5); ALKALINE PHOSPHATASE 72 U/L (40-136); BILIRUBIN,TOTAL 0.5 MG/DL (0.1-1.0); BUN/CREATININE RATIO 15; CALCIUM 9.6 MG/DL (8.5-10.1); CARBON DIOXIDE 25 MMOL/L (21-32); CHLORIDE 103 MMOL/L (98-107); CREATININE SERUM 0.75 MG/DL (0.60-1.30); GFR ESTIMATED > 60; GLUCOSE 99 MG/DL (70-105); MAGNESIUM 1.7 MG/DL (1.6-2.4); SODIUM 141 MMOL/L (135-145); TOTAL PROTEIN 7.7 GM/DL (6.4-8.2)
[2018-11-19] MEDS ORDERED: CHOL500049 PO (06:31)
[2018-11-19 07:03] VITALS: BP 150/98
--- NOTE | 2018-11-19 07:03 | Diagnostic Imaging Report ---
Patient History: Shortness of breath.. Technique: Single frontal view of the chest Comparison: 03/09/2018 FINDINGS: The lung volumes are normal. No focal consolidation is seen. No large pleural effusion or pneumothorax is seen. The cardiomediastinal silhouette is normal in size and contour. No acute osseous abnormality is seen. IMPRESSION: No acute pulmonary abnormality seen. Dictated by: Dictated on workstation # [id number]
== END 2018-11-19 07:05 | disposition home or self-care (01) ==
LOC: EDUNIT# 05:06 → ER 05:07
DX: R05 Cough (principal); R06.00 Dyspnea, unspecified; I10 Essential (primary) hypertension; I25.10 Atherosclerotic heart disease of native coronary artery without angina pectoris; J45.909 Unspecified asthma, uncomplicated; I48.91 Unspecified atrial fibrillation; F41.9 Anxiety disorder, unspecified; F32.9 Major depressive disorder, single episode, unspecified; E03.9 Hypothyroidism, unspecified; G47.30 Sleep apnea, unspecified; Z88.8 Allergy status to other drugs, medicaments and biological substances; Z88.5 Allergy status to narcotic agent; Z88.1 Allergy status to other antibiotic agents; Z79.01 Long term (current) use of anticoagulants; Z90.710 Acquired absence of both cervix and uterus; Z82.49 Family history of ischemic heart disease and other diseases of the circulatory system
CPT/HCPCS: 36415; 71045; 80053; 82962; 83735; 83880; 84484; 85025; 86141; 93005; 93041

== ENCOUNTER → 2018-12-29 | Outpatient (CLI) | payer MEDICARE, OTHER ==
[~2018-12-29] MED LIST changes: +CHOL500049 PO; +RT-ALBUTEROL SULF 2.5 MG/3 ML PRE-MIX VIAL INH ONE
== END ==
LOC: RT 10:09
PROVIDERS: ATTEND Nurse Practitioner Family
DX: J30.9 Allergic rhinitis, unspecified (principal); J45.909 Unspecified asthma, uncomplicated; I48.0 Paroxysmal atrial fibrillation
CPT/HCPCS: 94060; 94726; 94729

== ENCOUNTER 2019-02-11 21:57 | Emergency (ER) | payer MEDICARE, OTHER ==
[~2019-02-11] VITALS: Ht 177.8 cm; Wt 103.6 kg
[~2019-02-11 21:57] MED LIST changes: -RT-ALBUTEROL SULF 2.5 MG/3 ML PRE-MIX VIAL INH ONE
[2019-02-11 22:35] LABS: BASOPHILS % (AUTO) 1 % (0-10); EOSINOPHILS # (AUTO) 0.2 10^3/uL (0.0-0.3); EOSINOPHILS % (AUTO) 3 % (0-10); HEMATOCRIT 41 % (35-52); HEMOGLOBIN 13.1 G/DL (11.5-16.0); LYMPHOCYTES # (AUTO) 2.4 X 10^3 (1.0-4.0); LYMPHOCYTES % (AUTO) 34 % (12-44); MEAN CORPUSCULAR HEMOGLOBIN 30 PG (25-34); MEAN CORPUSCULAR HGB CONC 32 G/DL (32-36); MEAN CORPUSCULAR VOLUME 93 FL (80-99); MEAN PLATELET VOLUME 10.5 FL (7.4-10.4); MONOCYTES # (AUTO) 0.7 X 10^3 (0.0-1.0); MONOCYTES % (AUTO) 10 % (0-12); NEUTROPHILS # (AUTO) 3.8 X 10^3 (1.8-7.8); NEUTROPHILS % (AUTO) 53 % (42-75); PLATELET COUNT 182 10^3/uL (130-400); RED CELL DISTRIBUTION WIDTH 13.7 % (10.0-14.5); WHITE BLOOD COUNT 7.1 10^3/uL (4.3-11.0)
[2019-02-11 22:51] LABS: INR 1.1 (0.8-1.4); PROTHROMBIN TIME PATIENT 15.1 SEC (12.2-14.7)
[2019-02-11 23:00] LABS: ALANINE AMINOTRANSFERASE 27 U/L (0-55); ALBUMIN 4.5 GM/DL (3.2-4.5); ALKALINE PHOSPHATASE 70 U/L (40-136); AMYLASE 33 U/L (25-125); BILIRUBIN,TOTAL 0.6 MG/DL (0.1-1.0); BUN/CREATININE RATIO 16; CALCIUM 9.6 MG/DL (8.5-10.1); CARBON DIOXIDE 24 MMOL/L (21-32); CHLORIDE 104 MMOL/L (98-107); CREATINE KINASE 123 U/L (29-168); CREATININE SERUM 0.76 MG/DL (0.60-1.30); GFR ESTIMATED > 60; GLUCOSE 96 MG/DL (70-105); LIPASE 23 U/L (8-78); MAGNESIUM 2.2 MG/DL (1.6-2.4); POTASSIUM 3.9 MMOL/L (3.6-5.0); SODIUM 139 MMOL/L (135-145)
[2019-02-11 23:08] LABS: CREATINE KINASE MB 2.4 NG/ML (<6.6)
[2019-02-11 23:20] LABS: TSH (THYROID ANALYZER) 2.99 UIU/ML (0.35-4.94)
--- NOTE | 2019-02-12 00:07 | ED Cardiac General ---
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 Source: patient, old records History of Present Illness Date Seen by Provider: Feb 11, 2019 Time Seen by Provider: 22:05 Initial Comments PT ARRIVES VIA POV FROM HOME C/O SHORTNESS OF BREATH C/O GENERALIZED WEAKNESS, AND "FELT LIKE SHE WAS GOING TO PASS OUT" HAD SENSATION OF RAPID HEART BEAT, WHICH CONTINUES NOW, BUT HR IN 70'S--PT HAS CHRONIC ATRIAL FIB, RATE CONTROLLED AND IS ON ELIQUIS PT STATES SHE HAS HAD ONGOING PIN POINT "SLIGHT PRESSURE" IN MID CHEST OFF AND ON FOR A LONG TIME, BUT HAS NOT BEEN PRESENT AT ANY TIME TONIGHT. STATES SHE HAS CHRONIC LEG SWELLING AND IS NO DIFFERENT TODAY--ATE SALTY CHIPS, AND WAS ON HER FEET ALOT TODAY DID ALOT OF RUNNING ERRANDS TODAY--TOOK TO , TOOK MOTHER TO , WORKED, ETC. NO SWEATS NO COUGH BP WAS 178/114 AT HOME THIS IS FREQUENT PROBLEM, AND PT HAS CHRONIC HIGH ANXIETY--TOOK XANAX 0.5 MG JUST PRIOR TO ARRIVAL STATES SHE FEELS THAT IT IS STARTING TO HELP AND HER SYMPTOMS ARE GETTING BET TER. PT HAS ONGOING ISSUES WITH SHORTNESS OF BREATH PT HAS SEEN DR. MILLER, AND HAS AN APPOINTMENT WITH HIM ON FRIDAY AND IS TO HAVE AN EXERCISE TEST ON FRIDAY PT SEES DR. WINCHESTER FOR CARDIOLOGY AND HAS ROUTINE APPOINTMENT IN 2 WEEKS WITH HIM NO MEDICATION CHANGES NO MISSED DOSES OF MEDICATIONS PCP: DR. YAN Allergies and Home Medications Allergies Coded Allergies: flecainide (Verified Allergy, Severe, 11/19/18) warfarin (Verified Allergy, Severe, 11/19/18) aliskiren (Unverified Allergy, Unknown, 11/19/18) cephalexin (Verified Allergy, Unknown, 11/19/18) codeine (Verified Allergy, Unknown, 11/19/18) dronedarone HCl (Unverified Allergy, Unknown, 11/19/18) Home Medications Acetaminophen 500 Mg Tablet, 500-1,000 MG PO Q6H PRN for PAIN-MILD, (Reported) Alprazolam 0.5 Mg Tablet, 0.5 MG PO HS, (Reported) Apixaban 5 Mg Tablet, 5 MG PO BID, (Reported) Calcium Carbonate 300 Mg Tab.chew, 300 MG PO BID PRN for INDIGESTION, (Reported) Dexlansoprazole 60 Mg Cap.drVirybp, 60 MG PO DAILY PRN for STOMACH UPSET, (Reported) Diltiazem HCl 240 Mg Cap.er.24h, 240 MG PO DAILY, (Reported) Doxycycline Hyclate 100 Mg Tablet.dr, 100 MG PO BID Prescribed by: RENALDO MCPHERSON on 11/22/17 1149 Levalbuterol Tartrate 15 Gm Hfa.aer.ad, 2 PUFF IH QID PRN for SHORTNESS OF BREATH, (Reported) Levothyroxine Sodium 75 Mcg Tablet, 75 MCG PO DAILY, (Reported) Losartan Potassium 50 Mg Tablet, 50 MG PO 1700, (Reported) Propranolol HCl 20 Mg Tablet, 20 MG PO 0700,1700, (Reported) Propranolol HCl 20 Mg Tablet, 10 MG PO HS, (Reported) TAKES 1/2 (20MG) TABLET Patient Home Medication List Home Medication List Reviewed: Yes Review of Systems Review of Systems Constitutional: see HPI; No diaphoresis, No dizziness; weakness EENTM: No Symptoms Reported Respiratory: See HPI; Denies Cough; Orthopnea, Shortness of Air, SOA With Exertion Cardiovascular: See HPI, Edema, Irregular Heart Rate, Lightheadedness, Palpitations, Other (NO CHEST PAIN AT THIS TIME) Gastrointestinal: No Symptoms Reported Genitourinary: No Symptoms Reported Musculoskeletal: no symptoms reported; No back pain Skin: no symptoms reported Psychiatric/Neurological: See HPI, Anxiety Endocrine: No Symptoms Reported Hematologic/Lymphatic: No Symptoms Reported Past [place]-Wuqsjj-Zufoln Hx Patient Social History Alcohol Use: Denies Use Recreational Drug Use: No Smoking Status: Never a Smoker Recent Foreign Travel: No Contact w/Someone Who Travel: No Recent Infectious Disease Expo: No Recent Hopitalizations: Yes Physical Abuse: No Sexual Abuse: No Mistreated: No Fear: No Immunizations Up To Date Tetanus Booster (TDap): Unknown Seasonal Allergies Seasonal Allergies: Yes Past Medical History Surgeries: Yes (HAS A LINQ READER UNDER SKIN (TO MONITER HEART RHYTHM) ; FAILED CARDIAC ABLATIONS X 2; MULTIPLE CARDIOVERSION ATTEMPTS; CARDIAC CATHS--NO INTERVENTION-LAST CATH 07/16/17; EGD/ULISES'S; FINGER AMPUTATION. ) Amputation, Cardiac, Gallbladder, Hysterectomy, Orthopedic Respiratory: Yes (CPAP AT HS; CHRONIC DYSPNEA--ESPECIALLY ON EXERTION) Asthma, Chronic Bronchitis, Sleep Apnea Currently Using CPAP: Yes Cardiac: Yes (FAILED CARDIAC ABLATION X 2; MULTIPLE CARDIOVERSIONS; LINQ MONITOR IN PLACE; ULISES'S; CARDIAC CATHS--MILD TO MODERATE DISEASE, NO INTERVENTION. LAST CATH 07/16/17. 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 ) Blood Disorders: No (PATIENT IS JEHOVAH WITNESS) Family Medical History COPD, EMPHYSEMA 19 FATHER COPD, EMPHYSEMA 19 FATHER Cardiovascular disease 19 FATHER 19 MOTHER ([place]) G8 BROTHER ([place]) Completed stroke G8 SISTER Hypertension 19 MOTHER Neoplasm G8 BROTHER (LYMPHOMA) CAD Under 55 Years Old, CAD Over 55 Years Old Physical Exam Vital Signs Vital Signs - First Documented 02/11/19 22:11 Temp 36.5 Pulse 79 Resp 16 B/P (MAP) 200/118 (145) Pulse Ox 97 O2 Delivery Room Air Capillary Refill : Less Than 3 Seconds Height, Weight, BMI Height: 5'10.00" Weight: 226lbs. 0.0oz. 102.833662fh; 32.00 BMI Method:Stated General Appearance: No Apparent Distress, WD/WN, Anxious, Other (VERY TREMULOUS) Neck: Full Range of Motion, Normal Inspection, Non Tender, Supple; No Carotid Bruit, No JVD Respiratory: Chest Non Tender, Normal Breath Sounds, No Accessory Muscle Use, No Respiratory Distress Cardiovascular: No JVD, No Murmur, Normal Peripheral Pulses, Irregularly Irregular Gastrointestinal: Non Tender, Soft Extremity: Normal Capillary Refill, Normal Range of Motion, Non Tender, No Calf Tenderness, Pedal Edema (TRACE BILATERALLY) Neurologic/Psychiatric: Alert, Oriented x3, No Motor/Sensory Deficits, water pumper II- XII Norm as Tested, Other (VERY ANXIOUS) Skin: Normal Color, Warm/Dry Progress/Results/Core Measures Results/Orders Lab Results Laboratory Tests Test 02/11/19 22:28 Range/Units White Blood Count 7.1 4.3-11.0 10^3/uL Red Blood Count 4.39 4.35-5.85 10^6/uL Hemoglobin 13.1 11.5-16.0 G/DL Hematocrit 41 35-52 % Mean Corpuscular Volume 93 80-99 FL Mean Corpuscular Hemoglobin 30 25-34 PG Mean Corpuscular Hemoglobin Concent 32 32-36 G/DL Red Cell Distribution Width 13.7 10.0-14.5 % Platelet Count 182 130-400 10^3/uL Mean Platelet Volume 10.5 H 7.4-10.4 FL Neutrophils (%) (Auto) 53 42-75 % Lymphocytes (%) (Auto) 34 12-44 % Monocytes (%) (Auto) 10 0-12 % Eosinophils (%) (Auto) 3 0-10 % Basophils (%) (Auto) 1 0-10 % Neutrophils # (Auto) 3.8 1.8-7.8 X 10^3 Lymphocytes # (Auto) 2.4 1.0-4.0 X 10^3 Monocytes # (Auto) 0.7 0.0-1.0 X 10^3 Eosinophils # (Auto) 0.2 0.0-0.3 10^3/uL Basophils # (Auto) 0.0 0.0-0.1 10^3/uL Prothrombin Time 15.1 H 12.2-14.7 SEC INR Comment 1.1 0.8-1.4 Activated Partial Thromboplast Time 30 24-35 SEC Sodium Level 139 135-145 MMOL/L Potassium Level 3.9 3.6-5.0 MMOL/L Chloride Level 104 98-107 MMOL/L Carbon Dioxide Level 24 21-32 MMOL/L Anion Gap 11 5-14 MMOL/L Blood Urea Nitrogen 12 7-18 MG/DL Creatinine 0.76 0.60-1.30 MG/DL Estimat Glomerular Filtration Rate > 60 BUN/Creatinine Ratio 16 Glucose Level 96 70-105 MG/DL Calcium Level 9.6 8.5-10.1 MG/DL Corrected Calcium 9.2 8.5-10.1 MG/DL Magnesium Level 2.2 1.6-2.4 MG/DL Total Bilirubin 0.6 0.1-1.0 MG/DL Aspartate Amino Transf (AST/SGOT) 26 5-34 U/L Alanine Aminotransferase (ALT/SGPT) 27 0-55 U/L Alkaline Phosphatase 70 40-136 U/L Total Creatine Kinase 123 29-168 U/L Creatine Kinase MB 2.4 <6.6 NG/ML Myoglobin 41.6 10.0-92.0 NG/ML Troponin I < 0.028 <0.028 NG/ML B-Type Natriuretic Peptide 123.5 H <100.0 PG/ML Total Protein 8.0 6.4-8.2 GM/DL Albumin 4.5 3.2-4.5 GM/DL Amylase Level 33 25-125 U/L Lipase 23 8-78 U/L TSH [place] Testing 2.99 0.35-4.94 UIU/ML My Orders Orders - RODRICK WARD DO Cbc With Automated Diff (02/11/19 22:12) Magnesium (02/11/19 22:12) Chest 1 View, Ap/Pa Only (02/11/19 22:12) Ekg Tracing (02/11/19 22:12) Comprehensive Metabolic Panel (02/11/19 22:12) Myoglobin Serum (02/11/19 22:12) Protime With Inr (02/11/19 22:12) Partial Thromboplastin Time (02/11/19 22:12) O2 (02/11/19 22:12) Monitor-Rhythm Ecg Trace Only (02/11/19 22:12) Ed Iv/Invasive Line Start (02/11/19 22:12) Creatine Kinase (02/11/19 22:12) Creatine Kinase Mb (02/11/19 22:12) Lipase (02/11/19 22:12) Amylase (02/11/19 22:12) BNP (02/11/19 22:12) Troponin I (02/11/19 22:12) Thyroid Analyzer (02/11/19 22:12) Vital Signs/I&O 02/11/19 02/11/19 02/12/19 22:11 23:52 01:02 Temp 36.5 36.4 Pulse 79 69 Resp 16 22 B/P (MAP) 200/118 (145) 143/91 Pulse Ox 97 98 96 O2 Delivery Room Air Room Air Blood Pressure Mean: 145 POS Progress Progress Note : Progress Note PT CALMED, BP DOWN AND ALL SYMPTOMS WENT AWAY, WITHOUT TREATMENT IN ER. PT REPEATS SEVERAL TIMES, THAT SHE FEELS LIKE THE XANAX HAS STARTED WORKING. UNEVENTFUL ER STAY. Initial ECG Impression Date: Feb 11, 2019 Initial ECG Impression Time: 22:10 Initial ECG Rate: 84 Initial ECG Rhythm: A Fib/Flutter Initial ECG Impression: Nonspecific Changes Initial ECG Comparisson: Unchanged Diagnostic Imaging Comments CXR--NO ACUTE PROCESS, PENDING RADIOLOGIST REVIEW Reviewed: Reviewed by Me Departure Impression Primary Impression: Anxiety Additional Impressions: Chronic atrial fibrillation Near syncope Labile hypertension Dyspnea Disposition: HOME, SELF-CARE Condition: Improved Departure-Patient Inst. Referrals: JOHN MILLER RICHARD A DO (PCP/Family) Primary Care Physician MAL WINCHESTER MD Patient Instructions: Atrial Fibrillation (DC), Near Fainting (DC), Shortness of Breath (Dyspnea) (DC), Anxiety, Adult (DC) Add. Discharge Instructions: HOME, REST TAKE YOUR MEDICATIONS PRESCRIBED KEEP YOUR APPOINTMENT ON FRIDAY WITH DR. MILLER KEEP YOUR APPOINTMENT WITH DR. WINCHESTER IN FEBRUARY RETURN TO ER IF SYMPTOMS RETURN/WORSEN All discharge instructions reviewed with patient and/or family. Voiced understanding. RODRICK WARD DO Feb 12, 2019 00:07 POS
[2019-02-12 01:02] VITALS: BP 143/91
--- NOTE | 2019-02-12 07:22 | Diagnostic Imaging Report ---
INDICATION: Weakness and shortness of breath. Comparison is made with prior examination from 11/19/2018. FINDINGS: The heart size, mediastinal configuration, and pulmonary vascularity are within normal limits. There is no pleural effusion, pneumothorax, or pneumonia. The osseous structures are unremarkable. IMPRESSION: No acute cardiopulmonary abnormality. Dictated by: Dictated on workstation # [id number]
== END 2019-02-12 00:33 | disposition home or self-care (01) ==
LOC: EDUNIT# 21:57 → ER 21:58
DX: F41.9 Anxiety disorder, unspecified (principal); I48.20 Chronic atrial fibrillation, unspecified; R55 Syncope and collapse; I10 Essential (primary) hypertension; R06.00 Dyspnea, unspecified; J45.909 Unspecified asthma, uncomplicated; I25.10 Atherosclerotic heart disease of native coronary artery without angina pectoris; F32.9 Major depressive disorder, single episode, unspecified; E03.9 Hypothyroidism, unspecified; G47.30 Sleep apnea, unspecified; Z90.710 Acquired absence of both cervix and uterus; Z99.89 Dependence on other enabling machines and devices; Z88.8 Allergy status to other drugs, medicaments and biological substances; Z88.1 Allergy status to other antibiotic agents; Z88.5 Allergy status to narcotic agent; Z79.01 Long term (current) use of anticoagulants; Z82.49 Family history of ischemic heart disease and other diseases of the circulatory system
CPT/HCPCS: 36415; 71045; 80053; 82150; 82550; 82553; 83690; 83735; 83874; 83880; 84443; 84484; 85025; 85610; 85730; 93005; 93041

== ENCOUNTER → 2019-09-20 | Outpatient (CLI) | payer MEDICARE, OTHER ==
[~2019-09-20] MED LIST changes: -RANI-515 PO; +RANI-609 PO
== END ==
LOC: RT 14:33
PROVIDERS: ATTEND Nurse Practitioner Family
DX: J45.909 Unspecified asthma, uncomplicated (principal); I48.0 Paroxysmal atrial fibrillation

== ENCOUNTER 2019-11-20 01:04 | Emergency (ER) | payer MEDICARE, OTHER ==
[~2019-11-20] VITALS: Ht 177.8 cm; Wt 102.5 kg
[2019-11-20 01:30] LABS: BASOPHILS % (AUTO) 0 % (0-10); EOSINOPHILS # (AUTO) 0.1 10^3/uL (0.0-0.3); EOSINOPHILS % (AUTO) 1 % (0-10); HEMATOCRIT 43 % (35-52); HEMOGLOBIN 13.8 G/DL (11.5-16.0); LYMPHOCYTES # (AUTO) 2.8 X 10^3 (1.0-4.0); LYMPHOCYTES % (AUTO) 27 % (12-44); MEAN CORPUSCULAR HEMOGLOBIN 30 PG (25-34); MEAN CORPUSCULAR HGB CONC 32 G/DL (32-36); MEAN CORPUSCULAR VOLUME 93 FL (80-99); MEAN PLATELET VOLUME 10.8 FL (7.4-10.4); MONOCYTES # (AUTO) 0.9 X 10^3 (0.0-1.0); MONOCYTES % (AUTO) 8 % (0-12); NEUTROPHILS # (AUTO) 6.6 X 10^3 (1.8-7.8); NEUTROPHILS % (AUTO) 64 % (42-75); PLATELET COUNT 244 10^3/uL (130-400); WHITE BLOOD COUNT 10.4 10^3/uL (4.3-11.0)
[2019-11-20 01:31] LABS: BILIRUBIN,URINE NEGATIVE (NEGATIVE); CLARITY,URINE CLEAR; COLOR,URINE YELLOW; GLUCOSE, URINE (UA) NEGATIVE (NEGATIVE); KETONES,URINE NEGATIVE (NEGATIVE); LEUKOCYTE ESTERASE ,URINE NEGATIVE (NEGATIVE); NITRITE,URINE NEGATIVE (NEGATIVE); PH,URINE 6.5 (5-9); PROTEIN,URINE NEGATIVE (NEGATIVE)
[2019-11-20 01:35] LABS: ALBUMIN 4.3 GM/DL (3.2-4.5); CHLORIDE 101 MMOL/L (98-107); SODIUM 138 MMOL/L (135-145)
[2019-11-20 01:36] LABS: CALCIUM 9.6 MG/DL (8.5-10.1)
[2019-11-20 01:38] LABS: GLUCOSE 105 MG/DL (70-105); TOTAL PROTEIN 8.1 GM/DL (6.4-8.2)
[2019-11-20 01:39] LABS: BILIRUBIN,TOTAL 0.4 MG/DL (0.1-1.0); CARBON DIOXIDE 25 MMOL/L (21-32)
[2019-11-20 01:41] LABS: ALKALINE PHOSPHATASE 72 U/L (40-136); GFR ESTIMATED > 60
[2019-11-20 01:41] LABS: BACTERIA,URINE NEGATIVE /HPF; SQUAMOUS EPITHELIAL CELL,UR 0-2 /HPF; WBC,URINE 0-2 /HPF
[2019-11-20 01:42] LABS: BUN/CREATININE RATIO 28
[2019-11-20 01:44] LABS: ALANINE AMINOTRANSFERASE 40 U/L (0-55); MAGNESIUM 2.1 MG/DL (1.6-2.4)
--- NOTE | 2019-11-20 02:47 | ED Cardiac General ---
History of Present Illness General Chief Complaint: Cardiac/General Problems Stated Complaint: HIGH BLOOD PRESSURE Nursing Triage Note: PATIENT STATES THAT SHE WAS LAYING DOWN AND BEGAN EXPERIENCING A "FLUTTERING" IN HER CHEST. SHE ALSO TOOK HER BLOOD PRESSURE AND FOUND IT TO BE ELEVATED AT 220/110. Source: patient, old records Exam Limitations: no limitations History of Present Illness Date Seen by Provider: Nov 20, 2019 Time Seen by Provider: 01:06 Initial Comments This 68-year-old woman presents to the emergency room with complaints of palpitations and hypertension. She is well-known to this provider from prior visits and is admittedly quite anxious in general and in specific about her medical conditions. She is intermittently short of breath which is a chronic issue for her. She has a meniscus injury to her right knee which is causing her pain and distress and is likely contributing to her hypertension. She has been prescribed Ultram but she is afraid to take it because of pharmacy warnings regarding sedation. Allergies and Home Medications Allergies Coded Allergies: flecainide (Verified Allergy, Severe, 11/19/18) warfarin (Verified Allergy, Severe, 11/19/18) aliskiren (Unverified Allergy, Unknown, 11/19/18) cephalexin (Verified Allergy, Unknown, 11/19/18) codeine (Verified Allergy, Unknown, 11/19/18) dronedarone HCl (Unverified Allergy, Unknown, 11/19/18) Home Medications Acetaminophen 500 Mg Tablet, 500-1,000 MG PO Q6H PRN for PAIN-MILD, (Reported) Alprazolam 0.5 Mg Tablet, 0.5 MG PO HS, (Reported) Apixaban 5 Mg Tablet, 5 MG PO BID, (Reported) Calcium Carbonate 300 Mg Tab.chew, 300 MG PO BID PRN for INDIGESTION, (Reported) Dexlansoprazole 60 Mg Cap.dr.bp, 60 MG PO DAILY PRN for STOMACH UPSET, (Reported) Diltiazem HCl 240 Mg Cap.er.24h, 240 MG PO DAILY, (Reported) Doxycycline Hyclate 100 Mg Tablet.dr, 100 MG PO BID Prescribed by: RENALDO MCPHERSON on 11/22/17 1149 Levalbuterol Tartrate 15 Gm Hfa.aer.ad, 2 PUFF IH QID PRN for SHORTNESS OF BREATH, (Reported) Levothyroxine Sodium 75 Mcg Tablet, 75 MCG PO DAILY, (Reported) Losartan Potassium 50 Mg Tablet, 50 MG PO 1700, (Reported) Propranolol HCl 20 Mg Tablet, 20 MG PO 0700,1700, (Reported) Propranolol HCl 20 Mg Tablet, 10 MG PO HS, (Reported) TAKES 1/2 (20MG) TABLET Patient Home Medication List Home Medication List Reviewed: Yes Review of Systems Review of Systems Constitutional: no symptoms reported EENTM: No Symptoms Reported Respiratory: See HPI Cardiovascular: See HPI Gastrointestinal: No Symptoms Reported Genitourinary: No Symptoms Reported Musculoskeletal: no symptoms reported Skin: no symptoms reported Psychiatric/Neurological: No Symptoms Reported Endocrine: No Symptoms Reported Hematologic/Lymphatic: No Symptoms Reported Past Dydifed-Vgbauh-Zvasyn Hx Past Med/Social Hx: Reviewed Nursing Past Med/Soc Hx Patient Social History Alcohol Use: Denies Use Recreational Drug Use: No Smoking Status: Never a Smoker Recent Foreign Travel: No Contact w/Someone Who Travel: No Recent Infectious Disease Expo: No Recent Hopitalizations: Yes Physical Abuse: No Sexual Abuse: No Mistreated: No Fear: No Immunizations Up To Date Tetanus Booster (TDap): Unknown Seasonal Allergies Seasonal Allergies: Yes Past Medical History Surgeries: Yes Amputation, Cardiac, Gallbladder, Hysterectomy, Orthopedic Respiratory: Yes (CPAP AT HS; CHRONIC DYSPNEA--ESPECIALLY ON EXERTION) Asthma, Chronic Bronchitis, Sleep Apnea Currently Using CPAP: Yes Cardiac: Yes Atrial Fibrillation, Chronic Edema/Swelling, Coronary Artery Disease, Hypertension, Irregular Heartbeat, Palpitations Neurological: No 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 ) Blood Disorders: No (PATIENT IS JEHOVAH WITNESS) Family Medical History Reviewed Nursing Family Hx COPD, EMPHYSEMA 19 FATHER COPD, EMPHYSEMA 19 FATHER Cardiovascular disease 19 FATHER 19 MOTHER ([place]) G8 BROTHER ([place]) Completed stroke G8 SISTER Hypertension 19 MOTHER Neoplasm G8 BROTHER (LYMPHOMA) CAD Under 55 Years Old, CAD Over 55 Years Old Physical Exam Vital Signs Vital Signs - First Documented 11/20/19 01:06 Temp 37.0 Pulse 101 Resp 22 B/P (MAP) 201/133 (155) Pulse Ox 96 O2 Delivery Room Air Capillary Refill : Less Than 3 Seconds Height, Weight, BMI Height: 5'10.00" Weight: 226lbs. 0.0oz. 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 Norm as Tested, Other (anxious) Skin: Normal Color, Warm/Dry Progress/Results/Core Measures Results/Orders Lab Results Laboratory Tests Test 11/20/19 01:08 11/20/19 01:22 Range/Units White Blood Count 10.4 4.3-11.0 10^3/uL Red Blood Count 4.59 4.35-5.85 10^6/uL Hemoglobin 13.8 11.5-16.0 G/DL Hematocrit 43 35-52 % Mean Corpuscular Volume 93 80-99 FL Mean Corpuscular Hemoglobin 30 25-34 PG Mean Corpuscular Hemoglobin Concent 32 32-36 G/DL Red Cell Distribution Width 14.0 10.0-14.5 % Platelet Count 244 130-400 10^3/uL Mean Platelet Volume 10.8 H 7.4-10.4 FL Neutrophils (%) (Auto) 64 42-75 % Lymphocytes (%) (Auto) 27 12-44 % Monocytes (%) (Auto) 8 0-12 % Eosinophils (%) (Auto) 1 0-10 % Basophils (%) (Auto) 0 0-10 % Neutrophils # (Auto) 6.6 1.8-7.8 X 10^3 Lymphocytes # (Auto) 2.8 1.0-4.0 X 10^3 Monocytes # (Auto) 0.9 0.0-1.0 X 10^3 Eosinophils # (Auto) 0.1 0.0-0.3 10^3/uL Basophils # (Auto) 0.0 0.0-0.1 10^3/uL Sodium Level 138 135-145 MMOL/L Potassium Level 4.0 3.6-5.0 MMOL/L Chloride Level 101 98-107 MMOL/L Carbon Dioxide Level 25 21-32 MMOL/L Anion Gap 12 5-14 MMOL/L Blood Urea Nitrogen 22 H 7-18 MG/DL Creatinine 0.80 0.60-1.30 MG/DL Estimat Glomerular Filtration Rate > 60 BUN/Creatinine Ratio 28 Glucose Level 105 70-105 MG/DL Calcium Level 9.6 8.5-10.1 MG/DL Corrected Calcium 9.4 8.5-10.1 MG/DL Magnesium Level 2.1 1.6-2.4 MG/DL Total Bilirubin 0.4 0.1-1.0 MG/DL Aspartate Amino Transf (AST/SGOT) 24 5-34 U/L Alanine Aminotransferase (ALT/SGPT) 40 0-55 U/L Alkaline Phosphatase 72 40-136 U/L Troponin I < 0.028 <0.028 NG/ML B-Type Natriuretic Peptide 79.5 <100.0 PG/ML Total Protein 8.1 6.4-8.2 GM/DL Albumin 4.3 3.2-4.5 GM/DL Thyroid Stimulating Hormone (TSH) 1.58 0.35-4.94 UIU/ML Free Thyroxine 1.17 0.70-1.48 NG/DL Urine Color YELLOW Urine Clarity CLEAR Urine pH 6.5 5-9 Urine Specific [place] <=1.005 1.016-1.022 Urine Protein NEGATIVE NEGATIVE Urine Glucose (UA) NEGATIVE NEGATIVE Urine Ketones NEGATIVE NEGATIVE Urine Nitrite NEGATIVE NEGATIVE Urine Bilirubin NEGATIVE NEGATIVE Urine Urobilinogen 0.2 < = 1.0 MG/DL Urine Leukocyte Esterase NEGATIVE NEGATIVE Urine RBC (Auto) TRACE-I NEGATIVE Urine RBC NONE /HPF Urine WBC 0-2 /HPF Urine Squamous Epithelial Cells 0-2 /HPF Urine Crystals NONE /LPF Urine Bacteria NEGATIVE /HPF Urine Casts NONE /LPF Urine Mucus NEGATIVE /LPF Urine Culture Indicated NO My Orders Orders - RENALDO CARREON MD Cbc With Automated Diff (11/20/19 01:17) Comprehensive Metabolic Panel (11/20/19 01:17) Magnesium (11/20/19 01:17) Thyroid Stimulating Hormone (11/20/19 01:17) Troponin I (11/20/19 01:17) Ua Culture If Indicated (11/20/19 01:17) Ed Iv/Invasive Line Start (11/20/19 01:17) Ekg Tracing (11/20/19 01:17) Monitor-Rhythm Ecg Trace Only (11/20/19 01:17) Tramadol Tablet (Ultram Tablet) (11/20/19 01:30) Free T4 (Free Thyroxine) (11/20/19 01:53) BNP (11/20/19 01:53) Medications Given in ED Current Medications Medications Dose Ordered Sig/Shimon Route Start Time Stop Time Status Last Admin Dose Admin Tramadol HCl 50 mg ONCE ONCE PO 11/20/19 01:30 11/20/19 01:31 DC 11/20/19 01:29 50 MG Vital Signs/I&O 11/20/19 11/20/19 01:06 02:49 Temp 37.0 36.7 Pulse 101 76 Resp 22 20 B/P (MAP) 201/133 (155) 151/99 Pulse Ox 96 96 O2 Delivery Room Air Room Air Blood Pressure Mean: 155 Progress Progress Note : Progress Note Patient consented to taking tramadol to help with her knee pain. This seemed to relax her and improve her blood pressure. She tolerated the Ultram quite well and was not overly sedated. She was evaluated, labs reviewed, and discharged. Initial ECG Impression Date: Nov 20, 2019 Initial ECG Impression Time: 01:10 Initial ECG Rate: 107 Initial ECG Rhythm: A Fib/Flutter Comment Atrial fibrillation with no ST elevation or depression. Rate controlled. Departure Impression Primary Impression: Palpitations Additional Impressions: Anxiety Essential hypertension Right knee pain Qualified Codes: M25.561 - Pain in right knee Disposition: 01 HOME, SELF-CARE Condition: Improved Departure-Patient Inst. Decision time for Depature: 02:46 Referrals: EZRA YAN DO (PCP/Family) Primary Care Physician Patient Instructions: Palpitations Add. Discharge Instructions: You may take Ultram (tramadol) as prescribed for your knee pain. Continue taking your cardiac medications as prescribed. If you have an increase in heart rate or blood pressure, you may double your propranolol dose. Follow-up with your primary care provider next week. Take omeprazole daily for the next 2 weeks to allow recovery from acid reflux, especially since you have been reclined more with your knee issues. Return to care if you have worsening symptoms. All discharge instructions reviewed with patient and/or family. Voiced understanding. Copy Copies To 1: EZRA YAN JOSHUA T MD Nov 20, 2019 02:47
[2019-11-20 02:49] VITALS: BP 151/99
== END 2019-11-20 02:49 | disposition home or self-care (01) ==
LOC: EDUNIT# 01:04 → ER 01:06
DX: R00.2 Palpitations (principal); F41.9 Anxiety disorder, unspecified; I10 Essential (primary) hypertension; M25.561 Pain in right knee; J45.909 Unspecified asthma, uncomplicated; E03.9 Hypothyroidism, unspecified; I48.91 Unspecified atrial fibrillation; Z79.890 Hormone replacement therapy; Z88.5 Allergy status to narcotic agent; Z88.1 Allergy status to other antibiotic agents; Z88.8 Allergy status to other drugs, medicaments and biological substances; Z80.7 Family history of other malignant neoplasms of lymphoid, hematopoietic and related tissues; Z82.49 Family history of ischemic heart disease and other diseases of the circulatory system; Z79.01 Long term (current) use of anticoagulants
CPT/HCPCS: 36415; 80053; 81000; 83735; 83880; 84439; 84443; 84484; 85025; 93005; 93041

== ENCOUNTER → 2019-11-25 | Outpatient (CLI) | payer MEDICARE, OTHER | LOC: CARD 14:00 | PROVIDERS: ATTEND Internal Medicine Cardiovascular Disease | DX: I34.0 Nonrheumatic mitral (valve) insufficiency (principal); I11.9 Hypertensive heart disease without heart failure; I48.0 Paroxysmal atrial fibrillation; I25.10 Atherosclerotic heart disease of native coronary artery without angina pectoris | CPT/HCPCS: 93306 ==

== ENCOUNTER → 2020-09-21 | Outpatient (CLI) | payer MEDICARE, OTHER ==
[2020-09-21 09:24] LABS: HEMATOCRIT 38 % (35-52); HEMOGLOBIN 12.1 g/dL (11.5-16.0); MEAN CORPUSCULAR HEMOGLOBIN 30 pg (25-34); MEAN CORPUSCULAR HGB CONC 32 g/dL (32-36); MEAN CORPUSCULAR VOLUME 96 fL (80-99); MEAN PLATELET VOLUME 10.5 fL (9.0-12.2); PLATELET COUNT 180 10^3/uL (130-400); WHITE BLOOD COUNT 5.9 10^3/uL (4.3-11.0)
--- NOTE | 2020-09-21 09:46 | Diagnostic Imaging Report ---
INDICATION: Cough and congestion. TIME OF EXAM: 9:39 AM Correlation is made with prior chest from 03/09/2018. FINDINGS: The heart size is normal. The pulmonary vascularity is unremarkable. The lungs are clear. No infiltrate, effusion or pneumothorax is detected. IMPRESSION: No acute cardiopulmonary process is detected. Dictated by: Dictated on workstation # [id number]
== END ==
LOC: RAD 09:00
PROVIDERS: ATTEND Family Medicine
DX: R05 Cough (principal); R09.81 Nasal congestion
CPT/HCPCS: 36415; 71046; 85027

== ENCOUNTER 2020-09-25 11:43 | Emergency (ER) | payer MEDICARE, OTHER | END 2020-09-25 12:22 | disposition left against medical advice (07) | LOC: EDUNIT# 11:43 → ER 11:44 | DX: R05 Cough (principal) ==

== ENCOUNTER 2020-11-14 11:42 | Emergency (ER) | payer MEDICARE, OTHER ==
[~2020-11-14] VITALS: Ht 177 cm; Wt 101.1 kg
[2020-11-14] MEDS ORDERED: LORazepam INJ 2 MG/ML (ATIVAN) VIAL IVP ONE (12:00)
[2020-11-14 12:15] LABS: BASOPHILS # (AUTO) 0.1 10^3/uL (0.0-0.1); BASOPHILS % (AUTO) 1 % (0-10); EOSINOPHILS # (AUTO) 0.2 10^3/uL (0.0-0.3); EOSINOPHILS % (AUTO) 2 % (0-10); HEMATOCRIT 37 % (35-52); HEMOGLOBIN 12.1 g/dL (11.5-16.0); LYMPHOCYTES # (AUTO) 2.2 10^3/uL (1.0-4.0); LYMPHOCYTES % (AUTO) 33 % (12-44); MEAN CORPUSCULAR HEMOGLOBIN 31 pg (25-34); MEAN CORPUSCULAR HGB CONC 33 g/dL (32-36); MEAN CORPUSCULAR VOLUME 95 fL (80-99); MEAN PLATELET VOLUME 10.6 fL (9.0-12.2); MONOCYTES # (AUTO) 0.6 10^3/uL (0.0-1.0); MONOCYTES % (AUTO) 9 % (0-12); NEUTROPHILS # (AUTO) 3.6 10^3/uL (1.8-7.8); NEUTROPHILS % (AUTO) 55 % (42-75); PLATELET COUNT 182 10^3/uL (130-400); WHITE BLOOD COUNT 6.6 10^3/uL (4.3-11.0)
--- NOTE | 2020-11-14 12:24 | ED Cardiac General ---
History of Present Illness General Chief Complaint: Cardiac/General Problems Stated Complaint: AFIB Source: patient Exam Limitations: no limitations History of Present Illness Date Seen by Provider: Nov 14, 2020 Time Seen by Provider: 12:22 Initial Comments And she was unable to sleep more than about 2 hours because of the palpitations. No chest pain no shortness of breath. She is very anxious. She takes diltiazem, propranolol and Eliquis for known atrial fibrillation. Timing/Duration: constant Severity: moderate Activities at Onset: none Prior CP/Workup: cardiac cath NTG SL WHITEWATER RAFTING GUIDE: No ASA po WHITEWATER RAFTING GUIDE: No Allergies and Home Medications Allergies Coded Allergies: flecainide (Verified Allergy, Severe, 11/19/18) warfarin (Verified Allergy, Severe, 11/19/18) aliskiren (Unverified Allergy, Unknown, 11/19/18) cephalexin (Verified Allergy, Unknown, 11/19/18) codeine (Verified Allergy, Unknown, 11/19/18) dronedarone HCl (Unverified Allergy, Unknown, 11/19/18) Home Medications Acetaminophen 500 Mg Tablet, 500-1,000 MG PO Q6H PRN for PAIN-MILD, (Reported) Alprazolam 0.5 Mg Tablet, 0.5 MG PO HS, (Reported) Apixaban 5 Mg Tablet, 5 MG PO BID, (Reported) Calcium Carbonate 300 Mg Tab.chew, 300 MG PO BID PRN for INDIGESTION, (Reported) Dexlansoprazole 60 Mg Cap.drVirybp, 60 MG PO DAILY PRN for STOMACH UPSET, (Reported) Diltiazem HCl 240 Mg Cap.er.24h, 240 MG PO DAILY, (Reported) Doxycycline Hyclate 100 Mg Tablet.dr, 100 MG PO BID Prescribed by: RENALDO MCPHERSON on 11/22/17 1149 Levalbuterol Tartrate 15 Gm Hfa.aer.ad, 2 PUFF IH QID PRN for SHORTNESS OF BREATH, (Reported) Levothyroxine Sodium 75 Mcg Tablet, 75 MCG PO DAILY, (Reported) Losartan Potassium 50 Mg Tablet, 50 MG PO 1700, (Reported) Propranolol HCl 20 Mg Tablet, 20 MG PO 0700,1700, (Reported) Propranolol HCl 20 Mg Tablet, 10 MG PO HS, (Reported) TAKES 1/2 (20MG) TABLET Patient Home Medication List Home Medication List Reviewed: Yes Review of Systems Review of Systems Constitutional: see HPI EENTM: No Symptoms Reported Respiratory: No Symptoms Reported Cardiovascular: See HPI, Palpitations Gastrointestinal: No Symptoms Reported Genitourinary: No Symptoms Reported Musculoskeletal: no symptoms reported Skin: no symptoms reported Psychiatric/Neurological: No Symptoms Reported Endocrine: No Symptoms Reported Hematologic/Lymphatic: No Symptoms Reported Past Uvcizkr-Dafwkw-Joynkp Hx Immunizations Up To Date Tetanus Booster (TDap): Unknown Seasonal Allergies Seasonal Allergies: Yes Past Medical History Surgeries: Yes Amputation, Cardiac, Gallbladder, Hysterectomy, Orthopedic Respiratory: Yes (CPAP AT HS; CHRONIC DYSPNEA--ESPECIALLY ON EXERTION) Asthma, Chronic Bronchitis, Sleep Apnea Currently Using CPAP: Yes Cardiac: Yes Atrial Fibrillation, Chronic Edema/Swelling, Coronary Artery Disease, Hypertension, Irregular Heartbeat, Palpitations Neurological: No 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 ) Blood Disorders: No (PATIENT IS JEHOVAH WITNESS) Family Medical History COPD, EMPHYSEMA 19 FATHER COPD, EMPHYSEMA 19 FATHER Cardiovascular disease 19 FATHER 19 MOTHER ([place]) G8 BROTHER ([place]) Completed stroke G8 SISTER Hypertension 19 MOTHER Neoplasm G8 BROTHER (LYMPHOMA) CAD Under 55 Years Old, CAD Over 55 Years Old Physical Exam Vital Signs Vital Signs - First Documented 11/14/20 11:45 Temp 36.8 Pulse 81 Resp 11 B/P (MAP) 195/102 (133) Pulse Ox 100 Capillary Refill : Height, Weight, BMI Height: 5'10.00" Weight: 226lbs. 0.0oz. 102.062429mu; 32.00 BMI Method:Stated General Appearance: No Apparent Distress, WD/WN, Anxious (tearful), Other (Hr 86 a-fib, hypertensive at 180/100) Respiratory: No Accessory Muscle Use, No Respiratory Distress Cardiovascular: Regular Rate, Rhythm, Normal Peripheral Pulses Gastrointestinal: Normal Bowel Sounds, Non Tender, Soft Extremity: Normal Capillary Refill, Normal Inspection Neurologic/Psychiatric: Alert, Oriented x3 Skin: Normal Color, Warm/Dry Progress/Results/Core Measures Results/Orders Lab Results Laboratory Tests Test 11/14/20 12:08 Range/Units White Blood Count 6.6 4.3-11.0 10^3/uL Red Blood Count 3.92 3.80-5.11 10^6/uL Hemoglobin 12.1 11.5-16.0 g/dL Hematocrit 37 35-52 % Mean Corpuscular Volume 95 80-99 fL Mean Corpuscular Hemoglobin 31 25-34 pg Mean Corpuscular Hemoglobin Concent 33 32-36 g/dL Red Cell Distribution Width 13.3 10.0-14.5 % Platelet Count 182 130-400 10^3/uL Mean Platelet Volume 10.6 9.0-12.2 fL Immature Granulocyte % (Auto) 0 % Neutrophils (%) (Auto) 55 42-75 % Lymphocytes (%) (Auto) 33 12-44 % Monocytes (%) (Auto) 9 0-12 % Eosinophils (%) (Auto) 2 0-10 % Basophils (%) (Auto) 1 0-10 % Neutrophils # (Auto) 3.6 1.8-7.8 10^3/uL Lymphocytes # (Auto) 2.2 1.0-4.0 10^3/uL Monocytes # (Auto) 0.6 0.0-1.0 10^3/uL Eosinophils # (Auto) 0.2 0.0-0.3 10^3/uL Basophils # (Auto) 0.1 0.0-0.1 10^3/uL Immature Granulocyte # (Auto) 0.0 0.0-0.1 10^3/uL Prothrombin Time 15.3 H 12.2-14.7 SEC INR Comment 1.2 0.8-1.4 Activated Partial Thromboplast Time 28 24-35 SEC Sodium Level 138 135-145 MMOL/L Potassium Level 3.7 3.6-5.0 MMOL/L Chloride Level 105 98-107 MMOL/L Carbon Dioxide Level 26 21-32 MMOL/L Anion Gap 7 5-14 MMOL/L Blood Urea Nitrogen 14 7-18 MG/DL Creatinine 0.72 0.60-1.30 MG/DL Estimat Glomerular Filtration Rate 81 BUN/Creatinine Ratio 19 Glucose Level 84 70-105 MG/DL Calcium Level 9.6 8.5-10.1 MG/DL Corrected Calcium 9.7 8.5-10.1 MG/DL Magnesium Level 2.1 1.6-2.4 MG/DL Total Bilirubin 0.6 0.1-1.0 MG/DL Aspartate Amino Transf (AST/SGOT) 17 5-34 U/L Alanine Aminotransferase (ALT/SGPT) 18 0-55 U/L Alkaline Phosphatase 67 40-136 U/L Myoglobin 32.8 10.0-92.0 NG/ML Troponin I < 0.028 <0.028 NG/ML B-Type Natriuretic Peptide 175.5 H <100.0 PG/ML Total Protein 7.2 6.4-8.2 GM/DL Albumin 3.9 3.2-4.5 GM/DL My Orders Orders - REGINALD MCDERMOTT APRN Cbc With Automated Diff (11/14/20 11:51) Magnesium (11/14/20 11:51) Chest 1 View, Ap/Pa Only (11/14/20 11:51) Ekg Tracing (11/14/20 11:51) Comprehensive Metabolic Panel (11/14/20 11:51) Myoglobin Serum (11/14/20 11:51) Protime With Inr (11/14/20 11:51) Partial Thromboplastin Time (11/14/20 11:51) O2 (11/14/20 11:51) Monitor-Rhythm Ecg Trace Only (11/14/20 11:51) Ed Iv/Invasive Line Start (11/14/20 11:51) BNP (11/14/20 11:51) Troponin I (11/14/20 11:51) Lorazepam Injection (Ativan Injection) (11/14/20 12:00) Medications Given in ED Current Medications Medications Dose Ordered Sig/Shimon Route Start Time Stop Time Status Last Admin Dose Admin Lorazepam 1 mg ONCE ONCE IVP 11/14/20 12:00 11/14/20 12:01 DC 11/14/20 12:12 1 MG Vital Signs/I&O 11/14/20 11/14/20 11:45 13:02 Temp 36.8 Pulse 81 74 Resp 11 11 B/P (MAP) 195/102 (133) 170/104 (133) Pulse Ox 100 100 Diagnostic Imaging Diagonstic Imaging: Xray Plain Films/CT/US/NM/MRI: chest Reviewed: Reviewed by Me Departure Communication (Admissions) EKG shows atrial fibrillation rate of 73 normal intervals no ectopy no ST segment change Impression Primary Impression: Anxiety Disposition: 01 HOME, SELF-CARE Condition: Improved Departure-Patient Inst. Referrals: EZRA YAN DO (PCP/Family) Primary Care Physician REGINALD MCDERMOTT APRN Nov 14, 2020 12:24
[2020-11-14 12:31] LABS: ALBUMIN 3.9 GM/DL (3.2-4.5); POTASSIUM 3.7 MMOL/L (3.6-5.0)
[2020-11-14 12:32] LABS: CALCIUM 9.6 MG/DL (8.5-10.1)
[2020-11-14 12:33] LABS: TOTAL PROTEIN 7.2 GM/DL (6.4-8.2)
--- NOTE | 2020-11-14 12:33 | Diagnostic Imaging Report ---
INDICATION: Chest pain. EXAMINATION: Chest from 11/14/2020. COMPARISON: 02/11/2019. FINDINGS: There is cardiomegaly. Pulmonary vasculature appears unremarkable. Lungs and pleural spaces are clear. No pneumothorax. No acute osseous abnormality. IMPRESSION: 1. No acute cardiopulmonary process. Dictated by: Dictated on workstation # [id number]
[2020-11-14 12:35] LABS: BILIRUBIN,TOTAL 0.6 MG/DL (0.1-1.0); INR 1.2 (0.8-1.4); PROTHROMBIN TIME PATIENT 15.3 SEC (12.2-14.7)
[2020-11-14 12:37] LABS: CREATININE SERUM 0.72 MG/DL (0.60-1.30)
[2020-11-14 12:40] LABS: MAGNESIUM 2.1 MG/DL (1.6-2.4)
[2020-11-14 13:02] VITALS: BP 170/104
== END 2020-11-14 13:15 | disposition home or self-care (01) ==
LOC: EDUNIT# 11:42 → ER 11:44
DX: F41.9 Anxiety disorder, unspecified (principal); I48.91 Unspecified atrial fibrillation; I10 Essential (primary) hypertension; I25.10 Atherosclerotic heart disease of native coronary artery without angina pectoris; J45.909 Unspecified asthma, uncomplicated; E03.9 Hypothyroidism, unspecified; G47.30 Sleep apnea, unspecified; F32.9 Major depressive disorder, single episode, unspecified; Z99.89 Dependence on other enabling machines and devices; Z79.01 Long term (current) use of anticoagulants; Z79.890 Hormone replacement therapy; Z79.899 Other long term (current) drug therapy
CPT/HCPCS: 36415; 71045; 80053; 83735; 83874; 83880; 84484; 85025; 85610; 85730; 93005; 93041

== ENCOUNTER 2021-03-16 18:15 | Emergency (ER) | payer MEDICARE, OTHER ==
[~2021-03-16] VITALS: Ht 177.8 cm; Wt 96.1 kg
[~2021-03-16 18:15] MED LIST changes: -LEVO500T80 PO; +LEVO500T81 PO
[2021-03-16 19:01] VITALS: BP 175/111
--- NOTE | 2021-03-16 19:01 | ED General ---
General Chief Complaint: COVID19 Suspect/Confirmed Stated Complaint: COUGH,HEADACHE,LOW FEVER,DIZZY Source of Information: Patient Exam Limitations: No Limitations History of Present Illness Date Seen by Provider: Mar 16, 2021 Time Seen by Provider: 19:47 Initial Comments To ER with cough headache chills. Symptoms began on 03/13/2021. She was at the [facility] in [place] with family. She is unvaccinated and Covid. Timing/Duration: 1-2 Days Severity: Moderate Associated Systoms: Denies Symptoms Allergies and Home Medications Allergies Coded Allergies: flecainide (Verified Allergy, Severe, 11/19/18) warfarin (Verified Allergy, Severe, 11/19/18) aliskiren (Unverified Allergy, Unknown, 11/19/18) cephalexin (Verified Allergy, Unknown, 11/19/18) codeine (Verified Allergy, Unknown, 11/19/18) dronedarone HCl (Unverified Allergy, Unknown, 11/19/18) Patient Home Medication List Home Medication List Reviewed: Yes Acetaminophen (Tylenol Extra Strength) 500 Mg Tablet, 500-1,000 MG PO Q6H PRN for PAIN-MILD, (Reported) Entered as Reported by: LUZ STEINBERG on 07/16/17 0938 Alprazolam (Alprazolam) 0.5 Mg Tablet, 0.5 MG PO HS, (Reported) Entered as Reported by: LUZ STEINBERG on 07/19/15 0818 Apixaban (Eliquis) 5 Mg Tablet, 5 MG PO BID, (Reported) Entered as Reported by: LUZ STEINBERG on 07/16/17 0936 Calcium Carbonate (Tums) 300 Mg Tab.chew, 300 MG PO BID PRN for INDIGESTION, (Reported) Entered as Reported by: LUZ STEINBERG on 07/16/17 0940 Cholecalciferol (Vitamin D3) (Vitamin D) 50,000 Unit Capsule, 50,000 UNIT PO, (Reported) Entered as Reported by: ART LAINEZ on 11/19/18 0631 Dexlansoprazole (Dexilant) 60 Mg Cap., 60 MG PO DAILY PRN for STOMACH UPSET, (Reported) Entered as Reported by: LUZ STEINBERG on 07/16/17 0939 Diltiazem HCl (Cartia Xt) 240 Mg Cap.er.24h, 240 MG PO DAILY, (Reported) Entered as Reported by: LUZ STEINBERG on 07/16/17935 Doxycycline Hyclate (Doxycycline Hyclate) 100 Mg Tablet.dr, 100 MG PO BID Prescribed by: RENALDO MCPHERSON on 11/22/17 1149 Levalbuterol Tartrate (Xopenex Hfa) 15 Gm Hfa.aer.ad, 2 PUFF IH QID PRN for SHORTNESS OF BREATH, (Reported) Entered as Reported by: LUZ STEINBERG on 07/16/17935 Levothyroxine Sodium (Levothyroxine Sodium) 75 Mcg Tablet, 75 MCG PO DAILY, (Reported) Entered as Reported by: KENYA MIRAMONTES on 07/19/156 Losartan Potassium (Losartan Potassium) 50 Mg Tablet, 50 MG PO 1700, (Reported) Entered as Reported by: LUZ STEINBERG on 10/30/15 08 Propranolol HCl (Propranolol HCl) 20 Mg Tablet, 20 MG PO 0700,1700, (Reported) Entered as Reported by: KENYA MIRAMONTES on 07/19/156 Propranolol HCl (Propranolol HCl) 20 Mg Tablet, 10 MG PO HS, (Reported) Entered as Reported by: LUZ STEINBERG on 07/16/17935 Review of Systems Review of Systems Constitutional: see HPI EENTM: see HPI Respiratory: no symptoms reported Cardiovascular: no symptoms reported Genitourinary: no symptoms reported Musculoskeletal: no symptoms reported Skin: no symptoms reported Psychiatric/Neurological: No Symptoms Reported Hematologic/Lymphatic: No Symptoms Reported Immunological/Allergic: no symptoms reported Past Lwhibej-Kkqryx-Mqynbu Hx Immunizations Up To Date Tetanus Booster (TDap): Unknown Seasonal Allergies Seasonal Allergies: Yes Past Medical History Surgeries: Yes Amputation, Cardiac, Gallbladder, Hysterectomy, Orthopedic Respiratory: Yes (CPAP AT HS; CHRONIC DYSPNEA--ESPECIALLY ON EXERTION) Asthma, Chronic Bronchitis, Sleep Apnea Currently Using CPAP: Yes Cardiac: Yes Atrial Fibrillation, Chronic Edema/Swelling, Coronary Artery Disease, Hypertension, Irregular Heartbeat, Palpitations Neurological: No Reproductive Disorders: No ASSISTANT TO THE DIRECTOR History: Menopausal Genitourinary: No Gastrointestinal: Yes Chronic Constipation Musculoskeletal: Yes (FINGER AMPUTATION) Amputee Endocrine: Yes (HYPOGLYCEMIC; THYROID NODULES) Hypothyroidsim HEENT: No (GLASSES) Cancer: No Psychosocial: Yes Anxiety, Depression Integumentary: Yes (FOOT CELLULITIS DUE TO STEPPING ON PITCHFORK. ) Blood Disorders: No (PATIENT IS JEHOVAH WITNESS) Family Medical History COPD, EMPHYSEMA 19 FATHER COPD, EMPHYSEMA 19 FATHER Cardiovascular disease 19 FATHER 19 MOTHER ([place]) G8 BROTHER ([place]) Completed stroke G8 SISTER Hypertension 19 MOTHER Neoplasm G8 BROTHER (LYMPHOMA) CAD Under 55 Years Old, CAD Over 55 Years Old Physical Exam Vital Signs Vital Signs - First Documented 03/16/21 19:01 Temp 37.8 Pulse 95 Resp 13 B/P (MAP) 175/111 (132) Pulse Ox 97 O2 Delivery Room Air Capillary Refill : Height, Weight, BMI Height: 5'10.00" Weight: 226lbs. 0.0oz. 102.054463bx; 32.00 BMI Method:Stated General Appearance: No Apparent Distress, WD/WN, Other ( oxygen 97% room air no distress no accessory muscle use no tachypnea) Eyes: Bilateral Eye Normal Inspection, Bilateral Eye PERRL, Bilateral Eye EOMI Respiratory: No Accessory Muscle Use, No Respiratory Distress Cardiovascular: Irregularly Irregular, Other Gastrointestinal: Normal Bowel Sounds, Non Tender, Soft Extremity: Normal Capillary Refill, Normal Inspection Neurologic/Psychiatric: Alert, Oriented x3 Skin: Normal Color, Warm/Dry Progress/Results/Core Measures Suspected Sepsis SIRS Temperature: Pulse: Respiratory Rate: Blood Pressure / Mean: Results/Orders Lab Results Laboratory Tests Test 03/16/21 18:46 Range/Units Influenza Type A (RT-PCR) Not Detected Not Detecte Influenza Type B (RT-PCR) Not Detected Not Detecte SARS-CoV-2 RNA (RT-PCR) Detected H Not Detecte My Orders Orders - REGINALD MCDERMOTT APRN Covid 19 Inhouse Test (03/16/21 18:44) Influenza A And B By Pcr (03/16/21 18:44) Chest 1 View, Ap/Pa Only (03/16/21 18:44) Vital Signs/I&O 03/16/21 19:01 Temp 37.8 Pulse 95 Resp 13 B/P (MAP) 175/111 (132) Pulse Ox 97 O2 Delivery Room Air Capillary Refill : Departure Communication (Admissions) 1948-I discussed with her getting the monoclonal antibody infusion or at least getting scheduled for this. At this time she feels like she is over the worst of this infection and is not interested in getting the infusion. She states that her kids who have tested positive are going to get ivermectin prescriptions. Impression Primary Impression: COVID-19 Disposition: 01 HOME, SELF-CARE Condition: Stable Departure-Patient Inst. Decision time for Depature: 19:51 Referrals: EZRA YAN DO (PCP/Family) Primary Care Physician Patient Instructions: Bamlanivimab and Etesevimab FDA Fact Sheet, COVID-19 (DC) Add. Discharge Instructions: 1. Return to ER for any worsening 2. Follow-up with your doctor next week All discharge instructions reviewed with patient and/or family. Voiced understanding. REGINALD MCDERMOTT AIRPORT REPRESENTATIVE Mar 16, 2021 19:01
--- NOTE | 2021-03-16 20:01 | Diagnostic Imaging Report ---
EXAMINATION: Chest radiograph, portable AP view. DATE: 03/16/2021 7:56 PM. INDICATION: 70-year-old female, cough. COMPARISON: November 14, 2020. FINDINGS: Heart size and mediastinal contours are unchanged. There is no identified pneumothorax. There is no large pleural effusion. There is no identified focal airspace consolidation. IMPRESSION: No identified acute cardiopulmonary abnormality. Dictated by: Dictated on workstation # [id number]
== END 2021-03-16 20:19 | disposition home or self-care (01) ==
LOC: EDUNIT# 18:15 → ER 18:18
DX: U07.1 COVID-19 (principal); I10 Essential (primary) hypertension; G47.30 Sleep apnea, unspecified; F41.9 Anxiety disorder, unspecified; F32.9 Major depressive disorder, single episode, unspecified; E03.9 Hypothyroidism, unspecified; I48.91 Unspecified atrial fibrillation; Z79.890 Hormone replacement therapy; Z79.899 Other long term (current) drug therapy; Z79.01 Long term (current) use of anticoagulants
CPT/HCPCS: 71045; 87636

== ENCOUNTER 2021-03-23 09:56 | Emergency (ER) | payer MEDICARE, OTHER ==
[~2021-03-23] VITALS: Ht 177.8 cm; Wt 96.1 kg
[2021-03-23] MEDS ORDERED: RT-ALBUTEROL/IPRATROPIUM 3 ML (DUONEB) VIAL ONE (10:27)
--- NOTE | 2021-03-23 10:27 | ED General ---
General Chief Complaint: COVID19 Suspect/Confirmed Stated Complaint: COVID +, WEAKNESS,DARK URINE Nursing Triage Note: PT AMB TO RM 10 WITH COMPLAINT OF UNABLE TO EAT/DRINK AND DARK URINE. STATES TESTED + FOR COVID ON 03/16. HAD MONOCLONAL ANTIBODY INFUSION AT [facility] YESTERDAY. STATES IS OUT OF QUARANTINE TONIGHT AT MIDNIGHT Source of Information: Patient Exam Limitations: No Limitations History of Present Illness Date Seen by Provider: Mar 23, 2021 Time Seen by Provider: 10:10 Initial Comments Patient to the ER by private conveyance from home with chief complaint she is diagnosed with COVID-19 on March 16 and received monoclonal antibody treatment yesterday at [facility]. She says she has no appetite everything tastes awful. She tried eating some soup and drinking water but is not doing very good and feels very dehydrated. She noticed a white plaque on her tongue. She is also noticed that her urine is very dark. He is not having dysuria any fevers or chills anymore. She denies diarrhea or constipation. She is having no nausea or vomiting. No history of COPD or asthma. She does take Xopenex couple times a day through nebulizer. She was put on Xopenex because of the wheezing as well as a round of azithromycin by Dr. Yan. Allergies and Home Medications Allergies Coded Allergies: flecainide (Verified Allergy, Severe, 11/19/18) warfarin (Verified Allergy, Severe, 11/19/18) aliskiren (Unverified Allergy, Unknown, 11/19/18) cephalexin (Verified Allergy, Unknown, 11/19/18) codeine (Verified Allergy, Unknown, 11/19/18) dronedarone HCl (Unverified Allergy, Unknown, 11/19/18) Patient Home Medication List Home Medication List Reviewed: Yes Acetaminophen (Tylenol Extra Strength) 500 Mg Tablet, 500-1,000 MG PO Q6H PRN for PAIN-MILD, (Reported) Entered as Reported by: LUZ STEINBERG on 07/16/17 0938 Alprazolam (Alprazolam) 0.5 Mg Tablet, 0.5 MG PO HS, (Reported) Entered as Reported by: LUZ STEINBERG on 07/19/15 0818 Apixaban (Eliquis) 5 Mg Tablet, 5 MG PO BID, (Reported) Entered as Reported by: LUZ STEINBERG on 07/16/17 0936 Calcium Carbonate (Tums) 300 Mg Tab.chew, 300 MG PO BID PRN for INDIGESTION, (Reported) Entered as Reported by: LUZ STEINBERG on 07/16/17 0940 Cholecalciferol (Vitamin D3) (Vitamin D) 50,000 Unit Capsule, 50,000 UNIT PO, (Reported) Entered as Reported by: ART LAINEZ on 11/19/18 0631 Dexlansoprazole (Dexilant) 60 Mg Cap.drVirybp, 60 MG PO DAILY PRN for STOMACH UPSE T, (Reported) Entered as Reported by: LUZ STEINBERG on 07/16/17 0939 Diltiazem HCl (Cartia Xt) 240 Mg Cap.er.24h, 240 MG PO DAILY, (Reported) Entered as Reported by: LUZ STEINBERG on 07/16/17 09 Doxycycline Hyclate (Doxycycline Hyclate) 100 Mg Tablet.dr, 100 MG PO BID Prescribed by: RENALDO MCPHERSON on 11/22/17 1149 Levalbuterol Tartrate (Xopenex Hfa) 15 Gm Hfa.aer.ad, 2 PUFF IH QID PRN for SHORTNESS OF BREATH, (Reported) Entered as Reported by: LUZ STEINBERG on 07/16/17 09 Levothyroxine Sodium (Levothyroxine Sodium) 75 Mcg Tablet, 75 MCG PO DAILY, (Reported) Entered as Reported by: KENYA MIRAMONTES on 07/19/15 0007 Losartan Potassium (Losartan Potassium) 50 Mg Tablet, 50 MG PO 1700, (Reported) Entered as Reported by: LUZ STEINBERG on 10/30/15 0835 Nitrofurantoin Monohyd/M-Cryst (Macrobid 100 mg Capsule) 100 Mg Capsule, 1 TAB PO BID Prescribed by: LEVY BRITO on 03/23/21 112 Nystatin (Nystatin) 100,000 Unit/1 Ml Oral.susp, 500,000 UNIT PO QID Prescribed by: LEVY BRITO on 03/23/21 112 Ondansetron (Ondansetron Odt) 4 Mg Tab.rapdis, 4 MG PO Q6H PRN for NAUSEA/VOMITING Prescribed by: LEVY BRITO on 03/23/21 1129 Propranolol HCl (Propranolol HCl) 20 Mg Tablet, 20 MG PO 0700,1700, (Reported) Entered as Reported by: KENYA MIRAMONTES on 07/19/15 0007 Propranolol HCl (Propranolol HCl) 20 Mg Tablet, 10 MG PO HS, (Reported) Entered as Reported by: LUZ STEINBERG on 07/16/17 0936 Review of Systems Review of Systems Constitutional: No chills, No diaphoresis EENTM: No ear discharge, No ear pain Respiratory: cough, phlegm (White); No short of breath; wheezing Cardiovascular: No chest pain, No palpitations Gastrointestinal: No abdominal pain, No diarrhea; loss of appetite; No nausea, No vomiting Genitourinary: No discharge, No dysuria Musculoskeletal: No back pain, No joint pain All Other Systems Reviewed Negative Unless Noted: Yes Past Zkqriid-Pnnmdh-Dzcilb Hx Patient Social History Tobacco Use?: No Use of E-Cig and/or Vaping dev: No Immunizations Up To Date Tetanus Booster (TDap): Unknown Seasonal Allergies Seasonal Allergies: Yes Past Medical History Surgeries: Yes Amputation, Cardiac, Gallbladder, Hysterectomy, Orthopedic Respiratory: Yes (CPAP AT HS; CHRONIC DYSPNEA--ESPECIALLY ON EXERTION) Asthma, Chronic Bronchitis, Sleep Apnea Currently Using CPAP: Yes Cardiac: Yes Atrial Fibrillation, Chronic Edema/Swelling, Coronary Artery Disease, Hy pertension, Irregular Heartbeat, Palpitations Neurological: No Reproductive Disorders: No 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 ) Blood Disorders: No (PATIENT IS JEHOVAH WITNESS) Family Medical History COPD, EMPHYSEMA 19 FATHER COPD, EMPHYSEMA 19 FATHER Cardiovascular disease 19 FATHER 19 MOTHER ([place]) G8 BROTHER ([place]) Completed stroke G8 SISTER Hypertension 19 MOTHER Neoplasm G8 BROTHER (LYMPHOMA) CAD Under 55 Years Old, CAD Over 55 Years Old Physical Exam Vital Signs Vital Signs - First Documented 03/23/21 10:10 Pulse 77 Resp 16 B/P (MAP) 136/76 (96) Pulse Ox 96 O2 Delivery Room Air Capillary Refill : Less Than 3 Seconds Height, Weight, BMI Height: 5'10.00" Weight: 226lbs. 0.0oz. 102.702774op; 30.00 BMI Method:Stated General Appearance: WD/WN, Mild Distress Eyes: Bilateral Eye Normal Inspection, Bilateral Eye PERRL, Bilateral Eye EOMI HEENT: PERRL/EOMI, Normal ENT Inspection, Pharynx Normal, Moist Mucous Membranes Neck: Full Range of Motion, Normal Inspection Respiratory: No Accessory Muscle Use, No Respiratory Distress (O2 saturation 98% on room air without labored breathing), Wheezing (Few expiratory wheezes bilateral) Cardiovascular: Regular Rate, Rhythm, No Edema, Normal Peripheral Pulses Gastrointestinal: Non Tender, Soft Extremity: Normal Capillary Refill, Normal Inspection, No Pedal Edema Neurologic/Psychiatric: Alert, Oriented x3, No Motor/Sensory Deficits, Normal Mood/Affect Skin: Normal Color, Warm/Dry Progress/Results/Core Measures Suspected Sepsis SIRS Temperature: Pulse: 77 Respiratory Rate: 16 Laboratory Tests 03/23/21 10:23: White Blood Count 5.8 Blood Pressure 136 /76 Mean: 96 Laboratory Tests 03/23/21 10:23: Creatinine 0.73, Platelet Count 159, Total Bilirubin 1.2H Results/Orders Lab Results Laboratory Tests Test 03/23/21 10:23 Range/Units White Blood Count 5.8 4.3-11.0 10^3/uL Red Blood Count 3.92 3.80-5.11 10^6/uL Hemoglobin 12.1 11.5-16.0 g/dL Hematocrit 38 35-52 % Mean Corpuscular Volume 96 80-99 fL Mean Corpuscular Hemoglobin 31 25-34 pg Mean Corpuscular Hemoglobin Concent 32 32-36 g/dL Red Cell Distribution Width 13.1 10.0-14.5 % Platelet Count 159 130-400 10^3/uL Mean Platelet Volume 10.7 9.0-12.2 fL Immature Granulocyte % (Auto) 0 % Neutrophils (%) (Auto) 66 42-75 % Lymphocytes (%) (Auto) 26 12-44 % Monocytes (%) (Auto) 8 0-12 % Eosinophils (%) (Auto) 1 0-10 % Basophils (%) (Auto) 0 0-10 % Neutrophils # (Auto) 3.8 1.8-7.8 10^3/uL Lymphocytes # (Auto) 1.5 1.0-4.0 10^3/uL Monocytes # (Auto) 0.4 0.0-1.0 10^3/uL Eosinophils # (Auto) 0.0 0.0-0.3 10^3/uL Basophils # (Auto) 0.0 0.0-0.1 10^3/uL Immature Granulocyte # (Auto) 0.0 0.0-0.1 10^3/uL Urine Color YELLOW Urine Clarity SL CLOUDY Urine pH 6.5 5-9 Urine Specific [place] 1.015 L 1.016-1.022 Urine Protein 1+ H NEGATIVE Urine Glucose (UA) NEGATIVE NEGATIVE Urine Ketones NEGATIVE NEGATIVE Urine Nitrite NEGATIVE NEGATIVE Urine Bilirubin 1+ H NEGATIVE Urine Urobilinogen 4.0 < = 1.0 MG/DL Urine Leukocyte Esterase 1+ H NEGATIVE Urine RBC (Auto) NEGATIVE NEGATIVE Urine RBC RARE /HPF Urine WBC 5-10 H /HPF Urine Squamous Epithelial Cells 5-10 /HPF Urine Crystals NONE /LPF Urine Bacteria FEW H /HPF Urine Casts NONE /LPF Urine Mucus NEGATIVE /LPF Urine Culture Indicated YES Sodium Level 136 135-145 MMOL/L Potassium Level 3.4 L 3.6-5.0 MMOL/L Chloride Level 99 98-107 MMOL/L Carbon Dioxide Level 27 21-32 MMOL/L Anion Gap 10 5-14 MMOL/L Blood Urea Nitrogen 8 7-18 MG/DL Creatinine 0.73 0.60-1.30 MG/DL Estimat Glomerular Filtration Rate 79 BUN/Creatinine Ratio 11 Glucose Level 98 70-105 MG/DL Calcium Level 8.8 8.5-10.1 MG/DL Corrected Calcium 9.1 8.5-10.1 MG/DL Total Bilirubin 1.2 H 0.1-1.0 MG/DL Aspartate Amino Transf (AST/SGOT) 27 5-34 U/L Alanine Aminotransferase (ALT/SGPT) 36 0-55 U/L Alkaline Phosphatase 53 40-136 U/L C-Reactive Protein High Sensitivity 8.36 H 0.00-0.50 MG/DL Total Protein 7.3 6.4-8.2 GM/DL Albumin 3.6 3.2-4.5 GM/DL Micro Results Microbiology 03/23/21 GENET Preparation - Final, Complete My Orders Orders - LEVY BRITO-19 External Lab Results (03/23/21 10:11) Isolation Central Supply Req (03/23/21 10:11) Ua Culture If Indicated (03/23/21 10:23) Cbc With Automated Diff (03/23/21 10:23) Comprehensive Metabolic Panel (03/23/21 10:23) Hs C Reactive Protein (03/23/21 10:23) Ed Iv/Invasive Line Start (03/23/21 10:23) Lactated Ringers (Lr 1000 Ml Iv Solution (03/23/21 10:30) Albuterol/Ipra Inhalation Soln (Duoneb I (03/23/21 10:30) Svn Small Volume Nebulizer (03/23/21 10:27) Chest 1 View, Ap/Pa Only (03/23/21 10:27) Albuterol/Ipra Inhalation Soln (Duoneb I (03/23/21 10:27) Genet Prep (03/23/21 10:31) Urine Culture (03/23/21 10:23) Medications Given in ED Current Medications Medications Dose Ordered Sig/Shimon Route Start Time Stop Time Status Last Admin Dose Admin Albuterol/ Ipratropium 3 ml ONCE ONCE INH 03/23/21 10:30 03/23/21 10:31 DC 03/23/21 10:29 3 ML Lactated Ringer's 1,000 ml @ 0 mls/hr Q0M ONCE IV 03/23/21 10:30 03/23/21 10:31 DC 03/23/21 10:29 0 MLS/HR Vital Signs/I&O 03/23/21 10:10 Pulse 77 Resp 16 B/P (MAP) 136/76 (96) Pulse Ox 96 O2 Delivery Room Air Capillary Refill : Less Than 3 Seconds Blood Pressure Mean: 96 Progress Note : Time: 10:29 Progress Note DuoNeb for the wheezing, chest x-ray, basic labs and a liter of LR. Patient's vital signs are aseptic. She does appear to be a little bit dry. GENTE prep of her tongue. Diagnostic Imaging Diagonstic Imaging: Xray Plain Films/CT/US/NM/MRI: chest Comments Small blush of an infiltrate in the left upper lobe otherwise similar to previous x-ray from the . NAME: CHASE RUBIO Chen [facility] REC#: [id number] PT STATUS: REG ER : 1950 PHYSICIAN: LEVY BRITO MD ADMIT DATE: 03/23/21/ER Draft Date of Exam:03/23/21 CHEST 1 VIEW, AP/PA ONLY INDICATION: COVID patient with shortness of air. COMPARISON: 03/16/2021. FINDINGS: Cardiomegaly redemonstrated with some increased vascular congestion. There are also some vague patchy pulmonary opacities in the left mid lung and right lung base, which may be edema or nonspecific pneumonia. No effusion or pneumothorax. IMPRESSION: Cardiomegaly and increased vascular congestion. Bilateral pulmonary opacities, edema versus pneumonia, with no pleural fluid or pneumothorax. Dictated on workstation # [id number] Dict: 03/23/21 1114 Trans: 03/23/21 1123 [id number] Interpreted by: ED DRAKE Electronically signed by: Reviewed: Reviewed by Me Departure Impression Primary Impression: COVID-19 Additional Impressions: UTI (urinary tract infection) Qualified Codes: N30.00 - Acute cystitis without hematuria Thrush, oral Disposition: HOME, SELF-CARE Condition: Stable Departure-Patient Inst. Decision time for Depature: 11:29 Referrals: EZRA YAN DO (PCP/Family) Primary Care Physician Patient Instructions: COVID-19 (DC) Add. Discharge Instructions: Nystatin swish and swallow 4 times a day for the next week. Stop taking the azithromycin. Start taking Macrobid 1 capsule twice a day for the next week. Drink plenty of fluids. Zofran/ondansetron 1 tablet every 6 hours as necessary for nausea and or vomiting. All discharge instructions reviewed with patient and/or family. Voiced understanding. Scripts Ondansetron (Ondansetron Odt) 4 Mg Tab.rapdis 4 MG PO Q6H PRN for NAUSEA/VOMITING, #8 TAB 0 Refills Prov: LEVY BRITO 03/23/21 Nitrofurantoin Monohyd/M-Cryst (Macrobid 100 mg Capsule) 100 Mg Capsule 1 TAB PO BID for 7 Days, #14 CAP 0 Refills Prov: LEVY BRITO 03/23/21 Nystatin (Nystatin) 100,000 Unit/1 Ml Oral.susp 310307 UNIT PO QID for 7 Days, #200 ML 0 Refills Prov: LEVY BRITO 03/23/21 LEVY BRITO Mar 23, 2021 10:27
[2021-03-23 10:30] LABS: BASOPHILS % (AUTO) 0 % (0-10); CLARITY,URINE SL CLOUDY; COLOR,URINE YELLOW; EOSINOPHILS % (AUTO) 1 % (0-10); GLUCOSE, URINE (UA) NEGATIVE (NEGATIVE); HEMATOCRIT 38 % (35-52); HEMOGLOBIN 12.1 g/dL (11.5-16.0); KETONES,URINE NEGATIVE (NEGATIVE); LEUKOCYTE ESTERASE ,URINE 1+ (NEGATIVE); LYMPHOCYTES # (AUTO) 1.5 10^3/uL (1.0-4.0); LYMPHOCYTES % (AUTO) 26 % (12-44); MEAN CORPUSCULAR HEMOGLOBIN 31 pg (25-34); MEAN CORPUSCULAR HGB CONC 32 g/dL (32-36); MEAN CORPUSCULAR VOLUME 96 fL (80-99); MEAN PLATELET VOLUME 10.7 fL (9.0-12.2); MONOCYTES # (AUTO) 0.4 10^3/uL (0.0-1.0); MONOCYTES % (AUTO) 8 % (0-12); NEUTROPHILS # (AUTO) 3.8 10^3/uL (1.8-7.8); NEUTROPHILS % (AUTO) 66 % (42-75); NITRITE,URINE NEGATIVE (NEGATIVE); PH,URINE 6.5 (5-9); PLATELET COUNT 159 10^3/uL (130-400); PROTEIN,URINE 1+ (NEGATIVE); WHITE BLOOD COUNT 5.8 10^3/uL (4.3-11.0)
[2021-03-23] MEDS ORDERED: LACTATED RINGERS 1,000 ML IV ONE (10:30)
[2021-03-23] MEDS ORDERED: RT-ALBUTEROL/IPRATROPIUM 3 ML (DUONEB) VIAL INH ONE (10:30)
[2021-03-23 10:39] LABS: ALBUMIN 3.6 GM/DL (3.2-4.5); POTASSIUM 3.4 MMOL/L (3.6-5.0)
[2021-03-23 10:40] LABS: BILIRUBIN,URINE 1+ (NEGATIVE); CALCIUM 8.8 MG/DL (8.5-10.1); RBC,URINE RARE /HPF
[2021-03-23 10:41] LABS: BACTERIA,URINE FEW /HPF
[2021-03-23 10:42] LABS: TOTAL PROTEIN 7.3 GM/DL (6.4-8.2)
[2021-03-23 10:44] LABS: BILIRUBIN,TOTAL 1.2 MG/DL (0.1-1.0)
[2021-03-23 10:45] LABS: CREATININE SERUM 0.73 MG/DL (0.60-1.30)
--- NOTE | 2021-03-23 11:24 | Diagnostic Imaging Report ---
INDICATION: COVID patient with shortness of air. COMPARISON: 03/16/2021. FINDINGS: Cardiomegaly redemonstrated with some increased vascular congestion. There are also some vague patchy pulmonary opacities in the left mid lung and right lung base, which may be edema or nonspecific pneumonia. No effusion or pneumothorax. IMPRESSION: Cardiomegaly and increased vascular congestion. Bilateral pulmonary opacities, edema versus pneumonia, with no pleural fluid or pneumothorax. Dictated by: Dictated on workstation # [id number]
[2021-03-23] MEDS ORDERED: NYST1000 PO (11:29)
[2021-03-23] MEDS ORDERED: ONDA4TAB11 PO (11:29)
[2021-03-23] MEDS ORDERED: NITR-65 PO (11:29)
[2021-03-23 11:57] VITALS: BP 140/80
== END 2021-03-23 11:57 | disposition home or self-care (01) ==
LOC: EDUNIT# 09:56 → ER 09:57
DX: U07.1 COVID-19 (principal); N30.00 Acute cystitis without hematuria; B37.0 Candidal stomatitis; I10 Essential (primary) hypertension; I25.10 Atherosclerotic heart disease of native coronary artery without angina pectoris; I48.91 Unspecified atrial fibrillation; E03.9 Hypothyroidism, unspecified; F41.9 Anxiety disorder, unspecified; F32.9 Major depressive disorder, single episode, unspecified; J45.909 Unspecified asthma, uncomplicated; Z88.1 Allergy status to other antibiotic agents; Z88.5 Allergy status to narcotic agent; Z88.8 Allergy status to other drugs, medicaments and biological substances; Z79.2 Long term (current) use of antibiotics; Z79.51 Long term (current) use of inhaled steroids; Z79.01 Long term (current) use of anticoagulants; Z79.890 Hormone replacement therapy; Z79.899 Other long term (current) drug therapy
CPT/HCPCS: 36415; 71045; 80053; 81000; 85025; 86141; 87088; 87220; 94640

== ENCOUNTER → 2021-04-16 | Outpatient (CLI) | payer MEDICARE, OTHER ==
[~2021-04-16] MED LIST changes: +NITR-65 PO; +NYST1000 PO; +ONDA4TAB11 PO
--- NOTE | 2021-04-16 13:48 | Diagnostic Imaging Report ---
INDICATION: Cough and congestion. EXAMINATION: Two-view chest from 04/16/2021. COMPARISON: 09/21/2020. FINDINGS: Two views of the chest. The cardiomediastinal silhouette is unremarkable. The pulmonary vasculature is within normal limits. The lungs and pleural spaces are clear. IMPRESSION: No evidence of an acute cardiopulmonary process. Dictated by: Dictated on workstation # [id number]
== END ==
LOC: RAD 13:07
PROVIDERS: ATTEND Family Medicine
DX: R05.9 Cough, unspecified (principal); R09.81 Nasal congestion
CPT/HCPCS: 71046

== ENCOUNTER → 2021-05-09 | Outpatient (CLI) | payer MEDICARE, OTHER ==
[~2021-05-09] VITALS: Ht 177 cm; Wt 95.0 kg
[~2021-05-09] MED LIST changes: +REGADENOSON 0.4 MG/5 ML SYR (LEXISCAN) IV ONE
[2021-05-09] MEDS: CATHETER FLUSH 10 ML SYR IV PRN ×2 (07:59→09:24)
[2021-05-09 09:21] VITALS: BP 192/121
--- NOTE | 2021-05-09 11:21 | Cardiology Stress Test Report ---
Stress Test Report Date of Procedure/Referring: Date of Procedure: May 09, 2021 PCP Mal Luciano MD Admitting Physician Stephan Harris DO Indications: CP Baseline Heart Rate: 91 Baseline Blood Pressure: Blood Pressure Systolic: 192 Blood Pressure Diastolic: 121 Baseline Vitals Vital Signs Date Time Temp Pulse Resp B/P (MAP) Pulse Ox O2 Delivery O2 Flow Rate FiO2 05/09/21 09:20 99 Room Air 05/09/21 09:21 91 18 192/121 (144) Baseline EKG: Baseline EKG: A fib Summary After explaining the procedure to the patient, she signed a consent and then brought to the stress nuclear laboratory. Patient received 0.4 mg Lexiscan for stress test, ECG, heart rate and blood pressure were monitored continuously. Resting and stress dose of radio tracer were injected, imaging was acquired and reviewed in short axis, horizontal long axis and vertical long axis views. TID: 1.12 SSS: 8 SDS: 6 EF: 72 1. Patient tolerated Lexiscan well 2. Baseline atrial fibrillation persisted during test 3. Baseline hypertension persisted during test 4. Breast attenuation with reversible ischemia involving the whole anterior wall and anterior septum suggestive of ischemia 5. Normal left ventricular size, ejection fraction 72%, it could be unreliable due to the underlying atrial fibrillation MAL LUCIANO MD May 09, 2021 11:21
== END ==
LOC: CARD 08:00
PROVIDERS: ATTEND Internal Medicine Cardiovascular Disease
DX: I25.10 Atherosclerotic heart disease of native coronary artery without angina pectoris (principal); I10 Essential (primary) hypertension
CPT/HCPCS: 78452; 93017; A9502

== ENCOUNTER 2021-05-13 23:56 | Inpatient (IN) | payer MEDICARE, OTHER ==
[~2021-05-13] VITALS: Ht 178 cm; Wt 98.0 kg
[~2021-05-13 23:56] MED LIST changes: -REGADENOSON 0.4 MG/5 ML SYR (LEXISCAN) IV ONE
[2021-05-14] VITALS (23 sets, daily range): BP systolic 114–174; BP diastolic 67–112
[2021-05-14] MEDS ORDERED: ASPIRIN 81 MG CHEW (CHILDREN'S ASA) PO ONE (00:15)
[2021-05-14] MEDS ORDERED: APIXABAN 5 MG (ELIQUIS) TABLET PO ONE (00:15)
[2021-05-14] MEDS ORDERED: PROPRANOLOL 20 MG (INDERAL) TABLET PO ONE (00:15)
[2021-05-14] MEDS ORDERED: ALPRAZolam 1 MG (XANAX) TAB PO ONE (00:15)
[2021-05-14 00:20] LABS: BASOPHILS # (AUTO) 0.1 10^3/uL (0.0-0.1); BASOPHILS % (AUTO) 1 % (0-10); EOSINOPHILS # (AUTO) 0.3 10^3/uL (0.0-0.3); EOSINOPHILS % (AUTO) 4 % (0-10); HEMATOCRIT 37 % (35-52); HEMOGLOBIN 12.2 g/dL (11.5-16.0); LYMPHOCYTES # (AUTO) 3.3 10^3/uL (1.0-4.0); LYMPHOCYTES % (AUTO) 41 % (12-44); MEAN CORPUSCULAR HEMOGLOBIN 31 pg (25-34); MEAN CORPUSCULAR HGB CONC 33 g/dL (32-36); MEAN CORPUSCULAR VOLUME 95 fL (80-99); MEAN PLATELET VOLUME 10.9 fL (9.0-12.2); MONOCYTES # (AUTO) 0.7 10^3/uL (0.0-1.0); MONOCYTES % (AUTO) 9 % (0-12); NEUTROPHILS # (AUTO) 3.7 10^3/uL (1.8-7.8); NEUTROPHILS % (AUTO) 46 % (42-75); PLATELET COUNT 204 10^3/uL (130-400)
[2021-05-14 00:31] LABS: INR 1.1 (0.8-1.4); PROTHROMBIN TIME PATIENT 14.4 SEC (12.2-14.7)
[2021-05-14 00:32] LABS: ALBUMIN 4.1 GM/DL (3.2-4.5); POTASSIUM 3.7 MMOL/L (3.6-5.0)
[2021-05-14 00:33] LABS: CALCIUM 9.3 MG/DL (8.5-10.1)
[2021-05-14 00:35] LABS: TOTAL PROTEIN 7.8 GM/DL (6.4-8.2)
[2021-05-14 00:36] LABS: BILIRUBIN,TOTAL 0.4 MG/DL (0.1-1.0)
[2021-05-14 00:38] LABS: CREATININE SERUM 0.81 MG/DL (0.60-1.30)
[2021-05-14] MEDS ORDERED: NITROGLYCERIN 0.4 MG SL TABS BTL 25'S SL PRN (05:30)
[2021-05-14] MEDS ORDERED: CATHETER FLUSH 10 ML SYR IV PRN (05:30)
[2021-05-14] MEDS ORDERED: morphine INJ 4 MG/ML 1 ML (VIAL/SYRINGE) IV PRN (05:30)
[2021-05-14] MEDS ORDERED: ONDANSETRON 4 MG/2 ML (SDV) Z0FRAN IVP PRN (05:30)
[2021-05-14] MEDS ORDERED: LORazepam INJ 2 MG/ML (ATIVAN) VIAL IV PRN (05:30)
[2021-05-14] MEDS: CATHETER FLUSH 10 ML SYR IV SCH ×2 (05:34→15:20)
[2021-05-14] MEDS: LEVOTHYROXINE 75 MCG (LEVOTHROID) TABLET PO SCH (05:38)
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
--- NOTE | 2021-05-14 07:12 | Diagnostic Imaging Report ---
INDICATION: Chest pain COMPARISON: 04/16/2021 FINDINGS: Single frontal view of the chest demonstrates normal heart size and pulmonary vascularity. The lungs are well aerated and clear. No large pleural effusion or pneumothorax is seen. The visualized osseous structures show no acute abnormalities. IMPRESSION: 1. No acute cardiopulmonary process. Dictated by: Dictated on workstation # [id number]
[2021-05-14] MEDS: RT-ALBUTEROL SULF 2.5 MG/3 ML PRE-MIX VIAL IH SCH ×4 (07:54→20:09)
[2021-05-14] MEDS ORDERED: LIDOCAINE 1% INJ 20 ML VIAL ONE (08:17)
[2021-05-14] MEDS ORDERED: NS IV 1000 ML 1,000 ML ONE (08:17)
[2021-05-14] MEDS ORDERED: HEParin (CATH LAB) 2,000 ML IV ONE (08:17)
[2021-05-14] MEDS ORDERED: fentaNYL INJ 100 MCG/2 ML AMP ONE (08:19)
[2021-05-14] MEDS ORDERED: VERAPAMIL 5 MG/2 ML (CALAN) VIAL IV ONE (08:19)
[2021-05-14] MEDS ORDERED: MIDAZOLAM 5 MG/5 ML (VERSED) VIAL ONE (08:19)
[2021-05-14] MEDS ORDERED: HEParin 1000 UNIT/ML (10ML VIAL) FOR BOLUS ONE (08:20)
[2021-05-14] MEDS ORDERED: NITRO DRIP 25000 MCG/D5W 250 ML IV ONE (08:20)
[2021-05-14] MEDS: NS IV 1000 ML 1,000 ML IV SCH ×2 (08:30→14:45)
--- NOTE | 2021-05-14 08:36 | Consultation-Cardiology ---
HPI-Cardiology Cardiology Consultation Date of Consultation 05/14/21 Date of Admission Time Seen by Provider: 08:32 Indication: Chest pain HPI 70-year-old lady with history of coronary artery disease, near syncope, labile hypertension and anxiety. Patient had an abnormal stress test on May 09, 2021, she was scheduled for cardiac catheterization on May 16, 2021. Kary roberts had an episode of chest pain on Friday, May 11, 2021 went to [facility] and she was monitored then discharged home. Had another episode last night. Described as sharp pain across her chest radiating to her neck. Currently feeling better. No shortness of breath. No palpitation. No syncope. Home Medications & Allergies Allergies: Coded Allergies: flecainide (Verified Allergy, Severe, 11/19/18) warfarin (Verified Allergy, Severe, 11/19/18) aliskiren (Unverified Allergy, Unknown, 11/19/18) cephalexin (Verified Allergy, Unknown, 11/19/18) codeine (Verified Allergy, Unknown, 11/19/18) dronedarone HCl (Unverified Allergy, Unknown, 11/19/18) Home Medication List Reviewed: Yes GYL-Atixla-Esrazf Hx Patient Social History Marital Status: Employed/Student: retired Recent Hopitalizations: Yes Have you traveled recently?: No Alcohol Use?: No Immunizations Up To Date Tetanus Booster (TDap): Unknown Past Medical History Discussed below Family Medical History Significant Family History: CAD Under 55 Years Old, CAD Over 55 Years Old Family History: COPD, EMPHYSEMA 19 FATHER COPD, EMPHYSEMA 19 FATHER Cardiovascular disease 19 FATHER 19 MOTHER ([place] G8 [place] Completed stroke G8 SISTER Hypertension 19 MOTHER Neoplasm G8 BROTHER ([place]) Review of Systems-General Review of Systems Constitutional: no symptoms reported; No fever EENTM: see HPI, no symptoms reported Respiratory: no symptoms reported, see HPI Cardiovascular: see HPI, chest pain; No edema, No Hx of Intervention, No palpitations, No syncope, No vascular heart diseas, No other Gastrointestinal: no symptoms reported, see HPI Genitourinary: no symptoms reported, see HPI Musculoskeletal: no symptoms reported Skin: no symptoms reported Psychiatric/Neurological: See HPI, Anxiety Reviewed Test Results Reviewed Test Results Lab Laboratory Tests Test 05/14/21 00:10 05/14/21 04:05 Range/Units White Blood Count 8.0 4.3-11.0 10^3/uL Red Blood Count 3.93 3.80-5.11 10^6/uL Hemoglobin 12.2 11.5-16.0 g/dL Hematocrit 37 35-52 % Mean Corpuscular Volume 95 80-99 fL Mean Corpuscular Hemoglobin 31 25-34 pg Mean Corpuscular Hemoglobin Concent 33 32-36 g/dL Red Cell Distribution Width 13.6 10.0-14.5 % Platelet Count 204 130-400 10^3/uL Mean Platelet Volume 10.9 9.0-12.2 fL Immature Granulocyte % (Auto) 0 % Neutrophils (%) (Auto) 46 42-75 % Lymphocytes (%) (Auto) 41 12-44 % Monocytes (%) (Auto) 9 0-12 % Eosinophils (%) (Auto) 4 0-10 % Basophils (%) (Auto) 1 0-10 % Neutrophils # (Auto) 3.7 1.8-7.8 10^3/uL Lymphocytes # (Auto) 3.3 1.0-4.0 10^3/uL Monocytes # (Auto) 0.7 0.0-1.0 10^3/uL Eosinophils # (Auto) 0.3 0.0-0.3 10^3/uL Basophils # (Auto) 0.1 0.0-0.1 10^3/uL Immature Granulocyte # (Auto) 0.0 0.0-0.1 10^3/uL Prothrombin Time 14.4 12.2-14.7 SEC INR Comment 1.1 0.8-1.4 Activated Partial Thromboplast Time 31 24-35 SEC Sodium Level 139 135-145 MMOL/L Potassium Level 3.7 3.6-5.0 MMOL/L Chloride Level 104 98-107 MMOL/L Carbon Dioxide Level 23 21-32 MMOL/L Anion Gap 12 5-14 MMOL/L Blood Urea Nitrogen 16 7-18 MG/DL Creatinine 0.81 0.60-1.30 MG/DL Estimat Glomerular Filtration Rate 79 BUN/Creatinine Ratio 20 Glucose Level 107 H 70-105 MG/DL Calcium Level 9.3 8.5-10.1 MG/DL Corrected Calcium 9.2 8.5-10.1 MG/DL Magnesium Level 2.0 1.6-2.4 MG/DL Total Bilirubin 0.4 0.1-1.0 MG/DL Aspartate Amino Transf (AST/SGOT) 17 5-34 U/L Alanine Aminotransferase (ALT/SGPT) 18 0-55 U/L Alkaline Phosphatase 63 40-136 U/L Total Creatine Kinase 60 29-168 U/L Creatine Kinase MB 1.0 <6.6 NG/ML Myoglobin 24.8 10.0-92.0 NG/ML Troponin I < 0.028 < 0.028 <0.028 NG/ML B-Type Natriuretic Peptide 92.0 <100.0 PG/ML Total Protein 7.8 6.4-8.2 GM/DL Albumin 4.1 3.2-4.5 GM/DL Amylase Level 36 25-125 U/L Lipase 54 8-78 U/L Physical Exam Physical Exam Vital Signs Vital Signs - First Documented 05/13/21 23:57 Temp 36.4 Pulse 83 Resp 12 B/P (MAP) 183/108 (133) Pulse Ox 98 O2 Delivery Room Air Capillary Refill : Less Than 3 Seconds Height, Weight, BMI Height: 5'10.00" Weight: 226lbs. 0.0oz. 102.192010we; 30.52 BMI Method:Stated General Appearance: No Apparent Distress, Anxious (EXTREMELY ANXIOUS, VERY DRAMATIC, MOANING AND TALKING VERY RAPIDLY AND NON-STOP) Eyes: Bilateral Eye Normal Inspection, Bilateral Eye PERRL, Bilateral Eye EOMI HEENT: PERRL/EOMI Neck: Normal Inspection Respiratory: Chest Non Tender, Normal Breath Sounds, No Accessory Muscle Use, No Respiratory Distress Cardiovascular: No Edema, No JVD, No Murmur, Irregularly Irregular; No Tachycardia Gastrointestinal: Non Tender, Soft Back: Normal Inspection, No CVA Tenderness, No Vertebral Tenderness Extremity: Normal Capillary Refill, Normal Inspection, Normal Range of Motion, Non Tender, No Calf Tenderness, No Pedal Edema Neurologic/Psychiatric: Alert, Oriented x3, No Motor/Sensory Deficits, straightener II- XII Norm as Tested Skin: Normal Color, Warm/Dry Lymphatic: No Adenopathy A/P-Cardiology Admission Diagnosis Chest pain Coronary artery disease Permanent atrial fibrillation Hypertension Assessment/Plan Chest pain nonspecific etiology, atypical in presentation, had an abnormal stress test on May 09, 2021 with baseline atrial fibrillation persisted during test. Baseline hypertension persisted during test.Breast attenuation with reversible ischemia involving the whole anterior wall and anterior septum suggestive of ischemia. SSS 8, SDS 6, TID 1.12. Patient has been having chest pain and dyspnea on exertion. Planning for [facility], Permanent atrial fibrillation. Rate controlled. Continue to monitor She has had multiple intolerances to multiple medications in the past. She was seen by Dr. Beard, who explained in length her management strategy, patient failed flecainide, amiodarone, Multaq and 2 procedures for atrial fibrillation ablation. Failed sotalol treatment with multiple doses up to 160 mg twice daily, had a reveal device implanted, has been in A. fib, rate controlled, discussed in the past the management plan and the possibility of another ablation or AV valerio ablation and a pacemaker, Dr. Beard is currently following, she is feeling better on the current medication regiment, continue to monitor Coronary artery disease, underwent cardiac catheterization on July 16, 2017 revealing tortuous coronary system with mild to moderate coronary artery disease, LAD tapered down to small artery with myocardial bridging at distal portion. EF 50 percent. Continue to monitor Echocardiogram done in November 2019 showing normal LV size, EF 55 to 65%, left atrium 4.4 cm, mild MR, PA 35 to 40 mmHg. Continue to monitor Near syncope, probably vasovagal episode due to her aggressive medication, keyona r at this time, having difficulty tolerating hydrochlorothiazide 12.5 mg daily, continue to monitor Hypertension, labile, under increased stress recently, lost her in december 2019, continue to monitor blood per Anxiety/depression-maintained on Xanax, Pristiq, managed by Dr Harris Mild bilateral carotid stenosis, ultrasound done in August 2019, I will evaluate carotid ultrasound History of right groin pseudoaneurysm-resolved, continue to monitor. Hyperlipidemia, maintained on Lipitor 10 mg daily, monitor lipid Depression, Anxiety, followed and managed by primary care physician Allergy to Coumadin causing rash, currently on Eliquis and tolerating well. Intolerance to isosorbide with severe headache and chest pain after taking the medication. Intolerance to BONNIE inhibitor with cough Intolerance to Rythmol with bad taste Intolerance to Multaq, amiodarone Hypothyroidism, maintained on Synthroid History of thyroid nodules-followed by bag adjuster. Mild COPD. Clinical Quality Measures AMI/AHF: ASA po Prior to arrival: MAL Monroy MD May 14, 2021 08:36
--- NOTE | 2021-05-14 08:37 | Conscious Sedation/ASA ---
Conscious Sedation Pre-Proced Time 08:37 ASA Score 3 For ASA 3 and 4: Consider anesthesia and medical clearance. Also, for patients with a history of failed moderate sedation consider anesthesia. Airway Lungs Heart ASA score ASA 1: a normal healthy patient ASA 2: a patient with a mild systemic disease (mid diabetes, controlled hypertension, obesity x ASA 3: a patient with a severe systemic disease that limits activity (angina, COPD, prior Myocardial infarction) ASA 4: a patient with an incapacitating disease that is a constant threat to life (CHF, renal failure) ASA 5: a moribund patient not expected to survive 24 hrs. (ruptured aneurysm) ASA 6: a declared brain- patient whose organs are being harvested. For emergent operations, add the letter E after the classification Mallampati Classification Grade 3 Sedation Plan Analgesia, Amnesia, Plan communicated to team members, Discussed options with patient/fam, Discussed risks with patient/fam The patient is an appropriate candidate to undergo the planned procedure, sedation, and anesthesia. The patient immediately re-assessed prior to indication. MAL WINCHESTER MD May 14, 2021 08:37
[2021-05-14] MEDS ORDERED: cloNIDine 0.1 MG (CATAPRES) TAB PO SCH ×2 (09:00→21:00)
[2021-05-14] MEDS ORDERED: ASPIRIN E.C. 81 MG (ECOTRIN) TAB PO SCH (09:00)
[2021-05-14] MEDS ORDERED: ALPRAZolam 0.5 MG (XANAX) TAB PO SCH ×2 (09:00→21:00)
[2021-05-14] MEDS ORDERED: CLOPIDOGREL 300 MG (PLAVIX) TABLET PO ONE (09:23)
[2021-05-14] MEDS ORDERED: ASPIRIN 325 MG (5 GR) TABLET ONE (09:23)
[2021-05-14] MEDS ORDERED: NS IV 1000 ML 1,000 ML IV SCH (09:30)
--- NOTE | 2021-05-14 09:31 | Cardiac Cath Report ---
Cardiac Cath Report Physician (s)/Color Maker (s) Physician MAL WINCHESTER MD Pre-Procedure Diagnosis Pre-Procedure Diagnosis: Coronary artery disease Post-Procedure Note Procedure Start Date: May 14, 2021 Name of Procedure: Coronary angiogram Primary stenting of the diagonal artery Findings/Procedure Note PROCEDURE NOTE: 70-year-old lady with history of permanent atrial fibrillation, borderline coronary artery disease, had an abnormal stress test, admitted with chest pain, scheduled for cardiac catheterization possible PTCA. After explaining the procedure to the patient, all pros and cons were explained, all questions were answered. The patient signed the consent and then she was placed on the cardiac catheterization laboratory. Groin was prepped SL fashion local anesthesia was used. Sheath placed in the right radial artery, [place] catheter was advanced to the left ventricular cavity, significant ventricular arrhythmia was noted I pulled back the catheter did not measure the pressure, engage the right and left coronary system, angiogram was done. Patient was noted to have severe stenosis at the diagonal artery, received a total of 6000 units of heparin, EBU guide was used, BMW wire was advanced and pa rked in the distal diagonal artery, primary stenting using skypoint stent 2.25 x 15 mm expanded to 2.48 mm with excellent results. Angiogram showed no residual stenosis. At the end of the procedure the sheath was removed. Vascular band was used FINDINGS: Hemodynamics LV was not measured Aorta 121/74 mean of 94 ANATOMY: Left Main is free of obstructive disease Left Anterior Descending is tortuous artery with moderate stenosis distally at the apex level, the first diagonal artery has severe proximal stenosis, successful primary stenting using skypoint stent 2.25 x 15 mm expanded to 2.48 mm with excellent results Left Circumflex is moderate in size with mild to moderate stenosis proximally nonobstructive disease Right Coronary Artery is tortuous artery with mild disease nonobstructive disease CONCLUSION: 1. Severe stenosis at the proximal first diagonal artery, successful deployment of skypoint stent 2.25 x 15 mm expanded to 2.48 mm with excellent results. 2. Moderate stenosis at the distal LAD at the apex level, very small artery, not amendable to intervention, medical therapy is recommended 3. Mild to moderate disease at the proximal circumflex artery, nonobstructive disease 4. Tortuous right coronary artery with mild disease nonobstructive disease DISCUSSION AND RECOMMENDATION: Patient has been on Eliquis, adding aspirin and Plavix for 3 months then will stop aspirin and continue on Eliquis and Plavix. Anesthesia Type: Conscious Sedation Estimated blood loss (mL): 15 ml Contrast Amount: 80 ml Total Radiation Dose: 615 mGy Post-Procedure Diagnosis Post-operative diagnosis: Chest pain Coronary artery disease Hypertension Permanent atrial fibrillation MAL WINCHESTER MD May 14, 2021 09:31
[2021-05-14] MEDS ORDERED: ALPR0.5T7 PO (10:20)
[2021-05-14] MEDS ORDERED: LEVO75TA97 PO (10:20)
[2021-05-14] MEDS ORDERED: HYDR12.56 PO (10:20)
[2021-05-14] MEDS ORDERED: LOSA100T57 PO (10:20)
[2021-05-14] MEDS ORDERED: CITA20TA9 PO (10:20)
[2021-05-14] MEDS ORDERED: TRAM50TA3 PO (10:20)
[2021-05-14] MEDS ORDERED: DILT240C91 PO (10:20)
[2021-05-14] MEDS: LOSARTAN 100 MG (COZAAR) TABLET PO SCH (13:02)
[2021-05-14] MEDS: PROPRANOLOL 20 MG (INDERAL) TABLET PO SCH ×2 (14:45→20:16)
[2021-05-14] MEDS: APIXABAN 5 MG (ELIQUIS) TABLET PO SCH (20:16)
[2021-05-15 03:56] VITALS: BP 128/71
[2021-05-15] MEDS: LEVOTHYROXINE 75 MCG (LEVOTHROID) TABLET PO SCH (05:46)
[2021-05-15] MEDS: NS IV 1000 ML 1,000 ML IV SCH (05:46)
[2021-05-15 06:13] LABS: BASOPHILS # (AUTO) 0.1 10^3/uL (0.0-0.1); BASOPHILS % (AUTO) 1 % (0-10); EOSINOPHILS # (AUTO) 0.2 10^3/uL (0.0-0.3); EOSINOPHILS % (AUTO) 4 % (0-10); HEMATOCRIT 34 % (35-52); LYMPHOCYTES # (AUTO) 2.4 10^3/uL (1.0-4.0); LYMPHOCYTES % (AUTO) 37 % (12-44); MEAN CORPUSCULAR HEMOGLOBIN 31 pg (25-34); MEAN CORPUSCULAR HGB CONC 32 g/dL (32-36); MEAN CORPUSCULAR VOLUME 96 fL (80-99); MEAN PLATELET VOLUME 10.8 fL (9.0-12.2); MONOCYTES # (AUTO) 0.5 10^3/uL (0.0-1.0); MONOCYTES % (AUTO) 8 % (0-12); NEUTROPHILS # (AUTO) 3.3 10^3/uL (1.8-7.8); NEUTROPHILS % (AUTO) 51 % (42-75); PLATELET COUNT 162 10^3/uL (130-400); WHITE BLOOD COUNT 6.5 10^3/uL (4.3-11.0)
[2021-05-15 06:21] LABS: POTASSIUM 3.8 MMOL/L (3.6-5.0)
[2021-05-15 06:22] LABS: CALCIUM 8.5 MG/DL (8.5-10.1)
[2021-05-15 06:27] LABS: CREATININE SERUM 0.62 MG/DL (0.60-1.30)
[2021-05-15] MEDS ORDERED: CLOP75TA28 PO (06:27)
[2021-05-15] MEDS ORDERED: ASPI-1238 PO (06:27)
--- NOTE | 2021-05-15 06:27 | Discharge Inst-Post CATH ---
Discharge Inst-CATH/EP Problems Reviewed?: Yes Post Cardiac Cath/EP D/C Inst Follow Up/Plan Appointment with Dr Luciano in 2 weeks <b>CARDIAC CATH/EP PROCEDURE DISCHARGE INSTRUCTIONS</b> ACTIVITY * Go Home directly and rest. * Limit activity of the leg (or wrist if it was used) for 7 days including aerobics, swimming, jogging, bicycling, etc. * Restrict stair-climbing for 7 days if possible, if not, climb up with your non-cath leg, then bring together on the same step. * Avoid lifting, pushing, pulling or excessive movement of the affected extremity for 7 days. * Customary sexual activity may be resumed after 2 days-use caution not to use a position that strains or causes pain to the affected extremity. * No driving for 24 hours. * NO SMOKING. * Avoid straining for bowel movements for 7 days. * Gentle walking on level ground is allowed. * Returning to work will depend on the type of procedure and the results. Your doctor will discuss this with you. CALL YOUR DOCTOR FOR ANY OF THE FOLLOWING: *If bleeding from the puncture site occurs- Apply gentle pressure to site with clean cloth and call your doctor or EMS. * If a knot or lump forms under the skin, increases in size, or causes pain. * If bruising appears to be worsening or moving further down your leg instead of disappearing. * Temperature above 101 F. CARE OF YOUR GROIN INCISION; * Bruising or purple discoloration of the skin near the puncture site is common. * You may shower only, no bathtub bathing for 5 days. Be careful to avoid slipping as your leg may feel stiff. * If a closure device was used on your femoral artery, please see the attached guide regarding care of the device and your leg. * Leave dressing on FOR 24 hours. CARE OF YOUR WRIST INCISION; * Bruising or purple discoloration of the skin near the puncture site is common. * You may shower. * DO NOT submerge wrist. * Leave dressing on FOR 24 hours. MAL LUCIANO MD May 15, 2021 06:27
[2021-05-15 07:24] VITALS: BP 140/89
[2021-05-15] MEDS: RT-ALBUTEROL SULF 2.5 MG/3 ML PRE-MIX VIAL IH SCH ×2 (07:41→10:49)
[2021-05-15] MEDS: PROPRANOLOL 20 MG (INDERAL) TABLET PO SCH (08:34)
[2021-05-15] MEDS: LOSARTAN 100 MG (COZAAR) TABLET PO SCH (08:35)
[2021-05-15] MEDS: APIXABAN 5 MG (ELIQUIS) TABLET PO SCH (08:35)
[2021-05-15] MEDS ORDERED: CLOPIDOGREL 75 MG (PLAVIX) TABLET PO SCH (09:00)
[2021-05-15] MEDS ORDERED: ASPIRIN E.C. 81 MG (ECOTRIN) TAB PO SCH (09:00)
--- NOTE | 2021-05-15 09:01 | Cardiology Progress Note ---
Subjective Date Seen by Provider: May 15, 2021 Time Seen by Provider: 08:59 Subjective/Events-last exam Patient is laying down in bed, feeling better, no new complaint. Review of Systems General: No Chills, No Night Sweats, No Fatigue, No Malaise, No Appetite, No Other HEENT: No Head Aches, No Visual Changes, No Eye Pain, No Ear Pain, No Dysphasia, No Sinus Congestion, No Post Nasal Drip, No Sore Throat, No Other Pulmonary: No Dyspnea, No Cough, No Pleuritic Chest Pain, No Other Cardiovascular: No: Chest Pain, Palpitations, Orthopnea, Paroxysmal Noc. Dyspnea, Edema, Lt Headedness, Other Objective-Cardiology Exam Last Set of Vital Signs Vital Signs 05/15/21 05/15/21 07:24 07:41 Temp 36.3 Pulse 70 Resp 18 B/P (MAP) 140/89 (106) Pulse Ox 98 O2 Delivery Room Air I&O Intake and Output 05/15/21 00:00 Intake Total 700 ml Output Total 1300 ml Balance -600 ml Intake Oral 700 ml Output Urine Total 1300 ml # Voids 2 Daily Weight Change No General: Alert, Oriented X3, Cooperative HEENT: Atraumatic, PERRLA Neck: Supple, No JVD, No Thyromegaly Lungs: Clear to Auscultation, Normal Air Movement Heart: Regular Rate, Normal S1, Normal S2, No Murmurs Abdomen: Normal Bowel Sounds, Soft, No Tenderness, No Hepatosplenomegaly, No M asses Extremities: No Clubbing, No Cyanosis, No Edema, Normal Pulses, No Tende rness/Swelling Skin: No Rashes, No Breakdown, No Significant Lesion Neuro: Normal Gait, Normal Speech, Strength at 5/5 X4 Ext, Normal Tone, Sensation Intact Psych/Mental Status: Mental Status NL, Mood NL Results Lab Laboratory Tests 05/15/21 06:03 A/P-Cardiology Admission Diagnosis Chest pain Coronary artery disease Permanent atrial fibrillation Hypertension Assessment/Plan Chest pain nonspecific etiology, atypical in presentation, reporting improvement today. Cardiac catheterization was done on May 14, 2021 showing severe proximal diagonal artery stenosis, successful deployment of 2.25 x 15 mm skypoint stent with excellent results. I explained to the patient that she will be on aspirin, Plavix and Eliquis for the next 3 months then we will continue on Plavix and Eliquis only for 6 months to 1 year if she cannot tolerate it Permanent atrial fibrillation. Rate controlled. Continue to monitor She has had multiple intolerances to multiple medications in the past. She was seen by Dr. Beard, who explained in length her management strategy, patient failed flecainide, amiodarone, Multaq and 2 procedures for atrial fibrillation ablation. Failed sotalol treatment with multiple doses up to 160 mg twice daily, had a reveal device implanted, has been in A. fib, rate controlled, discussed in the past the management plan and the possibility of another ablation or AV valerio ablation and a pacemaker, Dr. Beard is currently following, she is feeling better on the current medication regiment, continue to monitor Echocardiogram done in November 2019 showing normal LV size, EF 55 to 65%, left atrium 4.4 cm, mild MR, PA 35 to 40 mmHg. Continue to monitor Near syncope, probably vasovagal episode due to her aggressive medication, better at this time, having difficulty tolerating hydrochlorothiazide 12.5 mg daily, continue to monitor Hypertension, labile, under increased stress recently, lost her in december 2019, continue to monitor blood per Anxiety/depression-maintained on Xanax, Pristiq, managed by Dr Harris Mild bilateral carotid stenosis, ultrasound done in August 2019, I will evaluate carotid ultrasound History of right groin pseudoaneurysm-resolved, continue to monitor. Hyperlipidemia, maintained on Lipitor 10 mg daily, monitor lipid Depression, Anxiety, followed and managed by primary care physician Allergy to Coumadin causing rash, currently on Eliquis and tolerating well. Intolerance to isosorbide with severe headache and chest pain after taking the medication. 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 Mild COPD. MAL WINCHESTRE MD May 15, 2021 09:01
[2021-05-15 11:59] VITALS: BP 140/89
== END 2021-05-15 11:58 | disposition home or self-care (01) | DRG 247 ==
LOC: EDUNIT# 23:56 → ER 23:57 → CSD 05-14 04:05 → 4TH 05-14 16:04
PROVIDERS: ADMIT Internal Medicine Cardiovascular Disease; ATTEND Internal Medicine Cardiovascular Disease
PROC: 027034Z Dilation of Coronary Artery, One Artery with Drug-eluting Intraluminal Device, Percutaneous Approach (ICD-10-PCS; principal; 2021-05-14)
PROC: 4A023N7 Measurement of Cardiac Sampling and Pressure, Left Heart, Percutaneous Approach (ICD-10-PCS; 2021-05-14)
PROC: B2111ZZ Fluoroscopy of Multiple Coronary Arteries using Low Osmolar Contrast (ICD-10-PCS; 2021-05-14)
DX: I25.10 Atherosclerotic heart disease of native coronary artery without angina pectoris (principal); I48.21 Permanent atrial fibrillation; R07.89 Other chest pain; I10 Essential (primary) hypertension; R55 Syncope and collapse; T50.2X5A Adverse effect of carbonic-anhydrase inhibitors, benzothiadiazides and other diuretics, initial encounter; F41.9 Anxiety disorder, unspecified; F32.A Depression, unspecified; I65.23 Occlusion and stenosis of bilateral carotid arteries; E78.5 Hyperlipidemia, unspecified; Z88.8 Allergy status to other drugs, medicaments and biological substances; E03.9 Hypothyroidism, unspecified; J44.9 Chronic obstructive pulmonary disease, unspecified; E04.1 Nontoxic single thyroid nodule
CPT/HCPCS: 36415; 71045; 80048; 80053; 82150; 82550; 82553; 83690; 83735; 83874; 83880; 84484; 85025; 85347; 85610; 85730; 93005; 93041; 93454; 94640; 94760

== ENCOUNTER 2021-06-20 08:38 | Outpatient (RCR) | payer MEDICARE, OTHER ==
[~2021-06-20 08:38] MED LIST changes: +ASPI-1238 PO; +CITA20TA9 PO; +CLOP75TA28 PO; +DILT240C91 PO; +LEVO75TA97 PO; +LOSA100T57 PO; +TRAM50TA3 PO
== END 2021-06-21 | disposition home or self-care (01) ==
LOC: CR 08:38
PROVIDERS: ATTEND Internal Medicine Cardiovascular Disease
DX: Z29.8 Encounter for other specified prophylactic measures (principal); Z95.5 Presence of coronary angioplasty implant and graft
CPT/HCPCS: 93798

== ENCOUNTER 2021-07-09 14:14 | Outpatient (RCR) | payer MEDICARE, OTHER | END 2021-07-21 | disposition home or self-care (01) | LOC: CR 14:14 | PROVIDERS: ATTEND Internal Medicine Cardiovascular Disease | DX: Z29.8 Encounter for other specified prophylactic measures (principal); Z95.5 Presence of coronary angioplasty implant and graft | CPT/HCPCS: 93798 ==

== ENCOUNTER → 2021-08-10 | Outpatient (CLI) | payer MEDICARE, OTHER ==
--- NOTE | 2021-08-10 10:46 | Diagnostic Imaging Report ---
INDICATION: Shortness of breath, dry cough and chest tightness PA and lateral chest obtained at 1013 a.m. Comparison made with 05/14/2021. Heart and mediastinal silhouette are normal in appearance. Lungs are clear. There is no pneumothorax or pleural fluid. IMPRESSION: No acute process in the chest. Dictated by: Dictated on workstation # [id number]
== END ==
LOC: RAD 09:57
PROVIDERS: ATTEND Family Medicine
DX: J18.9 Pneumonia, unspecified organism (principal)
CPT/HCPCS: 71046

== ENCOUNTER 2021-08-13 08:07 | Outpatient (RCR) | payer MEDICARE, OTHER | END 2021-08-21 | disposition home or self-care (01) | LOC: CR 08:07 | PROVIDERS: ATTEND Internal Medicine Cardiovascular Disease | DX: Z29.8 Encounter for other specified prophylactic measures (principal); Z95.5 Presence of coronary angioplasty implant and graft | CPT/HCPCS: 93798 ==

== ENCOUNTER 2021-08-24 08:27 | Outpatient (RCR) | payer MEDICARE, OTHER | END 2021-09-20 | disposition home or self-care (01) | LOC: CR 08:27 | PROVIDERS: ATTEND Internal Medicine Cardiovascular Disease | DX: Z29.8 Encounter for other specified prophylactic measures (principal); Z95.5 Presence of coronary angioplasty implant and graft | CPT/HCPCS: 93798 ==

== ENCOUNTER → 2021-11-19 | Emergency (ER) | payer MEDICARE, OTHER ==
[~2021-11-19] VITALS: Ht 177.8 cm; Wt 85.0 kg
[~2021-11-19] MED LIST changes: +1/2 NS IV SOLUTION 1,000 ML IV STA; +DIPH25CA79 PO; +EPIN0.3P3 IJ; +EPINEPHrine INJECTION 1 MG/ML AMP IM STA; +FAMOTIDINE 20MG/2ML IV (PEPCID) IVP ONE; +PRD20T PO; +diphenhydrAMINE 50 MG/ML INJ (BENADRYL) IVP ONE; +methylPREDNISolone 125 MG (Solu-MEDROL) VIAL IV STA
--- NOTE | 2021-11-19 19:09 | ED General ---
General Chief Complaint: Chest Pain Stated Complaint: ALLERGIC REACTION History of Present Illness Date Seen by Provider: Nov 19, 2021 Time Seen by Provider: 18:58 Initial Comments 70-year-old female with PMH of CAD/HTN, and other comorbidities, is here with complaints of throat and tongue swelling and throat tightening, swelling, and tingling in her tongue since she ate two almond bars. Patient started getting symptoms within 15 to 30 minutes after ingesting the 2 bars. Patient has a known allergy to pecans and walnuts. Patient had an EpiPen at home but it was so she came to the ER. Patient is able to speak in clear sentences in the ER, vitals stable except for elevated BP. Patient did not take her evening blood pressure medications. Allergies and Home Medications Allergies Coded Allergies: flecainide (Verified Allergy, Severe, 11/19/18) warfarin (Verified Allergy, Severe, 11/19/18) aliskiren (Unverified Allergy, Unknown, 11/19/18) cephalexin (Verified Allergy, Unknown, 11/19/18) codeine (Verified Allergy, Unknown, 11/19/18) dronedarone HCl (Unverified Allergy, Unknown, 11/19/18) pecan nut (Verified Allergy, Unknown, 05/14/21) walnut (Verified Allergy, Unknown, 05/14/21) Patient Home Medication List Home Medication List Reviewed: Yes Alprazolam (Alprazolam) 0.5 Mg Tablet, 0.5 MG PO HS, (Reported) Entered as Reported by: LUZ STEINBERG on 07/19/15 0818 Alprazolam (Alprazolam) 0.5 Mg Tablet, 0.25 MG PO DAILY PRN for ANXIETY, (Reported) Entered as Reported by: LEANNE BATES on 05/14/21 1020 Apixaban (Eliquis) 5 Mg Tablet, 5 MG PO BID, (Reported) Entered as Reported by: LUZ STEINBERG on 07/16/17 0936 Aspirin (Aspirin EC) 81 Mg Tablet.dr, 81 MG PO DAILY Prescribed by: MAL WINCHESTER on 05/15/21 0627 Citalopram Hydrobromide (Citalopram HBr) 20 Mg Tablet, 10 MG PO DAILY, (Reported) Entered as Reported by: LEANNE BATES on 05/14/21 1020 Clopidogrel Bisulfate (Clopidogrel) 75 Mg Tablet, 75 MG PO DAILY Prescribed by: MAL WINCHESTER on 05/15/21 0627 Dexlansoprazole (Dexilant) 60 Mg CapVirydrVirybp, 60 MG PO DAILY PRN for HEARTBURN, (Reported) Entered as Reported by: LUZ STEINBERG on 07/16/17 0939 Diltiazem HCl (Diltiazem 24Hr ER) 240 Mg Cap.er.24h, 240 MG PO DAILY, (Reported) Entered as Reported by: LEANNE BATES on 05/14/21 1020 Hydrochlorothiazide (Hydrochlorothiazide) 12.5 Mg Tablet, 12.5 MG PO DAILY, (Reported) Entered as Reported by: LEANNE BATES on 05/14/21 1020 Levalbuterol Tartrate (Xopenex Hfa) 15 Gm Hfa.aer.ad, 2 PUFF IH QID PRN for SH ORTNESS OF BREATH, (Reported) Entered as Reported by: LUZ STEINBERG on 07/16/17 0936 Levothyroxine Sodium (Euthyrox) 75 Mcg Tablet, 75 MCG PO DAILY, (Reported) Entered as Reported by: LEANNE BATES on 05/14/21 1020 Losartan Potassium (Losartan Potassium) 100 Mg Tablet, 100 MG PO DAILY, (Reported) Entered as Reported by: LEANNE BATES on 05/14/21 1020 Propranolol HCl (Propranolol HCl) 20 Mg Tablet, 20 MG PO TID, (Reported) Entered as Reported by: KENYA MIRAMONTES on 07/19/15 0007 Tramadol HCl (Tramadol HCl) 50 Mg Tablet, 50 MG PO Q6H PRN for PAIN-MODERATE (5- 7), (Reported) Entered as Reported by: LEANNE BATES on 05/14/21 1020 Review of Systems Review of Systems Constitutional: other EENTM: see HPI, mouth swelling, throat swelling Respiratory: no symptoms reported Cardiovascular: no symptoms reported Gastrointestinal: no symptoms reported Genitourinary: no symptoms reported : No Musculoskeletal: no symptoms reported Skin: no symptoms reported Psychiatric/Neurological: No Symptoms Reported Hematologic/Lymphatic: No Symptoms Reported Immunological/Allergic: no symptoms reported Past Jgpkjqk-Cmbzep-Ryeear Hx Patient Social History Tobacco Use?: No Use of E-Cig and/or Vaping dev: No Substance use?: No Alcohol Use?: No Pt feels they are or have been: No Immunizations Up To Date Tetanus Booster (TDap): Unknown Influenza Vaccine Up-to-Date: No; Not Current First/Initial COVID19 Vaccinat: DENIES Second COVID19 Vaccination Michael: DENIES Third COVID19 Vaccination Date: DENIES Seasonal Allergies Seasonal Allergies: Yes Past Medical History Surgery/Hospitalization HX: A-FIB CARDIAC ABLATION X2 Surgeries: Yes Amputation, Cardiac, Gallbladder, Hysterectomy, Orthopedic Respiratory: Yes (CPAP AT HS; CHRONIC DYSPNEA--ESPECIALLY ON EXERTION) Asthma, Chronic Bronchitis, Sleep Apnea Currently Using CPAP: Yes Cardiac: Yes Atrial Fibrillation, Chronic Edema/Swelling, Coronary Artery Disease, Hypertension, Irregular Heartbeat, Palpitations Neurological: No Reproductive Disorders: No 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 ) Blood Disorders: No (PATIENT IS JEHOVAH WITNESS) Family Medical History COPD, EMPHYSEMA 19 FATHER COPD, EMPHYSEMA 19 FATHER Cardiovascular disease 19 FATHER 19 MOTHER ([place]) G8 BROTHER ([place]) Completed stroke G8 SISTER Hypertension 19 MOTHER Neoplasm G8 BROTHER (LYMPHOMA) CAD Under 55 Years Old, CAD Over 55 Years Old PAST SURGICAL HISTORY: -CARDIAC CATHS--NO INTERVENTION -MULTIPLE CARDIOVERSION ATTEMPTS FOR ATRIAL FIBRILLATION -CARDIAC ABLATIONS X 2--FAILED TO CONVERT -LINQ MUSIC THERAPY SPECIALIST -EGD'S/ULISES'S -PARTIAL FINGER AMPUTATION -CHOLECYSTECTOMY -HYSTERECTOMY LAST CARDIAC CATH DONE HERE 07/16/[address] WINCHESTER: CONCLUSION: 1. Tortuous carotid system with [id number] coronary artery disease, the LAD tapered down into small artery with myocardial bridging at the distal portion 2. Normal left ventricular size, estimated ejection fraction 50 percent DISCUSSION AND RECOMMENDATION: Medical therapy is recommended no intervention is warranted STRESS TEST 05/09/[address] WINCHESTER: 1. Patient tolerated Lexiscan well 2. Baseline atrial fibrillation persisted during test 3. Baseline hypertension persisted during test 4. Breast attenuation with reversible ischemia involving the whole anterior wall and anterior septum suggestive of ischemia 5. Normal left ventricular size, ejection fraction 72%, it could be unreliable due to the underlying atrial fibrillation Physical Exam Vital Signs Vital Signs - First Documented 11/19/21 19:05 Temp 37.0 Pulse 72 Resp 16 B/P (MAP) 172/102 (125) Pulse Ox 98 O2 Delivery Room Air Capillary Refill : Height, Weight, BMI Height: 5'10.00" Weight: 226lbs. 0.0oz. 102.929561ec; 30.52 BMI Method:Stated General Appearance: Anxious, Mild Distress HEENT: PERRL/EOMI, Normal ENT Inspection, Pharynx Normal, Other (pt speaking in clear sentences without difficulty) Neck: Full Range of Motion Respiratory: Chest Non Tender, Lungs Clear, Normal Breath Sounds, No Accessory Muscle Use, No Respiratory Distress Cardiovascular: Regular Rate, Rhythm Gastrointestinal: Normal Bowel Sounds, No Pulsatile Mass, Non Tender, Soft Back: Normal Inspection Extremity: Normal Range of Motion Neurologic/Psychiatric: Alert, Oriented x3, Normal Mood/Affect Skin: Normal Color Lymphatic: No Adenopathy Progress/Results/Core Measures Suspected Sepsis SIRS Temperature: Pulse: Respiratory Rate: Blood Pressure / Mean: Results/Orders My Orders Orders - CAS JAMES MD Methylprednisolone Sod Succ (Solu-Medrol (11/19/21 19:09) Epinephrine 1 Mg Injection (Adrenalin I (11/19/21 19:09) Famotidine Injection (Pepcid Injection) (11/19/21 19:30) Diphenhydramine Injection (Benadryl Inje (11/19/21 19:30) 1/2 Ns Iv Solution (0.45% Sodium Chlorid (11/19/21 19:16) Medications Given in ED Current Medications Medications Dose Ordered Sig/Shimon Route Start Time Stop Time Status Last Admin Dose Admin Diphenhydramine HCl 25 mg ONCE ONCE IVP 11/19/21 19:30 11/19/21 19:31 DC 11/19/21 19:23 25 MG Famotidine 20 mg ONCE ONCE IVP 11/19/21 19:30 11/19/21 19:31 DC 11/19/21 19:24 20 MG Vital Signs/I&O 11/19/21 19:05 Temp 37.0 Pulse 72 Resp 16 B/P (MAP) 172/102 (125) Pulse Ox 98 O2 Delivery Room Air Capillary Refill : Progress Note : Progress Note 1. ALLERGIC REACTION: - Epi / Solumedrol/ Benadryl/ Pepcid/ 0.45% NS bolus -Patient improved with this, with symptoms completely resolving in the ER. -Prescriptions for prednisone, Benadryl, dual EpiPen pack given -Advised to follow-up with primary care within 3 days. -The patient was seen in the ED, and treated appropriately to presentation at a specific point in time. Patient is informed that there is a possibility that disease and illness can evolve and change in acuity rapidly or slowly after patient is discharged from the ER. Precautionary advice given to the patient for immediate return to ER if symptoms worsen or do not resolve, and to seek emergency care sooner rather than later. Pt also advised on the importance of PCP follow up and compliance with management and follow up plan with PCP and/or specialist, as this is part of the management plan. Pt verbally expressed understanding. Departure Impression Primary Impression: Anaphylactic reaction Qualified Codes: T78.2XXA - Anaphylactic shock, unspecified, initial encounter Additional Impression: Nut allergy Disposition: 01 HOME, SELF-CARE Condition: Improved Departure-Patient Inst. Referrals: EZRA YAN DO (PCP/Family) Primary Care Physician Patient Instructions: Anaphylaxis, Allergy to Nuts or Seeds, Epinephrine Autoinjectors Add. Discharge Instructions: -Prescriptions for prednisone, Benadryl, dual EpiPen pack . Advised not to drive after taking Benadryl - Over the counter Pepcid 20mg daily -Advised to follow-up with primary care within 3 days. - Return to ER if worsening or not improving All discharge instructions reviewed with patient and/or family. Voiced understanding. Scripts Epinephrine (Epipen 2-Zak) 0.3 Mg/0.3 Ml Auto.injct 0.3 MG IJ PRN for Shortness of Breath for 1 Day, #1 ML Prov: CAS JAMES MD 11/19/21 Diphenhydramine HCl (Benadryl) 25 Mg Capsule 25 MG PO BID for 3 Days, #6 CAP Prov: CAS JAMES MD 11/19/21 Prednisone (Prednisone) 20 Mg Tab 40 MG PO DAILY for 3 Days, #3 TAB Prov: CAS JAMES MD 11/19/21 CAS JAMES MD Nov 19, 2021 19:09
[2021-11-19 20:19] VITALS: BP 154/85
== END ==
LOC: EDUNIT# 18:54 → ER 18:56
DX: T78.05XA Anaphylactic reaction due to tree nuts and seeds, initial encounter (principal); Z91.018 Allergy to other foods; Z28.310 Unvaccinated for COVID-19

== ENCOUNTER 2021-12-02 16:51 | Emergency (ER) | payer MEDICARE, OTHER ==
[~2021-12-02] VITALS: Ht 178 cm; Wt 88.4 kg
[~2021-12-02 16:51] MED LIST changes: -1/2 NS IV SOLUTION 1,000 ML IV STA; -EPINEPHrine INJECTION 1 MG/ML AMP IM STA; -FAMOTIDINE 20MG/2ML IV (PEPCID) IVP ONE; +LEVO-55 PO; -LEVO500T81 PO; -diphenhydrAMINE 50 MG/ML INJ (BENADRYL) IVP ONE; -methylPREDNISolone 125 MG (Solu-MEDROL) VIAL IV STA
[2021-12-02 17:05] VITALS: BP_SYST 178; BP_SYST 186; BP_SYST 187; BP_DIAS 109; BP_DIAS 114; BP_DIAS 122
[2021-12-02 17:21] LABS: BILIRUBIN,URINE NEGATIVE (NEGATIVE); CLARITY,URINE CLEAR; COLOR,URINE YELLOW; GLUCOSE, URINE (UA) NEGATIVE (NEGATIVE); KETONES,URINE NEGATIVE (NEGATIVE); LEUKOCYTE ESTERASE ,URINE NEGATIVE (NEGATIVE); NITRITE,URINE NEGATIVE (NEGATIVE); PH,URINE 6.5 (5-9); PROTEIN,URINE NEGATIVE (NEGATIVE)
[2021-12-02 17:21] LABS: BASOPHILS # (AUTO) 0.1 10^3/uL (0.0-0.1); BASOPHILS % (AUTO) 1 % (0-10); EOSINOPHILS # (AUTO) 0.1 10^3/uL (0.0-0.3); EOSINOPHILS % (AUTO) 2 % (0-10); HEMATOCRIT 38 % (35-52); HEMOGLOBIN 12.7 g/dL (11.5-16.0); LYMPHOCYTES # (AUTO) 2.1 10^3/uL (1.0-4.0); LYMPHOCYTES % (AUTO) 30 % (12-44); MEAN CORPUSCULAR HEMOGLOBIN 31 pg (25-34); MEAN CORPUSCULAR HGB CONC 33 g/dL (32-36); MEAN CORPUSCULAR VOLUME 94 fL (80-99); MEAN PLATELET VOLUME 10.7 fL (9.0-12.2); MONOCYTES # (AUTO) 0.6 10^3/uL (0.0-1.0); MONOCYTES % (AUTO) 8 % (0-12); NEUTROPHILS # (AUTO) 4.1 10^3/uL (1.8-7.8); NEUTROPHILS % (AUTO) 59 % (42-75); PLATELET COUNT 186 10^3/uL (130-400); WHITE BLOOD COUNT 6.9 10^3/uL (4.3-11.0)
[2021-12-02 17:29] LABS: BACTERIA,URINE NEGATIVE /HPF; SQUAMOUS EPITHELIAL CELL,UR 0-2 /HPF; WBC,URINE RARE /HPF
[2021-12-02 17:31] LABS: ALBUMIN 4.1 GM/DL (3.2-4.5); POTASSIUM 3.6 MMOL/L (3.6-5.0)
--- NOTE | 2021-12-02 17:31 | Diagnostic Imaging Report ---
INDICATION: Weakness and vertigo. EXAMINATION: Frontal chest was obtained at 5:22 p.m. There is cardiomegaly. Mediastinal silhouette is unremarkable. The lungs are clear. There is no pneumothorax or pleural fluid. IMPRESSION: Cardiomegaly with no acute process in the chest. Dictated by: Dictated on workstation # [id number]
[2021-12-02 17:32] LABS: CALCIUM 9.5 MG/DL (8.5-10.1); INR 1.2 (0.8-1.4); PROTHROMBIN TIME PATIENT 15.4 SEC (12.2-14.7)
[2021-12-02 17:33] LABS: TOTAL PROTEIN 7.5 GM/DL (6.4-8.2)
[2021-12-02 17:35] LABS: BILIRUBIN,TOTAL 0.8 MG/DL (0.1-1.0)
[2021-12-02 17:37] LABS: CREATININE SERUM 0.81 MG/DL (0.60-1.30)
--- NOTE | 2021-12-02 18:32 | ED General ---
General Chief Complaint: General Problems/Pain Stated Complaint: WEAKNESS Nursing Triage Note: PT TO [facility] WITH CC OF WEAKNESS, DIARRHEA, FELT LIKE SHE WAS GOING TO PASS OUT, HAS VERTIGO FOR YEARS Source of Information: Patient Exam Limitations: No Limitations History of Present Illness Date Seen by Provider: Dec 02, 2021 Allergies and Home Medications Allergies Coded Allergies: flecainide (Verified Allergy, Severe, 11/19/18) warfarin (Verified Allergy, Severe, 11/19/18) aliskiren (Unverified Allergy, Unknown, 11/19/18) cephalexin (Verified Allergy, Unknown, 11/19/18) codeine (Verified Allergy, Unknown, 11/19/18) dronedarone HCl (Unverified Allergy, Unknown, 11/19/18) pecan nut (Verified Allergy, Unknown, 05/14/21) walnut (Verified Allergy, Unknown, 05/14/21) Patient Home Medication List Alprazolam (Alprazolam) 0.5 Mg Tablet, 0.5 MG PO HS, (Reported) Entered as Reported by: LZU STEINBERG on 07/19/15 0818 Alprazolam (Alprazolam) 0.5 Mg Tablet, 0.25 MG PO DAILY PRN for ANXIETY, (Reported) Entered as Reported by: LEANNE BATES on 05/14/21 1020 Apixaban (Eliquis) 5 Mg Tablet, 5 MG PO BID, (Reported) Entered as Reported by: LUZ STEINBERG on 07/16/17 0936 Aspirin (Aspirin EC) 81 Mg Tablet., 81 MG PO DAILY Prescribed by: MAL WINCHESTER on 05/15/21 06 Citalopram Hydrobromide (Citalopram HBr) 20 Mg Tablet, 10 MG PO DAILY, (Reported) Entered as Reported by: LEANNE BATES on 05/14/21 1020 Clopidogrel Bisulfate (Clopidogrel) 75 Mg Tablet, 75 MG PO DAILY Prescribed by: MAL WINCHESTER on 05/15/21626 Dexlansoprazole (Dexilant) 60 Mg bp, 60 MG PO DAILY PRN for HEARTBURN, (Reported) Entered as Reported by: LUZ STEINBERG on 07/16/17 0939 Diltiazem HCl (Diltiazem 24Hr ER) 240 Mg Cap.er.24h, 240 MG PO DAILY, (Reported) Entered as Reported by: LEANNE BATES on 05/14/21 1020 Diphenhydramine HCl (Benadryl) 25 Mg Capsule, 25 MG PO BID Prescribed by: CAS JAMES MD on 11/19/212015 Epinephrine (Epipen 2-Zak) 0.3 Mg/0.3 Ml Auto.injct, 0.3 MG IJ PRN Prescribed by: CAS JAMES MD on 11/19/212015 Hydrochlorothiazide (Hydrochlorothiazide) 12.5 Mg Tablet, 12.5 MG PO DAILY, (Reported) Entered as Reported by: LEANNE BATES on 05/14/21 1020 Levalbuterol Tartrate (Xopenex Hfa) 15 Gm Hfa.aer.ad, 2 PUFF IH QID PRN for SHORTNESS OF BREATH, (Reported) Entered as Reported by: LUZ STEINBERG on 07/16/17 0936 Levothyroxine Sodium (Euthyrox) 75 Mcg Tablet, 75 MCG PO DAILY, (Reported) Entered as Reported by: LEANNE BATES on 05/14/21 1020 Losartan Potassium (Losartan Potassium) 100 Mg Tablet, 100 MG PO DAILY, (Reported) Entered as Reported by: LEANNE BATES on 05/14/21 1020 Prednisone (Prednisone) 20 Mg Tab, 40 MG PO DAILY Prescribed by: CAS JAMES MD on 11/19/212015 Propranolol HCl (Propranolol HCl) 20 Mg Tablet, 20 MG PO TID, (Reported) Entered as Reported by: KENYA MIRAMONTES on 07/19/15 0007 Tramadol HCl (Tramadol HCl) 50 Mg Tablet, 50 MG PO Q6H PRN for PAIN-MODERATE (5- 7), (Reported) Entered as Reported by: LEANNE BATES on 05/14/21 1020 Past Dlwwxoh-Quurmp-Ehgrae Hx Patient Social History Tobacco Use?: No Substance use?: No Alcohol Use?: No Immunizations Up To Date Tetanus Booster (TDap): Unknown First/Initial COVID19 Vaccinat: DENIES Second COVID19 Vaccination Michael: DENIES Third COVID19 Vaccination Date: DENIES Seasonal Allergies Seasonal Allergies: Yes Past Medical History Surgery/Hospitalization HX: A-FIB CARDIAC ABLATION X2 ANXIETY, HYSTERECTOMY, GALLLBLADDER, CAD WITH STENT Surgeries: Yes Amputation, Cardiac, Gallbladder, Hysterectomy, Orthopedic Respiratory: Yes (CPAP AT HS; CHRONIC DYSPNEA--ESPECIALLY ON EXERTION) Asthma, Chronic Bronchitis, Sleep Apnea Currently Using CPAP: Yes Cardiac: Yes Atrial Fibrillation, Chronic Edema/Swelling, Coronary Artery Disease, Hypertension, Irregular Heartbeat, Palpitations Neurological: No Reproductive Disorders: 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 ) Blood Disorders: No (PATIENT IS JEHOVAH WITNESS) Family Medical History COPD, EMPHYSEMA 19 FATHER COPD, EMPHYSEMA 19 FATHER Cardiovascular disease 19 FATHER 19 MOTHER ([place]) G8 BROTHER ([place]) Completed stroke G8 SISTER Hypertension 19 MOTHER Neoplasm G8 BROTHER (LYMPHOMA) CAD Under 55 Years Old, CAD Over 55 Years Old PAST SURGICAL HISTORY: -CARDIAC CATHS--NO INTERVENTION -MULTIPLE CARDIOVERSION ATTEMPTS FOR ATRIAL FIBRILLATION -CARDIAC ABLATIONS X 2--FAILED TO CONVERT -LINQ INDUSTRIAL COURT MAGISTRATE -EGD'S/ULISES'S -PARTIAL FINGER AMPUTATION -CHOLECYSTECTOMY -HYSTERECTOMY LAST CARDIAC CATH DONE HERE 07/16/[address] WINCHESTER: CONCLUSION: 1. Tortuous carotid system with [id number] coronary artery disease, the LAD tapered down into small artery with myocardial bridging at the distal portion 2. Normal left ventricular size, estimated ejection fraction 50 percent DISCUSSION AND RECOMMENDATION: Medical therapy is recommended no intervention is warranted STRESS TEST 05/09/[address] WINCHESTER: 1. Patient tolerated Lexiscan well 2. Baseline atrial fibrillation persisted during test 3. Baseline hypertension persisted during test 4. Breast attenuation with reversible ischemia involving the whole anterior wall and anterior septum suggestive of ischemia 5. Normal left ventricular size, ejection fraction 72%, it could be unreliable due to the underlying atrial fibrillation Physical Exam Vital Signs Vital Signs - First Documented 12/02/21 16:58 Temp 37.2 Pulse 98 Resp 20 B/P (MAP) 180/121 (140) Pulse Ox 100 O2 Delivery Room Air Capillary Refill : Less Than 3 Seconds Height, Weight, BMI Height: 5'10.00" Weight: 226lbs. 0.0oz. 102.665834fx; 27.00 BMI Method:Stated Progress/Results/Core Measures Suspected Sepsis SIRS Temperature: Pulse: 98 Respiratory Rate: 20 Laboratory Tests 12/02/21 17:03: White Blood Count 6.9 Blood Pressure 180 /121 Mean: 140 Laboratory Tests 12/02/21 17:03: Creatinine 0.81, INR Comment 1.2, Platelet Count 186, Total Bilirubin 0.8 Results/Orders Lab Results Laboratory Tests Test 12/02/21 17:03 12/02/21 17:10 Range/Units White Blood Count 6.9 4.3-11.0 10^3/uL Red Blood Count 4.08 3.80-5.11 10^6/uL Hemoglobin 12.7 11.5-16.0 g/dL Hematocrit 38 35-52 % Mean Corpuscular Volume 94 80-99 fL Mean Corpuscular Hemoglobin 31 25-34 pg Mean Corpuscular Hemoglobin Concent 33 32-36 g/dL Red Cell Distribution Width 13.4 10.0-14.5 % Platelet Count 186 130-400 10^3/uL Mean Platelet Volume 10.7 9.0-12.2 fL Immature Granulocyte % (Auto) 0 % Neutrophils (%) (Auto) 59 42-75 % Lymphocytes (%) (Auto) 30 12-44 % Monocytes (%) (Auto) 8 0-12 % Eosinophils (%) (Auto) 2 0-10 % Basophils (%) (Auto) 1 0-10 % Neutrophils # (Auto) 4.1 1.8-7.8 10^3/uL Lymphocytes # (Auto) 2.1 1.0-4.0 10^3/uL Monocytes # (Auto) 0.6 0.0-1.0 10^3/uL Eosinophils # (Auto) 0.1 0.0-0.3 10^3/uL Basophils # (Auto) 0.1 0.0-0.1 10^3/uL Immature Granulocyte # (Auto) 0.0 0.0-0.1 10^3/uL Prothrombin Time 15.4 H 12.2-14.7 SEC INR Comment 1.2 0.8-1.4 Activated Partial Thromboplast Time 30 24-35 SEC Sodium Level 141 135-145 MMOL/L Potassium Level 3.6 3.6-5.0 MMOL/L Chloride Level 104 98-107 MMOL/L Carbon Dioxide Level 24 21-32 MMOL/L Anion Gap 13 5-14 MMOL/L Blood Urea Nitrogen 13 7-18 MG/DL Creatinine 0.81 0.60-1.30 MG/DL Estimat Glomerular Filtration Rate 79 BUN/Creatinine Ratio 16 Glucose Level 86 70-105 MG/DL Calcium Level 9.5 8.5-10.1 MG/DL Corrected Calcium 9.4 8.5-10.1 MG/DL Magnesium Level 2.0 1.6-2.4 MG/DL Total Bilirubin 0.8 0.1-1.0 MG/DL Aspartate Amino Transf (AST/SGOT) 20 5-34 U/L Alanine Aminotransferase (ALT/SGPT) 20 0-55 U/L Alkaline Phosphatase 66 40-136 U/L Myoglobin 34.4 10.0-92.0 NG/ML Troponin I < 0.028 <0.028 NG/ML B-Type Natriuretic Peptide 103.1 H <100.0 PG/ML Total Protein 7.5 6.4-8.2 GM/DL Albumin 4.1 3.2-4.5 GM/DL Urine Color YELLOW Urine Clarity CLEAR Urine pH 6.5 5-9 Urine Specific [place] <=1.005 1.016-1.022 Urine Protein NEGATIVE NEGATIVE Urine Glucose (UA) NEGATIVE NEGATIVE Urine Ketones NEGATIVE NEGATIVE Urine Nitrite NEGATIVE NEGATIVE Urine Bilirubin NEGATIVE NEGATIVE Urine Urobilinogen 0.2 < = 1.0 MG/DL Urine Leukocyte Esterase NEGATIVE NEGATIVE Urine RBC (Auto) NEGATIVE NEGATIVE Urine RBC NONE /HPF Urine WBC RARE /HPF Urine Squamous Epithelial Cells 0-2 /HPF Urine Crystals NONE /LPF Urine Bacteria NEGATIVE /HPF Urine Casts NONE /LPF Urine Mucus NEGATIVE /LPF Urine Culture Indicated NO My Orders Orders - RENALDO CARREON MD Cbc With Automated Diff (12/02/21 17:08) Magnesium (12/02/21 17:08) Chest 1 View, Ap/Pa Only (12/02/21 17:08) Ekg Tracing (12/02/21 17:08) Comprehensive Metabolic Panel (12/02/21 17:08) Myoglobin Serum (12/02/21 17:08) Protime With Inr (12/02/21 17:08) Partial Thromboplastin Time (12/02/21 17:08) O2 (12/02/21 17:08) Monitor-Rhythm Ecg Trace Only (12/02/21 17:08) Ed Iv/Invasive Line Start (12/02/21 17:08) Troponin I [place] (12/02/21 17:08) Bnp [place] (12/02/21 17:08) Ua Culture If Indicated (12/02/21 17:08) Orthostatic Vital Signs (Adult (12/02/21 17:09) Vital Signs/I&O 12/02/21 16:58 Temp 37.2 Pulse 98 Resp 20 B/P (MAP) 180/121 (140) Pulse Ox 100 O2 Delivery Room Air Capillary Refill : Less Than 3 Seconds Blood Pressure Mean: 140 ECG Initial ECG Impression Date: Dec 02, 2021 Initial ECG Impression Time: 17:15 Initial ECG Rate: 88 Initial ECG Rhythm: A Fib/Flutter Initial ECG Intervals: Normal Comment Atrial fibrillation with no ST elevation or depression. Incomplete right bundle branch block. No axis deviation. Departure Impression Primary Impression: Lightheadedness Additional Impression: Hypertension Qualified Codes: I10 - Essential (primary) hypertension Disposition: 01 HOME, SELF-CARE Condition: Improved Departure-Patient Inst. Referrals: EZRA YAN DO (PCP/Family) Primary Care Physician Patient Instructions: High Blood Pressure (DC) Add. Discharge Instructions: Continue your medications as previously prescribed. Return to care if you have worsening symptoms. Call your doctor with questions or concerns. All discharge instructions reviewed with patient and/or family. Voiced understanding. RENALDO CARREON MD Dec 02, 2021 18:32
[2021-12-02 18:45] VITALS: BP 163/98
== END 2021-12-02 18:45 | disposition home or self-care (01) ==
LOC: EDUNIT# 16:51 → ER 16:59
DX: I10 Essential (primary) hypertension (principal); Z95.9 Presence of cardiac and vascular implant and graft, unspecified; Z28.310 Unvaccinated for COVID-19
CPT/HCPCS: 36415; 71045; 80053; 81000; 83735; 83874; 83880; 84484; 85025; 85610; 85730; 93005; 93041

== ENCOUNTER 2022-01-31 19:43 | Emergency (ER) | payer MEDICARE, OTHER ==
[~2022-01-31] VITALS: Ht 177.8 cm; Wt 87.9 kg
--- NOTE | 2022-01-31 20:06 | ED General ---
General Chief Complaint: Allergic Reaction Stated Complaint: ALLERGIC REACTION Nursing Triage Note: PT TO RM 6 BY EMS WITH CC OF ALLERGIC REACTION AFTER EATING PINEAPPLE. PT STATES TOOK BENADRYL 10MG, PEPCID 25MG, AND EPI PEN. PT BELIEVES SHE DID THE EPI INJECTIOIN AROUND 1900. PT DENIES DIFFICUILTY BREATHING AT THIS TIME. Source of Information: Patient, EMS Exam Limitations: No Limitations History of Present Illness Date Seen by Provider: Jan 31, 2022 Time Seen by Provider: 19:52 Initial Comments This is a 71-year-old woman presents to the emergency room via EMS with concerns about possible allergic reaction. She wonders if she has allergy to pineapple. She reported feeling some throat tightening for which she took 1 tablet of Pepcid and 1 tablet of Benadryl. She did not have immediate relief and so therefore took her EpiPen. There is no significant evidence of anaphylaxis or angioedema as there has been no swelling of the tongue, throat, or lips. There has been no rash, itching, or hives. Vital signs are stable at this time. This patient is well-known to me from prior visits and is extremely anxious during most healthcare encounters. Allergies and Home Medications Allergies Coded Allergies: flecainide (Verified Allergy, Severe, 11/19/18) warfarin (Verified Allergy, Severe, 11/19/18) aliskiren (Unverified Allergy, Unknown, 11/19/18) cephalexin (Verified Allergy, Unknown, 11/19/18) codeine (Verified Allergy, Unknown, 11/19/18) dronedarone HCl (Unverified Allergy, Unknown, 11/19/18) pecan nut (Verified Allergy, Unknown, 05/14/21) walnut (Verified Allergy, Unknown, 05/14/21) Patient Home Medication List Home Medication List Reviewed: Yes Alprazolam (Alprazolam) 0.5 Mg Tablet, 0.5 MG PO HS, (Reported) Entered as Reported by: LUZ STEINBERG on 07/19/15 0818 Alprazolam (Alprazolam) 0.5 Mg Tablet, 0.25 MG PO DAILY PRN for ANXIETY, (Reported) Entered as Reported by: LEANNE BATES on 05/14/21 1020 Apixaban (Eliquis) 5 Mg Tablet, 5 MG PO BID, (Reported) Entered as Reported by: LUZ STEINBERG on 07/16/17935 Aspirin (Aspirin EC) 81 Mg Tablet.dr, 81 MG PO DAILY Prescribed by: MAL WINCHESTER on 05/15/21626 Citalopram Hydrobromide (Citalopram HBr) 20 Mg Tablet, 10 MG PO DAILY, (Reported) Entered as Reported by: LEANNE BATES on 05/14/21 102 Clopidogrel Bisulfate (Clopidogrel) 75 Mg Tablet, 75 MG PO DAILY Prescribed by: MAL WINCHESTER on 05/15/21626 Dexlansoprazole (Dexilant) 60 Mg Frankie.bp, 60 MG PO DAILY PRN for HEARTBURN, (Reported) Entered as Reported by: LUZ STEINBERG on 07/16/17938 Diltiazem HCl (Diltiazem 24Hr ER) 240 Mg Cap.er.24h, 240 MG PO DAILY, (Reported) Entered as Reported by: LEANNE BATES on 05/14/21 102 Diphenhydramine HCl (Benadryl) 25 Mg Capsule, 25 MG PO BID Prescribed by: CAS JAMES MD on 11/19/212015 Epinephrine (Epipen 2-Zak) 0.3 Mg/0.3 Ml Auto.injct, 0.3 MG IJ PRN Prescribed by: CAS JAMES MD on 11/19/212015 Hydrochlorothiazide (Hydrochlorothiazide) 12.5 Mg Tablet, 12.5 MG PO DAILY, (Reported) Entered as Reported by: LEANNE BATES on 05/14/21 102 Levalbuterol Tartrate (Xopenex Hfa) 15 Gm Hfa.aer.ad, 2 PUFF IH QID PRN for SH ORTNESS OF BREATH, (Reported) Entered as Reported by: LUZ STEINBERG on 07/16/17935 Levothyroxine Sodium (Euthyrox) 75 Mcg Tablet, 75 MCG PO DAILY, (Reported) Entered as Reported by: LEANNE BATES on 05/14/21 1020 Losartan Potassium (Losartan Potassium) 100 Mg Tablet, 100 MG PO DAILY, (Reported) Entered as Reported by: LEANNE BATES on 05/14/21 102 Prednisone (Prednisone) 20 Mg Tab, 40 MG PO DAILY Prescribed by: CAS JAMES MD on 11/19/212015 Propranolol HCl (Propranolol HCl) 20 Mg Tablet, 20 MG PO TID, (Reported) Entered as Reported by: KENYA MIRAMONTES on 07/19/15 0007 Tramadol HCl (Tramadol HCl) 50 Mg Tablet, 50 MG PO Q6H PRN for PAIN-MODERATE (5- 7), (Reported) Entered as Reported by: LEANNE BATES on 05/14/21 1020 Review of Systems Review of Systems Constitutional: no symptoms reported EENTM: ear discharge Respiratory: see HPI Cardiovascular: no symptoms reported Gastrointestinal: no symptoms reported Genitourinary: no symptoms reported Musculoskeletal: no symptoms reported Skin: no symptoms reported Psychiatric/Neurological: See HPI Hematologic/Lymphatic: No Symptoms Reported Immunological/Allergic: see HPI Past Vldyzwj-Uaxfce-Sehhhc Hx Patient Social History Tobacco Use?: No Substance use?: No Alcohol Use?: No Pt feels they are or have been: No Immunizations Up To Date Tetanus Booster (TDap): Unknown First/Initial COVID19 Vaccinat: DENIES Second COVID19 Vaccination Michael: DENIES Third COVID19 Vaccination Date: DENIES Seasonal Allergies Seasonal Allergies: Yes Past Medical History Surgery/Hospitalization HX: A-FIB CARDIAC ABLATION X2 ANXIETY, HYSTERECTOMY, GALLLBLADDER, CAD WITH STENT Surgeries: Yes Amputation, Cardiac, Gallbladder, Hysterectomy, Orthopedic Respiratory: Yes (CPAP AT HS; CHRONIC DYSPNEA--ESPECIALLY ON EXERTION) Asthma, Chronic Bronchitis, Sleep Apnea Currently Using CPAP: Yes Cardiac: Yes Atrial Fibrillation, Chronic Edema/Swelling, Coronary Artery Disease, Hypertension, Irregular Heartbeat, Palpitations Neurological: No Reproductive Disorders: No 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 WINCHESTER: CONCLUSION: 1. 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 Normal left ventricular size, estimated ejection fraction 50 percent DISCUSSION AND RECOMMENDATION: Medical therapy is recommended no intervention is warranted STRESS TEST 05/09/[address] WINCHESTER: 1. Patient tolerated Lexiscan well 2. Baseline atrial fibrillation persisted during test 3. Baseline hypertension persisted during test 4. Breast attenuation with reversible ischemia involving the whole anterior wall and anterior septum suggestive of ischemia 5. Normal left ventricular size, ejection fraction 72%, it could be unreliable due to the underlying atrial fibrillation Physical Exam Vital Signs Vital Signs - First Documented 01/31/22 19:46 Temp 36.7 Pulse 75 Resp 17 B/P (MAP) 153/111 (125) Pulse Ox 99 O2 Delivery Room Air Capillary Refill : Less Than 3 Seconds Height, Weight, BMI Height: 5'10.00" Weight: 226lbs. 0.0oz. 102.085304ih; 27.00 BMI Method:Stated General Appearance: WD/WN, Anxious (Mildly) HEENT: PERRL/EOMI, Normal ENT Inspection, Pharynx Normal, Other (No tongue, throat or lip swelling) Neck: Normal Inspection Respiratory: Lungs Clear, Normal Breath Sounds, No Accessory Muscle Use Cardiovascular: No Edema, No Murmur, Irregularly Irregular Gastrointestinal: Non Tender, Soft Extremity: Normal Inspection Neurologic/Psychiatric: Alert, Oriented x3, Other (Anxious) Skin: Normal Color, Warm/Dry; No Rash Progress/Results/Core Measures Suspected Sepsis SIRS Temperature: Pulse: 75 Respiratory Rate: 17 Blood Pressure 153 /111 Mean: 125 Results/Orders Vital Signs/I&O 01/31/22 01/31/22 19:46 22:26 Temp 36.7 Pulse 75 75 Resp 17 13 B/P (MAP) 153/111 (125) 123/83 Pulse Ox 99 98 O2 Delivery Room Air Room Air Capillary Refill : Less Than 3 Seconds Blood Pressure Mean: 125 Progress Note : Progress Note Patient was examined at least 3 times during the duration of her observation in the emergency room. She never exhibited any signs or exam findings of severe allergic reaction or anaphylaxis during her ER visit. I believe she more likely experienced a combination of globus pharyngeus from her acid reflux and consumption of acidic foods and anxiety. See discharge instructions for further discussion. Departure Impression Primary Impression: Anxiety about health Additional Impression: Globus pharyngeus Disposition: 01 HOME, SELF-CARE Condition: Improved Departure-Patient Inst. Decision time for Depature: 21:06 Referrals: EZRA YAN DO (PCP/Family) Primary Care Physician Patient Instructions: Acid Reflux and GERD in Adults (DC), Anaphylaxis, Anxiety, Adult ED Add. Discharge Instructions: Based on your history and exam today, it seems unlikely that your symptoms were caused by a severe allergic reaction. Your symptoms are likely, at least in part, due to globus pharyngeus which is a throat sensation often related to acid reflux problems. This may be worsened by foods and beverages that exacerbate acid reflux. Lea fruits and juices and tomato products fall into that category. Please consume these things with caution in the future. Return to care if you have worsening symptoms. Follow-up with your doctor within the next few weeks. All discharge instructions reviewed with patient and/or family. Voiced understanding. Copy Copies To 1: EZRA YAN JOSHUA T MD Jan 31, 2022 20:06
[2022-01-31 22:26] VITALS: BP 123/83
== END 2022-01-31 22:26 | disposition home or self-care (01) ==
LOC: EDUNIT# 19:43 → ER 19:47
DX: F41.9 Anxiety disorder, unspecified (principal); R09.89 Other specified symptoms and signs involving the circulatory and respiratory systems; Z28.310 Unvaccinated for COVID-19
CPT/HCPCS: 99283

== ENCOUNTER → 2022-10-03 | Outpatient (CLI) | payer MEDICARE, OTHER ==
[~2022-10-03] MED LIST changes: -LOSA100T57 PO; +LOSA100T58 PO
== END ==
LOC: CARD 10:29
PROVIDERS: ATTEND Family Medicine
DX: I48.91 Unspecified atrial fibrillation (principal)
CPT/HCPCS: 93005

== ENCOUNTER → 2022-11-28 | Outpatient (CLI) | payer MEDICARE, OTHER ==
[2022-11-28 12:21] LABS: ALBUMIN 4.1 GM/DL (3.2-4.5); BILIRUBIN,TOTAL 0.9 MG/DL (0.1-1.0); CALCIUM 9.4 MG/DL (8.5-10.1); CREATININE SERUM 0.8 MG/DL (0.60-1.30); TOTAL PROTEIN 7.1 GM/DL (6.4-8.2)
--- NOTE | 2022-11-28 16:17 | Diagnostic Imaging Report ---
Indication: Back pain. Time of Exam: 12:11 PM AP, lateral and conal lumbosacral views of the lumbar spine were obtained. Curvature and alignment are normal. Vertebral body heights are well-maintained. No acute compression fracture ix seen. There is severe multilevel degenerative disc disease with variable disc space narrowing and marginal spurring. There is multilevel facet arthropathy as well. IMPRESSION: Severe lumbar spondylosis. No acute bony abnormality is detected. Dictated by: Dictated on workstation # [id number]
== END ==
LOC: RAD 11:40
PROVIDERS: ATTEND Family Medicine
DX: M47.816 Spondylosis without myelopathy or radiculopathy, lumbar region (principal); G47.62 Sleep related leg cramps; I10 Essential (primary) hypertension
CPT/HCPCS: 36415; 72100; 80053

== ENCOUNTER 2023-02-11 06:34 | Emergency (ER) | payer MEDICARE, OTHER ==
[~2023-02-11] VITALS: Ht 175 cm; Wt 90.7 kg
[2023-02-11 07:08] LABS: BASOPHILS % (AUTO) 1 % (0-10); EOSINOPHILS # (AUTO) 0.1 10^3/uL (0.0-0.3); EOSINOPHILS % (AUTO) 2 % (0-10); HEMATOCRIT 41 % (35-52); HEMOGLOBIN 13.4 g/dL (11.5-16.0); LYMPHOCYTES # (AUTO) 2.9 10^3/uL (1.0-4.0); LYMPHOCYTES % (AUTO) 44 % (12-44); MEAN CORPUSCULAR HEMOGLOBIN 32 pg (25-34); MEAN CORPUSCULAR HGB CONC 33 g/dL (32-36); MEAN CORPUSCULAR VOLUME 97 fL (80-99); MEAN PLATELET VOLUME 10.9 fL (9.0-12.2); MONOCYTES # (AUTO) 0.5 10^3/uL (0.0-1.0); MONOCYTES % (AUTO) 8 % (0-12); NEUTROPHILS # (AUTO) 3.1 10^3/uL (1.8-7.8); NEUTROPHILS % (AUTO) 46 % (42-75); PLATELET COUNT 183 10^3/uL (130-400); WHITE BLOOD COUNT 6.7 10^3/uL (4.3-11.0)
[2023-02-11 07:13] LABS: INR 1.2 (0.8-1.4); PROTHROMBIN TIME PATIENT 15.7 SEC (12.2-14.7)
[2023-02-11 07:14] LABS: ALBUMIN 4.4 GM/DL (3.2-4.5); CHLORIDE 104 MMOL/L (98-107); POTASSIUM 3.1 MMOL/L (3.6-5.0); SODIUM 140 MMOL/L (135-145)
[2023-02-11 07:15] LABS: CALCIUM 9.7 MG/DL (8.5-10.1)
[2023-02-11 07:16] LABS: GLUCOSE 97 MG/DL (70-105); TOTAL PROTEIN 8.1 GM/DL (6.4-8.2)
[2023-02-11 07:17] LABS: CARBON DIOXIDE 25 MMOL/L (21-32)
[2023-02-11 07:18] LABS: BILIRUBIN,TOTAL 0.7 MG/DL (0.1-1.0)
[2023-02-11 07:20] LABS: ALKALINE PHOSPHATASE 60 U/L (40-136); CREATININE SERUM 0.76 MG/DL (0.60-1.30); GFR ESTIMATED 84
[2023-02-11 07:21] LABS: BUN/CREATININE RATIO 21
[2023-02-11 07:22] LABS: MAGNESIUM 2.1 MG/DL (1.6-2.4)
[2023-02-11 07:23] LABS: ALANINE AMINOTRANSFERASE 15 U/L (0-55)
[2023-02-11] MEDS: dilTIAZem ER 180 MG CAPSULE PO ONE (07:37)
--- NOTE | 2023-02-11 07:56 | Diagnostic Imaging Report ---
EXAM: CHEST 1 VIEW, AP/PA ONLY INDICATION: Chest pain. COMPARISON: 12/02/2021. FINDINGS: Normal heart size and central pulmonary vascularity. No focal pulmonary opacity. No pleural effusion or pneumothorax. No acute osseous findings. IMPRESSION: No acute cardiopulmonary findings. Dictated by: Dictated on workstation # [id number]
--- NOTE | 2023-02-11 08:04 | ED Cardiac General ---
History of Present Illness General Chief Complaint: Cardiac/General Problems Stated Complaint: AFIB Nursing Triage Note: PATIENT ARRIVED VIA WC TO ROOM WITH COMPLAINT OF AFIB. STATES HEART RACING, BEATING HARD. PATIENT STATES DOESN'T FEEL RIGHT. PATIENT STATES ALWAYS IN AFIB, HAD TWO ABLATIONS WITH NO CONVERSION. PATIENT STATES LAST FEW DAYS HAD MEDICATION CHANGES MADE, HASN'T FELT RIGHT SINCE. Source: patient Exam Limitations: no limitations History of Present Illness Date Seen by Provider: Feb 11, 2023 Time Seen by Provider: 07:03 Initial Comments Patient here with complaint of atrial fibrillation and feeling pounding in her chest like her heart is beating very hard. She has had recent medication changes including decreasing Cardizem from 240 mg daily to 120 mg daily. She also was switched off of propranolol for blood pressure but more for essential tremors to metoprolol. She apparently had an episode a while back in which she had a syncope event and this started the changes for her medications. Denies active chest pain currently other than feeling occasional palpitations and worried about her A-fib running too fast. Heart rates in the 90s on my exam. Patient intermittently tearful and anxious and does have history of anxiety disorder. She denies fever chills or other infectious symptoms. She last took her medication for her evening dose last night at 1 AM this morning. She follows with Dr. Yan and is working to get Holter monitor to evaluate her A-fib. She is on Eliquis and does take that twice daily as directed. 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 ASA po HATCHERY HELPER: No (Instructed not to take) Associated Systoms: No Fever/Chills, No Nausea/Vomiting, No Shortness of Air, No Weakness Allergies and Home Medications Allergies Coded Allergies: flecainide (Verified Allergy, Severe, 11/19/18) warfarin (Verified Allergy, Severe, 11/19/18) aliskiren (Unverified Allergy, Unknown, 11/19/18) cephalexin (Verified Allergy, Unknown, 11/19/18) codeine (Verified Allergy, Unknown, 11/19/18) dronedarone HCl (Unverified Allergy, Unknown, 11/19/18) pecan nut (Verified Allergy, Unknown, 05/14/21) walnut (Verified Allergy, Unknown, 05/14/21) Patient Home Medication List Home Medication List Reviewed: Yes Alprazolam (Alprazolam) 0.5 Mg Tablet, 0.5 MG PO HS, (Reported) Entered as Reported by: LUZ STEINBERG on 07/19/15 0818 Alprazolam (Alprazolam) 0.5 Mg Tablet, 0.25 MG PO DAILY PRN for ANXIETY, (Reported) Entered as Reported by: LEANNE BATES on 05/14/21 1020 Apixaban (Eliquis) 5 Mg Tablet, 5 MG PO BID, (Reported) Entered as Reported by: LUZ STEINBERG on 07/16/17 0936 Aspirin (Aspirin EC) 81 Mg Tablet.dr, 81 MG PO DAILY Prescribed by: MAL WINCHESTER on 05/15/21626 Citalopram Hydrobromide (Citalopram HBr) 20 Mg Tablet, 10 MG PO DAILY, (Reported) Entered as Reported by: LEANNE BATES on 05/14/21 1020 Clopidogrel Bisulfate (Clopidogrel) 75 Mg Tablet, 75 MG PO DAILY Prescribed by: MAL WINCHESTER on 05/15/21626 Dexlansoprazole (Dexilant) 60 Mg Cap.bp, 60 MG PO DAILY PRN for HEARTBURN, (Reported) Entered as Reported by: LUZ STEINBERG on 07/16/17 0939 Diltiazem HCl (Diltiazem 24Hr ER) 240 Mg Cap.er.24h, 240 MG PO DAILY, (Reported) Entered as Reported by: LEANNE BATES on 05/14/21 1020 Diphenhydramine HCl (Benadryl) 25 Mg Capsule, 25 MG PO BID Prescribed by: CAS JAMES MD on 11/19/212015 Epinephrine (Epipen 2-Zak) 0.3 Mg/0.3 Ml Auto.injct, 0.3 MG IJ PRN Prescribed by: CAS JAMES MD on 11/19/212015 Hydrochlorothiazide (Hydrochlorothiazide) 12.5 Mg Tablet, 12.5 MG PO DAILY, (Reported) Entered as Reported by: LEANNE BATES on 05/14/21 1020 Levalbuterol Tartrate (Xopenex Hfa) 15 Gm Hfa.aer.ad, 2 PUFF IH QID PRN for SHORTNESS OF BREATH, (Reported) Entered as Reported by: LUZ STEINBERG on 07/16/17 0936 Levothyroxine Sodium (Euthyrox) 75 Mcg Tablet, 75 MCG PO DAILY, (Reported) Entered as Reported by: LEANNE BATES on 05/14/21 1020 Losartan Potassium (Losartan Potassium) 100 Mg Tablet, 100 MG PO DAILY, (Reported) Entered as Reported by: LEANNE BATES on 05/14/21 1020 Prednisone (Prednisone) 20 Mg Tab, 40 MG PO DAILY Prescribed by: CAS JAMES MD on 11/19/212015 Propranolol HCl (Propranolol HCl) 20 Mg Tablet, 20 MG PO TID, (Reported) Entered as Reported by: KENYA MIRAMONTES on 07/19/15 0007 Tramadol HCl (Tramadol HCl) 50 Mg Tablet, 50 MG PO Q6H PRN for PAIN-MODERATE (5- 7), (Reported) Entered as Reported by: LEANNE BATES on 05/14/21 1020 Review of Systems Review of Systems Constitutional: no symptoms reported EENTM: No Symptoms Reported Respiratory: Denies Cough, Denies Shortness of Air Cardiovascular: Irregular Heart Rate, Palpitations Gastrointestinal: Denies Nausea, Denies Vomiting Genitourinary: No Symptoms Reported Musculoskeletal: no symptoms reported Skin: no symptoms reported Psychiatric/Neurological: Anxiety; Denies Headache Past Jyygavk-Qsrtsr-Ozkqtr Hx Patient Social History Tobacco Use?: No Use of E-Cig and/or Vaping dev: No Substance use?: No Alcohol Use?: No Immunizations Up To Date Tetanus Booster (TDap): Unknown First/Initial COVID19 Vaccinat: DENIES Second COVID19 Vaccination Michael: DENIES Third COVID19 Vaccination Date: DENIES Seasonal Allergies Seasonal Allergies: Yes Past Medical History Surgery/Hospitalization HX: A-FIB CARDIAC ABLATION X2 ANXIETY, HYSTERECTOMY, GALLLBLADDER, CAD WITH STENT Surgeries: Yes Amputation, Cardiac, Gallbladder, Hysterectomy, Orthopedic Respiratory: Yes (CPAP AT HS; CHRONIC DYSPNEA--ESPECIALLY ON EXERTION) Asthma, Chronic Bronchitis, Sleep Apnea Currently Using CPAP: Yes Cardiac: Yes Atrial Fibrillation, Chronic Edema/Swelling, Coronary Artery Disease, Hypertension, Irregular Heartbeat, Palpitations Neurological: No Reproductive Disorders: No 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 WINCHESTER: CONCLUSION: 1. Tortuous carotid system with [id number]-[id number] coronary artery disease, the LAD tapered down into small artery with myocardial bridging at the distal portion 2. Normal left ventricular size, estimated ejection fraction 50 percent DISCUSSION AND RECOMMENDATION: Medical therapy is recommended no intervention is warranted STRESS TEST 05/09/[address] WINCHESTER: 1. Patient tolerated Lexiscan well 2. Baseline atrial fibrillation persisted during test 3. Baseline hypertension persisted during test 4. Breast attenuation with reversible ischemia involving the whole anterior wall and anterior septum suggestive of ischemia 5. Normal left ventricular size, ejection fraction 72%, it could be unreliable due to the underlying atrial fibrillation Physical Exam Vital Signs Vital Signs - First Documented 02/11/23 06:54 Temp 37.0 Pulse 114 Resp 20 B/P (MAP) 168/106 (126) Pulse Ox 100 O2 Delivery Room Air Capillary Refill : Less Than 3 Seconds Height, Weight, BMI Height: 5'10.00" Weight: 226lbs. 0.0oz. 102.232277sh; 29.00 BMI Method:Stated General Appearance: Anxious, Mild Distress (Anxiousness) HEENT: PERRL/EOMI, Pharynx Normal Neck: Non Tender, Supple Respiratory: Lungs Clear, Normal Breath Sounds Cardiovascular: No Murmur, Irregularly Irregular Gastrointestinal: Non Tender, Soft Extremity: Normal Range of Motion, Non Tender Neurologic/Psychiatric: Alert, Oriented x3 Skin: Normal Color, Warm/Dry Progress/Results/Core Measures Results/Orders Lab Results Laboratory Tests Test 02/11/23 06:50 Range/Units White Blood Count 6.7 4.3-11.0 10^3/uL Red Blood Count 4.23 3.80-5.11 10^6/uL Hemoglobin 13.4 11.5-16.0 g/dL Hematocrit 41 35-52 % Mean Corpuscular Volume 97 80-99 fL Mean Corpuscular Hemoglobin 32 25-34 pg Mean Corpuscular Hemoglobin Concent 33 32-36 g/dL Red Cell Distribution Width 13.1 10.0-14.5 % Platelet Count 183 130-400 10^3/uL Mean Platelet Volume 10.9 9.0-12.2 fL Immature Granulocyte % (Auto) 0 % Neutrophils (%) (Auto) 46 42-75 % Lymphocytes (%) (Auto) 44 12-44 % Monocytes (%) (Auto) 8 0-12 % Eosinophils (%) (Auto) 2 0-10 % Basophils (%) (Auto) 1 0-10 % Neutrophils # (Auto) 3.1 1.8-7.8 10^3/uL Lymphocytes # (Auto) 2.9 1.0-4.0 10^3/uL Monocytes # (Auto) 0.5 0.0-1.0 10^3/uL Eosinophils # (Auto) 0.1 0.0-0.3 10^3/uL Basophils # (Auto) 0.0 0.0-0.1 10^3/uL Immature Granulocyte # (Auto) 0.0 0.0-0.1 10^3/uL Prothrombin Time 15.7 H 12.2-14.7 SEC INR Comment 1.2 0.8-1.4 Activated Partial Thromboplast Time 30 24-35 SEC Sodium Level 140 135-145 MMOL/L Potassium Level 3.1 L 3.6-5.0 MMOL/L Chloride Level 104 98-107 MMOL/L Carbon Dioxide Level 25 21-32 MMOL/L Anion Gap 11 5-14 MMOL/L Blood Urea Nitrogen 16 7-18 MG/DL Creatinine 0.76 0.60-1.30 MG/DL Estimat Glomerular Filtration Rate 84 BUN/Creatinine Ratio 21 Glucose Level 97 70-105 MG/DL Calcium Level 9.7 8.5-10.1 MG/DL Corrected Calcium 9.4 8.5-10.1 MG/DL Magnesium Level 2.1 1.6-2.4 MG/DL Total Bilirubin 0.7 0.1-1.0 MG/DL Aspartate Amino Transf (AST/SGOT) 18 5-34 U/L Alanine Aminotransferase (ALT/SGPT) 15 0-55 U/L Alkaline Phosphatase 60 40-136 U/L Myoglobin 30.6 10.0-92.0 NG/ML Troponin I < 0.028 <0.028 NG/ML Total Protein 8.1 6.4-8.2 GM/DL Albumin 4.4 3.2-4.5 GM/DL My Orders Orders - SHANNAN MOTT MD Cbc And Automated Diff (02/11/23 07:01) Magnesium (02/11/23 07:01) Chest 1 View, Ap/Pa Only (02/11/23 07:01) Comprehensive Metabolic Panel (02/11/23 07:01) Myoglobin Serum (02/11/23 07:01) Protime With Inr (02/11/23 07:01) Partial Thromboplastin Time (02/11/23 07:01) O2 (02/11/23 07:01) Monitor-Rhythm Ecg Trace Only (02/11/23 07:01) Lipid Panel (02/12/23 06:00) Ed Iv/Invasive Line Start (02/11/23 07:01) Troponin I [place] (02/11/23 07:01) Ekg Tracing (02/11/23 07:01) Diltiazem Er 24 Hr Capsule (Diltiazem Er (02/11/23 07:30) Potassium Chloride (Tablet) (Potassium C (02/11/23 08:15) Medications Given in ED Current Medications Medications Dose Ordered Sig/Shimon Route Start Time Stop Time Status Last Admin Dose Admin Diltiazem HCl 180 mg ONCE ONCE PO 02/11/23 07:30 02/11/23 07:31 DC 02/11/23 07:37 180 MG Potassium Chloride 20 meq ONCE ONCE PO 02/11/23 08:15 02/11/23 08:16 DC 02/11/23 08:27 20 MEQ Vital Signs/I&O 02/11/23 06:54 Temp 37.0 Pulse 114 Resp 20 B/P (MAP) 168/106 (126) Pulse Ox 100 O2 Delivery Room Air Blood Pressure Mean: 126 Progress Progress Note : Progress Note Seen and evaluated. We will initiate chest pain workup including CBC, CMP, troponin, myoglobin, EKG and chest x-ray as well as coags. Patient states she is not to take aspirin and she is on Eliquis and did take that this morning. She is not having active chest pain and is mostly worried about her A-fib being out of control. We will initiate Cardizem CD 180 mg p.o. now as I think she needs an adjustment up slightly of her Cardizem from 120. Monitor patient. Differential diagnosis includes uncontrolled atrial fibrillation, hypertension, anxiety, electrolyte abnormality 0803: Labs reviewed and CBC is grossly normal, CMP is grossly normal except potassium is slightly low at 3.1 and troponin is negative. Coags grossly noncon cerning. EKG as noted below. Chest x-ray is grossly normal on my interpretation. We will give potassium 20 mill equivalents p.o. Heart rate is currently 75 with blood pressure 161/104. Monitor patient. 0849: Overall much better with heart rate in the 70s. Blood pressure still slightly high but she is due her blood pressure medicine. We did talk about her Xanax and think that she does very well on this and I would not make any changes. She is due to see Dr. Yan and I will send a copy of the chart to him. We will increase her Cardizem to 180 mg daily. Discharged home with return precautions. Patient and family verbalized understanding instructions and agreement with plan. I will send a copy of the chart to Dr. Yan. Initial ECG Impression Date: Feb 11, 2023 Initial ECG Impression Time: 06:43 Initial ECG Rate: 113 Initial ECG Rhythm: A Fib/Flutter Initial ECG Impression: Atrial Fibrillation Comment Atrial fibrillation with normal axis. No evidence of ST elevation [place]. Inte rpreted by me. Diagnostic Imaging Diagonstic Imaging: Xray Plain Films/CT/US/NM/MRI: chest Comments [facility] [place], [place] NAME: CHASE RUBIO [facility] REC#: [id number] PT STATUS: REG ER : 1950 PHYSICIAN: SHANNAN MOTT MD ADMIT DATE: 02/11/23/ER Draft Date of Exam:02/11/23 CHEST 1 VIEW, AP/PA ONLY EXAM: CHEST 1 VIEW, AP/PA ONLY INDICATION: Chest pain. COMPARISON: 12/02/2021. FINDINGS: Normal heart size and central pulmonary vascularity. No focal pulmonary opacity. No pleural effusion or pneumothorax. No acute osseous findings. IMPRESSION: No acute cardiopulmonary findings. Dictated on workstation # [id number] Dict: 02/11/23 0741 Trans: 02/11/23 0755 [facility] [id number] Interpreted by: DANIEL GARLAND MD Electronically signed by: Departure Impression Primary Impression: Atrial fibrillation Qualified Codes: I48.11 - Longstanding persistent atrial fibrillation Additional Impression: Palpitations Disposition: HOME, SELF-CARE Condition: Improved Departure-Patient Inst. Decision time for Depature: 08:50 Referrals: EZRA YAN DO (PCP/Family) Primary Care Physician Patient Instructions: Atrial Fibrillation and Atrial Flutter ED, Palpitations Add. Discharge Instructions: All discharge instructions reviewed with patient and/or family. Voiced understanding. Stop the Cardizem (diltiazem) CD1 120 mg and start the Cardizem (diltiazem) CD 180 mg daily. You had your dose this morning. You will continue that daily thereafter. Discussed this with Dr. Yan and Dr. Lubin. Otherwise I would continue your other medications as previously prescribed. Return for worse pain, fever, vomiting, weakness, breathing problems or other concerns as needed. It is very important that you take your medicines at the same time daily and you should set up a regimen and ensure that you are taking those at those times. Scripts Diltiazem HCl (Diltiazem 24Hr ER) 180 Mg Cap.er.24h 180 MG PO DAILY for 30 Days, #30 CAP 3 Refills Prov: SHANNAN MOTT MD 02/11/23 Copy Copies To 1: EZRA YAN TIMOTHY D MD Feb 11, 2023 08:04
[2023-02-11] MEDS: POTASSIUM CHLORIDE 20 MEQ TABLET PO ONE (08:27)
[2023-02-11] MEDS ORDERED: DILT180C85 PO (08:52)
[2023-02-11 09:05] VITALS: BP 160/103
== END 2023-02-11 09:05 | disposition home or self-care (01) ==
LOC: EDUNIT# 06:34 → ER 06:36
DX: I48.91 Unspecified atrial fibrillation (principal); I10 Essential (primary) hypertension; Z79.01 Long term (current) use of anticoagulants; Z79.899 Other long term (current) drug therapy; Z88.8 Allergy status to other drugs, medicaments and biological substances; Z99.89 Dependence on other enabling machines and devices
CPT/HCPCS: 36415; 71045; 80053; 83735; 83874; 84484; 85025; 85610; 85730; 93005; 93041